=== PATIENT | female | born 1985 | race Caucasian/White ===

== ENCOUNTER 2017-08-09 14:49 | Inpatient (IN) | payer MEDICAID ==
--- NOTE | 2017-08-09 16:32 | ER Document Report ---
ED General - General Mode of Arrival: Ambulatory Information source: Patient TRAVEL OUTSIDE OF THE [place] IN LAST 30 DAYS: No <BRAYDEN RAMSEY - Last Filed: 08/09/17 23:39> <LOGAN TOTH - Last Filed: 08/09/17 23:48> - General Chief Complaint: Shoulder Pain Stated Complaint: SHOULDER PAIN Time Seen by Provider: 08/09/17 14:56 Notes: Patient is a 31 year old female presenting to the emergency department complaining of left shoulder pain, swelling and redness onset 2 weeks ago and worsening within the last few days. Patient states she dislocated her shoulder 2 weeks ago and was able to place it back in and dislocated her shoulder again a few days ago. Patient states she saw her primary care doctor a few days ago and was prescribed ibuprofen 800 mg and was told to go to the emergency department which she thought was not needed. Patient states since then, her arm became red and started to swell from her shoulder to her elbow. Patient states she has been alternating ice and heat and has placed her left arm in a sling. Patients associated symptoms include restriction of arm use due to pain, numbness and a fever of 103.4 onset yesterday. Patient admits to prior IV drug abuse and states she is currently taking Subutex. (BRAYDEN RAMSEY) - Related Data Allergies/Adverse Reactions: Sulfa (Sulfonamide Antibiotics) Allergy (Verified 08/09/17 14:51) Past Medical History - General Information source: Patient - Social History Smoking Status: Unknown if Ever Smoked Drug Abuse: Other - Previous IV drug abuse Family History: Reviewed & Not Pertinent <BRAYDEN RAMSEY - Last Filed: 08/09/17 23:39> Review of Systems - Review of Systems Constitutional: See HPI, Fever EENT: No symptoms reported Cardiovascular: No symptoms reported Respiratory: No symptoms reported Gastrointestinal: No symptoms reported Genitourinary: No symptoms reported Female Genitourinary: No symptoms reported Musculoskeletal: See HPI Skin: No symptoms reported Hematologic/Lymphatic: No symptoms reported Neurological/Psychological: See HPI, Numbness -: Yes All other systems reviewed and negative <BRAYDEN RAMSEY - Last Filed: 08/09/17 23:39> Physical Exam <BRAYDEN RAMSEY - Last Filed: 08/09/17 23:39> <LOGAN TOTH - Last Filed: 08/09/17 23:48> - Vital signs Vitals: Temp Pulse Resp BP Pulse Ox 99.2 F 77 16 100/53 L 98 08/09/17 14:56 08/09/17 14:56 08/09/17 14:56 08/09/17 14:56 08/09/17 14:56 - Notes Notes: GENERAL: Alert, interacts well. No acute distress. HEAD: Normocephalic, atraumatic. EYES: Pupils equal, round, and reactive to light. Extraocular movements intact. ENT: Oral mucosa moist, tongue midline. NECK: Full range of motion. Supple. Trachea midline. LUNGS: Clear to auscultation bilaterally, no wheezes, rales, or rhonchi. No respiratory distress. HEART: Regular rate and rhythm. No murmurs, gallops, or rubs. ABDOMEN: Soft, non-tender. Non-distended. Bowel sounds present in all 4 quadrants. EXTREMITIES: Swelling anterior and posteriorly of the left shoulder which is tender to palpation. Swelling distal to the left elbow. Left shoulder is erythematous anteriorly. Erythema anteriorly along the left bicep. Restrictive ROM of about 45 degrees of left arm . Mild restrictve ROM with internal rotation. Mild restrictive ROM of about 30 degress with external rotation of left arm. Restrictive ROM with abduction of left arm of about 30 degrees. Somewhat restrictive ROM with passive extension of left arm. Moves all 4 extremities spontaneously. Radial and dorsalis pedis pulses 2/4 bilaterally. No cyanosis. NEUROLOGICAL: Alert and oriented x3. Normal speech. PSYCH: Slightly tearful during exam. SKIN: Old track murphy. No active signs of recent IV drug abuse.See above extremities. (BRAYDEN RAMSEY) Course - Laboratory Result Diagrams: 08/09/17 16:40 08/09/17 16:40 <BRAYDEN RAMSEY - Last Filed: 08/09/17 23:39> - Laboratory Result Diagrams: 08/09/17 16:40 08/09/17 16:40 <LOGAN TOTH - Last Filed: 08/09/17 23:48> - Re-evaluation Re-evalutation: 08/09/17 20:24 CBC shows anemia with hemoglobin 8.1, no left shift, no leukocytosis, venous blood gas unremarkable, lactic acid normal, chemistries grossly unremarkable, test negative, I am quite concerned by the elevated ESR at 32 and CRP elevated at 200.2, test is negative, alcohol level is undetectable. Shoulder x-ray does not show any subcu emphysema nor does it show any fracture or persistent shoulder dislocation. I am quite concerned for the possibility of a septic joint. I did discuss this patient with Dr. Handley who recommends getting an MRI of the left upper extremities and recommends admitting to his service. Recommends against starting IV antibiotics at this time so that if he does a joint aspiration or if he goes to surgery and obtains fluid from the joint it will not already be sterilized. Patient is complaining of pain, states she would rather not have narcotics as she is on Subutex as she is to be a former IV drug user, patient is agreeable to receiving IV Tylenol. She does have a history of hepatitis but her liver functions normal at this time. IV Tylenol will be attempted. Patient is quite anxious about the MRI, she will be given 1 mg of Ativan IV approximately 15 minutes prior to the MRI. 08/09/17 20:26 08/09/17 23:03 MRI shows a large loculated abscess in the left upper extremity, this was communicated to me by the radiologist, Dr. Handley did look at the MRI himself, is concerned by her laboratory studies, asked hospitalist who is covering for Dr. Bhatti to admit, hospitalist feels this is primarily orthopedics and would be happy to consult. Ortho will now admit and consult hospitalist for preoperative clearance. Patient's pain is not relieved by IV acetaminophen, she will be given Toradol. I did discuss with the patient her anemia and she states that she has been previously told that she should be taking iron for her anemia, admits that she is not taking the iron like she is supposed to. States she has had multiple workups for intermittent fevers including a STEPHANIE for endocarditis and this is all been negative. Has been diagnosed in the past with fevers of unknown origin. Patient also states she has had a negative HIV test, has not shared needles since prior to her negative HIV test. (LOGAN TOTH ) - Vital Signs Vital signs: Temp Pulse Resp BP Pulse Ox 98.9 F 62 16 105/60 98 08/09/17 20:16 08/09/17 20:16 08/09/17 20:16 08/09/17 20:16 08/09/17 20:16 - Laboratory Laboratory results interpreted by me: 08/09/17 08/09/17 16:40 16:40 Hgb 8.1 L Hct 25.8 L MCV 62 L MCH 19.5 L MCHC 31.5 L RDW 18.3 H ESR 32 H Total Bilirubin < 0.1 L C-Reactive Protein 200.2 H Albumin 3.2 L Discharge <BRAYDEN RAMSEY - Last Filed: 08/09/17 23:39> - Discharge [facility] <LOGAN TOTH - Last Filed: 08/09/17 23:48> - Discharge Clinical Impression: Abscess of left upper extremity Septic arthritis of shoulder, left Qualifiers: Septic arthritis organism: due to unspecified organism Qualified Code(s): M00.9 - Pyogenic arthritis, unspecified Condition: Fair Disposition: ADMITTED INPATIENT Scribe Attestation: 08/09/17 23:48 I personally performed the services described in the documentation, reviewed and edited the documentation which was dictated to the scribe in my presence, and it accurately records my words and actions. (LOGAN TOTH) Scribe Documentation - Scribe Written by Rick:: Rick Rider, 08/09/2017 16:48 acting as scribe for :: Alysia <BRAYDEN RAMSEY - Last Filed: 08/09/17 23:39>
--- NOTE | 2017-08-09 16:44 | RADIOLOGY REPORT (SQ) ---
EXAM DESCRIPTION: SHOULDER LEFT 2 OR MORE VIEWS COMPLETED DATE/TIME: 08/09/2017 4:30 pm REASON FOR STUDY: L shoulder pain/swelling/fever, recent disloc x 2 COMPARISON: None. NUMBER OF VIEWS: Three views. TECHNIQUE: Internal rotation, external rotation, and Y view images acquired of the left shoulder. LIMITATIONS: None. FINDINGS: MINERALIZATION: Normal. BONES: No acute fracture or dislocation. No worrisome bone lesions. JOINTS: No dislocation. VISUALIZED LUNGS AND RIBS: No pneumothorax. No rib fracture. SOFT TISSUES: No radiopaque foreign body. OTHER: No other significant finding. IMPRESSION: NEGATIVE STUDY OF THE LEFT SHOULDER. NO RADIOGRAPHIC EVIDENCE OF ACUTE INJURY. TECHNICAL DOCUMENTATION: JOB ID: [id number] [employer]- All Rights Reserved Reading location - IP/workstation name: [email or web address]
[2017-08-09 17:08] LABS: VENOUS BLOOD BASE EXCESS -0.2 mmol/L; VENOUS BLOOD HCO3 25.2 mmol/L (20-32); VENOUS BLOOD PCO2 45.1 mmHg (35-63); VENOUS BLOOD PH 7.37 (7.30-7.42)
[2017-08-09 17:10] LABS: ABSOLUTE EOSINOPHILS # (AUTO) 0.3 10^3/uL (0.0-0.6); ABSOLUTE MONOCYTES (AUTO) 0.5 10^3/uL (0.1-1.4); ABSOLUTE NEUT (AUTO) 5.7 10^3/uL (1.7-8.2); BASOPHILS % (AUTO) 0.3 % (0-2); EOSINOPHILS % (AUTO) 4.6 % (0-6); HEMATOCRIT 25.8 % (36.0-47.0); HEMOGLOBIN 8.1 g/dL (12.0-15.5); LYMPHOCYTES % (AUTO) 13.5 % (13-45); MEAN CORPUSCULAR HEMOGLOBIN 19.5 pg (27.0-33.4); MEAN CORPUSCULAR HGB CONC 31.5 g/dL (32.0-36.0); MONOCYTES % (AUTO) 6.3 % (3-13); PLATELET COUNT 370 10^3/uL (150-450); RED BLOOD COUNT 4.17 10^6/uL (3.72-5.28); RED CELL DISTRIBUTION WIDTH 18.3 % (11.5-14.0); SEGMENTED NEUTROPHILS % (AUTO) 75.3 % (42-78); TOTAL CELLS COUNTED % (AUTO) 100 %; WHITE BLOOD COUNT 7.6 10^3/uL (4.0-10.5)
[2017-08-09 17:29] LABS: ALANINE AMINOTRANSFERASE 15 U/L (9-52); ALBUMIN 3.2 g/dL (3.5-5.0); ALKALINE PHOSPHATASE 95 U/L (38-126); ANION GAP 11 (5-19); ASPARTATE AMINO TRANSFERASE 14 U/L (14-36); BLOOD UREA NITROGEN 16 mg/dL (7-20); CALCIUM 8.7 mg/dL (8.4-10.2); CARBON DIOXIDE 27 mmol/L (22-30); CHLORIDE 104 mmol/L (98-107); GLUCOSE 88 mg/dL (75-110); POTASSIUM 3.6 mmol/L (3.6-5.0); SODIUM 142.4 mmol/L (137-145); TOTAL PROTEIN 6.9 g/dL (6.3-8.2)
[2017-08-09 17:40] LABS: ALCOHOL < 10 mg/dL (NONE DETECTED); BILIRUBIN,TOTAL < 0.1 mg/dL (0.2-1.3); C-REACTIVE PROTEIN 200.2 mg/L (<10.0)
[2017-08-09 17:42] LABS: TOXIC GRANULATION 1+
[2017-08-09 17:43] LABS: ANISOCYTOSIS 2+; OVALOCYTES 1+; PLATELET COMMENT ADEQUATE; PLATELET LARGE PRESENT; POIKILOCYTOSIS 1+; SCHISTOCYTES SLIGHT
[2017-08-09 17:44] LABS: MEAN CORPUSCULAR VOLUME 62 fl (80-97)
[2017-08-09 18:23] LABS: ERYTHROCYTE SEDIMENTATION RATE 32 mm/hr (0-20)
[2017-08-09] MEDS ORDERED: LORAZEPAM INJ 2 MG/1 ML VIAL IV ONE (20:23)
[2017-08-09] MEDS ORDERED: ACETAMINOPHEN 1,000 MG/100 ML RTUPB IV ONE (20:23)
--- NOTE | 2017-08-09 22:46 | RADIOLOGY REPORT (SQ) ---
EXAM DESCRIPTION: MRI LT UPPER JOINT COMBO COMPLETED DATE/TIME: 08/09/2017 10:03 pm REASON FOR STUDY: left shoulder swelling, pain, ?septic joint History of dislocation 2 weeks ago 0 and then again a few days ago. Also history of IV drug abuse. COMPARISON: Correlation made to radiographs 08/09/2017. TECHNIQUE: Multiplanar fat and fluid sensitive sequences precontrast including T1, T2 fat saturated or STIR of the left shoulder. Post contrast T1 fat saturated sequences after IV gadolinium administr ation. CONTRAST TYPE AND DOSE: 10 mL Prohance. RENAL FUNCTION: GFR > 60. LIMITATIONS: None. FINDINGS: The humeral head is normally located. Marrow signal is normal without fracture or suspici ous osseous lesion. The acromioclavicular joint space is maintained without significant degenerative change. There is trace fluid within the subacromial/subdeltoid bursa. The rotator cuff appears to be intact however there is some increased signal involving the subscapularis which may represent musc le strain or reactive edema. There is a small glenohumeral joint effusion with abnormal synovial enhancement. There is a multiloc ulated rim enhancing fluid collection anterior to the glenohumeral joint space at the level the bicip ital groove measuring 4.4 x 3.4 x 9.0 cm suspicious for abscess or infected hematoma. There is diffu se adjacent reactive soft tissue edema. IMPRESSION: 9 CM MULTILOCULATED RIM ENHANCING FLUID COLLECTION ANTERIOR TO THE GLENOHUMERAL JOINT SP ANA LAURA AT THE LEVEL THE BICIPITAL GROOVE PRESUMABLY REPRESENTING AN ABSCESS OR INFECTED HEMATOMA. THERE IS A SMALL GLENOHUMERAL JOINT EFFUSION WITH ABNORMAL SYNOVIAL ENHANCEMENT WHICH COULD BE REACTI VE EFFUSION OR SEPTIC ARTHRITIS. FLUID SAMPLING MAY BE NECESSARY. EDEMA NOTED WITHIN THE SUBSCAPULARIS MUSCLE WHICH COULD REPRESENT MUSCLE STRAIN OR REACTIVE EDEMA IN THE SETTING OF PATIENT'S RECENT INJURY. NO FRACTURE OR SUSPICIOUS OSSEOUS LESION. COMMENT: Pertinent findings on the imaging study reported to LOGAN TOTH DO at22:41 on 08/09/2017. TECHNICAL DOCUMENTATION: JOB ID: [id number] [employer]- All Rights Reserved Reading location - IP/workstation name: [email or web address]
[2017-08-09] MEDS ORDERED: KETOROLAC TROMETHAMINE INJ/PF 30 MG/1 ML SDV IV ONE (22:54)
[2017-08-09] MEDS ORDERED: DEXTROSE 50%-WATER 25 GM/50 ML DISP.SYRIN IV PRN ×2 (23:03)
[2017-08-09] MEDS ORDERED: GLUCAGON,HUMAN RECOMB 1 MG INJ SUBCUT PRN (23:03)
[2017-08-09] MEDS ORDERED: RINGERS SOLUTION,LACTATED 1,000 ML IV PRN (23:03)
[2017-08-09] MEDS ORDERED: DEXTROSE 40% GEL 15 GM TUBE PO PRN ×2 (23:03)
[2017-08-09] MEDS ORDERED: ONDANSETRON HCL INJ/PF 4 MG/2 ML SDV IV PRN (23:07)
[2017-08-09] MEDS ORDERED: MORPHINE SULFATE 10 MG/ML INJ IV PRN (23:07)
[2017-08-09 23:39] LABS: URINE AMPHETAMINES SCREEN NEGATIVE; URINE BARBITURATES SCREEN UNCONFIRMED POSITIVE; URINE BENZODIAZEPINES SCREEN NEGATIVE; URINE COCAINE SCREEN NEGATIVE; URINE MARIJUANA (THC) SCREEN NEGATIVE; URINE METHADONE SCREEN NEGATIVE; URINE PHENCYCLIDINE SCREEN NEGATIVE
[2017-08-09 23:45] LABS: ABSOLUTE EOSINOPHILS # (AUTO) 0.4 10^3/uL (0.0-0.6); ABSOLUTE LYMPHOCYTES (AUTO) 1.2 10^3/uL (0.5-4.7); ABSOLUTE MONOCYTES (AUTO) 0.6 10^3/uL (0.1-1.4); BASOPHILS % (AUTO) 0.5 % (0-2); EOSINOPHILS % (AUTO) 4.6 % (0-6); HEMATOCRIT 25.6 % (36.0-47.0); HEMOGLOBIN 8.1 g/dL (12.0-15.5); LYMPHOCYTES % (AUTO) 14.2 % (13-45); MEAN CORPUSCULAR HEMOGLOBIN 19.3 pg (27.0-33.4); MEAN CORPUSCULAR HGB CONC 31.6 g/dL (32.0-36.0); MEAN CORPUSCULAR VOLUME 61 fl (80-97); PLATELET COUNT 373 10^3/uL (150-450); RED BLOOD COUNT 4.19 10^6/uL (3.72-5.28); SEGMENTED NEUTROPHILS % (AUTO) 73.7 % (42-78); TOTAL CELLS COUNTED % (AUTO) 100 %; WHITE BLOOD COUNT 8.2 10^3/uL (4.0-10.5)
[2017-08-10 00:25] LABS: OVALOCYTES 1+; PLATELET COMMENT ADEQUATE; POIKILOCYTOSIS 1+; SCHISTOCYTES SLIGHT
[2017-08-10 00:26] LABS: ANISOCYTOSIS 2+; HYPOCHROMASIA 1+
[2017-08-10] MEDS ORDERED: KETOROLAC TROMETHAMINE INJ/PF 30 MG/1 ML SDV IV PRN (03:06)
[2017-08-10] MEDS ORDERED: MAGNESIUM HYDROXIDE SUSP 30 ML UDCUP PO PRN (04:15)
--- NOTE | 2017-08-10 04:27 | PDOC CONSULTATION ---
Consultation Consult Date: 08/10/17 Attending physician:: ERIK MUNSON Consult reason:: Anemia, hepatitis C, chronic pain. History of Present Illness Admission Date/PCP: 08/09/17 21:04 [facility] Patient complains of: Left shoulder pain History of Present Illness: CECY VALDERRAMA is a 31 year old female with history of iron deficiency anemia, hepatitis C and remote IV drug use. Presents after multiple falls over the last 2 weeks resulting in left shoulder dislocation which she is able to reduce however has developed left shoulder pain and swelling prompting evaluation emergency room. She is found to have a reduced range of motion, marketed swelling anteriorly and a fever of 100.3. MRI reveals a 9 cm loculated rim- enhancing fluid collection anterior to the glenohumeral joint suggestive of abscess. She started on empiric antibiotics and referred to orthopedic surgery. Past Medical History Psychiatric Medical History: Reports: Depression, Substance Abuse Hematology: Reports: Anemia Infectious Medical History: Reports: Hepatitis C Social History Information Source: Patient, [facility] Records Smoking Status: Current Every Day Smoker Frequency of Alcohol Use: None Hx Recreational Drug Use: Yes Drugs: None Hx Prescription Drug Abuse: Yes - Advance Directive Resuscitation Status: Full Code Family History Family History: Hypertension Parental Family History Reviewed: Yes Children Family History Reviewed: Yes Sibling(s) Family History Reviewed.: Yes Medication/Allergy Allergies/Adverse Reactions: Sulfa (Sulfonamide Antibiotics) Allergy (Verified 08/09/17 14:51) Review of Systems Constitutional: ABSENT: chills, fever(s), headache(s), weight gain, weight loss Eyes: ABSENT: visual disturbances Ears: ABSENT: hearing changes Cardiovascular: ABSENT: chest pain, dyspnea on exertion, edema, orthropnea, palpitations Respiratory: ABSENT: cough, hemoptysis Gastrointestinal: ABSENT: abdominal pain, constipation, diarrhea, hematemesis, hematochezia, nausea, vomiting Genitourinary: ABSENT: dysuria, hematuria Musculoskeletal: ABSENT: joint swelling Integumentary: ABSENT: rash, wounds Neurological: ABSENT: abnormal gait, abnormal speech, confusion, dizziness, focal weakness, syncope Psychiatric: ABSENT: anxiety, depression, homidical ideation, suicidal ideation Endocrine: ABSENT: cold intolerance, heat intolerance, polydipsia, polyuria Hematologic/Lymphatic: ABSENT: easy bleeding, easy bruising Physical Exam Vital Signs: Temp Pulse Resp BP Pulse Ox 98.9 F 61 19 109/60 97 08/10/17 00:15 08/10/17 00:15 08/10/17 00:15 08/10/17 00:15 08/10/17 00:15 Intake & Output 08/08/17 08/09/17 08/10/17 11:59 11:59 11:59 Weight 62.7 kg General appearance: PRESENT: cooperative, mild distress, thin Head exam: PRESENT: atraumatic, normocephalic Eye exam: PRESENT: conjunctiva pink, EOMI, PERRLA. ABSENT: scleral icterus Ear exam: PRESENT: normal external ear exam Mouth exam: PRESENT: moist, tongue midline Neck exam: ABSENT: carotid bruit, JVD, lymphadenopathy, thyromegaly Respiratory exam: PRESENT: clear to auscultation dmitri. ABSENT: rales, rhonchi, wheezes Cardiovascular exam: PRESENT: RRR. ABSENT: diastolic murmur, rubs, systolic murmur Pulses: PRESENT: normal dorsalis pedis pul Vascular exam: PRESENT: normal capillary refill GI/Abdominal exam: PRESENT: normal bowel sounds, soft. ABSENT: distended, guarding, mass, organolmegaly, rebound, tenderness Rectal exam: PRESENT: deferred Extremities exam: PRESENT: joint swelling - Left upper extremity range of motion limited by pain, +2 edema, other Musculoskeletal exam: ABSENT: full ROM Neurological exam: PRESENT: alert, awake, oriented to person, oriented to place , oriented to time, oriented to situation, CN II-XII grossly intact. ABSENT: motor sensory deficit Psychiatric exam: PRESENT: appropriate affect, normal mood. ABSENT: homicidal ideation, suicidal ideation Skin exam: PRESENT: dry, intact, warm. ABSENT: cyanosis, rash Results Laboratory Results: 08/09/17 23:22 08/09/17 23:22 WBC 8.2 RBC 4.19 Hgb 8.1 L Hct 25.6 L MCV 61 L MCH 19.3 L MCHC 31.6 L RDW 18.0 H Plt Count 373 Seg Neutrophils % 73.7 Lymphocytes % 14.2 Monocytes % 7.0 Eosinophils % 4.6 Basophils % 0.5 Absolute Neutrophils 6.0 Absolute Lymphocytes 1.2 Absolute Monocytes 0.6 Absolute Eosinophils 0.4 Absolute Basophils 0.0 Impressions: Shoulder X-Ray 08/09/17 16:03 IMPRESSION: NEGATIVE STUDY OF THE LEFT SHOULDER. NO RADIOGRAPHIC EVIDENCE OF ACUTE INJURY. Upper Extremity MRI 08/09/17 20:13 IMPRESSION: 9 CM MULTILOCULATED RIM ENHANCING FLUID COLLECTION ANTERIOR TO THE GLENOHUMERAL JOINT SPACE AT THE LEVEL THE BICIPITAL GROOVE PRESUMABLY REPRESENTING AN ABSCESS OR INFECTED HEMATOMA. THERE IS A SMALL GLENOHUMERAL JOINT EFFUSION WITH ABNORMAL SYNOVIAL ENHANCEMENT WHICH COULD BE REACTIVE EFFUSION OR SEPTIC ARTHRITIS. FLUID SAMPLING MAY BE NECESSARY. EDEMA NOTED WITHIN THE SUBSCAPULARIS MUSCLE WHICH COULD REPRESENT MUSCLE STRAIN OR REACTIVE EDEMA IN THE SETTING OF PATIENT'S RECENT INJURY. NO FRACTURE OR SUSPICIOUS OSSEOUS LESION. Assessment & Plan - Diagnosis (1) Anemia Is this a current diagnosis for this admission?: Yes Plan: Microcytic anemia suggestive of iron deficiency. Patient denies menorrhagia, iron supplementation p.o. with bowel regiment, consider blood transfusion. (2) Substance abuse Is this a current diagnosis for this admission?: Yes Plan: Avoid narcotics, Toradol and Tylenol ordered (3) Hepatitis C Is this a current diagnosis for this admission?: Yes Plan: Outpatient GI referral (4) Abscess of left upper extremity Is this a current diagnosis for this admission?: Yes Plan: Defer to orthopedic surgery - Time Time Spent: 30 to 50 Minutes
[2017-08-10 05:23] LABS: ABSOLUTE RETICS # 0.028 10^6/uL (0.028-0.122); RETICULOCYTE COUNT (AUTO) 0.76 % (0.66-2.85)
[2017-08-10 05:26] LABS: ANION GAP 9 (5-19); BLOOD UREA NITROGEN 14 mg/dL (7-20); CALCIUM 8.2 mg/dL (8.4-10.2); CARBON DIOXIDE 25 mmol/L (22-30); CHLORIDE 108 mmol/L (98-107); GLUCOSE 96 mg/dL (75-110); POTASSIUM 4.3 mmol/L (3.6-5.0); SODIUM 141.7 mmol/L (137-145)
[2017-08-10 05:37] LABS: IRON(TIBC) < 10.1 ug/dL (37-170)
[2017-08-10 06:32] LABS: FOLATE 9.55 ng/mL (>2.76)
[2017-08-10] MEDS ORDERED: MORPHINE SULFATE 10 MG/ML INJ ONE (07:53)
[2017-08-10] MEDS ORDERED: MIDAZOLAM 2 MG/2 ML INJ ONE (07:53)
[2017-08-10] MEDS ORDERED: PROPOFOL INJ 200 MG/20 ML VIAL IV ONE (07:53)
[2017-08-10] MEDS ORDERED: ACETAMINOPHEN 1,000 MG/100 ML RTUPB IV ONE (07:53)
[2017-08-10] MEDS ORDERED: FENTANYL CITRATE INJ/PF 100 MCG/2 ML AMPUL ONE ×2 (07:53→09:44)
--- NOTE | 2017-08-10 08:04 | PDOC H&P ---
History of Present Illness Admission Date/PCP: 08/09/17 21:04 [facility] Patient complains of: shoulder pain History of Present Illness: CECY VALDERRAMA is a 31 year old female presents to emergency room with left shoulder pain. Patient states proximal 2 weeks ago she sustained a fall dislocating her left shoulder she reduced the shoulder onto occasions. Patient continued to have pain and swelling when she noticed increasing pain swelling and redness in her left shoulder approximately 36 hours ago and had a temperature of 104. Patient states the pain is worse with motion. Notes fever and chills. Patient denies recent IV drug abuse. Does note history of hepatitis C and bacterial meningitis. Current pain 09/10. Denies international travel, insect bite or open wound. Past Medical History Psychiatric Medical History: Reports: Depression, Substance Abuse Hematology: Reports: Anemia Infectious Medical History: Reports: Hepatitis C Social History Smoking Status: Current Every Day Smoker Frequency of Alcohol Use: None Hx Recreational Drug Use: Yes Drugs: None Hx Prescription Drug Abuse: Yes - Advance Directive Resuscitation Status: Full Code Family History Family History: Hypertension Parental Family History Reviewed: No Children Family History Reviewed: No Sibling(s) Family History Reviewed.: No Medication/Allergy Home Medications: Buprenorphine HCl [Subutex 8 mg Sublingual Tablet] 1 tab SL DAILY 08/10/17 Buspirone HCl [Buspirone HCl] 30 mg PO BID 08/10/17 Gabapentin [Gabapentin] 300 mg PO TID 08/10/17 Allergies/Adverse Reactions: Sulfa (Sulfonamide Antibiotics) Allergy (Verified 08/09/17 14:51) Review of Systems Constitutional: PRESENT: chills, fever(s). ABSENT: headache(s), weight gain, weight loss Eyes: ABSENT: visual disturbances Ears: ABSENT: hearing changes Cardiovascular: ABSENT: chest pain, dyspnea on exertion, edema, orthropnea, palpitations Respiratory: ABSENT: cough, hemoptysis Gastrointestinal: ABSENT: abdominal pain, constipation, diarrhea, hematemesis, hematochezia, nausea, vomiting Genitourinary: ABSENT: dysuria, hematuria Musculoskeletal: PRESENT: as per HPI Integumentary: ABSENT: rash, wounds Neurological: ABSENT: abnormal gait, abnormal speech, confusion, dizziness, focal weakness, syncope Psychiatric: ABSENT: anxiety, depression, homidical ideation, suicidal ideation Endocrine: ABSENT: cold intolerance, heat intolerance, menstrual abnormalities, polydipsia, polyuria Hematologic/Lymphatic: ABSENT: easy bleeding, easy bruising, lymphadenopathy Physical Exam Vital Signs: Temp Pulse Resp BP Pulse Ox 99.1 F 68 16 92/52 L 97 08/10/17 07:13 08/10/17 07:13 08/10/17 07:13 08/10/17 07:13 08/10/17 07:13 Intake & Output 08/09/17 08/10/17 08/11/17 06:59 06:59 06:59 Intake Total 444 Balance 444 Weight 62.7 kg General appearance: PRESENT: no acute distress, well-developed, well-nourished Head exam: PRESENT: atraumatic, normocephalic Eye exam: PRESENT: conjunctiva pink, EOMI, PERRLA. ABSENT: scleral icterus Ear exam: PRESENT: normal external ear exam Mouth exam: PRESENT: moist, tongue midline Neck exam: PRESENT: full ROM. ABSENT: carotid bruit, JVD, lymphadenopathy, thyromegaly Cardiovascular exam: PRESENT: RRR. ABSENT: diastolic murmur, rubs, systolic murmur Pulses: PRESENT: normal dorsalis pedis pul, +2 pedal pulses bilateral Vascular exam: PRESENT: normal capillary refill GI/Abdominal exam: PRESENT: normal bowel sounds, soft. ABSENT: distended, guarding, mass, organolmegaly, rebound, tenderness Rectal exam: PRESENT: deferred Musculoskeletal exam: PRESENT: other - Left shoulder: Notable swelling anteriorly with erythema and fluctuance palpable. No fluctuance posterior. Pain with palpation and range of motion. Erythema extends along the anterior axilla to just proximal to the elbow flexion crease. No pain with elbow range of motion. No evidence of new IV track murphy or lesions. No sensory deficits. Neurological exam: PRESENT: alert, awake, oriented to person, oriented to place , oriented to time, oriented to situation, CN II-XII grossly intact. ABSENT: motor sensory deficit Psychiatric exam: PRESENT: appropriate affect, normal mood. ABSENT: homicidal ideation, suicidal ideation Skin exam: PRESENT: dry, intact, warm. ABSENT: cyanosis, rash Results Laboratory Results: 08/09/17 23:22 08/10/17 04:59 08/09/17 08/10/17 08/10/17 23:22 04:59 04:59 WBC 8.2 RBC 4.19 Hgb 8.1 L Hct 25.6 L MCV 61 L MCH 19.3 L MCHC 31.6 L RDW 18.0 H Plt Count 373 Seg Neutrophils % 73.7 Lymphocytes % 14.2 Monocytes % 7.0 Eosinophils % 4.6 Basophils % 0.5 Absolute Neutrophils 6.0 Absolute Lymphocytes 1.2 Absolute Monocytes 0.6 Absolute Eosinophils 0.4 Absolute Basophils 0.0 Retic Count (auto) 0.76 Absolute Retic 0.028 Sodium 141.7 Potassium 4.3 Chloride 108 H Carbon Dioxide 25 Anion Gap 9 BUN 14 Creatinine 0.73 Est GFR ( Amer) > 60 Est GFR (Non-Af Amer) > 60 Glucose 96 Calcium 8.2 L Iron TIBC % Saturation Ferritin Vitamin B12 Folate Blood Type Antibody Screen 08/10/17 08/10/17 04:59 04:59 WBC RBC Hgb Hct MCV MCH MCHC RDW Plt Count Seg Neutrophils % Lymphocytes % Monocytes % Eosinophils % Basophils % Absolute Neutrophils Absolute Lymphocytes Absolute Monocytes Absolute Eosinophils Absolute Basophils Retic Count (auto) Absolute Retic Sodium Potassium Chloride Carbon Dioxide Anion Gap BUN Creatinine Est GFR ( Amer) Est GFR (Non-Af Amer) Glucose Calcium Iron < 10.1 L TIBC 246 L % Saturation UNABLE TO CALCULATE Ferritin 24.90 Vitamin B12 466.0 Folate 9.55 Blood Type A POSITIVE Antibody Screen NEGATIVE Impressions: Shoulder X-Ray 08/09/17 16:03 IMPRESSION: NEGATIVE STUDY OF THE LEFT SHOULDER. NO RADIOGRAPHIC EVIDENCE OF ACUTE INJURY. Upper Extremity MRI 08/09/17 20:13 IMPRESSION: 9 CM MULTILOCULATED RIM ENHANCING FLUID COLLECTION ANTERIOR TO THE GLENOHUMERAL JOINT SPACE AT THE LEVEL THE BICIPITAL GROOVE PRESUMABLY REPRESENTING AN ABSCESS OR INFECTED HEMATOMA. THERE IS A SMALL GLENOHUMERAL JOINT EFFUSION WITH ABNORMAL SYNOVIAL ENHANCEMENT WHICH COULD BE REACTIVE EFFUSION OR SEPTIC ARTHRITIS. FLUID SAMPLING MAY BE NECESSARY. EDEMA NOTED WITHIN THE SUBSCAPULARIS MUSCLE WHICH COULD REPRESENT MUSCLE STRAIN OR REACTIVE EDEMA IN THE SETTING OF PATIENT'S RECENT INJURY. NO FRACTURE OR SUSPICIOUS OSSEOUS LESION. Status: Image reviewed by me - I have reviewed patient's radiographs and MRI which demonstrates a large loculated abscess along the anterior aspect of the glenohumeral joint with small glenohumeral effusion no evidence of osteomyelitis. Assessment & Plan - Diagnosis (1) Septic arthritis of shoulder, left Qualifiers: Septic arthritis organism: due to unspecified organism Qualified Code(s): M00.9 - Pyogenic arthritis, unspecified Is this a current diagnosis for this admission?: Yes Plan: Patient has findings of anterior humeral abscess with effusion likely consistent with septic arthritis which may be the initiation of patient's issues which possibly caused the anterior abscess after disruption of the capsule due to her dislocation either way patient requires operative intervention which includes irrigation and debridement of the left shoulder. Today we will obtain intraoperative cultures once cultures are obtained patient will receive IV antibiotics until cultures demonstrate sensitivities. Given the septic arthritis nature patient may require a series of IV antibiotics at home. I have discussed risks and benefits of the operative procedure including neurovascular risk, recurrent infection, postoperative pain and postoperative stiffness. Patient understands given the severity of her infection she may require multiple operative irrigation and debridements. She also understands the severity of infection which could cause seeding infections including her heart valves resulting in increased risk of mortality. After discussing these options we will proceed with operative intervention which patient has consented for and all questions answered.
[2017-08-10] MEDS ORDERED: VANCOMYCIN HCL INJ 1000 MG VIAL IV ONE (08:07)
[2017-08-10] MEDS ORDERED: VANCOMYCIN HCL 0 MG in DEXTROSE 5%-WATER 250 ML IV NR (08:30)
[2017-08-10] MEDS ORDERED: CEFTRIAXONE INJ 1000 MG VIAL ONE (08:30)
[2017-08-10] MEDS ORDERED: LORAZEPAM INJ 2 MG/1 ML VIAL IV ONE (09:00)
[2017-08-10] MEDS ORDERED: HYDROMORPHONE HCL INJ/PF 2 MG/ML AMPULE INJ ONE (09:05)
--- NOTE | 2017-08-10 09:18 | Operative Report ---
Operative Report DATE OF SURGERY: 08/10/17 PREOPERATIVE DIAGNOSIS: Septic arthritis/abscess left shoulder POSTOPERATIVE DIAGNOSIS: Same OPERATION: Irrigation and excisional debridement abscess left shoulder, glenohumeral joint SURGEON: ERIK MUNSON ANESTHESIA: GA TISSUE REMOVED OR ALTERED: Aerobic, anaerobic, AFB and fungal cultures obtained COMPLICATIONS: None ESTIMATED BLOOD LOSS: 50 cc PROCEDURE: Indication for above procedure: 31-year-old female who developed abscess and septic arthritis of her left shoulder possibly caused by initiating traumatic event. Patient was admitted to the hospital with significant elevated CRP and MRI confirming above diagnosis. I discussed treatment options with the patient including operative intervention. Risks and benefits were explained patient verbalized understanding consented for the procedure. Procedure In Detail: Patient was seen and evaluated in the preoperative holding area. The LEFT upper extremity was initialized and marked. Patient received IV vancomycin and cefepime once cultures were obtained. Patient was taken back to the operative room where transferred to the operative table and placed under general anesthesia. Once they were adequately anesthetized patient was placed in the beachchair position cervical spine placed in neutral position bilateral lower extremities carefully padded and nonoperative right upper extremity. A surgical team debriefing was performed ensuring all instrumentation was available, the surgical procedure was discussed with possible concerns reviewed. The upper extremity was prepped with ChloraPrep and draped in a sterile fashion. A timeout was done identifying correct patient, procedure and extremity everyone in attendance agree with this and verbalized no concerns. Proximal half of the deltopectoral approach was utilized and incision made. Upon approach copious amounts of purulence was encountered along the anterior aspect of the glenohumeral joint extending along the proximal third of the humerus. Cultures were obtained and soft tissue sent for culture including aerobic, anaerobic, AFB and fungal. Blunt dissection on the deltopectoral interval proximally was encountered in the cephalic vein retracted in a medial direction. The glenohumeral joint was then entered anteriorly at a small defect in the capsule and subscapularis likely secondary to patient's original dislocation. Within this area cultures were once again obtained. The wound was copiously irrigated with Pulsavac normal saline using 3 L. A large Pantera drain was placed deep and a second drain placed superficially. The subcutaneous tissues were closed with 3-0 Monocryl suture. Skin was closed with 3-0 nylon suture. Drains were secured with 2-0 nylon suture. Wound was dressed with an Acticoat dressing. Sponge counts, instrument counts, needle counts counts were correct. Patient was then awoken from anesthesia. Transferred from the operating room table to the operating room stretcher. There was no intraoperative complications patient tolerated procedure well stable to PACU. Postoperative plan: Patient will be started on IV vancomycin and rocephin until cultures are final and sensitivities determined, will continue drains until <5cc
[2017-08-10] MEDS ORDERED: PROMETHAZINE HCL INJ 25 MG/1 ML VIAL ONE (09:25)
[2017-08-10] MEDS ORDERED: HYDROMORPHONE HCL INJ/PF 2 MG/ML AMPULE ONE (09:25)
[2017-08-10] MEDS ORDERED: LORAZEPAM INJ 2 MG/1 ML VIAL ONE (09:29)
[2017-08-10] MEDS ORDERED: MORPHINE SULFATE 10 MG/ML INJ IV PRN (09:33)
[2017-08-10] MEDS ORDERED: FENTANYL CITRATE INJ/PF 100 MCG/2 ML AMPUL IV PRN ×3 (09:33)
[2017-08-10] MEDS ORDERED: MEPERIDINE HCL/PF INJ 25 MG/1 ML DISP.SYRIN IV PRN (09:33)
[2017-08-10] MEDS ORDERED: OXYCODONE-ACETAMINOPHEN 5-325 MG TABLET PO PRN ×2 (09:33)
[2017-08-10] MEDS ORDERED: DIPHENHYDRAMINE HCL 50 MG/ML VIAL IV PRN (09:33)
[2017-08-10] MEDS ORDERED: PROMETHAZINE HCL INJ 25 MG/1 ML VIAL IV PRN ×2 (09:33)
[2017-08-10] MEDS ORDERED: KETOROLAC TROMETHAMINE INJ/PF 30 MG/1 ML SDV ONE (09:43)
[2017-08-10] MEDS ORDERED: MEPERIDINE HCL/PF INJ 25 MG/1 ML DISP.SYRIN ONE (09:50)
[2017-08-10] MEDS ORDERED: CEFEPIME 1 GM/D5W RTU 1 GM/50 ML RTUPB IV SCH (10:00)
[2017-08-10] MEDS ORDERED: GABAPENTIN 300 MG CAPSULE PO SCH (10:00)
[2017-08-10] MEDS ORDERED: VANCOMYCIN HCL 750 MG in DEXTROSE 5%-WATER 250 ML IV SCH (10:00)
[2017-08-10] MEDS: CEFTRIAXONE 2 GM/D5W RTU 2 GM/50 ML RTUPB IV SCH (11:19)
--- NOTE | 2017-08-10 11:23 | PDOC PROGRESS REPORT ---
Subjective Progress Note for:: 08/10/17 Subjective:: Patient is seen resting in bed. She is just returned from left shoulder surgery with Dr. Handley. He is awake and alert at the present time. She is not having significant pain in the shoulder at the present time. Mother and sister at the bedside. Mother asked that she not be given any further narcotic pain medication because of her history of opioid abuse. We have increased her dose of IV Toradol with good effect. She denies any chest pain, shortness of breath or dyspnea. She denies any nausea, vomiting or abdominal pain at the present time. She is having moderate pain in the left shoulder improved after medication. Remaining review of systems are negative. Reason For Visit: PYOGENIC ARTHRITIS OF L SHOULDER REGION Physical Exam Vital Signs: Temp Pulse Resp BP Pulse Ox 98.2 F 66 17 123/75 100 08/10/17 10:31 08/10/17 10:31 08/10/17 10:31 08/10/17 10:31 08/10/17 09:10 Intake & Output 08/09/17 08/10/17 08/11/17 06:59 06:59 06:59 Intake Total 444 3000 Output Total 3000 Balance 444 0 Weight 62.7 kg General appearance: PRESENT: no acute distress, thin, well-developed Head exam: PRESENT: atraumatic, normocephalic Eye exam: PRESENT: conjunctiva pink, EOMI, PERRLA. ABSENT: scleral icterus Ear exam: PRESENT: normal external ear exam Mouth exam: PRESENT: moist, tongue midline Neck exam: ABSENT: carotid bruit, JVD, lymphadenopathy, thyromegaly Respiratory exam: PRESENT: clear to auscultation dmitri. ABSENT: rales, rhonchi, wheezes Cardiovascular exam: PRESENT: RRR. ABSENT: diastolic murmur, rubs, systolic murmur Pulses: PRESENT: normal carotid pulses Vascular exam: PRESENT: normal capillary refill GI/Abdominal exam: PRESENT: normal bowel sounds, soft. ABSENT: distended, guarding, mass, organolmegaly, rebound, tenderness Rectal exam: PRESENT: deferred Extremities exam: PRESENT: tenderness - Left shoulder, other - Left shoulder in a sling Musculoskeletal exam: PRESENT: ambulatory, deformity - Left shoulder, tenderness - Left shoulder Neurological exam: PRESENT: alert, awake, oriented to person, oriented to place , oriented to time, oriented to situation, CN II-XII grossly intact. ABSENT: motor sensory deficit Psychiatric exam: PRESENT: anxious Skin exam: PRESENT: dry, intact, warm. ABSENT: cyanosis, rash Results Laboratory Results: 08/09/17 23:22 08/10/17 04:59 08/09/17 08/10/17 08/10/17 23:22 04:59 04:59 WBC 8.2 RBC 4.19 Hgb 8.1 L Hct 25.6 L MCV 61 L MCH 19.3 L MCHC 31.6 L RDW 18.0 H Plt Count 373 Seg Neutrophils % 73.7 Lymphocytes % 14.2 Monocytes % 7.0 Eosinophils % 4.6 Basophils % 0.5 Absolute Neutrophils 6.0 Absolute Lymphocytes 1.2 Absolute Monocytes 0.6 Absolute Eosinophils 0.4 Absolute Basophils 0.0 Retic Count (auto) 0.76 Absolute Retic 0.028 Sodium 141.7 Potassium 4.3 Chloride 108 H Carbon Dioxide 25 Anion Gap 9 BUN 14 Creatinine 0.73 Est GFR ( Amer) > 60 Est GFR (Non-Af Amer) > 60 Glucose 96 Calcium 8.2 L Iron TIBC % Saturation Ferritin Vitamin B12 Folate Blood Type Antibody Screen 08/10/17 08/10/17 04:59 04:59 WBC RBC Hgb Hct MCV MCH MCHC RDW Plt Count Seg Neutrophils % Lymphocytes % Monocytes % Eosinophils % Basophils % Absolute Neutrophils Absolute Lymphocytes Absolute Monocytes Absolute Eosinophils Absolute Basophils Retic Count (auto) Absolute Retic Sodium Potassium Chloride Carbon Dioxide Anion Gap BUN Creatinine Est GFR ( Amer) Est GFR (Non-Af Amer) Glucose Calcium Iron < 10.1 L TIBC 246 L % Saturation UNABLE TO CALCULATE Ferritin 24.90 Vitamin B12 466.0 Folate 9.55 Blood Type A POSITIVE Antibody Screen NEGATIVE Impressions: Shoulder X-Ray 08/09/17 16:03 IMPRESSION: NEGATIVE STUDY OF THE LEFT SHOULDER. NO RADIOGRAPHIC EVIDENCE OF ACUTE INJURY. Upper Extremity MRI 08/09/17 20:13 IMPRESSION: 9 CM MULTILOCULATED RIM ENHANCING FLUID COLLECTION ANTERIOR TO THE GLENOHUMERAL JOINT SPACE AT THE LEVEL THE BICIPITAL GROOVE PRESUMABLY REPRESENTING AN ABSCESS OR INFECTED HEMATOMA. THERE IS A SMALL GLENOHUMERAL JOINT EFFUSION WITH ABNORMAL SYNOVIAL ENHANCEMENT WHICH COULD BE REACTIVE EFFUSION OR SEPTIC ARTHRITIS. FLUID SAMPLING MAY BE NECESSARY. EDEMA NOTED WITHIN THE SUBSCAPULARIS MUSCLE WHICH COULD REPRESENT MUSCLE STRAIN OR REACTIVE EDEMA IN THE SETTING OF PATIENT'S RECENT INJURY. NO FRACTURE OR SUSPICIOUS OSSEOUS LESION. Assessment & Plan - Diagnosis (1) Septic arthritis of shoulder, left Qualifiers: Septic arthritis organism: due to unspecified organism Qualified Code(s): M00.9 - Pyogenic arthritis, unspecified Is this a current diagnosis for this admission?: Yes Plan: Continue IV broad-spectrum antibiotics. We can de-escalate once culture results are obtained. (2) Abscess of left upper extremity Is this a current diagnosis for this admission?: Yes Plan: She was taken to the OR this morning by orthopedic surgery for washout. Pain is presently well controlled. (3) Anemia Qualifiers: Anemia type: iron deficiency Is this a current diagnosis for this admission?: Yes Plan: Likely stable. (4) Hepatitis C Qualifiers: Viral hepatitis chronicity: chronic Is this a current diagnosis for this admission?: Yes Plan: Follows with GI as an outpatient (5) Substance abuse Is this a current diagnosis for this admission?: Yes Plan: Continue Suboxone. Avoid any type of narcotic analgesics. - Time Time Spent with patient: 15-24 minutes Total Critical Time (Minutes): 15 Medications reviewed and adjusted accordingly: Yes Anticipated discharge: Home
[2017-08-10] MEDS ORDERED: SERTRALINE HCL 50 MG TABLET PO SCH (12:07)
[2017-08-10] MEDS: IRON POLYSACCHARIDES COMPLEX 150 MG CAPSULE PO SCH (12:19)
[2017-08-10] MEDS: DOCUSATE SODIUM 100 MG CAPSULE PO SCH ×2 (12:21→17:48)
[2017-08-10] MEDS: BUSPIRONE HCL 10 MG TABLET PO SCH ×2 (12:21→23:24)
[2017-08-10] MEDS: BUTALB/ACETAMINOPHEN/CAFFEINE 1 TAB EACH PO PRN ×2 (12:32→20:19)
[2017-08-10] MEDS: KETOROLAC TROMETHAMINE INJ/PF 30 MG/1 ML SDV IV PRN ×2 (13:02→19:29)
[2017-08-10] MEDS: GABAPENTIN 300 MG CAPSULE PO SCH ×2 (13:02→17:48)
[2017-08-10] MEDS: VANCOMYCIN HCL 750 MG in DEXTROSE 5%-WATER 250 ML IV SCH ×2 (13:04→23:24)
[2017-08-10] MEDS: BUPRENORPHINE HCL 2 MG SUBLINGUAL TABLET SL SCH ×2 (15:37→19:30)
[2017-08-10] MEDS ORDERED: SUCCINYLCHOLINE CHLORIDE INJ 200 MG/10 ML VIAL ONE (16:24)
[2017-08-10 16:45] LABS: ABSOLUTE EOSINOPHILS # (AUTO) 0.3 10^3/uL (0.0-0.6); ABSOLUTE MONOCYTES (AUTO) 0.4 10^3/uL (0.1-1.4); ABSOLUTE NEUT (AUTO) 3.7 10^3/uL (1.7-8.2); BASOPHILS % (AUTO) 0.5 % (0-2); EOSINOPHILS % (AUTO) 5.7 % (0-6); HEMATOCRIT 21.9 % (36.0-47.0); LYMPHOCYTES % (AUTO) 18.8 % (13-45); MEAN CORPUSCULAR HEMOGLOBIN 19.1 pg (27.0-33.4); MEAN CORPUSCULAR HGB CONC 31.2 g/dL (32.0-36.0); MEAN CORPUSCULAR VOLUME 61 fl (80-97); MONOCYTES % (AUTO) 6.8 % (3-13); PLATELET COUNT 315 10^3/uL (150-450); RED BLOOD COUNT 3.58 10^6/uL (3.72-5.28); SEGMENTED NEUTROPHILS % (AUTO) 68.2 % (42-78); TOTAL CELLS COUNTED % (AUTO) 100 %; WHITE BLOOD COUNT 5.5 10^3/uL (4.0-10.5)
[2017-08-10 17:04] LABS: ANISOCYTOSIS 2+; HYPOCHROMASIA 2+; OVALOCYTES 2+; PLATELET COMMENT ADEQUATE; POIKILOCYTOSIS 2+; TEAR DROP CELLS SLIGHT
[2017-08-10 17:08] LABS: HEMOGLOBIN 6.8 g/dL (12.0-15.5)
[2017-08-10] MEDS ORDERED: NORMAL SALINE 250 ML IV PRN ×2 (17:10)
[2017-08-10] MEDS ORDERED: KETOROLAC TROMETHAMINE INJ/PF 30 MG/1 ML SDV IV ONE (18:45)
[2017-08-10] MEDS: TIZANIDINE HCL 4 MG TABLET PO PRN (20:19)
[2017-08-10] MEDS ORDERED: VANCOMYCIN HCL 1,000 MG in DEXTROSE 5%-WATER 250 ML IV ONE (21:20)
[2017-08-10] MEDS ORDERED: LAMOTRIGINE 200 MG PO SCH (22:00)
[2017-08-11] MEDS: KETOROLAC TROMETHAMINE INJ/PF 30 MG/1 ML SDV IV PRN ×4 (02:45→23:43)
[2017-08-11] MEDS: BUPRENORPHINE HCL 2 MG SUBLINGUAL TABLET SL SCH ×3 (06:00→20:22)
[2017-08-11] MEDS: VANCOMYCIN HCL 750 MG in DEXTROSE 5%-WATER 250 ML IV SCH ×2 (06:00→14:46)
[2017-08-11] MEDS: TIZANIDINE HCL 4 MG TABLET PO PRN ×2 (06:00→21:22)
[2017-08-11 08:31] LABS: ABSOLUTE BASOPHILS # (AUTO) 0.1 10^3/uL (0.0-0.2); ABSOLUTE EOSINOPHILS # (AUTO) 0.3 10^3/uL (0.0-0.6); ABSOLUTE MONOCYTES (AUTO) 0.5 10^3/uL (0.1-1.4); ABSOLUTE NEUT (AUTO) 4.5 10^3/uL (1.7-8.2); BASOPHILS % (AUTO) 1.5 % (0-2); EOSINOPHILS % (AUTO) 5.2 % (0-6); LYMPHOCYTES % (AUTO) 15.1 % (13-45); MEAN CORPUSCULAR HGB CONC 31.5 g/dL (32.0-36.0); MONOCYTES % (AUTO) 7.7 % (3-13); PLATELET COUNT 381 10^3/uL (150-450); RED CELL DISTRIBUTION WIDTH 22.5 % (11.5-14.0); SEGMENTED NEUTROPHILS % (AUTO) 70.5 % (42-78); TOTAL CELLS COUNTED % (AUTO) 100 %; WHITE BLOOD COUNT 6.4 10^3/uL (4.0-10.5)
[2017-08-11 08:46] LABS: MEAN CORPUSCULAR VOLUME 67 fl (80-97)
[2017-08-11 08:47] LABS: HEMOGLOBIN 10.1 g/dL (12.0-15.5)
[2017-08-11] MEDS ORDERED: SERTRALINE HCL 50 MG TABLET PO SCH (10:00)
[2017-08-11] MEDS ORDERED: BUPRENORPHINE HCL 2 MG SUBLINGUAL TABLET SL SCH (10:00)
[2017-08-11 10:11] LABS: ANION GAP 7 (5-19); BLOOD UREA NITROGEN 15 mg/dL (7-20); CALCIUM 8.3 mg/dL (8.4-10.2); CARBON DIOXIDE 27 mmol/L (22-30); CHLORIDE 107 mmol/L (98-107); GLUCOSE 92 mg/dL (75-110); POTASSIUM 4.6 mmol/L (3.6-5.0); SODIUM 140.7 mmol/L (137-145)
[2017-08-11] MEDS: BUSPIRONE HCL 10 MG TABLET PO SCH ×2 (10:11→21:22)
[2017-08-11] MEDS: GABAPENTIN 300 MG CAPSULE PO SCH ×3 (10:11→17:35)
[2017-08-11] MEDS: BUTALB/ACETAMINOPHEN/CAFFEINE 1 TAB EACH PO PRN ×2 (10:12→21:22)
[2017-08-11] MEDS: IRON POLYSACCHARIDES COMPLEX 150 MG CAPSULE PO SCH (10:13)
[2017-08-11] MEDS: DOCUSATE SODIUM 100 MG CAPSULE PO SCH ×2 (10:13→17:34)
[2017-08-11] MEDS: CEFTRIAXONE 2 GM/D5W RTU 2 GM/50 ML RTUPB IV SCH (10:17)
--- NOTE | 2017-08-11 13:15 | PDOC PROGRESS REPORT ---
Subjective Progress Note for:: 08/11/17 Subjective:: Patient is seen resting in bed. Awake, alert, oriented 3. She is complaining of pain in the left shoulder. She denies any chills or fevers overnight. She denies any nausea, vomiting or abdominal pain. She denies any shortness of breath or dyspnea. Remaining review of systems are negative. Reason For Visit: PYOGENIC ARTHRITIS OF L SHOULDER REGION Physical Exam Vital Signs: Temp Pulse Resp BP Pulse Ox 98.5 F 48 L 16 104/59 L 97 08/11/17 11:48 08/11/17 11:48 08/11/17 11:48 08/11/17 11:48 08/11/17 11:48 Intake & Output 08/10/17 08/11/17 08/12/17 06:59 06:59 06:59 Intake Total 444 5696 Output Total 3000 Balance 444 2696 Weight 62.7 kg 72.2 kg General appearance: PRESENT: no acute distress, well-developed, well-nourished Head exam: PRESENT: atraumatic, normocephalic Eye exam: PRESENT: conjunctiva pink, EOMI, PERRLA. ABSENT: scleral icterus Ear exam: PRESENT: normal external ear exam Mouth exam: PRESENT: moist, tongue midline Neck exam: ABSENT: carotid bruit, JVD, lymphadenopathy, thyromegaly Respiratory exam: PRESENT: clear to auscultation dmitri. ABSENT: rales, rhonchi, wheezes Cardiovascular exam: PRESENT: RRR. ABSENT: diastolic murmur, rubs, systolic murmur Pulses: PRESENT: normal dorsalis pedis pul Vascular exam: PRESENT: normal capillary refill GI/Abdominal exam: PRESENT: normal bowel sounds, soft. ABSENT: distended, guarding, mass, organolmegaly, rebound, tenderness Rectal exam: PRESENT: deferred Extremities exam: PRESENT: full ROM. ABSENT: calf tenderness, clubbing, pedal edema Musculoskeletal exam: PRESENT: tenderness, other - left shoulder Neurological exam: PRESENT: alert, awake, oriented to person, oriented to place , oriented to time, oriented to situation, CN II-XII grossly intact. ABSENT: motor sensory deficit Psychiatric exam: PRESENT: appropriate affect, normal mood. ABSENT: homicidal ideation, suicidal ideation Skin exam: PRESENT: dry, intact, warm. ABSENT: cyanosis, rash Results Laboratory Results: 08/11/17 07:55 08/11/17 09:45 08/10/17 08/10/17 08/11/17 04:59 16:26 07:55 WBC 5.5 RBC 3.58 L Hgb 6.8 L Hct 21.9 L MCV 61 L MCH 19.1 L MCHC 31.2 L RDW 18.0 H Plt Count 315 Seg Neutrophils % 68.2 Lymphocytes % 18.8 Monocytes % 6.8 Eosinophils % 5.7 Basophils % 0.5 Absolute Neutrophils 3.7 Absolute Lymphocytes 1.0 Absolute Monocytes 0.4 Absolute Eosinophils 0.3 Absolute Basophils 0.0 Sodium Cancelled Potassium Cancelled Chloride Cancelled Carbon Dioxide Cancelled Anion Gap Cancelled BUN Cancelled Creatinine Cancelled Est GFR ( Amer) Cancelled Est GFR (Non-Af Amer) Cancelled Glucose Cancelled Calcium Cancelled Blood Type A POSITIVE Antibody Screen NEGATIVE 08/11/17 08/11/17 07:55 09:45 WBC 6.4 RBC 4.80 Hgb 10.1 L D Hct 32.0 L MCV 67 L D MCH 21.0 L MCHC 31.5 L RDW 22.5 H Plt Count 381 Seg Neutrophils % 70.5 Lymphocytes % 15.1 Monocytes % 7.7 Eosinophils % 5.2 Basophils % 1.5 Absolute Neutrophils 4.5 Absolute Lymphocytes 1.0 Absolute Monocytes 0.5 Absolute Eosinophils 0.3 Absolute Basophils 0.1 Sodium 140.7 Potassium 4.6 Chloride 107 Carbon Dioxide 27 Anion Gap 7 BUN 15 Creatinine 0.56 Est GFR ( Amer) > 60 Est GFR (Non-Af Amer) > 60 Glucose 92 Calcium 8.3 L Blood Type Antibody Screen Impressions: Shoulder X-Ray 08/09/17 16:03 IMPRESSION: NEGATIVE STUDY OF THE LEFT SHOULDER. NO RADIOGRAPHIC EVIDENCE OF ACUTE INJURY. Upper Extremity MRI 08/09/17 20:13 IMPRESSION: 9 CM MULTILOCULATED RIM ENHANCING FLUID COLLECTION ANTERIOR TO THE GLENOHUMERAL JOINT SPACE AT THE LEVEL THE BICIPITAL GROOVE PRESUMABLY REPRESENTING AN ABSCESS OR INFECTED HEMATOMA. THERE IS A SMALL GLENOHUMERAL JOINT EFFUSION WITH ABNORMAL SYNOVIAL ENHANCEMENT WHICH COULD BE REACTIVE EFFUSION OR SEPTIC ARTHRITIS. FLUID SAMPLING MAY BE NECESSARY. EDEMA NOTED WITHIN THE SUBSCAPULARIS MUSCLE WHICH COULD REPRESENT MUSCLE STRAIN OR REACTIVE EDEMA IN THE SETTING OF PATIENT'S RECENT INJURY. NO FRACTURE OR SUSPICIOUS OSSEOUS LESION. Assessment & Plan - Diagnosis (1) Gram positive bacterial infection Is this a current diagnosis for this admission?: Yes Plan: She has 2 out of 2 blood cultures positive for gram positive cocci. Will repeat blood cultures in the am and get echo (2) Septic arthritis of shoulder, left Qualifiers: Septic arthritis organism: due to unspecified organism Qualified Code(s): M00.9 - Pyogenic arthritis, unspecified Is this a current diagnosis for this admission?: Yes Plan: Continue IV broad-spectrum antibiotics. We can de-escalate once culture results are obtained. Blood cultures are both positive for gram positive cocci (3) Abscess of left upper extremity Is this a current diagnosis for this admission?: Yes Plan: She was taken to the OR this morning by orthopedic surgery for washout. Pain is presently well controlled. (4) Anemia Qualifiers: Anemia type: iron deficiency Is this a current diagnosis for this admission?: Yes Plan: Likely stable. (5) Substance abuse Is this a current diagnosis for this admission?: Yes Plan: Continue Suboxone. Avoid any type of narcotic analgesics. (6) Hepatitis C Qualifiers: Viral hepatitis chronicity: chronic Is this a current diagnosis for this admission?: Yes Plan: Follows with GI as an outpatient - Time Time Spent with patient: 25-34 minutes Total Critical Time (Minutes): 20 Medications reviewed and adjusted accordingly: Yes - Inpatient Certification Based on my medical assessment, after consideration of the patient's comorbidities, presenting symptoms, or acuity I expect that the services needed warrant INPATIENT care.: Yes I certify that my determination is in accordance with my understanding of Medicare's requirements for reasonable and necessary INPATIENT services [42 CFR 412.3e].: Yes Medical Necessity: Need for IV Antibiotics, Need for Surgery
--- NOTE | 2017-08-11 13:30 | PDOC PROGRESS REPORT ---
Subjective Progress Note for:: 08/11/17 Subjective:: Patient lying in bed continues to complain of pain of her left shoulder. Denies fever chills or sweats. Minimal drainage output from her NYA drains. Patient did have decreased H&H yesterday and thus received 2 units of packed red blood cells. Denies chest pain or shortness of breath. Denies fever chills or sweats. Reason For Visit: PYOGENIC ARTHRITIS OF L SHOULDER REGION Physical Exam Vital Signs: Temp Pulse Resp BP Pulse Ox 98.5 F 48 L 16 104/59 L 97 08/11/17 11:48 08/11/17 11:48 08/11/17 11:48 08/11/17 11:48 08/11/17 11:48 Intake & Output 08/10/17 08/11/17 08/12/17 06:59 06:59 06:59 Intake Total 444 5696 Output Total 3000 Balance 444 2696 Weight 62.7 kg 72.2 kg Musculoskeletal exam: PRESENT: other - Left upper extremity: Dressing intact. Spotting postoperative blood along the superficial border. Serosanguineous drainage within NYA drain B no drainage in NYA drain B. Full elbow and wrist range of motion. Previous distal erythema resolved. Results Laboratory Results: 08/11/17 07:55 08/11/17 09:45 08/10/17 08/10/17 08/11/17 04:59 16:26 07:55 WBC 5.5 RBC 3.58 L Hgb 6.8 L Hct 21.9 L MCV 61 L MCH 19.1 L MCHC 31.2 L RDW 18.0 H Plt Count 315 Seg Neutrophils % 68.2 Lymphocytes % 18.8 Monocytes % 6.8 Eosinophils % 5.7 Basophils % 0.5 Absolute Neutrophils 3.7 Absolute Lymphocytes 1.0 Absolute Monocytes 0.4 Absolute Eosinophils 0.3 Absolute Basophils 0.0 Sodium Cancelled Potassium Cancelled Chloride Cancelled Carbon Dioxide Cancelled Anion Gap Cancelled BUN Cancelled Creatinine Cancelled Est GFR ( Amer) Cancelled Est GFR (Non-Af Amer) Cancelled Glucose Cancelled Calcium Cancelled Blood Type A POSITIVE Antibody Screen NEGATIVE 08/11/17 08/11/17 07:55 09:45 WBC 6.4 RBC 4.80 Hgb 10.1 L D Hct 32.0 L MCV 67 L D MCH 21.0 L MCHC 31.5 L RDW 22.5 H Plt Count 381 Seg Neutrophils % 70.5 Lymphocytes % 15.1 Monocytes % 7.7 Eosinophils % 5.2 Basophils % 1.5 Absolute Neutrophils 4.5 Absolute Lymphocytes 1.0 Absolute Monocytes 0.5 Absolute Eosinophils 0.3 Absolute Basophils 0.1 Sodium 140.7 Potassium 4.6 Chloride 107 Carbon Dioxide 27 Anion Gap 7 BUN 15 Creatinine 0.56 Est GFR ( Amer) > 60 Est GFR (Non-Af Amer) > 60 Glucose 92 Calcium 8.3 L Blood Type Antibody Screen Impressions: Shoulder X-Ray 08/09/17 16:03 IMPRESSION: NEGATIVE STUDY OF THE LEFT SHOULDER. NO RADIOGRAPHIC EVIDENCE OF ACUTE INJURY. Upper Extremity MRI 08/09/17 20:13 IMPRESSION: 9 CM MULTILOCULATED RIM ENHANCING FLUID COLLECTION ANTERIOR TO THE GLENOHUMERAL JOINT SPACE AT THE LEVEL THE BICIPITAL GROOVE PRESUMABLY REPRESENTING AN ABSCESS OR INFECTED HEMATOMA. THERE IS A SMALL GLENOHUMERAL JOINT EFFUSION WITH ABNORMAL SYNOVIAL ENHANCEMENT WHICH COULD BE REACTIVE EFFUSION OR SEPTIC ARTHRITIS. FLUID SAMPLING MAY BE NECESSARY. EDEMA NOTED WITHIN THE SUBSCAPULARIS MUSCLE WHICH COULD REPRESENT MUSCLE STRAIN OR REACTIVE EDEMA IN THE SETTING OF PATIENT'S RECENT INJURY. NO FRACTURE OR SUSPICIOUS OSSEOUS LESION. Assessment & Plan - Diagnosis (1) Septic arthritis of shoulder, left Qualifiers: Septic arthritis organism: due to unspecified organism Qualified Code(s): M00.9 - Pyogenic arthritis, unspecified Is this a current diagnosis for this admission?: Yes Plan: Postop day #1 status post irrigation and debridement LEFT septic shoulder, abscess 1. Chronic anemia patient has received 2 units packed red blood cells with improvement. 2. History of IV drug abuse now with positive bacteremia. Discussed case with Lizette Ron who has agreed to transfer the patient to their service given the severity of her medical issues. I also discussed possible causation of patient's abscess which could include possible endocarditis resulting in bacteremia or primary shoulder infection resulting in bacteremia. In either scenario patient likely will require 4-6 weeks of IV antibiotics. Currently on vancomycin and ceftriaxone. 3. Continue NYA drains for 48 hours if no drainage greater than 10 cc will proceed with removal.
[2017-08-11 15:16] LABS: VANCOMYCIN,TROUGH 8.5 ug/mL (5.0-20.0)
[2017-08-11] MEDS: VANCOMYCIN HCL 1,000 MG in DEXTROSE 5%-WATER 250 ML IV SCH (21:00)
[2017-08-12] MEDS: VANCOMYCIN HCL 1,000 MG in DEXTROSE 5%-WATER 250 ML IV SCH ×4 (04:09→22:41)
[2017-08-12] MEDS: BUPRENORPHINE HCL 2 MG SUBLINGUAL TABLET SL SCH ×3 (05:55→18:01)
[2017-08-12] MEDS: KETOROLAC TROMETHAMINE INJ/PF 30 MG/1 ML SDV IV PRN ×2 (05:56→17:21)
[2017-08-12 08:31] LABS: ABSOLUTE BASOPHILS # (AUTO) 0.1 10^3/uL (0.0-0.2); ABSOLUTE EOSINOPHILS # (AUTO) 0.3 10^3/uL (0.0-0.6); ABSOLUTE LYMPHOCYTES (AUTO) 0.9 10^3/uL (0.5-4.7); ABSOLUTE MONOCYTES (AUTO) 0.4 10^3/uL (0.1-1.4); ABSOLUTE NEUT (AUTO) 3.9 10^3/uL (1.7-8.2); BASOPHILS % (AUTO) 1.2 % (0-2); EOSINOPHILS % (AUTO) 5.7 % (0-6); HEMOGLOBIN 8.7 g/dL (12.0-15.5); LYMPHOCYTES % (AUTO) 15.3 % (13-45); MEAN CORPUSCULAR HEMOGLOBIN 21.2 pg (27.0-33.4); MEAN CORPUSCULAR HGB CONC 32.2 g/dL (32.0-36.0); MEAN CORPUSCULAR VOLUME 66 fl (80-97); MONOCYTES % (AUTO) 6.7 % (3-13); PLATELET COUNT 344 10^3/uL (150-450); RED CELL DISTRIBUTION WIDTH 22.3 % (11.5-14.0); SEGMENTED NEUTROPHILS % (AUTO) 71.1 % (42-78); TOTAL CELLS COUNTED % (AUTO) 100 %; WHITE BLOOD COUNT 5.5 10^3/uL (4.0-10.5)
[2017-08-12 08:52] LABS: ANION GAP 5 (5-19); BLOOD UREA NITROGEN 10 mg/dL (7-20); CALCIUM 8.4 mg/dL (8.4-10.2); CARBON DIOXIDE 28 mmol/L (22-30); CHLORIDE 108 mmol/L (98-107); GLUCOSE 102 mg/dL (75-110); POTASSIUM 4.5 mmol/L (3.6-5.0); SODIUM 140.7 mmol/L (137-145)
--- NOTE | 2017-08-12 09:10 | PDOC PROGRESS REPORT ---
Subjective Progress Note for:: 08/12/17 Subjective:: Patient lying in bed continues to complain of pain of her left shoulder. Denies fever chills or sweats. Minimal drainage output from her NYA drains. Denies chest pain or shortness of breath. Denies fever chills or sweats. Reason For Visit: PYOGENIC ARTHRITIS OF L SHOULDER REGION Physical Exam Vital Signs: Temp Pulse Resp BP Pulse Ox 99 F 58 L 16 113/60 96 08/12/17 08:00 08/12/17 08:00 08/12/17 08:00 08/12/17 08:00 08/12/17 08:00 Intake & Output 08/11/17 08/12/17 08/13/17 06:59 06:59 06:59 Intake Total 7416 2552 Output Total 3000 25 Balance 4416 2527 Weight 72.2 kg 76.3 kg Musculoskeletal exam: PRESENT: other - Left shoulder: Drains remain intact. Less than 20 cc of serosanguineous drainage noted. No evidence of erythema or streaking erythema distally as noted preoperatively. Continues to have tenderness palpation. No pain with elbow range of motion. Results Laboratory Results: 08/12/17 08:06 08/12/17 08:06 08/11/17 08/11/17 08/12/17 09:45 14:15 08:06 WBC RBC Hgb Hct MCV MCH MCHC RDW Plt Count Seg Neutrophils % Lymphocytes % Monocytes % Eosinophils % Basophils % Absolute Neutrophils Absolute Lymphocytes Absolute Monocytes Absolute Eosinophils Absolute Basophils Sodium 140.7 140.7 Potassium 4.6 4.5 Chloride 107 108 H Carbon Dioxide 27 28 Anion Gap 7 5 BUN 15 10 Creatinine 0.56 0.48 L 0.50 L Est GFR ( Amer) > 60 > 60 > 60 Est GFR (Non-Af Amer) > 60 > 60 > 60 Glucose 92 102 Calcium 8.3 L 8.4 08/12/17 08:06 WBC 5.5 RBC 4.10 Hgb 8.7 L Hct 27.0 L MCV 66 L MCH 21.2 L MCHC 32.2 RDW 22.3 H Plt Count 344 Seg Neutrophils % 71.1 Lymphocytes % 15.3 Monocytes % 6.7 Eosinophils % 5.7 Basophils % 1.2 Absolute Neutrophils 3.9 Absolute Lymphocytes 0.9 Absolute Monocytes 0.4 Absolute Eosinophils 0.3 Absolute Basophils 0.1 Sodium Potassium Chloride Carbon Dioxide Anion Gap BUN Creatinine Est GFR ( Amer) Est GFR (Non-Af Amer) Glucose Calcium Impressions: Shoulder X-Ray 08/09/17 16:03 IMPRESSION: NEGATIVE STUDY OF THE LEFT SHOULDER. NO RADIOGRAPHIC EVIDENCE OF ACUTE INJURY. Upper Extremity MRI 08/09/17 20:13 IMPRESSION: 9 CM MULTILOCULATED RIM ENHANCING FLUID COLLECTION ANTERIOR TO THE GLENOHUMERAL JOINT SPACE AT THE LEVEL THE BICIPITAL GROOVE PRESUMABLY REPRESENTING AN ABSCESS OR INFECTED HEMATOMA. THERE IS A SMALL GLENOHUMERAL JOINT EFFUSION WITH ABNORMAL SYNOVIAL ENHANCEMENT WHICH COULD BE REACTIVE EFFUSION OR SEPTIC ARTHRITIS. FLUID SAMPLING MAY BE NECESSARY. EDEMA NOTED WITHIN THE SUBSCAPULARIS MUSCLE WHICH COULD REPRESENT MUSCLE STRAIN OR REACTIVE EDEMA IN THE SETTING OF PATIENT'S RECENT INJURY. NO FRACTURE OR SUSPICIOUS OSSEOUS LESION. Assessment & Plan - Diagnosis (1) Septic arthritis of shoulder, left Qualifiers: Septic arthritis organism: due to unspecified organism Qualified Code(s): M00.9 - Pyogenic arthritis, unspecified Is this a current diagnosis for this admission?: Yes Plan: Postop day #1 status post irrigation and debridement LEFT septic shoulder, abscess 1. Chronic anemia patient has received 2 units packed red blood cells continue to monitor. 2. History of IV drug abuse now with positive bacteremia. Patient will continue on vancomycin and Rocephin 3. Will remove drains today with dressing change. 4. Patient will require IV antibiotics likely for 4-6 weeks.
[2017-08-12] MEDS: GABAPENTIN 300 MG CAPSULE PO SCH ×3 (09:44→18:01)
[2017-08-12] MEDS: TIZANIDINE HCL 4 MG TABLET PO PRN ×2 (09:45→22:43)
[2017-08-12] MEDS: BUTALB/ACETAMINOPHEN/CAFFEINE 1 TAB EACH PO PRN (09:45)
[2017-08-12] MEDS: DOCUSATE SODIUM 100 MG CAPSULE PO SCH ×2 (09:45→18:01)
[2017-08-12] MEDS: BUSPIRONE HCL 10 MG TABLET PO SCH ×2 (09:45→22:43)
[2017-08-12] MEDS: IRON POLYSACCHARIDES COMPLEX 150 MG CAPSULE PO SCH (09:45)
[2017-08-12] MEDS ORDERED: BUPRENORPHINE HCL 2 MG SUBLINGUAL TABLET SL ONE (10:00)
--- NOTE | 2017-08-12 14:38 | XCELERA REPORT ---
[address] [address] Transthoracic Echocardiogram Report Name: CECY VALDERRAMA Age: 31 yrs Gender: Female : 1985 Patient Status: Inpatient Patient Location: [address] [place], [place] [address]A Study Date: 08/12/2017 09:48 AM Procedure: A two-dimensional transthoracic echocardiogram with color flow and Doppler was performed. The study was technically difficult with many images being suboptimal in quality. Reason For Study: Positive blood cultures, hx IV drug abuse .Endocarditis History: Positive blood cultures, hx IV drug abuse .Endocarditis. Ordering Physician: TINA RYAN Performed By: Eda Moreno Interpretation Summary The left ventricle is normal in size. There is normal left ventricular wall thickness. Left ventricular systolic function is normal. LV EF is > than 65% There is no thrombus. The right atrium is normal. The left atrium is mildly dilated. There is no evidence of mitral valve prolapse. There is no mitral valve stenosis. There is a trace amount of mitral regurgitation There is no aortic valve stenosis No aortic regurgitation is present. There is no tricuspid stenosis. There is a trace amount of tricuspid regurgitation Right ventricular systolic pressure is normal. RVSP is 27 mm of Hg , with RA mean of 5. There is no pericardial effusion. MMode/2D Measurements & Calculations RVDd: 0.95 cm LVIDd: 5.5 cmFS: 39.5 % Ao root diam: 3.0 cm IVSd: 5.5 cm LVIDs: 3.4 cmEDV(Teich): 150.1 ml Ao root area: 7.1 cm2 LVPWd: 1.1 cmESV(Teich): 45.8 ml EF(Teich): 69.5 % LVOT diam: 2.1 cm LVOT area: 3.3 cm2 Doppler Measurements & Calculations MV E max khurram: MV dec slope: Ao V2 max: LV V1 max P.1 cm/sec 156.6 cm/sec 5.6 mmHg MV A max khurram: 654.8 cm/sec2 Ao max PG: LV V1 max: 55.2 cm/sec MV dec time: 9.8 mmHg 118.5 cm/sec MV E/A: 2.3 0.20 sec EMILE(V,D): 2.5 cm2 PA V2 max: TR max khurram: 113.7 cm/sec 234.3 cm/sec PA max P.2 mmHgTR max P.0 mmHg Left Ventricle The left ventricle is normal in size. There is normal left ventricular wall thickness. Left ventricular systolic function is normal. LV EF is > than 65%. Doppler measurements suggest normal left ventricular diastolic function. The left ventricular wall motion is normal. There is no thrombus. Right Ventricle The right ventricle is normal in size and function. Atria The right atrium is normal. The left atrium is mildly dilated. The interatrial septum is intact with no evidence for an atrial septal defect. Mitral Valve There is no evidence of mitral valve prolapse. There is no vegetation seen on the mitral valve. There is no mitral valve stenosis. There is a trace amount of mitral regurgitation. Aortic Valve There is no aortic valvular vegetation. There is no aortic valve stenosis. There is no LVOT obstruction. No aortic regurgitation is present. Tricuspid Valve There is no tricuspid stenosis. There is a trace amount of tricuspid regurgitation. Right ventricular systolic pressure is normal. RVSP is 27 mm of Hg , with RA mean of 5. Pulmonic Valve There is no pulmonic valvular stenosis. There is no pulmonic valvular regurgitation. Great Vessels The aortic root is normal size. Effusions There is no pericardial effusion. : TINA RYAN > Almaz Escamilla
--- NOTE | 2017-08-12 15:05 | PDOC PROGRESS REPORT ---
Subjective Progress Note for:: 08/12/17 Subjective:: Patient is seen resting in bed. Awake, alert, oriented 3. She is complaining of pain in the left shoulder, but states it is improved from yesterday. She denies any chills or fevers overnight. Her mother is at the bedside. She denies any nausea, vomiting or abdominal pain. She denies any shortness of breath or dyspnea. Remaining review of systems are negative. Reason For Visit: PYOGENIC ARTHRITIS OF L SHOULDER REGION Physical Exam Vital Signs: Temp Pulse Resp BP Pulse Ox 99 F 58 L 16 113/60 96 08/12/17 08:00 08/12/17 08:00 08/12/17 08:00 08/12/17 08:00 08/12/17 08:00 Intake & Output 08/11/17 08/12/17 08/13/17 06:59 06:59 06:59 Intake Total 7416 2552 Output Total 3000 25 Balance 4416 2527 Weight 72.2 kg 76.3 kg General appearance: PRESENT: no acute distress, thin, well-developed, well- nourished Head exam: PRESENT: atraumatic, normocephalic Eye exam: PRESENT: conjunctiva pink, EOMI, PERRLA. ABSENT: scleral icterus Ear exam: PRESENT: normal external ear exam Mouth exam: PRESENT: moist, tongue midline Neck exam: ABSENT: carotid bruit, JVD, lymphadenopathy, thyromegaly Respiratory exam: PRESENT: clear to auscultation dmitri. ABSENT: rales, rhonchi, wheezes Cardiovascular exam: PRESENT: RRR. ABSENT: diastolic murmur, rubs, systolic murmur Pulses: PRESENT: normal dorsalis pedis pul Vascular exam: PRESENT: normal capillary refill GI/Abdominal exam: PRESENT: normal bowel sounds, soft. ABSENT: distended, guarding, mass, organolmegaly, rebound, tenderness Rectal exam: PRESENT: deferred Extremities exam: PRESENT: tenderness - left shoulder, +2 edema - left forearm Neurological exam: PRESENT: alert, awake, oriented to person, oriented to place , oriented to time, oriented to situation, CN II-XII grossly intact. ABSENT: motor sensory deficit Psychiatric exam: PRESENT: flat affect Skin exam: PRESENT: dry, intact, warm. ABSENT: cyanosis, rash Results Laboratory Results: 08/12/17 08:06 08/12/17 08:06 08/11/17 08/12/17 08/12/17 14:15 08:06 08:06 WBC 5.5 RBC 4.10 Hgb 8.7 L Hct 27.0 L MCV 66 L MCH 21.2 L MCHC 32.2 RDW 22.3 H Plt Count 344 Seg Neutrophils % 71.1 Lymphocytes % 15.3 Monocytes % 6.7 Eosinophils % 5.7 Basophils % 1.2 Absolute Neutrophils 3.9 Absolute Lymphocytes 0.9 Absolute Monocytes 0.4 Absolute Eosinophils 0.3 Absolute Basophils 0.1 Sodium 140.7 Potassium 4.5 Chloride 108 H Carbon Dioxide 28 Anion Gap 5 BUN 10 Creatinine 0.48 L 0.50 L Est GFR ( Amer) > 60 > 60 Est GFR (Non-Af Amer) > 60 > 60 Glucose 102 Calcium 8.4 08/10/17 08:44 Shoulder - Left Side Abscess Gram Stain - Final 08/10/17 08:44 Shoulder - Left Side Abscess Wound Culture - Final Mrsa (Meth Resis Staph Aureus) No Anaerobic Organisms 08/10/17 08:37 Shoulder - Left Side Abscess Gram Stain - Final 08/10/17 08:37 Shoulder - Left Side Abscess Wound Culture - Final Mrsa (Meth Resis Staph Aureus) No Anaerobic Organisms Impressions: Shoulder X-Ray 08/09/17 16:03 IMPRESSION: NEGATIVE STUDY OF THE LEFT SHOULDER. NO RADIOGRAPHIC EVIDENCE OF ACUTE INJURY. Upper Extremity MRI 08/09/17 20:13 IMPRESSION: 9 CM MULTILOCULATED RIM ENHANCING FLUID COLLECTION ANTERIOR TO THE GLENOHUMERAL JOINT SPACE AT THE LEVEL THE BICIPITAL GROOVE PRESUMABLY REPRESENTING AN ABSCESS OR INFECTED HEMATOMA. THERE IS A SMALL GLENOHUMERAL JOINT EFFUSION WITH ABNORMAL SYNOVIAL ENHANCEMENT WHICH COULD BE REACTIVE EFFUSION OR SEPTIC ARTHRITIS. FLUID SAMPLING MAY BE NECESSARY. EDEMA NOTED WITHIN THE SUBSCAPULARIS MUSCLE WHICH COULD REPRESENT MUSCLE STRAIN OR REACTIVE EDEMA IN THE SETTING OF PATIENT'S RECENT INJURY. NO FRACTURE OR SUSPICIOUS OSSEOUS LESION. Assessment & Plan - Diagnosis (1) Gram positive bacterial infection Is this a current diagnosis for this admission?: Yes Plan: She has 2 out of 2 blood cultures positive for MRSA. Repeat cultures pending. Echo showed no abnormalities (2) Septic arthritis of shoulder, left Qualifiers: Septic arthritis organism: due to unspecified organism Qualified Code(s): M00.9 - Pyogenic arthritis, unspecified Is this a current diagnosis for this admission?: Yes Plan: Continue vancomycin. Will d/c rocephin. Will need 2 weeks IV antibiotics and 2 weeks of oral. PICC line once cultures are clear. (3) Abscess of left upper extremity Is this a current diagnosis for this admission?: Yes Plan: She was taken to the OR Saturday by Dr Handley, orthopedic surgery for washout. Pain is presently well controlled. Cultures positive for MRSA (4) Anemia Qualifiers: Anemia type: iron deficiency Is this a current diagnosis for this admission?: Yes Plan: She has required 2 units of PRBCs. Continue to monitor. On iron supplement (5) Substance abuse Is this a current diagnosis for this admission?: Yes Plan: Continue Suboxone. She denies any IV drug use. UDT positive for barbituates Avoid any type of narcotic analgesics. (6) Hepatitis C Qualifiers: Viral hepatitis chronicity: chronic Is this a current diagnosis for this admission?: Yes Plan: Follows with GI as an outpatient - Time Time Spent with patient: 25-34 minutes Total Critical Time (Minutes): 15 Medications reviewed and adjusted accordingly: Yes Anticipated discharge: Home with Homehealth - Inpatient Certification Based on my medical assessment, after consideration of the patient's comorbidities, presenting symptoms, or acuity I expect that the services needed warrant INPATIENT care.: Yes I certify that my determination is in accordance with my understanding of Medicare's requirements for reasonable and necessary INPATIENT services [42 CFR 412.3e].: Yes Medical Necessity: Need for Pain Control, Need for IV Antibiotics, Need for Surgery
[2017-08-12] MEDS ORDERED: LIDOCAINE 0.5% INJ-PF (5 MG/ML) 50 ML SDV ONE (15:11)
[2017-08-12] MEDS ORDERED: ONDANSETRON HCL INJ/PF 4 MG/2 ML SDV IV PRN (15:30)
--- NOTE | 2017-08-12 17:38 | RADIOLOGY REPORT (SQ) ---
EXAM DESCRIPTION: CHEST SINGLE VIEW COMPLETED DATE/TIME: 08/12/2017 5:13 pm REASON FOR STUDY: central line placement COMPARISON: None. NUMBER OF VIEWS: One view. TECHNIQUE: Single frontal radiographic view of the chest acquired. LIMITATIONS: None. FINDINGS: Central venous access catheter placed via left IJ approach. Catheter tip at mid right at rium. No pneumothorax. Minimal linear subsegmental atelectasis in each lung base. IMPRESSION: Central venous access catheter placed via left IJ approach. Catheter tip at mid right atrium. NO PNEUMOTHORAX. NEW CENTRAL LINE. TECHNICAL DOCUMENTATION: JOB ID: [id number] [id number] 2010 [employer]- All Rights Reserved Reading location - IP/workstation name: Compute
--- NOTE | 2017-08-12 17:49 | Operative Report ---
Nonrecallable Operative Report DATE OF SURGERY: 08/12/17 PREOPERATIVE DIAGNOSIS: Septic right shoulder POSTOPERATIVE DIAGNOSIS: Same OPERATION: 1. Focused ultrasound of the left neck. 2. Ultrasound directed insertion of triple-lumen central venous access catheter left internal jugular vein. 3. Interpretation of portable chest x-ray upright SURGEON: YOANA SHEPHERD ANESTHESIA: Local TISSUE REMOVED OR ALTERED: None COMPLICATIONS: None ESTIMATED BLOOD LOSS: scant INTRAOPERATIVE FINDINGS: see below PROCEDURE: Informed consent was obtained. The patient was placed in Trendelenburg the left neck and chest wall were exposed, and prepped and draped in a sterile fashion. Surgical plan and surgical timeout discussed. The left neck was anesthetized with 1% lidocaine without epinephrine. Using the variable frequency linear transducer, real time, a 18-gauge needle and wire were threaded into the left internal jugular vein. The tract was dilated up, the dilator removed, and the triple-lumen central venous access catheter was threaded into the right internal jugular vein uneventfully to the hub. There was excellent aspiration and flush of saline through all 3 lumens. The catheter was affixed to the skin with a Biopatch and 2-0 silk suture; sterile dressing applied. The patient tolerated the procedure well. There were no complications. Portable upright chest x-ray demonstrated the catheter in good position with no evidence of pneumothorax.
[2017-08-13] MEDS: VANCOMYCIN HCL 1,000 MG in DEXTROSE 5%-WATER 250 ML IV SCH (03:17)
[2017-08-13] MEDS: KETOROLAC TROMETHAMINE INJ/PF 30 MG/1 ML SDV IV PRN ×3 (05:50→21:41)
[2017-08-13] MEDS: BUTALB/ACETAMINOPHEN/CAFFEINE 1 TAB EACH PO PRN ×2 (05:50→20:14)
[2017-08-13] MEDS: TIZANIDINE HCL 4 MG TABLET PO PRN ×2 (05:50→20:14)
[2017-08-13 08:21] LABS: PATH REVIEW PATHOLOGIST REVIEWED
[2017-08-13] MEDS ORDERED: BUPRENORPHINE HCL 2 MG SUBLINGUAL TABLET SL ONE (09:00)
[2017-08-13] MEDS: BUSPIRONE HCL 10 MG TABLET PO SCH ×2 (09:41→21:40)
[2017-08-13] MEDS: GABAPENTIN 300 MG CAPSULE PO SCH ×3 (10:07→17:15)
[2017-08-13] MEDS: IRON POLYSACCHARIDES COMPLEX 150 MG CAPSULE PO SCH (10:07)
[2017-08-13] MEDS: DOCUSATE SODIUM 100 MG CAPSULE PO SCH ×2 (10:08→17:16)
[2017-08-13] MEDS: VANCOMYCIN HCL 750 MG in DEXTROSE 5%-WATER 250 ML IV SCH ×3 (10:09→21:40)
[2017-08-13] MEDS: NORMAL SALINE INJ/PF 0.9% 10 ML SDV IV PRN ×2 (13:07→21:40)
[2017-08-13] MEDS: BUPRENORPHINE HCL 2 MG SUBLINGUAL TABLET SL SCH ×2 (15:32→20:14)
[2017-08-13 15:40] LABS: HEMATOCRIT 28.1 % (36.0-47.0); HEMOGLOBIN 9.1 g/dL (12.0-15.5); MEAN CORPUSCULAR HEMOGLOBIN 21.3 pg (27.0-33.4); MEAN CORPUSCULAR HGB CONC 32.4 g/dL (32.0-36.0); MEAN CORPUSCULAR VOLUME 66 fl (80-97); PLATELET COUNT 468 10^3/uL (150-450); RED BLOOD COUNT 4.28 10^6/uL (3.72-5.28); RED CELL DISTRIBUTION WIDTH 22.8 % (11.5-14.0); WHITE BLOOD COUNT 6.1 10^3/uL (4.0-10.5)
--- NOTE | 2017-08-13 18:58 | PDOC PROGRESS REPORT ---
Subjective Progress Note for:: 08/13/17 Subjective:: Patient lying in bed company. Pain notably improved. She has begun range of motion and states this the best her shoulder has felt in weeks. Denies fever or chills. Reason For Visit: PYOGENIC ARTHRITIS OF L SHOULDER REGION Physical Exam Vital Signs: Temp Pulse Resp BP Pulse Ox 98.4 F 43 L 15 120/55 L 100 08/13/17 16:00 08/13/17 16:00 08/13/17 16:00 08/13/17 16:00 08/13/17 16:00 Intake & Output 08/12/17 08/13/17 08/14/17 06:59 06:59 06:59 Intake Total 2552 1496 Output Total 25 Balance 2527 1496 Weight 76.3 kg 72.1 kg Musculoskeletal exam: PRESENT: other - Left shoulder: Dressing clean/dry/intact no erythema or drainage. Mild swelling. No evidence of proximal or distal erythema. No pain with range of motion however pain with extreme forward flexion and abduction. Full elbow range of motion. Results Laboratory Results: 08/13/17 15:15 08/12/17 08:06 08/13/17 15:15 WBC 6.1 RBC 4.28 Hgb 9.1 L Hct 28.1 L MCV 66 L MCH 21.3 L MCHC 32.4 RDW 22.8 H Plt Count 468 H 08/10/17 08:37 Arm - Left Side Abscess Fungal Smear - Final 08/10/17 08:37 Arm - Left Side Abscess Fungal Smear - Final Impressions: Shoulder X-Ray 08/09/17 16:03 IMPRESSION: NEGATIVE STUDY OF THE LEFT SHOULDER. NO RADIOGRAPHIC EVIDENCE OF ACUTE INJURY. Upper Extremity MRI 08/09/17 20:13 IMPRESSION: 9 CM MULTILOCULATED RIM ENHANCING FLUID COLLECTION ANTERIOR TO THE GLENOHUMERAL JOINT SPACE AT THE LEVEL THE BICIPITAL GROOVE PRESUMABLY REPRESENTING AN ABSCESS OR INFECTED HEMATOMA. THERE IS A SMALL GLENOHUMERAL JOINT EFFUSION WITH ABNORMAL SYNOVIAL ENHANCEMENT WHICH COULD BE REACTIVE EFFUSION OR SEPTIC ARTHRITIS. FLUID SAMPLING MAY BE NECESSARY. EDEMA NOTED WITHIN THE SUBSCAPULARIS MUSCLE WHICH COULD REPRESENT MUSCLE STRAIN OR REACTIVE EDEMA IN THE SETTING OF PATIENT'S RECENT INJURY. NO FRACTURE OR SUSPICIOUS OSSEOUS LESION. Chest X-Ray 08/12/17 00:00 IMPRESSION: Central venous access catheter placed via left IJ approach. Catheter tip at mid right atrium. NO PNEUMOTHORAX. NEW CENTRAL LINE. Assessment & Plan - Diagnosis (1) Septic arthritis of shoulder, left Qualifiers: Septic arthritis organism: due to unspecified organism Qualified Code(s): M00.9 - Pyogenic arthritis, unspecified Is this a current diagnosis for this admission?: Yes Plan: Postop day #1 status post irrigation and debridement LEFT septic shoulder, abscess 1. Chronic anemia patient has received 2 units packed red blood cells continue to monitor. 2. History of IV drug abuse now with positive MRSA bacteremia. 3. Patient will require IV antibiotics likely for 4-6 weeks. 4. Patient will follow-up the office for recheck of her left shoulder in 2 weeks.
--- NOTE | 2017-08-13 21:07 | PDOC PROGRESS REPORT ---
Subjective Progress Note for:: 08/13/17 Reason For Visit: PYOGENIC ARTHRITIS OF L SHOULDER REGION Physical Exam Vital Signs: Temp Pulse Resp BP Pulse Ox 98.4 F 43 L 15 120/55 L 100 08/13/17 16:00 08/13/17 16:00 08/13/17 16:00 08/13/17 16:00 08/13/17 16:00 Intake & Output 08/12/17 08/13/17 08/14/17 06:59 06:59 06:59 Intake Total 2552 1496 1098 Output Total 25 Balance 2527 1496 1098 Weight 76.3 kg 72.1 kg General appearance: PRESENT: no acute distress Eye exam: PRESENT: conjunctiva pink, PERRLA Mouth exam: PRESENT: moist Neck exam: PRESENT: full ROM Respiratory exam: PRESENT: chest wall tenderness, symmetrical, unlabored Cardiovascular exam: PRESENT: +S1, +S2 Pulses: PRESENT: normal radial pulses, normal dorsalis pedis pul Vascular exam: PRESENT: normal capillary refill GI/Abdominal exam: PRESENT: normal bowel sounds, soft. ABSENT: tenderness Rectal exam: PRESENT: deferred Extremities exam: ABSENT: full ROM - PARTIAL ROM TO L SHOULDER Musculoskeletal exam: PRESENT: ambulatory. ABSENT: full ROM - PARTIAL ROM TO L SHOULDER Neurological exam: PRESENT: alert, awake, oriented to person, oriented to place , oriented to time, oriented to situation Psychiatric exam: PRESENT: appropriate affect Skin exam: PRESENT: dry, intact, warm, other - SURGICAL INCISION SITE IS CLEAN, DRY, AND INTACT Results Laboratory Results: 08/13/17 15:15 08/12/17 08:06 08/13/17 15:15 WBC 6.1 RBC 4.28 Hgb 9.1 L Hct 28.1 L MCV 66 L MCH 21.3 L MCHC 32.4 RDW 22.8 H Plt Count 468 H 08/10/17 08:37 Arm - Left Side Abscess Fungal Smear - Final 08/10/17 08:37 Arm - Left Side Abscess Fungal Smear - Final Impressions: Shoulder X-Ray 08/09/17 16:03 IMPRESSION: NEGATIVE STUDY OF THE LEFT SHOULDER. NO RADIOGRAPHIC EVIDENCE OF ACUTE INJURY. Upper Extremity MRI 08/09/17 20:13 IMPRESSION: 9 CM MULTILOCULATED RIM ENHANCING FLUID COLLECTION ANTERIOR TO THE GLENOHUMERAL JOINT SPACE AT THE LEVEL THE BICIPITAL GROOVE PRESUMABLY REPRESENTING AN ABSCESS OR INFECTED HEMATOMA. THERE IS A SMALL GLENOHUMERAL JOINT EFFUSION WITH ABNORMAL SYNOVIAL ENHANCEMENT WHICH COULD BE REACTIVE EFFUSION OR SEPTIC ARTHRITIS. FLUID SAMPLING MAY BE NECESSARY. EDEMA NOTED WITHIN THE SUBSCAPULARIS MUSCLE WHICH COULD REPRESENT MUSCLE STRAIN OR REACTIVE EDEMA IN THE SETTING OF PATIENT'S RECENT INJURY. NO FRACTURE OR SUSPICIOUS OSSEOUS LESION. Chest X-Ray 08/12/17 00:00 IMPRESSION: Central venous access catheter placed via left IJ approach. Catheter tip at mid right atrium. NO PNEUMOTHORAX. NEW CENTRAL LINE. Status: Imported from PACS Assessment & Plan - Diagnosis (1) Gram positive bacterial infection Is this a current diagnosis for this admission?: Yes Plan: History of IV drug abuse. Multiple blood cultures positive for MRSA. Currently on vancomycin IV Patient will require antibiotic therapy for 4 weeks post discharge ECHOcardiogram benign, shows no evidence of endocarditis or other pathology. (2) Septic arthritis of shoulder, left Qualifiers: Septic arthritis organism: due to unspecified organism Qualified Code(s): M00.9 - Pyogenic arthritis, unspecified Is this a current diagnosis for this admission?: Yes Plan: Improving, patient denies pain and increased ROM to L shoulder Continue IV Vancomycin Plan for PICC IV once blood cultures have cleared (3) Abscess of left upper extremity Is this a current diagnosis for this admission?: Yes Plan: Glenohumeral joint space abscess Joint washout by Ortho Surgery on 08/11 Improved ROM and pain free today Wound cultures positive for MRSA Continue IV Vancomycin (4) Anemia Qualifiers: Anemia type: iron deficiency Iron deficiency anemia type: unspecified iron deficiency Qualified Code(s): D50.9 - Iron deficiency anemia, unspecified Is this a current diagnosis for this admission?: Yes Plan: Improved. Previous Hgb 6.8 requiring 2U PRBCs Hgb >8.0 today No evidence of bleeding Continue to monitor (5) Substance abuse Is this a current diagnosis for this admission?: Yes Plan: Patient admits to suboxone use, denies IV drug use Urine TOX screen positive for barbituates Avoid narcotic pain medication (6) Hepatitis C Qualifiers: Viral hepatitis chronicity: chronic Is this a current diagnosis for this admission?: Yes Plan: Managed outpatient with replacer. Patient denies abdominal pain, nausea or vomiting. Benign abdominal exam. - Time Time Spent with patient: 15-24 minutes Medications reviewed and adjusted accordingly: Yes Anticipated discharge: Home with Homehealth Within: within 36 hours - Inpatient Certification Based on my medical assessment, after consideration of the patient's comorbidities, presenting symptoms, or acuity I expect that the services needed warrant INPATIENT care.: Yes I certify that my determination is in accordance with my understanding of Medicare's requirements for reasonable and necessary INPATIENT services [42 CFR 412.3e].: Yes Medical Necessity: Need for IV Antibiotics - Plan Summary Plan Summary: PLAN FOR PICC LINE PLACEMENT ONCE BLOOD CULTURES CLEARED PATIENT WILL NEED IV ABX FOR 2 WEEKS FOLLOWED BY ORAL ABX FOR 2 WEEKS
[2017-08-14] MEDS: VANCOMYCIN HCL 750 MG in DEXTROSE 5%-WATER 250 ML IV SCH ×4 (03:26→23:08)
[2017-08-14 06:08] LABS: HEMATOCRIT 25.8 % (36.0-47.0); HEMOGLOBIN 8.4 g/dL (12.0-15.5); MEAN CORPUSCULAR HEMOGLOBIN 21.4 pg (27.0-33.4); MEAN CORPUSCULAR HGB CONC 32.5 g/dL (32.0-36.0); MEAN CORPUSCULAR VOLUME 66 fl (80-97); PLATELET COUNT 400 10^3/uL (150-450); RED BLOOD COUNT 3.91 10^6/uL (3.72-5.28); RED CELL DISTRIBUTION WIDTH 22.7 % (11.5-14.0); WHITE BLOOD COUNT 5.2 10^3/uL (4.0-10.5)
[2017-08-14] MEDS: KETOROLAC TROMETHAMINE INJ/PF 30 MG/1 ML SDV IV PRN ×2 (06:37→19:00)
[2017-08-14] MEDS: BUPRENORPHINE HCL 2 MG SUBLINGUAL TABLET SL SCH ×3 (06:37→20:35)
[2017-08-14 06:45] LABS: ANION GAP 6 (5-19); BLOOD UREA NITROGEN 12 mg/dL (7-20); CALCIUM 8.5 mg/dL (8.4-10.2); CARBON DIOXIDE 29 mmol/L (22-30); CHLORIDE 107 mmol/L (98-107); GLUCOSE 91 mg/dL (75-110); PHOSPHORUS 4.9 mg/dL (2.5-4.5); POTASSIUM 4.5 mmol/L (3.6-5.0); SODIUM 141.9 mmol/L (137-145)
[2017-08-14] MEDS: GABAPENTIN 300 MG CAPSULE PO SCH ×3 (09:23→17:49)
[2017-08-14] MEDS: IRON POLYSACCHARIDES COMPLEX 150 MG CAPSULE PO SCH (09:23)
[2017-08-14] MEDS: DOCUSATE SODIUM 100 MG CAPSULE PO SCH ×2 (09:24→17:49)
[2017-08-14] MEDS: BUSPIRONE HCL 10 MG TABLET PO SCH ×2 (09:24→21:03)
[2017-08-14 09:32] LABS: VANCOMYCIN,TROUGH 16.9 ug/mL (5.0-20.0)
[2017-08-14] MEDS: BUTALB/ACETAMINOPHEN/CAFFEINE 1 TAB EACH PO PRN ×2 (12:33→20:36)
[2017-08-14] MEDS: TIZANIDINE HCL 4 MG TABLET PO PRN ×2 (12:33→20:35)
[2017-08-14] MEDS: NORMAL SALINE INJ/PF 0.9% 10 ML SDV IV PRN ×2 (14:28→15:33)
--- NOTE | 2017-08-14 18:38 | PDOC PROGRESS REPORT ---
Subjective Progress Note for:: 08/14/17 Subjective:: CECY VALDERRAMA is a 31 y.o. female with a PMH of IVDU, MRSA bacteremia, Hepatitis C. She presented to the ED on 08/09/2017 for L shoulder pain. After CT and MRI of her L shoulder, it was discovered that she had an abscess at the glenohumeral joint space abscess. The patient was seen this morning on rounds, she is resting comfortably in bed on room air. She denies chest pain, shortness of breath, palpitations, fever or chills. The patient is nontoxic appearing. 2 sets of blood cultures were negative from 08/12. After consulting infectious disease, Dr. Hunter, the agreement was made that the patient may be discharged home with 4 weeks of IV daptomycin. Plan for PICC line placement tomorrow and discharge home. Reason For Visit: PYOGENIC ARTHRITIS OF L SHOULDER REGION Physical Exam Vital Signs: Temp Pulse Resp BP Pulse Ox 98.4 F 46 L 18 109/48 L 100 08/14/17 15:23 08/14/17 15:23 08/14/17 15:23 08/14/17 15:23 08/14/17 15:23 Intake & Output 08/13/17 08/14/17 08/15/17 06:59 06:59 06:59 Intake Total 1496 2473 710 Balance 1496 2473 710 Weight 72.1 kg 73.3 kg General appearance: PRESENT: no acute distress, well-developed, well-nourished Head exam: PRESENT: atraumatic, normocephalic Eye exam: PRESENT: conjunctiva pink, EOMI, PERRLA. ABSENT: scleral icterus Ear exam: PRESENT: normal external ear exam Mouth exam: PRESENT: moist, tongue midline Neck exam: ABSENT: carotid bruit, JVD, lymphadenopathy, thyromegaly Respiratory exam: PRESENT: clear to auscultation dmitri. ABSENT: rales, rhonchi, wheezes Cardiovascular exam: PRESENT: RRR. ABSENT: diastolic murmur, rubs, systolic murmur Pulses: PRESENT: normal dorsalis pedis pul Vascular exam: PRESENT: normal capillary refill GI/Abdominal exam: PRESENT: normal bowel sounds, soft. ABSENT: distended, guarding, mass, organolmegaly, rebound, tenderness Rectal exam: PRESENT: deferred Extremities exam: PRESENT: full ROM. ABSENT: calf tenderness, clubbing, pedal edema Neurological exam: PRESENT: alert, awake, oriented to person, oriented to place , oriented to time, oriented to situation Psychiatric exam: PRESENT: appropriate affect, normal mood Skin exam: PRESENT: dry, intact, warm. ABSENT: cyanosis, rash Results Laboratory Results: 08/14/17 05:30 08/14/17 08:40 08/14/17 08/14/17 08/14/17 05:30 05:30 08:40 WBC 5.2 RBC 3.91 Hgb 8.4 L Hct 25.8 L MCV 66 L MCH 21.4 L MCHC 32.5 RDW 22.7 H Plt Count 400 Sodium 141.9 Potassium 4.5 Chloride 107 Carbon Dioxide 29 Anion Gap 6 BUN 12 Creatinine 0.46 L 0.47 L Est GFR ( Amer) > 60 > 60 Est GFR (Non-Af Amer) > 60 > 60 Glucose 91 Calcium 8.5 Phosphorus 4.9 H Magnesium 2.0 Impressions: Shoulder X-Ray 08/09/17 16:03 IMPRESSION: NEGATIVE STUDY OF THE LEFT SHOULDER. NO RADIOGRAPHIC EVIDENCE OF ACUTE INJURY. Upper Extremity MRI 08/09/17 20:13 IMPRESSION: 9 CM MULTILOCULATED RIM ENHANCING FLUID COLLECTION ANTERIOR TO THE GLENOHUMERAL JOINT SPACE AT THE LEVEL THE BICIPITAL GROOVE PRESUMABLY REPRESENTING AN ABSCESS OR INFECTED HEMATOMA. THERE IS A SMALL GLENOHUMERAL JOINT EFFUSION WITH ABNORMAL SYNOVIAL ENHANCEMENT WHICH COULD BE REACTIVE EFFUSION OR SEPTIC ARTHRITIS. FLUID SAMPLING MAY BE NECESSARY. EDEMA NOTED WITHIN THE SUBSCAPULARIS MUSCLE WHICH COULD REPRESENT MUSCLE STRAIN OR REACTIVE EDEMA IN THE SETTING OF PATIENT'S RECENT INJURY. NO FRACTURE OR SUSPICIOUS OSSEOUS LESION. Chest X-Ray 08/12/17 00:00 IMPRESSION: Central venous access catheter placed via left IJ approach. Catheter tip at mid right atrium. NO PNEUMOTHORAX. NEW CENTRAL LINE. Status: Imported from PACS Assessment & Plan - Diagnosis (1) Gram positive bacterial infection Is this a current diagnosis for this admission?: Yes Plan: History of IV drug abuse. Multiple blood cultures positive for MRSA. Currently on vancomycin IV Patient will require antibiotic therapy for 4 weeks post discharge ECHOcardiogram benign, shows no evidence of endocarditis or other pathology. Consulted infectious disease today. Dr. Hunter recommend 4 weeks of IV daptomycin. There is no oral antibiotic option for this patient given her allergy to Bactrim, high NENA with clindamycin, and interaction with Linezolid with patient's BuSpar. (2) Septic arthritis of shoulder, left Qualifiers: Septic arthritis organism: due to unspecified organism Qualified Code(s): M00.9 - Pyogenic arthritis, unspecified Is this a current diagnosis for this admission?: Yes Plan: Improving, patient denies pain and increased ROM to L shoulder Continue IV Vancomycin 2 sets of blood cultures negative from 08/12 Plan for PICC line placement tomorrow followed by discharge home Consulted infectious disease today. Dr. Hunter recommend 4 weeks of IV daptomycin. There is no oral antibiotic option for this patient given her allergy to Bactrim, high NENA with clindamycin, and interaction with Linezolid with patient's BuSpar. (3) Abscess of left upper extremity Is this a current diagnosis for this admission?: Yes Plan: Glenohumeral joint space abscess Joint washout by Ortho Surgery on 08/11 Improved ROM and pain free today Wound cultures positive for MRSA Continue IV Vancomycin (4) Anemia Qualifiers: Anemia type: iron deficiency Iron deficiency anemia type: unspecified iron deficiency Qualified Code(s): D50.9 - Iron deficiency anemia, unspecified Is this a current diagnosis for this admission?: Yes Plan: Improved. 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 Patient denies abdominal pain, nausea or vomiting. Benign abdominal exam. - Time Time Spent with patient: 15-24 minutes Medications reviewed and adjusted accordingly: Yes Anticipated discharge: Home Within: within 24 hours - Inpatient Certification Based on my medical assessment, after consideration of the patient's comorbidities, presenting symptoms, or acuity I expect that the services needed warrant INPATIENT care.: Yes I certify that my determination is in accordance with my understanding of Medicare's requirements for reasonable and necessary INPATIENT services [42 CFR 412.3e].: Yes Medical Necessity: Need for IV Antibiotics, Risk of Complication if Not Cared For in Hospital - Plan Summary Plan Summary: PICC line placement tomorrow. First dose of IV daptomycin tomorrow. Barring any complications, the patient should be discharged tomorrow.
--- NOTE | 2017-08-14 20:28 | Progress Note ---
Provider Note Provider Note: ID Consult Note Asked to review patient's chart by the patient's hospitalist and by Pharmacy. Reviewed VS, labs, reports of imaging and procedures, provider reports. Discussed via telephone with Lizette Rai NP. Pt not seen or examined. Ms. Rosenberg is a 31 year old woman with past medical history including substance abuse disorder in remission (hx of IV drug use with opiates). She presented on August 09 2017 to the ED with c/o increasing L shoulder pain, redness and swelling that developed after reportedly dislocating her shoulder a few days prior. The day before admission she reported having a fever up to 103 F at home. On exam, pt had erythema and swelling of the L shoulder with tenderness to palpation and restricted active ROM, some restriction in passive ROM. Old track murphy were visualized but no new skin lesions to suggest recent IVDU. No other skin lesions or murmur was appreciated. Labs did not show a leukocytosis. ESR was 32 , CRP was 200. Blood cultures grew MRSA in one bottle from both sets drawn on the day of admission. Relevant imaging findings included MRI of the upper extremity that showed a 9 cm multiloculated rim enhancing fluid collection anterior to the glenohumeral joint and small glenohumeral joint effusion with abnormal synovial enhancement. Irrigation and debridement of the abscess and washout of the joint was performed with drain placement on 08/10. Operative cultures yielded growth of MRSA. TTE was performed, which was read as showing no evidence of aortic or mitral valve vegetation. Repeat blood cultures on 08/12 showed no growth. Patient has been afebrile on IV vancomycin during her hospitalization and her shoulder pain and ROM have improved. Impression: MRSA bacteremia secondary to MRSA septic arthritis and abscess of the L shoulder - Pt had source control with irrigation and debridement, improvement clinically , clearance of bacteremia within 3 days and readily became afebrile; she has no other foci of disease that have been identified with assessment by her providers and no evidence of infective endocarditis detected with screening TTE Recommendations - Pt should be treated for 4 weeks (anticipated end date September 09 2017) with either IV vancomycin or IV daptomycin at a dose of 500 mg daily (approximately 6 -7 mg/kg). Daptomycin IV may be a better option than vancomycin from the standpoint of once daily dosing. - With IV daptomycin, the patient will need a baseline CPK and then once weekly monitoring of CPK in addition to CBC and CMP. - If treatment will be pursued instead with IV vancomycin, weekly CBC, CMP and vancomycin troughs will need to be monitored, and vancomycin will need to be dosed with the assistance of a clinical pharmacist to achieve goal troughs of 15 -20. - If the patient requires a PICC line for IV antibiotic therapy, this should be removed once treatment has been completed unless otherwise directed by a provider. Phu Hunter MD [facility] Infectious Diseases, pager [phone]
[2017-08-15 01:08] VITALS: BP 98/46
[2017-08-15] MEDS: VANCOMYCIN HCL 750 MG in DEXTROSE 5%-WATER 250 ML IV SCH (04:16)
[2017-08-15] MEDS: BUPRENORPHINE HCL 2 MG SUBLINGUAL TABLET SL SCH ×2 (07:01→15:11)
[2017-08-15] MEDS: NORMAL SALINE INJ/PF 0.9% 10 ML SDV IV PRN (07:03)
[2017-08-15] MEDS: BUSPIRONE HCL 10 MG TABLET PO SCH (09:31)
[2017-08-15] MEDS: DOCUSATE SODIUM 100 MG CAPSULE PO SCH (09:32)
[2017-08-15] MEDS: IRON POLYSACCHARIDES COMPLEX 150 MG CAPSULE PO SCH (09:32)
[2017-08-15] MEDS: GABAPENTIN 300 MG CAPSULE PO SCH ×2 (09:32→15:10)
[2017-08-15] MEDS ORDERED: DAPTOMYCIN 500 MG in NORMAL SALINE 50 ML IV SCH (11:00)
--- NOTE | 2017-08-15 12:35 | RADIOLOGY REPORT (SQ) ---
EXAM DESCRIPTION: PICC INSERTION; FLUORO/CV PLACEMENT; U/S GUIDE FOR VASCULAR ACCESS COMPLETED DATE/TIME: 08/15/2017 9:17 am REASON FOR STUDY: outpatient iv antibiotics; IV ABX COMPARISON: AP chest 08/12/2017 FLUOROSCOPY TIME: 19 seconds 1 digital chest image and 1 ultrasound images saved to PACS. TECHNIQUE: Fluoroscopic and ultrasound guided PICC placement. LIMITATIONS: None. PROCEDURE: After written consent and assessment were obtained, the patient was brought into the fluo roscopy room and place supine on the table. Ultrasound evaluation of potential access sites were perf ormed. After successfully identifying a patent right basilic vein, the right arm was prepped and drap ed in a sterile fashion along with the ultrasound probe. The entry site was anesthetized with 1% lido mauri. A 21 gauge 7 cm needle was advanced through the skin and into the basilic vein under live ultr asound guidance. An ultrasound image was saved to PACS confirming access site. A .018 guide wire wa s then inserted through the needle and into the venous system. The needle was the removed and an 11 b lade scalpel was used to make a 1cm skin incision. A 5 fr peel-away sheath was advanced over the wir e and into the venous system. A measurement was then made using the existing wire and live fluoroscop ic guidance. The wire was then removed and the trimmed. The PICC was advanced through the peel-away s miriam and into the venous system. The peel-away sheath was removed and the catheter was adhered to th e patients arm with a stat lock. The catheter was then aspirated and flushed and a sterile bandage wa s placed over the access site. A fluoroscopic spot image was saved to PACS confirming the catheter t ip within the superior vena cava. IMPRESSION: SUCCESSFUL PLACEMENT OF A 5 FR DUAL LUMEN 35 CM PICC IN THE RIGHT BASILIC VEIN. COMMENT: Patient medication list reviewed: Yes- Quality ID# [id number]:Eligible professional attests to doc umenting in the medical record they obtained, updated, or reviewed the patient's current medications. . Quality ID 145: Final reports for procedures using fluoroscopy that document radiation exposure susan ke, or exposure time and number of fluorographic images (if radiation exposure indices are not avail able) Quality ID #76: The patient was prepped and draped using maximum sterile barrier technique including cap, mask, sterile gown, sterile gloves, a large sterile sheet, hand hygiene, and 2% Chlorhexidine fo r cutaneous antisepsis. When ultrasound is used, sterile ultrasound techniques are followed requiring sterile gel and sterile probes. TECHNICAL DOCUMENTATION: JOB ID: [id number] [employer]- All Rights Reserved rev-07/19 Reading location - IP/workstation name: [id number]
--- NOTE | 2017-08-16 08:01 | PDOC DISCHARGE SUMMARY ---
General - Admit/Disc Date/PCP Admission Date/Primary Care Provider: 08/09/17 21:04 KEDAR RANKIN Discharge Date: 08/15/17 - Discharge Diagnosis (1) Gram positive bacterial infection Is this a current diagnosis for this admission?: Yes (2) Septic arthritis of shoulder, left Is this a current diagnosis for this admission?: Yes (3) Abscess of left upper extremity Is this a current diagnosis for this admission?: Yes (4) Anemia Is this a current diagnosis for this admission?: Yes (5) Substance abuse Is this a current diagnosis for this admission?: Yes (6) Hepatitis C Is this a current diagnosis for this admission?: Yes - Additional Information Resuscitation Status: Full Code Discharge Diet: Regular Discharge Activity: Activity As Tolerated Prescriptions: Daptomycin [Cubicin Inj 500 mg Vial] 500 mg IV DAILY 25 Days #25 vial Iron Polysaccharides Complex [Nu-Iron 150 Capsule] 150 mg PO DAILY #30 capsule Home Medications: Buprenorphine HCl [Subutex 8 mg Sublingual Tablet] 8 mg SL TID 08/10/17 Buspirone HCl 30 mg PO BID 08/10/17 Butalb/Acetaminophen/Caffeine [Seckne-Skwgqkov-Utuv 50-325-40] 1 each PO TIDP PRN 08/10/17 Gabapentin 900 mg PO TID 08/10/17 Ibuprofen [Motrin 800 mg Tablet] 800 mg PO TIDP PRN 08/10/17 Ondansetron HCl [Zofran] 4 mg PO BIDP PRN 08/10/17 Tizanidine HCl [Zanaflex] 2 mg PO BIDP PRN 08/10/17 Daptomycin [Cubicin Inj 500 mg Vial] 500 mg IV DAILY 25 Days #25 vial 08/15/17 Iron Polysaccharides Complex [Nu-Iron 150 Capsule] 150 mg PO DAILY #30 capsule 08/15/17 History of Present Illness Patient complains of: L shoulder pain History of Present Illness: CECY ROSENBERG is a 31 year old female presents to emergency room with left shoulder pain. Patient states proximal 2 weeks ago she sustained a fall dislocating her left shoulder she reduced the shoulder onto occasions. Patient continued to have pain and swelling when she noticed increasing pain swelling and redness in her left shoulder approximately 36 hours ago and had a temperature of 104. Patient states the pain is worse with motion. Notes fever and chills. Patient denies recent IV drug abuse. Does note history of hepatitis C and bacterial meningitis. Current pain 09/10. Denies international travel, insect bite or open wound. Hospital Course Hospital Course: 31 y.o. F with a history of IV drug abuse and Hepatitis C who presents with L shoulder pain. She reports a history of shoulder dislocation 2 weeks ago and then again a few days prior to arrival to [facility]. She presented to the ED with significant shoulder pain. MRI revealed 9cm multiloculated rim enhancing fluid collection anterior to the glenohumeral joint space. 08/09/2017 Blood cultures positive for MRSA. Dr. Handley of Ortho took patient to OR for washout on 2017. Abscess cultured, also positive for MRSA. Patient treated with IV Vancomycin while inpatient. ECHOcardiogram benign, showed no evidence of endocarditis or other pathology. Consulted infectious disease, Dr. Hunter, regarding suggestions for post-discharge antibiotic treatment. Dr. Hunter recommend 4 weeks of IV daptomycin. There is no oral antibiotic option for this patient given her allergy to Bactrim, high NENA with clindamycin, and interaction with Linezolid with patient's BuSpar. The decision was made to discharge the patient on Daptomycin 500mg IV q24hrs, last treatment would be September 09, 2017. While inpatient, the Ms. Rosenberg was also discovered to have iron deficiency anemia , requiring 2U prbc transfusion for a Hgb of 6.8. Anemia studies revealed TIBC 246 and Total Iron < 10. The patient was placed on iron supplements, which she will need to continue post-discharge. Two sets of blood cultures from 08/12 and 08/14 were NEGATIVE. In preparation for discharge, a PICC line was placed on 08/15. Arrangements were made for home health and outpatient antibiotic treatment. All lab work and PMD follow up is arranged with the home health agency. Additionally, the patient was scheduled to follow up with Ortho within 2 weeks of discharge. Instructions were thoroughly explained to the patient, she states understanding. Physical Exam Vital Signs: Temp Pulse Resp BP Pulse Ox 98.4 F 49 L 16 98/46 L 97 08/15/17 14:15 08/15/17 14:15 08/15/17 14:15 08/15/17 14:15 08/15/17 14:15 Intake & Output 08/15/17 08/16/17 08/17/17 06:59 06:59 06:59 Intake Total 2330 Balance 2330 Weight 70.7 kg Results Laboratory Results: 08/14/17 05:30 08/14/17 08:40 Impressions: Shoulder X-Ray 08/09/17 16:03 IMPRESSION: NEGATIVE STUDY OF THE LEFT SHOULDER. NO RADIOGRAPHIC EVIDENCE OF ACUTE INJURY. Upper Extremity MRI 08/09/17 20:13 IMPRESSION: 9 CM MULTILOCULATED RIM ENHANCING FLUID COLLECTION ANTERIOR TO THE GLENOHUMERAL JOINT SPACE AT THE LEVEL THE BICIPITAL GROOVE PRESUMABLY REPRESENTING AN ABSCESS OR INFECTED HEMATOMA. THERE IS A SMALL GLENOHUMERAL JOINT EFFUSION WITH ABNORMAL SYNOVIAL ENHANCEMENT WHICH COULD BE REACTIVE EFFUSION OR SEPTIC ARTHRITIS. FLUID SAMPLING MAY BE NECESSARY. EDEMA NOTED WITHIN THE SUBSCAPULARIS MUSCLE WHICH COULD REPRESENT MUSCLE STRAIN OR REACTIVE EDEMA IN THE SETTING OF PATIENT'S RECENT INJURY. NO FRACTURE OR SUSPICIOUS OSSEOUS LESION. Chest X-Ray 08/12/17 00:00 IMPRESSION: Central venous access catheter placed via left IJ approach. Catheter tip at mid right atrium. NO PNEUMOTHORAX. NEW CENTRAL LINE. Guidance Fluoroscopy 08/15/17 00:00 IMPRESSION: SUCCESSFUL PLACEMENT OF A 5 FR DUAL LUMEN 35 CM PICC IN THE RIGHT BASILIC VEIN. Interventional Vascular Procedure 08/15/17 00:00 IMPRESSION: SUCCESSFUL PLACEMENT OF A 5 FR DUAL LUMEN 35 CM PICC IN THE RIGHT BASILIC VEIN. PICC Line Insertion 08/15/17 00:00 IMPRESSION: SUCCESSFUL PLACEMENT OF A 5 FR DUAL LUMEN 35 CM PICC IN THE RIGHT BASILIC VEIN. Status: Imported from PACS Qualifiers - * PATIENT BEING DISCHARGED WITH ANY OF THE FOLLOWING DIAGNOSIS: No Plan Discharge Plan: DISCHARGE HOME ON 4 WEEKS OF IV ANTIBIOTICS. WILL NEED TO FOLLOW UP WITH ORTHO IN 2 WEEKS FOR SHOULDER AND PMD DR. RANKIN REGARDING POST-ANTIBIOTIC LAB WORK. Time Spent: Less than 30 Minutes
== END 2017-08-15 17:19 | disposition home health service (06) | DRG 464 ==
LOC: ER 14:49 → EH 21:04 → 4N 08-10 00:04
PROVIDERS: ADMIT Orthopaedic Surgery; ATTEND Internal Medicine
PROC: 30233N1 Transfusion of Nonautologous Red Blood Cells into Peripheral Vein, Percutaneous Approach (ICD-10-PCS; 2017-08-09)
PROC: 0MD Bursae and Ligaments, Extraction (ICD-10-PCS; 2017-08-10)
PROC: 0X9300Z Drainage of Left Shoulder Region with Drainage Device, Open Approach (ICD-10-PCS; 2017-08-10)
PROC: 0JBF0ZZ Excision of Left Upper Arm Subcutaneous Tissue and Fascia, Open Approach (ICD-10-PCS; principal; 2017-08-10 08:00)
PROC: 02H633Z Insertion of Infusion Device into Right Atrium, Percutaneous Approach (ICD-10-PCS; 2017-08-12)
PROC: B244ZZZ Ultrasonography of Right Heart (ICD-10-PCS; 2017-08-12)
PROC: 02HV33Z Insertion of Infusion Device into Superior Vena Cava, Percutaneous Approach (ICD-10-PCS; 2017-08-15)
PROC: B548ZZA Ultrasonography of Superior Vena Cava, Guidance (ICD-10-PCS; 2017-08-15)
DX: M00.012 Staphylococcal arthritis, left shoulder (principal); R78.81 Bacteremia; B95.62 Methicillin resistant Staphylococcus aureus infection as the cause of diseases classified elsewhere; B18.2 Chronic viral hepatitis C; D50.9 Iron deficiency anemia, unspecified; F11.10 Opioid abuse, uncomplicated; F32.9 Major depressive disorder, single episode, unspecified; F17.200 Nicotine dependence, unspecified, uncomplicated; Z82.49 Family history of ischemic heart disease and other diseases of the circulatory system; Z91.81 History of falling; Z88.2 Allergy status to sulfonamides
CPT/HCPCS: 00400; 36415; 36430; 36569; 71045; 76937; 77001; 80048; 80053; 80202; 80307; 82565; 82607; 82728; 82746; 82803; 83540; 83550; 83605; 83735; 84100; 84703; 85025; 85027; 85045; 85652; 86140; 86850; 86900; 86901; 86920; 87040; 87070; 87075; 87077; 87101; 87186; 87205; 93306; 94799; 96374; 99285; A9577; C1751; J0131; J0330; J0571; J0696; J0878; J1170; J1642; J1885; J2060; J2175; J2250; J2270; J2550; J2704; J3010; J3370; J3490; J7060; P9016

== ENCOUNTER 2017-09-09 08:44 | Inpatient (IN) | payer MEDICAID ==
[2017-09-09] MEDS ORDERED: VANCOMYCIN HCL INJ 1000 MG VIAL IV ONE (08:52)
[2017-09-09] MEDS ORDERED: PIPERACILLIN/TAZOBACTAM 4.5 GM VIAL IV ONE (08:52)
--- NOTE | 2017-09-09 08:58 | ER Document Report ---
ED General - General Stated Complaint: ALTERED MENTAL STATUS Time Seen by Provider: 09/09/17 08:52 Mode of Arrival: Medic Information source: Patient Cannot obtain history due to: Altered mental status Notes: 31-year-old female history of hepatitis C IV drug use who had a septic left shoulder which had washout was placed on antibiotics through PICC line and was noted to have MRSA pneumonia presents altered from home. Patient was also noted to be anemic while in the emergency department. TRAVEL OUTSIDE OF THE [place] IN LAST 30 DAYS: No - HPI Onset: Just prior to arrival Onset/Duration: Worse Quality of pain: No pain Severity: Severe Pain Level: Denies Associated symptoms: Slow to respond Exacerbated by: Denies Relieved by: Denies Similar symptoms previously: Yes Recently seen / treated by doctor: Yes - Related Data Allergies/Adverse Reactions: Sulfa (Sulfonamide Antibiotics) Allergy (Verified 08/09/17 14:51) Past Medical History - Social History Smoking Status: Current Every Day Smoker Cigarette use (# per day): Yes Chew tobacco use (# tins/day): No Smoking Education Provided: No Family History: Hypertension Renal/ Medical History: Denies: Hx Peritoneal Dialysis Psychiatric Medical History: Reports: Hx Depression Review of Systems - Review of Systems Notes: PHYSICAL EXAMINATION: GENERAL:ill appearing thin. HEAD: Atraumatic, normocephalic. EYES: Pupils equal round and reactive to light, extraocular movements intact, conjunctiva are normal. ENT: Nares patent, oropharynx clear without exudates. Moist mucous membranes. NECK: Normal range of motion, supple without lymphadenopathy LUNGS: Breath sounds clear to auscultation bilaterally and equal. No wheezes rales or rhonchi. HEART: intermittently tachycardic ABDOMEN: Soft, nontender, nondistended abdomen. No guarding, no rebound. No masses appreciated. Female : deferred Musculoskeletal: Normal range of motion, no pitting or edema. No cyanosis. NEUROLOGICAL:drowsy SKIN: cellulitis of the bilateral lwoer extremities -: Yes ROS unobtainable due to patient's medical condition Physical Exam - Vital signs Vitals: Temp 97.5 F 09/09/17 09:00 Course - Re-evaluation Re-evalutation: 09/09/17 09:43 Patient has a PICC line in place, I believe she may be septic from multiple sources including the PICC line history of pneumonia cellulitis of lower extremities, 7 peripheral IV attempts have been attempted and all failed 09/09/17 09:46 09/09/17 10:55 pt noted to be in acute renal failure, she looks quite ill, i will admit to the ICU - Vital Signs Vital signs: Temp Pulse Resp BP Pulse Ox 97.5 F 09/09/17 09:00 - Laboratory Result Diagrams: 09/09/17 09:30 09/09/17 09:30 Laboratory results interpreted by me: 09/09/17 09/09/17 09/09/17 09:30 09:30 09:30 WBC 18.3 H RBC 5.35 H Hgb 11.8 L MCV 67 L MCH 22.0 L RDW 27.7 H Plt Count 100 L Seg Neuts % (Manual) 86 H Band Neutrophils % 6 H Lymphocytes % (Manual) 4 L Abs Neuts (Manual) 16.8 H PT 15.7 H VBG pH VBG HCO3 Carbon Dioxide 20 L BUN 86 H Creatinine 5.05 H Est GFR ( Amer) 12 L Est GFR (Non-Af Amer) 10 L Glucose 126 H Calcium 6.1 L* Direct Bilirubin 1.1 H AST 229 H ALT 142 H Alkaline Phosphatase 467 H Albumin 3.1 L 09/09/17 09:30 WBC RBC Hgb MCV MCH RDW Plt Count Seg Neuts % (Manual) Band Neutrophils % Lymphocytes % (Manual) Abs Neuts (Manual) PT VBG pH 7.29 L VBG HCO3 19.4 L Carbon Dioxide BUN Creatinine Est GFR ( Amer) Est GFR (Non-Af Amer) Glucose Calcium Direct Bilirubin AST ALT Alkaline Phosphatase Albumin Discharge - Discharge Clinical Impression: Encephalopathy acute Acute renal failure Qualifiers: Acute renal failure type: unspecified Qualified Code(s): N17.9 - Acute kidney failure, unspecified Condition: Critical Disposition: ADMITTED INPATIENT Admitting Provider: Hospitalist Unit Admitted: ICU Referrals: ERIK MUNSON DO [Primary Care Provider] - Follow up as needed
[2017-09-09] MEDS: NORMAL SALINE 1000 ML 1,000 ML IV PRN ×3 (09:48→22:27)
[2017-09-09 09:53] LABS: VENOUS BLOOD BASE EXCESS -6.9 mmol/L; VENOUS BLOOD HCO3 19.4 mmol/L (20-32); VENOUS BLOOD PCO2 41.7 mmHg (35-63); VENOUS BLOOD PH 7.29 (7.30-7.42)
[2017-09-09 09:55] LABS: HEMOGLOBIN 11.8 g/dL (12.0-15.5); MEAN CORPUSCULAR HGB CONC 32.8 g/dL (32.0-36.0); MEAN CORPUSCULAR VOLUME 67 fl (80-97); PLATELET COUNT 100 10^3/uL (150-450); RED BLOOD COUNT 5.35 10^6/uL (3.72-5.28); RED CELL DISTRIBUTION WIDTH 27.7 % (11.5-14.0); WHITE BLOOD COUNT 18.3 10^3/uL (4.0-10.5)
[2017-09-09 09:57] LABS: INTERNATIONAL RATION (INR) 1.19; PROTHROMBIN TIME 15.7 SEC (11.4-15.4)
[2017-09-09 10:19] LABS: ALANINE AMINOTRANSFERASE 142 U/L (9-52); ALBUMIN 3.1 g/dL (3.5-5.0); ALKALINE PHOSPHATASE 467 U/L (38-126); ANION GAP 17 (5-19); ASPARTATE AMINO TRANSFERASE 229 U/L (14-36); BILIRUBIN,DIRECT 1.1 mg/dL (0.0-0.4); BILIRUBIN,TOTAL 1.1 mg/dL (0.2-1.3); BLOOD UREA NITROGEN 86 mg/dL (7-20); CARBON DIOXIDE 20 mmol/L (22-30); CHLORIDE 102 mmol/L (98-107); GLUCOSE 126 mg/dL (75-110); POTASSIUM 4.6 mmol/L (3.6-5.0); SODIUM 138.8 mmol/L (137-145); TOTAL PROTEIN 6.8 g/dL (6.3-8.2)
[2017-09-09 10:35] LABS: CALCIUM 6.1 mg/dL (8.4-10.2)
--- NOTE | 2017-09-09 10:37 | RADIOLOGY REPORT (SQ) ---
EXAM DESCRIPTION: CHEST SINGLE VIEW COMPLETED DATE/TIME: 09/09/2017 10:28 am REASON FOR STUDY: altered mental status COMPARISON: 08/15/2017 EXAM PARAMETERS: NUMBER OF VIEWS: One view. TECHNIQUE: Single frontal radiographic view of the chest acquired. RADIATION DOSE: NA LIMITATIONS: None. FINDINGS: LUNGS AND PLEURA: No opacities, masses or pneumothorax. No pleural effusion. MEDIASTINUM AND HILAR STRUCTURES: No masses. Contour normal. HEART AND VASCULAR STRUCTURES: Heart normal in size. Normal vasculature. BONES: No acute findings. HARDWARE: Right PICC line, unchanged finding. None in the chest. OTHER: No other significant finding. IMPRESSION: 1 No significant interval changes since the prior examination dated 08/15/2017. No acute findings. 2 Right PICC line, unchanged finding. TECHNICAL DOCUMENTATION: JOB ID: [id number] [employer]- All Rights Reserved Reading location - IP/workstation name: [email or web address]
[2017-09-09 10:44] LABS: ABSOLUTE LYMPHOCYTES# (MANUAL) 0.7 10^3/uL (0.5-4.7); ABSOLUTE MONOCYTES # (MANUAL) 0.7 10^3/uL (0.1-1.4); ABSOLUTE NEUTROPHILS# (MANUAL) 16.8 10^3/uL (1.7-8.2); BAND NEUTROPHILS % (MANUAL) 6 % (3-5); BASOPHILS % (MANUAL) 0 % (0-2); EOSINOPHILS % (MANUAL) 0 % (0-6); LYMPHOCYTES % (MANUAL) 4 % (13-45); MONOCYTES % (MANUAL) 4 % (3-13); SEGMENTED NEUTROPHILS % (MAN) 86 % (42-78); TOTAL CELLS COUNTED 100
[2017-09-09 10:45] LABS: ACANTHOCYTES SLIGHT; ANISOCYTOSIS 3+; OVALOCYTES 1+; POIKILOCYTOSIS 2+; SCHISTOCYTES SLIGHT; TOXIC GRANULATION SLIGHT; TOXIC VACUOLATION PRESENT
[2017-09-09 10:46] LABS: BURR CELLS SLIGHT; PLATELET COMMENT DECREASED
[2017-09-09 11:20] LABS: AMORPHOUS SEDIMENT,URINE TRACE /HPF; APPEARANCE,URINE TURBID; BILIRUBIN,URINE NEGATIVE (NEGATIVE); COLOR,URINE YELLOW; GLUCOSE, URINE NEGATIVE (NEGATIVE); KETONES,URINE NEGATIVE (NEGATIVE); LEUKOCYTE ESTERASE,URINE MODERATE (NEGATIVE); NITRITE,URINE NEGATIVE (NEGATIVE); PROTEIN,URINE 100 mg/dL (NEGATIVE); URINE SPECIFIC GRAVITY 1.014
[2017-09-09 11:23] LABS: URINE AMPHETAMINES SCREEN UNCONFIRMED POSITIVE; URINE BARBITURATES SCREEN UNCONFIRMED POSITIVE; URINE BENZODIAZEPINES SCREEN UNCONFIRMED POSITIVE; URINE COCAINE SCREEN UNCONFIRMED POSITIVE; URINE MARIJUANA (THC) SCREEN NEGATIVE; URINE METHADONE SCREEN NEGATIVE; URINE PHENCYCLIDINE SCREEN NEGATIVE
[2017-09-09] MEDS ORDERED: ACETAMINOPHEN 325 MG TABLET PO PRN (12:31)
[2017-09-09] MEDS ORDERED: DEXTROSE 50%-WATER 25 GM/50 ML DISP.SYRIN IV PRN ×2 (12:31)
[2017-09-09] MEDS ORDERED: GLUCAGON,HUMAN RECOMB 1 MG INJ SUBCUT PRN (12:31)
[2017-09-09] MEDS ORDERED: IPRATROPIUM/ALBUTEROL 0.5-2.5 MG/3 ML AMPUL NEB PRN (12:31)
[2017-09-09] MEDS ORDERED: ONDANSETRON HCL INJ/PF 4 MG/2 ML SDV IV PRN (12:31)
[2017-09-09] MEDS ORDERED: DEXTROSE 40% GEL 15 GM TUBE PO PRN ×2 (12:31)
[2017-09-09] MEDS ORDERED: LORAZEPAM INJ 2 MG/1 ML VIAL IV PRN (12:43)
[2017-09-09] MEDS ORDERED: PHARMACY COMMUNICATION ORDER MC NR (13:00)
[2017-09-09] MEDS ORDERED: HYDROMORPHONE HCL INJ/PF 2 MG/ML AMPULE IV PRN (13:33)
[2017-09-09] MEDS ORDERED: BUPRENORPHINE HCL 2 MG SUBLINGUAL TABLET SL SCH (14:00)
[2017-09-09] MEDS ORDERED: BUPRENORPHINE HCL 8 MG SL SCH (14:00)
--- NOTE | 2017-09-09 14:27 | PDOC H&P ---
History of Present Illness Admission Date/PCP: 09/09/17 11:54 [facility] Patient complains of: Weak and tired History of Present Illness: CECY VALDERRAMA is a 31-year-old female with a past medical history of hep C, IV drug use, septic arthritis of the shoulder, chronic anemia and recent admission to this hospital for shoulder dislocation due to septic arthritis septic arthritis of the shoulder, who presented to the ED today via EMS complaining of generalized lethargy and weakness for a few days. Patient states that she just cannot move for the last few days "I could not walk , I could not move and so I called EMS". Patient states that she feels very weak and tired and just does not want to eat. States that she has not had any p.o. food or water for the last few days. Her father is also in the room and she has given me permission to speak with her also. She tells me that last January she was and hence she stopped doing her IV drugs but she lost the baby. States since then she has been started on Subutex but after she ran out she was buying it off the streets. She tells me that her last drug use was over a month ago and she has not used any other drugs since. As permission from her to talk to her father and she gave it to me. I spoke with her father who tells me that she has been living with her sister since discharge from the hospital last month in August. She was here in the hospital and treated for septic arthritis and sent home on a PICC line for IV antibiotics for 4 weeks. She was told to follow-up with orthopedics for her shoulder. She was sent home on daptomycin IV daily for 25 days. Her father tells me that she has had a long history IV drug use and they have been trying to get her clean. States that he has given her infrequent UDS and it has been positive for drugs at times. He tells me that sometimes she is a polite her father and used her sister's urine for drug screening. Her father tells me that she does not tell the truth and is most likely lying to me. Patient is a very poor historian and cannot get her facts straight. Her father believe that she has been using IV drugs through the PICC line. Patient has not followed up with any of her doctors since discharge in August. In the ED today she is very weak and tearful and telling me that she just cannot move. She also has a ulcer in the sacral area. She also tells me that she has a history of seizures but has not been taking her meds states "I do not like taking it". She also has history of hep C but has no idea about her RNA counts. tired Past Medical History Cardiac Medical History: Reports: None Pulmonary Medical History: Reports: None Neurological Medical History: Reports: None Endocrine Medical History: Reports: None Psychiatric Medical History: Reports: Depression Hematology: Reports: Anemia Social History Smoking Status: Current Every Day Smoker Frequency of Alcohol Use: None Hx Recreational Drug Use: Yes Drugs: None Hx Prescription Drug Abuse: Yes Family History Family History: Hypertension Parental Family History Reviewed: Yes - she's not sure about family history Children Family History Reviewed: Unknown Sibling(s) Family History Reviewed.: Unknown Medication/Allergy Home Medications: Buprenorphine HCl [Subutex 8 mg Sublingual Tablet] 8 mg SL TID 09/09/17 Buspirone HCl [Buspar 15 mg Tablet] 30 mg PO BID 09/09/17 Butalb/Acetaminophen/Caffeine [Mxwyym-Pmrsvimp-Rdyp 50-325-40] 1 tab PO TIDP PRN 09/09/17 Gabapentin [Neurontin 300 mg Capsule] 900 mg PO TID 09/09/17 Ibuprofen [Motrin 800 mg Tablet] 800 mg PO TIDP PRN 09/09/17 Ondansetron HCl [Zofran 4 mg Tablet] 4 mg PO BIDP PRN 09/09/17 Allergies/Adverse Reactions: Sulfa (Sulfonamide Antibiotics) Allergy (Verified 09/09/17 13:29) Review of Systems Constitutional: ABSENT: fever(s) Eyes: ABSENT: visual disturbances Ears: ABSENT: hearing changes Nose, Mouth, and Throat: ABSENT: mouth pain, sore throat Cardiovascular: ABSENT: chest pain, edema Respiratory: ABSENT: cough, dyspnea Gastrointestinal: PRESENT: abdominal pain - Generalized Genitourinary: ABSENT: dysuria, hematuria Musculoskeletal: PRESENT: other - Weak and cannot move Integumentary: PRESENT: erythema - Bilateral feet, other - Small areas of healing wounds throughout her body at different stages-looks like needle murphy. Neurological: PRESENT: weakness. ABSENT: focal weakness, tingling Psychiatric: ABSENT: hallucinations, homidical ideation, suicidal ideation Endocrine: ABSENT: polyphagia, polyuria Hematologic/Lymphatic: ABSENT: easy bruising Physical Exam Vital Signs: Temp Pulse Resp BP Pulse Ox 97.5 F 09/09/17 09:00 General appearance: PRESENT: no acute distress, disheveled, thin, other - Tearful Head exam: PRESENT: atraumatic, normocephalic Eye exam: PRESENT: EOMI. ABSENT: conjunctival injection, scleral icterus Ear exam: PRESENT: normal external ear exam. ABSENT: drainage Mouth exam: PRESENT: dry mucosa, tongue midline. ABSENT: neck supple Throat exam: ABSENT: tonsillar erythema Neck exam: PRESENT: full ROM. ABSENT: JVD, tenderness, tracheal deviation Respiratory exam: PRESENT: clear to auscultation dmitri, symmetrical. ABSENT: chest wall tenderness, rhonchi, wheezes Cardiovascular exam: PRESENT: +S1, +S2 Pulses: PRESENT: +2 pedal pulses bilateral Vascular exam: PRESENT: normal capillary refill GI/Abdominal exam: PRESENT: normal bowel sounds, soft, tenderness - Generalized tenderness to all quadrants upon palpation. ABSENT: ascites, firm, guarding Rectal exam: PRESENT: deferred Gentrourinary exam: PRESENT: other - Small amount of discharge noted when we rolled the patient over-take clear with some blood in it Musculoskeletal exam: PRESENT: full ROM, other - Small areas of puncture wounds noted in the legs. ABSENT: tenderness Neurological exam: PRESENT: alert, awake, oriented to person, oriented to place , oriented to time, CN II-XII grossly intact, other - Slightly lethargic Psychiatric exam: PRESENT: other - Tearful Skin exam: PRESENT: dry, erythema - Bilateral feet, warm - sacral Results Impressions: Chest X-Ray 09/09/17 08:52 IMPRESSION: 1 No significant interval changes since the prior examination dated 08/15/2017. No acute findings. 2 Right PICC line, unchanged finding. Assessment & Plan - Diagnosis (1) Severe sepsis with acute organ dysfunction Is this a current diagnosis for this admission?: Yes (2) UTI (urinary tract infection) Qualifiers: Urinary tract infection type: acute cystitis Hematuria presence: with hematuria Qualified Code(s): N30.01 - Acute cystitis with hematuria Is this a current diagnosis for this admission?: Yes (3) Acute renal failure Qualifiers: Acute renal failure type: unspecified Qualified Code(s): N17.9 - Acute kidney failure, unspecified Is this a current diagnosis for this admission?: Yes (4) Hypocalcemia Is this a current diagnosis for this admission?: Yes (5) Positive urine drug screen Is this a current diagnosis for this admission?: Yes (6) Cellulitis of both lower extremities Is this a current diagnosis for this admission?: Yes (7) Elevated LFTs Is this a current diagnosis for this admission?: Yes (8) Hepatitis C Qualifiers: Viral hepatitis chronicity: chronic Is this a current diagnosis for this admission?: Yes (9) Chronic anemia Is this a current diagnosis for this admission?: Yes (10) Vaginal discharge Is this a current diagnosis for this admission?: Yes (11) History of seizure Is this a current diagnosis for this admission?: Yes (12) Sacral decubitus ulcer, stage II Is this a current diagnosis for this admission?: Yes - Time Time Spent: 50 to 70 Minutes Critical Time spent with patient: 35 or more minutes Medications reviewed and adjusted accordingly: Yes - Plan Summary Plan Summary: Severe sepsis-likely secondary to UTI versus cellulitis versus other causes such as endocarditis. WBC 18,000. She has a history of IV drug use and was sent home on a PICC line for 4 weeks of daptomycin on 08/16/17. I am concerned that she might have been using cocaine into her PICC line. We will discontinue her current PICC line in place and place new PICC line. I started her on IV vancomycin and Zosyn at this time. She received 2 L of IV bolus and I will continue with aggressive fluid hydration. Currently her vitals are stable but she is at high risk of deterioration with seizures and withdrawal. We will place her in the ICU for close observation. Given a history of IV drug use and recent PICC line which was she was sent home on-current sepsis-I will order a limited echo to check for vegetation to rule out endocarditis. UTI-[place] was placed in the ED and she is starting to be on IV antibiotics with thank and Zosyn. Cultures were sent out and will await to adjust antibiotics based on sensitivities. Acute renal failure-creatinine a month ago was less than 1 and today it is at 5. I believe this is all prerenal due to hypovolemia and poor oral intake. This time I will continue to hydrate her aggressively and also ordered for renal ultrasound to rule out any intra renal pathology or hydronephrosis. Cellulitis of lower extremities-bilateral feet erythema-I am not so sure if this is truly cellulitic or just erythema from IV drug use versus trauma. At this time she will be on IV antibiotics as stated above and will monitor daily. Hypoglycemia-unclear etiology but it could be medication related versus nutritional deficiency. I may consider to give her a dose of calcium IV to boost her calcium levels. UDS positive-she tested positive for barbiturates and amphetamines benzos and cocaine. She tells me she has been taking Subutex but she ran out of it. At this point I will start her back on Subutex. Ativan and Dilaudid as needed for anxiety/seizures/agitation. We will consult psych. Elevated LFTs and history of hepatitis C-her LFTs may be elevated due to her severe sepsis versus hepatitis C. I will get a right upper quadrant ultrasound. Repeat CMP in the morning. We will also get an HCV RNA. We will also check for HIV-patient has verbally given me permission to check it. Chronic anemia-hemoglobin stable at 11. We will continue to monitor. Consider restarting ferrous sulfate. Vaginal discharge-we will send out for GC/chlamydia since she told me she has a history of unprotected sex with multiple partners. History of seizures- she tells me that she does not take her medication since she does not like it. She is supposed to be on lamotrigine 200 mg extended release daily. Sacral decubitus ulcer, likely stage II-most likely this is a pressure ulcer and happened because she has been sitting at home for the last few days as she told me. Local wound care for now and recommend shifting her weight every 2-4 hours.
--- NOTE | 2017-09-09 14:55 | Operative Report ---
Operative Report DATE OF SURGERY: 09/09/17 PREOPERATIVE DIAGNOSIS: Sepsis POSTOPERATIVE DIAGNOSIS: Same OPERATION: 1. Focused ultrasound left neck. 2. ultrasound directed insertion of triple-lumen central venous access catheter into the left internal jugular vein SURGEON: YOANA SHEPHERD ANESTHESIA: Local TISSUE REMOVED OR ALTERED: none COMPLICATIONS: none ESTIMATED BLOOD LOSS: scant INTRAOPERATIVE FINDINGS: see below PROCEDURE: Informed consent was obtained. The patient was placed in Trendelenburg the left neck and chest wall were exposed, and prepped and draped in a sterile fashion. Surgical plan and surgical timeout discussed. The left neck was anesthetized with 1% lidocaine without epinephrine. Using the variable frequency linear transducer, real time, a 18-gauge needle and wire were threaded into the left internal jugular vein. The tract was dilated up, the dilator removed, and the triple-lumen central venous access catheter was threaded into the left internal jugular vein uneventfully to the hub. There was excellent aspiration and flush of saline through all 3 lumens. The catheter was affixed to the skin with a Biopatch and 2-0 silk suture; sterile dressing applied. The patient tolerated the procedure well. There were no complications. Portable upright chest x-ray pending at time of dictation.
[2017-09-09] MEDS ORDERED: PIPERACILLIN/TAZOBACTAM 3.375 GM VIAL IV SCH (15:00)
--- NOTE | 2017-09-09 15:16 | RADIOLOGY REPORT (SQ) ---
EXAM DESCRIPTION: CHEST SINGLE VIEW COMPLETED DATE/TIME: 09/09/2017 3:05 pm REASON FOR STUDY: Central Line Placement COMPARISON: AP chest 08/12/2017, 09/09/2017 EXAM PARAMETERS: NUMBER OF VIEWS: One view. TECHNIQUE: Single frontal radiographic view of the chest acquired. RADIATION DOSE: NA LIMITATIONS: None. FINDINGS: Interval placement of a left jugular triple-lumen catheter with the tip in the right atriu m. No pneumothorax. Pre-existing right PICC line in place. LUNGS AND PLEURA: No opacities, masses or pneumothorax. No pleural effusion. MEDIASTINUM AND HILAR STRUCTURES: No masses. Contour normal. HEART AND VASCULAR STRUCTURES: Heart normal in size. Normal vasculature. BONES: No acute findings. HARDWARE: No pneumothorax post left jugular central line placement OTHER: No other significant finding. IMPRESSION: No pneumothorax post left jugular central line placement. Previous right PICC catheter from 08/15/2017 unchanged. No acute infiltrates TECHNICAL DOCUMENTATION: JOB ID: [id number] [employer]- All Rights Reserved Reading location - IP/workstation name: [email or web address]
[2017-09-09] MEDS: ACETAMINOPHEN 325 MG TABLET PO PRN (15:51)
[2017-09-09] MEDS: HEPARIN SOD (PORCINE) 5,000 UNIT/ML 1 ML SYRINGE SUBCUT SCH ×2 (15:51→22:24)
[2017-09-09] MEDS ORDERED: PIPERACILLIN SODIUM/TAZOBACTAM 3.375 GM in NORMAL SALINE 100 ML IV ONE (16:00)
[2017-09-09] MEDS ORDERED: PIPERACILLIN SODIUM/TAZOBACTAM 2.25 GM in NORMAL SALINE 50 ML IV ONE (16:15)
[2017-09-09 17:29] LABS: CHLAM PCR DETECTED (NOT DETECT); GON PCR NOT DETECTED (NOT DETECT)
[2017-09-09] MEDS ORDERED: AZITHROMYCIN 1 GM SUSP PACKET PO ONE (20:00)
--- NOTE | 2017-09-09 20:26 | EKG REPORT ---
SEVERITY:- BORDERLINE ECG - SINUS RHYTHM PROLONGED QT INTERVAL : Confirmed by: Almaz Escamilla MD 09-Sep-2017 20:26:14
[2017-09-09] MEDS ORDERED: PIPERACILLIN SODIUM/TAZOBACTAM 3.375 GM in NORMAL SALINE 100 ML IV SCH (21:00)
[2017-09-09] MEDS: PIPERACILLIN SODIUM/TAZOBACTAM 2.25 GM in NORMAL SALINE 50 ML IV SCH (22:23)
[2017-09-09] MEDS: BUPRENORPHINE HCL 2 MG SUBLINGUAL TABLET SL SCH (22:23)
[2017-09-09] MEDS: FAMOTIDINE INJ/PF 20 MG/2 ML SDV IV SCH (22:23)
[2017-09-10 05:25] LABS: ABSOLUTE LYMPHOCYTES (AUTO) 0.8 10^3/uL (0.5-4.7); ABSOLUTE MONOCYTES (AUTO) 0.3 10^3/uL (0.1-1.4); ABSOLUTE NEUT (AUTO) 6.3 10^3/uL (1.7-8.2); BASOPHILS % (AUTO) 0.5 % (0-2); EOSINOPHILS % (AUTO) 0.3 % (0-6); HEMATOCRIT 29.3 % (36.0-47.0); LYMPHOCYTES % (AUTO) 10.1 % (13-45); MEAN CORPUSCULAR HEMOGLOBIN 21.8 pg (27.0-33.4); MEAN CORPUSCULAR HGB CONC 32.6 g/dL (32.0-36.0); MEAN CORPUSCULAR VOLUME 67 fl (80-97); MONOCYTES % (AUTO) 4.6 % (3-13); RED BLOOD COUNT 4.38 10^6/uL (3.72-5.28); SEGMENTED NEUTROPHILS % (AUTO) 84.5 % (42-78); TOTAL CELLS COUNTED % (AUTO) 100 %; WHITE BLOOD COUNT 7.5 10^3/uL (4.0-10.5)
[2017-09-10 05:39] LABS: HEMOGLOBIN 9.5 g/dL (12.0-15.5)
[2017-09-10 05:40] LABS: PLATELET COUNT 78 10^3/uL (150-450)
[2017-09-10 05:54] LABS: ALANINE AMINOTRANSFERASE 115 U/L (9-52); ALBUMIN 2.2 g/dL (3.5-5.0); ALKALINE PHOSPHATASE 593 U/L (38-126); ANION GAP 7 (5-19); ASPARTATE AMINO TRANSFERASE 166 U/L (14-36); BILIRUBIN,DIRECT 1.9 mg/dL (0.0-0.4); BILIRUBIN,TOTAL 1.9 mg/dL (0.2-1.3); CARBON DIOXIDE 22 mmol/L (22-30); CHLORIDE 115 mmol/L (98-107); CHOLESTEROL 75.39 mg/dL (0-200); GLUCOSE 95 mg/dL (75-110); POTASSIUM 4.1 mmol/L (3.6-5.0); SODIUM 144.4 mmol/L (137-145); TOTAL PROTEIN 5.3 g/dL (6.3-8.2); TRIGLYCERIDES 293 mg/dL (<150)
[2017-09-10] MEDS: PIPERACILLIN SODIUM/TAZOBACTAM 2.25 GM in NORMAL SALINE 50 ML IV SCH (05:54)
[2017-09-10] MEDS: BUPRENORPHINE HCL 2 MG SUBLINGUAL TABLET SL SCH ×2 (05:55→14:31)
[2017-09-10] MEDS: HEPARIN SOD (PORCINE) 5,000 UNIT/ML 1 ML SYRINGE SUBCUT SCH (05:56)
[2017-09-10] MEDS: NORMAL SALINE 1000 ML 1,000 ML IV PRN ×3 (05:57→20:16)
[2017-09-10 06:05] LABS: ANISOCYTOSIS 4+
[2017-09-10 06:06] LABS: BURR CELLS 1+; POIKILOCYTOSIS 2+
[2017-09-10 06:07] LABS: HYPOCHROMASIA 1+; PLATELET COMMENT DECREASED
[2017-09-10 06:12] LABS: BLOOD UREA NITROGEN 53 mg/dL (7-20); DIRECT LDL < 30 mg/dL (<100); LIPASE < 10.0 U/L (23-300); VLDL CHOLESTEROL 58.6 mg/dL (10-31)
[2017-09-10 06:14] LABS: CALCIUM 6.5 mg/dL (8.4-10.2)
[2017-09-10] MEDS ORDERED: VANCOMYCIN HCL 750 MG in DEXTROSE 5%-WATER 250 ML IV SCH (10:00)
--- NOTE | 2017-09-10 10:04 | EKG REPORT ---
SEVERITY:- BORDERLINE ECG - SINUS RHYTHM BORDERLINE T ABNORMALITIES, INFERIOR LEADS : Confirmed by: Almaz Escamilla MD 10-Sep-2017 10:02:58
[2017-09-10] MEDS: FAMOTIDINE INJ/PF 20 MG/2 ML SDV IV SCH ×2 (10:10→22:10)
--- NOTE | 2017-09-10 11:24 | RADIOLOGY REPORT (SQ) ---
EXAM DESCRIPTION: U/S ABDOMEN COMPLETE W/O DOP COMPLETED DATE/TIME: 09/10/2017 11:03 am REASON FOR STUDY: elevated LFTs and Bili, renal failure COMPARISON: None. TECHNIQUE: Dynamic and static grayscale images acquired of the abdomen and recorded on PACS. Selino rachel selected color Doppler and spectral images recorded. LIMITATIONS: None. FINDINGS: PANCREAS: No masses. Visualized pancreatic duct normal caliber. LIVER: No masses. Echotexture normal. LIVER VASCULATURE: Normal directional flow of the main portal vein and hepatic veins. GALLBLADDER: No stones. Normal wall thickness. No pericholecystic fluid. ULTRASOUND-DETECTED PRIDE'S SIGN: Negative. INTRAHEPATIC DUCTS AND COMMON DUCT: CBD and intrahepatic ducts normal caliber. No filling defects. INFERIOR VENA CAVA: Normal flow. AORTA: No aneurysm. RIGHT KIDNEY: Normal size. Normal echogenicity. No solid or suspicious masses. No hydronephros is. No calcifications. LEFT KIDNEY: Normal size. Normal echogenicity. No solid or suspicious masses. No hydronephrosi s. No calcifications. SPLEEN: Normal size. No solid masses. PERITONEAL AND PLEURAL SPACES: No ascites or effusions. OTHER: No other significant finding. IMPRESSION: NORMAL ABDOMINAL ULTRASOUND. TECHNICAL DOCUMENTATION: JOB ID: [id number] [employer]- All Rights Reserved Reading location - IP/workstation name: [email or web address]
[2017-09-10] MEDS ORDERED: CALCIUM GLUCONATE 1000 MG/10 ML INJ IV ONE (12:00)
[2017-09-10 12:29] LABS: PHOSPHORUS 4.2 mg/dL (2.5-4.5)
[2017-09-10] MEDS ORDERED: ENOXAPARIN SODIUM INJ 30 MG/0.3 ML DISP.SYRIN SUBCUT ONE (13:00)
--- NOTE | 2017-09-10 13:56 | PSYCHOLOGICAL NOTE ---
Psych Note - Psych Note Psych Note: Reason for consult; substance abuse CECY VALDERRAMA is a 31-year-old female with a past medical history of hep C, IV drug use, septic arthritis of the shoulder, chronic anemia and recent admission to this hospital for shoulder dislocation due to septic arthritis septic arthritis of the shoulder, who presented to the ED today via EMS complaining of generalized lethargy and weakness for a few days. Patient discloses that she came to [facility] ED because of infection. She denies suicidal homicidal ideation. She continued to report that she has been clean from drugs for the last few months. She confirms she receives outpatient services for both medication management and therapy however refuses to provide her providers name "I do not want you telling him and getting him involved in this." Patient again denies drug use. Chart review conducted. Clinician notes patient was positive for barbiturates, amphetamines, benzodiazepines, and cocaine. Attending hospitalist spoke with patient's father they note: Her father tells me that she has had a long history IV drug use and they have been trying to get her clean. States that he has given her infrequent UDS and it has been positive for drugs at times. He tells me that sometimes she is a polite her father and used her sister's urine for drug screening. Her father tells me that she does not tell the truth and is most likely lying to me. Patient is a very poor historian and cannot get her facts straight. Her father believe that she has been using IV drugs through the PICC line. Patient has not followed up with any of her doctors since discharge in August. Controlled substance report indicates patient received 1 narcotic on 09/05/2017; a 28 day supply (84 pills) of buprenorphine. Prescribed by Dr. Levy Mchugh MD. No medication recommendations at this time Polysubstance abuse Impression\\plan: Patient is cleared from acute psychiatric services. Patient denies suicidal and homicidal ideation. Patient does not meet IVC criteria per [place] GS 122C. Patient denies current substance abuse; however, patient's toxicology screening indicates otherwise. Patient was encouraged to speak to her outpatient mental health provider to address her substance abuse; however, she refused to provide that information to clinician. Dr. Moscoso was consulted and the care management of this patient; attending physician is in agreement with recommendations and disposition.
[2017-09-10] MEDS: DAPTOMYCIN 500 MG in NORMAL SALINE 50 ML IV SCH (14:49)
--- NOTE | 2017-09-10 15:58 | PDOC PROGRESS REPORT ---
Subjective Progress Note for:: 09/10/17 Subjective:: 31-year-old female with past medical history of IV drug abuse Hepatitis C Septic arthritis of the shoulder Chronic anemia History of seizures. The patient was recently admitted to this hospital with septic arthritis and abscess of the left shoulder with dislocation and was discharged home on August 16 with a PICC line to complete 4 weeks of IV daptomycin. She presented back to the emergency room on September 09 with generalized weakness and lethargy for the past few days with poor p.o. intake. Her father he reported to the admitting physician that he believes she has been using IV drugs through the PICC line, and has not followed up with any of the doctors since discharge. She was noted to have an ulcer in the sacral area. The patient was noted to be septic on admission with a urinary tract infection and acute renal failure. She was started on IV fluids and Zosyn Urine drug screen was positive for barbiturates and amphetamines benzodiazepines and cocaine. Reason For Visit: SEVERE SEPSIS Physical Exam Vital Signs: Temp Pulse Resp BP Pulse Ox 99.9 F 71 18 108/54 L 97 09/10/17 10:00 09/10/17 11:04 09/10/17 11:04 09/10/17 09:52 09/10/17 11:04 Intake & Output 09/09/17 09/10/17 09/11/17 06:59 06:59 06:59 Intake Total 1996 Output Total 8433 875 Balance -328 -875 Weight 63.6 kg General appearance: PRESENT: thin Head exam: PRESENT: normocephalic Mouth exam: PRESENT: dry mucosa Neck exam: ABSENT: tracheal deviation Respiratory exam: PRESENT: rhonchi, symmetrical, unlabored. ABSENT: crackles Cardiovascular exam: PRESENT: RRR, other - Left upper chest wall catheter present.. ABSENT: systolic murmur GI/Abdominal exam: PRESENT: normal bowel sounds, soft Rectal exam: PRESENT: deferred Extremities exam: PRESENT: other - Right arm edema Results Laboratory Results: 09/10/17 05:10 09/10/17 05:10 09/10/17 09/10/17 09/10/17 05:10 05:10 05:10 WBC 7.5 RBC 4.38 Hgb 9.5 L D Hct 29.3 L MCV 67 L MCH 21.8 L MCHC 32.6 RDW 28.0 H Plt Count 78 L Seg Neutrophils % 84.5 H Lymphocytes % 10.1 L Monocytes % 4.6 Eosinophils % 0.3 Basophils % 0.5 Absolute Neutrophils 6.3 Absolute Lymphocytes 0.8 Absolute Monocytes 0.3 Absolute Eosinophils 0.0 Absolute Basophils 0.0 Sodium 144.4 Potassium 4.1 Chloride 115 H Carbon Dioxide 22 Anion Gap 7 BUN 53 H D Creatinine 2.25 H Est GFR ( Amer) 30 L Est GFR (Non-Af Amer) 25 L Glucose 95 Calcium 6.5 L* Total Bilirubin 1.9 H AST 166 H ALT 115 H Alkaline Phosphatase 593 H Ammonia 11.2 Total Protein 5.3 L Albumin 2.2 L Triglycerides 293 H Cholesterol 75.39 LDL Cholesterol Direct < 30 VLDL Cholesterol 58.6 H HDL Cholesterol 13 L Lipase < 10.0 L TSH 09/10/17 05:10 WBC RBC Hgb Hct MCV MCH MCHC RDW Plt Count Seg Neutrophils % Lymphocytes % Monocytes % Eosinophils % Basophils % Absolute Neutrophils Absolute Lymphocytes Absolute Monocytes Absolute Eosinophils Absolute Basophils Sodium Potassium Chloride Carbon Dioxide Anion Gap BUN Creatinine Est GFR ( Amer) Est GFR (Non-Af Amer) Glucose Calcium Total Bilirubin AST ALT Alkaline Phosphatase Ammonia Total Protein Albumin Triglycerides Cholesterol LDL Cholesterol Direct VLDL Cholesterol HDL Cholesterol Lipase TSH 0.08 L 09/09/17 09/09/17 16:00 21:14 Troponin I 0.015 0.014 Impressions: Chest X-Ray 09/09/17 08:52 IMPRESSION: 1 No significant interval changes since the prior examination dated 08/15/2017. No acute findings. 2 Right PICC line, unchanged finding. Assessment & Plan - Diagnosis (1) Acute renal failure Qualifiers: Acute renal failure type: unspecified Qualified Code(s): N17.9 - Acute kidney failure, unspecified Is this a current diagnosis for this admission?: Yes Plan: IV fluids. Continue to monitor. Improving. (2) Chronic anemia Is this a current diagnosis for this admission?: Yes Plan: No evidence of acute bleeding. Monitor (3) History of seizure Is this a current diagnosis for this admission?: Yes Plan: On phenytoin (4) Hypocalcemia Is this a current diagnosis for this admission?: Yes Plan: Replete. (5) Positive urine drug screen Is this a current diagnosis for this admission?: Yes (6) Sacral decubitus ulcer, stage II Is this a current diagnosis for this admission?: Yes Plan: Wound care. (7) Severe sepsis with acute organ dysfunction Is this a current diagnosis for this admission?: Yes Plan: IV fluids, antibiotics. Follow-up on cultures. Has not needed pressors. (8) UTI (urinary tract infection) Qualifiers: Urinary tract infection type: acute cystitis Hematuria presence: with hematuria Qualified Code(s): N30.01 - Acute cystitis with hematuria Is this a current diagnosis for this admission?: Yes Plan: Continue meropenem. Follow-up on cultures. (9) Hepatitis C Qualifiers: Viral hepatitis chronicity: chronic Is this a current diagnosis for this admission?: Yes Plan: Outpatient follow-up (10) Substance abuse Is this a current diagnosis for this admission?: Yes (11) Septic arthritis of shoulder, left Qualifiers: Septic arthritis organism: due to unspecified organism Qualified Code(s): M00.9 - Pyogenic arthritis, unspecified Is this a current diagnosis for this admission?: Yes Plan: She has not been compliant with the daptomycin. This is been restarted. - Time Time Spent with patient: 35 or more minutes - Plan Summary Plan Summary: Right arm edema at the site of her PICC line. This was removed on admission and picks tip sent for culture. We will get a venous Doppler to rule out DVT.
[2017-09-10] MEDS: CALCIUM CARBONATE 500 MG TABLET PO SCH (17:57)
[2017-09-10] MEDS: LACTOBACILLUS ACIDOPHILUS 250 MG TAB PO SCH (17:57)
[2017-09-10] MEDS: MEROPENEM 500 MG in NORMAL SALINE 50 ML IV SCH (17:58)
[2017-09-10] MEDS: ACETAMINOPHEN 325 MG TABLET PO PRN (20:15)
[2017-09-10] MEDS: BUSPIRONE HCL 10 MG TABLET PO SCH (22:09)
[2017-09-11] MEDS: NORMAL SALINE 1000 ML 1,000 ML IV PRN ×2 (05:04→17:27)
[2017-09-11] MEDS: MEROPENEM 500 MG in NORMAL SALINE 50 ML IV SCH (05:04)
[2017-09-11 05:28] LABS: HEMATOCRIT 24.9 % (36.0-47.0); HEMOGLOBIN 8.1 g/dL (12.0-15.5); MEAN CORPUSCULAR HGB CONC 32.5 g/dL (32.0-36.0); MEAN CORPUSCULAR VOLUME 68 fl (80-97); RED BLOOD COUNT 3.67 10^6/uL (3.72-5.28); RED CELL DISTRIBUTION WIDTH 27.2 % (11.5-14.0); WHITE BLOOD COUNT 4.9 10^3/uL (4.0-10.5)
[2017-09-11 05:43] LABS: ALANINE AMINOTRANSFERASE 94 U/L (9-52); ALKALINE PHOSPHATASE 721 U/L (38-126); ASPARTATE AMINO TRANSFERASE 103 U/L (14-36); BILIRUBIN,DIRECT 0.6 mg/dL (0.0-0.4); BILIRUBIN,TOTAL 0.8 mg/dL (0.2-1.3); CALCIUM 7.1 mg/dL (8.4-10.2); GLUCOSE 82 mg/dL (75-110); PHOSPHORUS 2.9 mg/dL (2.5-4.5); POTASSIUM 3.8 mmol/L (3.6-5.0); TOTAL PROTEIN 4.6 g/dL (6.3-8.2)
[2017-09-11 05:48] LABS: CARBON DIOXIDE 25 mmol/L (22-30); CHLORIDE 115 mmol/L (98-107); SODIUM 143.7 mmol/L (137-145)
[2017-09-11 06:04] LABS: BLOOD UREA NITROGEN 21 mg/dL (7-20)
[2017-09-11 06:05] LABS: ANION GAP 4 (5-19)
[2017-09-11 06:12] LABS: PLATELET COUNT 61 10^3/uL (150-450)
[2017-09-11] MEDS ORDERED: LORAZEPAM INJ 2 MG/1 ML VIAL IV PRN ×2 (08:41)
[2017-09-11 09:17] LABS: ABSOLUTE RETICS # 0.033 10^6/uL (0.028-0.122)
[2017-09-11] MEDS ORDERED: VANCOMYCIN HCL 500 MG in DEXTROSE 5%-WATER 100 ML IV SCH (10:00)
[2017-09-11] MEDS ORDERED: ENOXAPARIN SODIUM INJ 30 MG/0.3 ML DISP.SYRIN SUBCUT SCH (10:00)
[2017-09-11 10:15] LABS: FOLATE 8.01 ng/mL (>2.76)
[2017-09-11 10:28] LABS: IRON(TIBC) < 10.1 ug/dL (37-170)
[2017-09-11 10:41] LABS: INTERNATIONAL RATION (INR) 1.07; PROTHROMBIN TIME 14.5 SEC (11.4-15.4)
[2017-09-11 10:42] LABS: FIBRINOGEN 276 mg/dL (209-497); PARTIAL THROMBOPLASTIN TIME 44.6 SEC (23.5-35.8)
[2017-09-11 10:44] LABS: D-DIMER 2.94 ug/mL (0.00-0.50)
[2017-09-11] MEDS ORDERED: BUTALB/ACETAMINOPHEN/CAFFEINE 1 TAB EACH PO PRN (11:54)
[2017-09-11] MEDS: LACTOBACILLUS ACIDOPHILUS 250 MG TAB PO SCH ×2 (12:20→17:26)
[2017-09-11] MEDS: BUSPIRONE HCL 10 MG TABLET PO SCH ×2 (12:20→21:43)
[2017-09-11] MEDS: PANTOPRAZOLE SODIUM 40 MG VIAL IV SCH ×2 (12:20→21:44)
[2017-09-11] MEDS: AZITHROMYCIN 250 MG TABLET PO SCH (12:21)
[2017-09-11] MEDS: MAGNESIUM OXIDE 400 MG TABLET PO SCH ×2 (12:22→17:25)
[2017-09-11] MEDS ORDERED: GABAPENTIN 300 MG CAPSULE PO ONE (12:30)
[2017-09-11] MEDS ORDERED: DIVALPROEX SODIUM 250 MG TAB.SR.24H PO ONE (13:00)
[2017-09-11] MEDS ORDERED: BUPRENORPHINE HCL 2 MG SUBLINGUAL TABLET SL ONE (13:00)
[2017-09-11] MEDS: CALCIUM CARBONATE 500 MG TABLET PO SCH ×2 (14:29→17:26)
[2017-09-11] MEDS: PIPERACILLIN SODIUM/TAZOBACTAM 3.375 GM in NORMAL SALINE 100 ML IV SCH ×2 (14:30→21:01)
[2017-09-11] MEDS: DAPTOMYCIN 500 MG in NORMAL SALINE 50 ML IV SCH (14:30)
--- NOTE | 2017-09-11 16:55 | XCELERA REPORT ---
[address] [address] Upper Extremity Venous Evaluation Name: CECY VALDERRAMA Age: 31 yrs Gender: Female : 1985 Patient Status: Inpatient Patient Location: ICU^608^A Study Date: 09/11/2017 01:40 PM Procedure: Unilateral duplex scan of the right upper extremity veins was performed, including responses to compression and other maneuvers. Reason For Study: R arm swelling Ordering Physician: TOBIAS TRAVIS Performed By: Sabina Saldana Right Side Venous Evaluation Abnormal vessel filling with echogenic material. Partial compression and some Colour flow in the Subclavian, Axillary and Basilic veins. Critical Findings Discussed with Dr Perdomo. Interpretation Summary Subacute to chronic looking DVT in the right upper extremity. : TOBIAS TRAVIS [place]
[2017-09-11] MEDS ORDERED: HEPARIN SODIUM,PORCINE/D5W 25,000 UNIT/250 ML RTUINJ IV PRN (18:11)
--- NOTE | 2017-09-11 18:19 | PDOC PROGRESS REPORT ---
Subjective Progress Note for:: 09/11/17 Subjective:: 31-year-old female with past medical history of IV drug abuse Hepatitis C Septic arthritis of the shoulder Chronic anemia History of seizures. The patient was recently admitted to this hospital with septic arthritis and abscess of the left shoulder with dislocation and was discharged home on August 16 with a PICC line to complete 4 weeks of IV daptomycin. She presented back to the emergency room on September 09 with generalized weakness and lethargy for the past few days with poor p.o. intake. Her father he reported to the admitting physician that he believes she has been using IV drugs through the PICC line, and has not followed up with any of the doctors since discharge. She was noted to have an ulcer in the sacral area. The patient was noted to be septic on admission with a urinary tract infection and acute renal failure. She was started on IV fluids and Zosyn. Urine drug screen was positive for barbiturates and amphetamines benzodiazepines and cocaine. Urine and blood cultures are positive for GNR. Reason For Visit: SEVERE SEPSIS Physical Exam Vital Signs: Temp Pulse Resp BP Pulse Ox 99.9 F 51 L 10 L 118/60 100 09/11/17 16:00 09/11/17 16:00 09/11/17 16:00 09/11/17 16:00 09/11/17 16:00 Intake & Output 09/10/17 09/11/17 09/12/17 06:59 06:59 06:59 Intake Total 19967 480 Output Total 7213 3250 1475 Balance -328 507 -995 Weight 63.6 kg 67.3 kg General appearance: PRESENT: mild distress Head exam: PRESENT: normocephalic Eye exam: ABSENT: scleral icterus Ear exam: PRESENT: normal external ear exam Mouth exam: PRESENT: moist Neck exam: ABSENT: tracheal deviation Respiratory exam: PRESENT: symmetrical, unlabored Cardiovascular exam: PRESENT: RRR GI/Abdominal exam: PRESENT: normal bowel sounds, soft. ABSENT: tenderness Rectal exam: PRESENT: deferred Extremities exam: PRESENT: other - Right arm swelling. ABSENT: pedal edema Neurological exam: PRESENT: alert, awake, oriented to person, oriented to place Psychiatric exam: PRESENT: anxious Skin exam: ABSENT: petechiae Results Laboratory Results: 09/11/17 05:10 09/11/17 05:10 07/01/1909/11/17 09/11/17 05:10 05:10 05:10 WBC 4.9 RBC 3.67 L Hgb 8.1 L Hct 24.9 L MCV 68 L MCH 22.0 L MCHC 32.5 RDW 27.2 H Plt Count 61 L Retic Count (auto) 0.90 Absolute Retic 0.033 Sodium 143.7 Potassium 3.8 Chloride 115 H Carbon Dioxide 25 Anion Gap 4 L BUN 21 H D Creatinine 0.96 Est GFR ( Amer) > 60 Est GFR (Non-Af Amer) > 60 Glucose 82 Calcium 7.1 L Phosphorus 2.9 Magnesium 1.7 Iron TIBC % Saturation Ferritin Total Bilirubin 0.8 AST 103 H ALT 94 H Alkaline Phosphatase 721 H Total Protein 4.6 L Albumin 2.0 L Vitamin B12 Folate 09/11/17 05:10 WBC RBC Hgb Hct MCV MCH MCHC RDW Plt Count Retic Count (auto) Absolute Retic Sodium Potassium Chloride Carbon Dioxide Anion Gap BUN Creatinine Est GFR ( Amer) Est GFR (Non-Af Amer) Glucose Calcium Phosphorus Magnesium Iron < 10.1 L TIBC 207 L % Saturation UNABLE TO CALCULATE Ferritin 59.70 Total Bilirubin AST ALT Alkaline Phosphatase Total Protein Albumin Vitamin B12 > 1000.0 H Folate 8.01 09/09/17 09/09/17 16:00 21:14 Troponin I 0.015 0.014 Impressions: Chest X-Ray 09/09/17 08:52 IMPRESSION: 1 No significant interval changes since the prior examination dated 08/15/2017. No acute findings. 2 Right PICC line, unchanged finding. Abdomen Ultrasound 09/10/17 00:00 IMPRESSION: NORMAL ABDOMINAL ULTRASOUND. Assessment & Plan - Diagnosis (1) Acute renal failure Qualifiers: Acute renal failure type: unspecified Qualified Code(s): N17.9 - Acute kidney failure, unspecified Is this a current diagnosis for this admission?: Yes Plan: IV fluids. Continue to monitor. Improving. (2) History of seizure Is this a current diagnosis for this admission?: Yes Plan: She has not been taking Lamictal due to the side effects. Depakote has been started. (3) Hypocalcemia Is this a current diagnosis for this admission?: Yes Plan: Replace (4) Positive urine drug screen Is this a current diagnosis for this admission?: Yes (5) Sacral decubitus ulcer, stage II Is this a current diagnosis for this admission?: Yes Plan: Wound care. (6) Severe sepsis with acute organ dysfunction Is this a current diagnosis for this admission?: Yes Plan: IV fluids, antibiotics. Meropenem switched to Zosyn based on sensitivities. Blood cultures positive for Enterobacter and Klebsiella 2 out of 2. Urine culture positive for E. coli and Klebsiella. Infectious disease consult requested. (7) UTI (urinary tract infection) Qualifiers: Urinary tract infection type: acute cystitis Hematuria presence: with hematuria Qualified Code(s): N30.01 - Acute cystitis with hematuria Is this a current diagnosis for this admission?: Yes Plan: Meropenem switched to Zosyn based on cultures and sensitivity. (8) Hepatitis C Qualifiers: Viral hepatitis chronicity: chronic Is this a current diagnosis for this admission?: Yes Plan: HCV RNA pending. (9) Substance abuse Is this a current diagnosis for this admission?: Yes (10) Septic arthritis of shoulder, left Qualifiers: Septic arthritis organism: due to unspecified organism Qualified Code(s): M00.9 - Pyogenic arthritis, unspecified Is this a current diagnosis for this admission?: Yes Plan: Continue daptomycin. (11) Deep venous thrombosis of right upper extremity Qualifiers: Affected thrombotic vein of extremity: axillary Is this a current diagnosis for this admission?: Yes Plan: Case discussed with Dr. Scott. Plan to start heparin drip. Watch for bleeding, monitor platelets closely. (12) Vaginal discharge Is this a current diagnosis for this admission?: Yes Plan: Patient examined by academic advisement director. Plan for pelvic ultrasound. Urine hCG ordered. Positive for chlamydia, started on azithromycin. (13) Anemia of acute infection Is this a current diagnosis for this admission?: Yes Plan: Continue to monitor hemoglobin. Hematology consult requested. No overt bleeding at present. (14) Rectal discharge Is this a current diagnosis for this admission?: Yes Plan: Cultures growing multiple organisms. Concern for possible rectal trauma. Surgery consult requested. (15) Chronic headache Qualifiers: Headache type: tension-type Is this a current diagnosis for this admission?: Yes Plan: Continue Neurontin. Fioricet as needed. - Time Time Spent with patient: 35 or more minutes
[2017-09-11] MEDS ORDERED: HEPARIN SOD (PORCINE) 1,000 UNIT/ML 10 ML VIAL IV PRN (18:26)
--- NOTE | 2017-09-11 18:28 | XCELERA REPORT ---
[address] [address] Transthoracic Echocardiogram Report Name: CECY VALDERRAMA Age: 31 yrs Gender: Female : 1985 Patient Status: Inpatient Patient Location: ICU^608^A Study Date: 09/11/2017 01:21 PM Height: 70 in Weight: 148 lb BSA: 1.8 m2 Procedure: A two-dimensional transthoracic echocardiogram with color flow and Doppler was performed. Study Quality: Good. Reason For Study: ENDOCARDITIS : FOLLOW UP. History: ENDOCARDITIS : FOLLOW UP. Ordering Physician: BEVERLY LARA Performed By: Sabina Saldana Interpretation Summary No Valvular vegetatations of endocarditis seen on aortic,pulmonic,mitral or tricuspid valves. No Valvular vegetatations of endocarditis seen on aortic,pulmonic,mitral or tricuspid valves. MMode/2D Measurements & Calculations RVDd: 3.0 cm LVIDd: 5.1 cm FS: 44.2 % Ao root diam: 2.7 cm IVSd: 0.75 cm LVIDs: 2.9 cm EDV(Teich): 126.1 ml LVPWd: 0.80 cm ESV(Teich): 31.4 ml Ao root area: 5.9 cm2 EF(Teich): 75.1 % LA dimension: 3.4 cm Doppler Measurements & Calculations TR max khurram: 285.0 cm/sec TR max P.5 mmHg : BEVERLY LARA > Almaz Escamilla
[2017-09-11 20:27] LABS: ABSOLUTE EOSINOPHILS # (AUTO) 0.2 10^3/uL (0.0-0.6); ABSOLUTE LYMPHOCYTES (AUTO) 0.9 10^3/uL (0.5-4.7); ABSOLUTE MONOCYTES (AUTO) 0.4 10^3/uL (0.1-1.4); ABSOLUTE NEUT (AUTO) 2.4 10^3/uL (1.7-8.2); BASOPHILS % (AUTO) 0.7 % (0-2); EOSINOPHILS % (AUTO) 5.3 % (0-6); HEMATOCRIT 25.2 % (36.0-47.0); HEMOGLOBIN 8.2 g/dL (12.0-15.5); LYMPHOCYTES % (AUTO) 22.3 % (13-45); MEAN CORPUSCULAR HGB CONC 32.5 g/dL (32.0-36.0); MEAN CORPUSCULAR VOLUME 68 fl (80-97); MONOCYTES % (AUTO) 10.8 % (3-13); RED BLOOD COUNT 3.73 10^6/uL (3.72-5.28); RED CELL DISTRIBUTION WIDTH 26.8 % (11.5-14.0); SEGMENTED NEUTROPHILS % (AUTO) 60.9 % (42-78); TOTAL CELLS COUNTED % (AUTO) 100 %; WHITE BLOOD COUNT 3.9 10^3/uL (4.0-10.5)
[2017-09-11 20:29] LABS: INTERNATIONAL RATION (INR) 0.95; PROTHROMBIN TIME 13.2 SEC (11.4-15.4)
[2017-09-11 20:30] LABS: PARTIAL THROMBOPLASTIN TIME 40.2 SEC (23.5-35.8)
[2017-09-11 20:31] LABS: APPEARANCE,URINE SLIGHTLY-CLOUDY; BILIRUBIN,URINE NEGATIVE (NEGATIVE); COLOR,URINE YELLOW; GLUCOSE, URINE NEGATIVE (NEGATIVE); KETONES,URINE NEGATIVE (NEGATIVE); LEUKOCYTE ESTERASE,URINE MODERATE (NEGATIVE); NITRITE,URINE NEGATIVE (NEGATIVE); PROTEIN,URINE NEGATIVE (NEGATIVE); URINE SPECIFIC GRAVITY 1.015; UROBILINOGEN,URINE NEGATIVE mg/dL (<2.0)
[2017-09-11 20:44] LABS: PLATELET COUNT 81 10^3/uL (150-450)
[2017-09-11 20:49] LABS: ANISOCYTOSIS 3+; HYPOCHROMASIA 2+; OVALOCYTES 2+; PLATELET COMMENT DECREASED; POIKILOCYTOSIS 2+
[2017-09-11 21:10] LABS: HEPATITIS C QUANTITATION 20 IU/mL (.)
--- NOTE | 2017-09-11 21:21 | Progress Note ---
Provider Note Provider Note: ID Consult Note Asked to review patient's chart. Pt not seen or examined. Ms Rosenberg is a 31 year old woman with PMH significant for history of IVDU on Subutex and recent MRSA bacteremia secondary to MRSA septic arthritis and abscess of the L shoulder in August 2017 for which she had PICC placed and discharge home to complete 4 weeks of IV daptomycin. She returned on 09/09/17 with generalized weakness, loss of appetite. Pt admitted to buying opiates off the streets, and her father reported he believes she has been using IV drugs through the PICC line. Pt was found to have severe sepsis with fever, leukocytosis to 18k, thrombocytopenia, elevated transaminases. ARIS with SCr 5, which has since improved. On exam pt had no murmur appreciated, had vaginal discharge was noted (pt admitted admitting to unprotected sex with multiple partners), stage II sacral decubitus, and RUE swelling. Imaging - CXR 09/09 no acute finding, abdominal U/S wnl, TTE reported as good quality without evidence of vegetation on any valve. U/S of RUE with axillary DVT. Labs: HIV antibody screen negative, RPR in process, viral hepatitis serologies in process. NAAT for GC negative, positive for chlamydia BCx from 09/09 drawn from the PICC line grew Enterobacter cloacae (reported sensitive to Rocephin, cefepime, carbapenems, Zosyn, Bactrim) and Klebsiella oxytoca BCx from 09/09 from a peripheral stick has been negative to date UCx from 09/09 showed growth of E coli (resistant to fluoroquinolones and bactrim ) and Klebsiella pneumoniae RUE PICC was removed - Catheter tip has shown no growth Specimen labeled "rectal abscess" on 09/09 has growth of E coli, a 2nd GNR, and GPCs In terms of antibiotics, daptomycin and meropenem were initially started. Based on susceptibilities, meropenem changed on Zosyn. Azithromycin 500 mg daily added also. Impression/Recommendations Polymicrobial bacteremia with Enterobacter cloacae and Klebsiella oxytoca - growth from blood cultures drawn off the PICC line prior to removal without corresponding growth from blood cultures collected peripherally - difficult to dismiss in the setting of sepsis, IVDU hx and suspicion of abusing PICC line to inject - PICC removed - Zosyn acceptable - duration depends on source; if no other focus evident with careful exam (e.g. no abscess, no vertebral osteomyelitis suggested by tenderness to palpation over the spine, etc), treatment for 7-14 days is typical Urine culture growth of Klebsiella pneumoniae and E coli - based on susceptibility profile of the E coli and Klebsiella pneumoniae, Zosyn would be effective if she has UTI (suprapubic pain, dysuria, urgency) in need of treatment, but if she has asymptomatic bacteriuria no antibiotics specifically would be needed "Rectal abscess" swab - need clarification regarding exactly what this sample is from with no mention of rectal abscess on 09/09 when sample was sent hx of MRSA shoulder infection and bacteremia - daptomycin is acceptable for now, while attempting to clarify source of sepsis, nature of compliance with previous therapy at home, and whether there are signs / symptoms that would prompt further evaluation for metastatic focus of infection (e.g. erythematous swollen joint, point spinal tenderness, etc) Phu Hunter MD [facility] Infectious Diseases pager [phone]
--- NOTE | 2017-09-11 21:41 | PDOC CONSULTATION ---
Consultation Consult Date: 09/11/17 Consult reason:: +chlamydia culture, sepsis History of Present Illness Admission Date/PCP: 09/09/17 11:54 KEDAR RANKIN History of Present Illness: CECY VALDERRAMA is a 31 year old female with long h/o IVDU and recent h/o shoulder abscess debridement. she presented to the hospital in sepsis and a rectal abscess. She had evidently been using her PICC line to inject opiates and suboxone that she had purchased from the street. Here at the hospital she did test positive for chlamydia. She indicates some mild pelvic pain and states that she has not had a MC since her miscarriage in May. She has had one child previously who of SIDS. Past Medical History Cardiac Medical History: Reports: None Pulmonary Medical History: Reports: None Neurological Medical History: Reports: None Endocrine Medical History: Reports: None Psychiatric Medical History: Reports: Depression Social History Information Source: Patient, H Records Smoking Status: Current Every Day Smoker Frequency of Alcohol Use: None Hx Recreational Drug Use: Yes Drugs: None, Other Hx Prescription Drug Abuse: Yes - opiates, suboxone - Advance Directive Resuscitation Status: Full Code Family History Family History: Hypertension Parental Family History Reviewed: Yes Children Family History Reviewed: Yes Sibling(s) Family History Reviewed.: Yes Medication/Allergy Home Medications: Buprenorphine HCl [Subutex 8 mg Sublingual Tablet] 8 mg SL TID 09/09/17 Buspirone HCl [Buspar 15 mg Tablet] 30 mg PO BID 09/09/17 Butalb/Acetaminophen/Caffeine [Jvuweo-Lqyzydvj-Xrks 50-325-40] 1 tab PO TIDP PRN 09/09/17 Gabapentin [Neurontin 300 mg Capsule] 900 mg PO TID 09/09/17 Ibuprofen [Motrin 800 mg Tablet] 800 mg PO TIDP PRN 09/09/17 Ondansetron HCl [Zofran 4 mg Tablet] 4 mg PO BIDP PRN 09/09/17 Allergies/Adverse Reactions: Sulfa (Sulfonamide Antibiotics) Allergy (Verified 09/09/17 13:29) Review of Systems Constitutional: PRESENT: as per HPI, weakness Physical Exam - Physical Exam Vital Signs: Temp Pulse Resp BP Pulse Ox 100.0 F 48 L 11 L 112/58 L 98 09/11/17 18:06 09/11/17 18:00 09/11/17 18:06 09/11/17 18:06 09/11/17 18:06 Intake & Output 09/10/17 09/11/17 09/12/17 06:59 06:59 06:59 Intake Total 19962 Output Total 9 4660 1790 Balance -328 507 62 Weight 63.6 kg 67.3 kg - Gynecological Exam Labia: normal Urethra: normal Introitus: normal Perineum: normal Vagina: normal Cervix: normal Cervix: normal - no cervical motion tenderness Uterus: normal Adhexa: normal Rectal: not examined Rectovaginal: not examined Result Laboratory Results: 09/11/17 20:00 09/11/17 05:10 09/11/17 09/11/17 09/11/17 05:10 05:10 05:10 WBC 4.9 RBC 3.67 L Hgb 8.1 L Hct 24.9 L MCV 68 L MCH 22.0 L MCHC 32.5 RDW 27.2 H Plt Count 61 L Seg Neutrophils % Lymphocytes % Monocytes % Eosinophils % Basophils % Absolute Neutrophils Absolute Lymphocytes Absolute Monocytes Absolute Eosinophils Absolute Basophils Retic Count (auto) 0.90 Absolute Retic 0.033 Sodium 143.7 Potassium 3.8 Chloride 115 H Carbon Dioxide 25 Anion Gap 4 L BUN 21 H D Creatinine 0.96 Est GFR ( Amer) > 60 Est GFR (Non-Af Amer) > 60 Glucose 82 Calcium 7.1 L Phosphorus 2.9 Magnesium 1.7 Iron TIBC % Saturation Ferritin Total Bilirubin 0.8 AST 103 H ALT 94 H Alkaline Phosphatase 721 H Total Protein 4.6 L Albumin 2.0 L Vitamin B12 Folate Urine Color Urine Appearance Urine pH Ur Specific Arma Urine Protein Urine Glucose (UA) Urine Ketones Urine Blood Urine Nitrite Ur Leukocyte Esterase Urine WBC (Auto) Urine RBC (Auto) 09/11/17 09/11/17 09/11/17 05:10 20:00 20:00 WBC 3.9 L RBC 3.73 Hgb 8.2 L Hct 25.2 L MCV 68 L MCH 22.0 L MCHC 32.5 RDW 26.8 H Plt Count 81 L Seg Neutrophils % 60.9 Lymphocytes % 22.3 Monocytes % 10.8 Eosinophils % 5.3 Basophils % 0.7 Absolute Neutrophils 2.4 Absolute Lymphocytes 0.9 Absolute Monocytes 0.4 Absolute Eosinophils 0.2 Absolute Basophils 0.0 Retic Count (auto) Absolute Retic Sodium Potassium Chloride Carbon Dioxide Anion Gap BUN Creatinine Est GFR ( Amer) Est GFR (Non-Af Amer) Glucose Calcium Phosphorus Magnesium Iron < 10.1 L TIBC 207 L % Saturation UNABLE TO CALCULATE Ferritin 59.70 Total Bilirubin AST ALT Alkaline Phosphatase Total Protein Albumin Vitamin B12 > 1000.0 H Folate 8.01 Urine Color YELLOW Urine Appearance SLIGHTLY-CLOUDY Urine pH 5.0 Ur Specific Arma 1.015 Urine Protein NEGATIVE Urine Glucose (UA) NEGATIVE Urine Ketones NEGATIVE Urine Blood SMALL H Urine Nitrite NEGATIVE Ur Leukocyte Esterase MODERATE H Urine WBC (Auto) 18 Urine RBC (Auto) 10 09/09/17 09/09/17 16:00 21:14 Troponin I 0.015 0.014 Impressions: Chest X-Ray 09/09/17 08:52 IMPRESSION: 1 No significant interval changes since the prior examination dated 08/15/2017. No acute findings. 2 Right PICC line, unchanged finding. Abdomen Ultrasound 09/10/17 00:00 IMPRESSION: NORMAL ABDOMINAL ULTRASOUND. Assessment & Plan - Diagnosis (1) Chlamydia Is this a current diagnosis for this admission?: Yes - Time Time Spent: 30 to 50 Minutes Critical Time spent with patient: 15-24 minutes Anticipated discharge: Other Within: Other - Plan Summary Plan Summary: pelvic sono and test, check RPR. Patient has been treated with Zithromax appropriately for Chlamydia. Her exam is unimpressive for PID as CMT was not ilicited on exam and there was no tenderness of pelvis with bimanual. No purulent discharge noted however, she has been on multiple antibiotics which could skew exam. Therefore recommend a pelvic sono to assure no TOA or other masses. RPR ordered along with test.
[2017-09-11] MEDS: GABAPENTIN 300 MG CAPSULE PO SCH (21:44)
[2017-09-11] MEDS ORDERED: SILVER SULFADIAZINE 1% CREAM 25 GM TP ONE (22:45)
[2017-09-11] MEDS ORDERED: SILVER SULFADIAZINE 1% CREAM 25 GM ONE (22:49)
--- NOTE | 2017-09-11 22:51 | OPERATIVE REPORT E ---
Operative Report NAME: CECY VALDERRAMA : 1985 AGE: 31Y DATE OF SURGERY: 09/11/2017 ROOM: 608 PREOPERATIVE DIAGNOSIS: PRESSURE SORES TO SACROCOCCYGEAL AREA WITH BLISTER FORMATION. POSTOPERATIVE DIAGNOSIS: PRESSURE SORES TO SACROCOCCYGEAL AREA WITH BLISTER FORMATION. OPERATION: Debridement of blisters along the sacrococcygeal area, roughly measuring 4 x 4 cm and another one between the gluteal cleft 1 cm x 4 cm. SURGEON: ARACELY JARVIS M.D. PROCEDURE: The patient is placed under left lateral decubitus position and blisters subsequently debrided sharply with scissors. It measured roughly about 4 x 4 cm on the bigger area and the smaller distal area between the gluteal cleft about 4 cm long x 1 cm wide. The one between the gluteal cleft was markedly tender. There is evidence of contusion on the sacrococcygeal area. The nurse will place Silvadene dressing to this wound every 12 hours. Will follow on an as needed basis. DICTATING PHYSICIAN: ARACELY JARVIS M.D. [id number] PHY#: [id number] ID: [id number] JOB#: [id number] ACCT: [id number] cc:ARACELY JARVIS M.D. >
[2017-09-12] MEDS: PIPERACILLIN SODIUM/TAZOBACTAM 3.375 GM in NORMAL SALINE 100 ML IV SCH ×4 (03:25→21:09)
[2017-09-12] MEDS: NORMAL SALINE 1000 ML 1,000 ML IV PRN ×2 (03:26→13:22)
[2017-09-12 04:57] LABS: MEAN CORPUSCULAR HEMOGLOBIN 21.8 pg (27.0-33.4); MEAN CORPUSCULAR HGB CONC 32.1 g/dL (32.0-36.0); MEAN CORPUSCULAR VOLUME 68 fl (80-97); RED BLOOD COUNT 3.38 10^6/uL (3.72-5.28); RED CELL DISTRIBUTION WIDTH 26.9 % (11.5-14.0); WHITE BLOOD COUNT 3.5 10^3/uL (4.0-10.5)
[2017-09-12 05:03] LABS: PLATELET COUNT 78 10^3/uL (150-450)
[2017-09-12 05:04] LABS: ALANINE AMINOTRANSFERASE 77 U/L (9-52); ALKALINE PHOSPHATASE 491 U/L (38-126); ANION GAP 6 (5-19); ASPARTATE AMINO TRANSFERASE 65 U/L (14-36); BILIRUBIN,DIRECT 0.5 mg/dL (0.0-0.4); BILIRUBIN,TOTAL 0.6 mg/dL (0.2-1.3); BLOOD UREA NITROGEN 13 mg/dL (7-20); CALCIUM 7.1 mg/dL (8.4-10.2); CARBON DIOXIDE 25 mmol/L (22-30); CHLORIDE 112 mmol/L (98-107); GLUCOSE 94 mg/dL (75-110); POTASSIUM 3.4 mmol/L (3.6-5.0); SODIUM 143.3 mmol/L (137-145); TOTAL PROTEIN 4.7 g/dL (6.3-8.2)
[2017-09-12 05:37] LABS: ABSOLUTE LYMPHOCYTES# (MANUAL) 1.2 10^3/uL (0.5-4.7); ABSOLUTE MONOCYTES # (MANUAL) 0.4 10^3/uL (0.1-1.4); ABSOLUTE NEUTROPHILS# (MANUAL) 1.7 10^3/uL (1.7-8.2); BASOPHILS % (MANUAL) 0 % (0-2); EOSINOPHILS % (MANUAL) 7 % (0-6); LYMPHOCYTES % (MANUAL) 34 % (13-45); MONOCYTES % (MANUAL) 11 % (3-13); SEGMENTED NEUTROPHILS % (MAN) 48 % (42-78); TOTAL CELLS COUNTED 100
[2017-09-12 05:38] LABS: BURR CELLS 2+; OVALOCYTES 1+
[2017-09-12 05:39] LABS: ANISOCYTOSIS 3+; HYPOCHROMASIA 1+; POIKILOCYTOSIS 2+; TEAR DROP CELLS SLIGHT
[2017-09-12] MEDS: GABAPENTIN 300 MG CAPSULE PO SCH ×3 (05:42→21:11)
[2017-09-12 05:44] LABS: PLATELET COMMENT DECREASED
[2017-09-12 05:46] LABS: HEMOGLOBIN 7.4 g/dL (12.0-15.5)
[2017-09-12] MEDS: MAGNESIUM SULFATE 1 GM/D5W 100 ML IV SCH ×2 (06:16→06:55)
[2017-09-12 07:06] LABS: HEPATITIS C LOG10 1.301 (.)
[2017-09-12 07:44] LABS: HEPATITIS A AB IGM Negative (Negative); HEPATITIS B CORE AB IGM Negative (Negative); HEPATITS B SURFACE ANTIGEN Negative (Negative)
--- NOTE | 2017-09-12 08:19 | RADIOLOGY REPORT (SQ) ---
EXAM DESCRIPTION: MRI LT UPPER JOINT COMBO COMPLETED DATE/TIME: 09/11/2017 7:47 pm REASON FOR STUDY: L shoulder septic arthritis COMPARISON: None. TECHNIQUE: Multiplanar imaging of the left shoulder to include T1-weighted, postcontrast T1-weighted , and T2-weighted images. CONTRAST TYPE AND DOSE: Not documented RENAL FUNCTION: None required. The patient is less than 50 years old. LIMITATIONS: None. FINDINGS: BONE MARROW: No marrow signal alteration. Specifically no marrow replacement or marrow ed portillo. No evidence for osteomyelitis. No cortical break through. SOFT TISSUES: Minimal joint effusion. . No soft tissue abscess is identified. No focal areas of en hancement. OTHER: No internal derangement identified in the shoulder. Rotator cuff, glenohumeral joint, labrum and biceps tendon appear unremarkable. IMPRESSION: No evidence for osteomyelitis. Minimal joint effusion. No soft tissue abscess. TECHNICAL DOCUMENTATION: JOB ID: [id number] [email or web address]- All Rights Reserved Reading location - IP/workstation name: [email or web address]
--- NOTE | 2017-09-12 08:21 | RADIOLOGY REPORT (SQ) ---
EXAM DESCRIPTION: U/S NON OB PEL W/DOPPLER COMPLETED DATE/TIME: 09/12/2017 7:02 am REASON FOR STUDY: EVAL FOR PID COMPARISON: None. TECHNIQUE: Dynamic and static grayscale images acquired of the pelvis via transabdominal approach an d recorded on PACS. Additional selected color Doppler and spectral images recorded. LIMITATIONS: None. FINDINGS: UTERUS: Contour normal. No mass. ENDOMETRIAL STRIPE: No focal or generalized thickening. No masses. CERVIX: No nabothian cysts. RIGHT OVARY AND DOPPLER: Normal size. No worrisome masses. Normal arterial vascular flow without evid ence for torsion. LEFT OVARY AND DOPPLER: Ovary not visualized. FREE FLUID: None noted. OTHER: No other significant finding. MEASUREMENTS: UTERUS: 0.9 cm ENDOMETRIAL STRIPE: 11 mm RIGHT OVARY: 1.9 cm LEFT OVARY: Not visualized. IMPRESSION: NORMAL PELVIC ULTRASOUND BY TRANSABDOMINAL TECHNIQUE. TECHNICAL DOCUMENTATION: JOB ID: [id number] [email or web address]- All Rights Reserved Rev Reading location - IP/workstation name: [email or web address]
[2017-09-12 09:13] LABS: HEPATITIS C VIRUS ANTIBODY >11.0 s/co ratio (0.0-0.9)
[2017-09-12] MEDS ORDERED: POTASSIUM CHLORIDE 20 MEQ/15 ML UDCUP PO ONE (09:30)
[2017-09-12] MEDS: PANTOPRAZOLE SODIUM 40 MG VIAL IV SCH ×2 (09:46→21:13)
[2017-09-12] MEDS: LACTOBACILLUS ACIDOPHILUS 250 MG TAB PO SCH ×2 (09:47→17:26)
[2017-09-12] MEDS: BUSPIRONE HCL 10 MG TABLET PO SCH ×2 (09:47→21:11)
[2017-09-12] MEDS: CALCIUM CARBONATE 500 MG TABLET PO SCH ×2 (09:47→17:25)
[2017-09-12] MEDS: MAGNESIUM OXIDE 400 MG TABLET PO SCH ×2 (09:48→17:25)
[2017-09-12] MEDS: DIVALPROEX SODIUM 250 MG TAB.SR.24H PO SCH (09:48)
[2017-09-12] MEDS: SILVER SULFADIAZINE 1% CREAM 25 GM TP SCH ×2 (09:48→21:17)
[2017-09-12] MEDS: AZITHROMYCIN 250 MG TABLET PO SCH (09:48)
[2017-09-12] MEDS ORDERED: BUPRENORPHINE HCL 2 MG SUBLINGUAL TABLET SL SCH (10:00)
[2017-09-12] MEDS ORDERED: MAGNESIUM SULFATE 4 GM/100 ML RTUPB IV ONE (10:00)
[2017-09-12] MEDS: DOCUSATE SODIUM 100 MG CAPSULE PO SCH ×2 (10:22→17:25)
[2017-09-12] MEDS: POLYETHYLENE GLYCOL 3350 POWDER 17 GM/1 PACKET PO SCH (10:22)
[2017-09-12] MEDS: DAPTOMYCIN 500 MG in NORMAL SALINE 50 ML IV SCH (13:22)
--- NOTE | 2017-09-12 13:55 | PDOC CONSULTATION ---
Consultation Consult Date: 09/12/17 Consult reason:: Hematology/Oncology consultation was requested for patient with pancytopenia. History of Present Illness Admission Date/PCP: 09/09/17 11:54 KEDAR RANKIN History of Present Illness: CECY VALDERRAMA is a 31 year old female with a longstanding history of recurrent, multiple severe infections. She had bacterial meningitis in 2013 and 2014 and Viral meningitis in 2016. She has had "fever for no reason" and has been seeing Infectious disease at [facility] for this. She was first diagnosed with anemia after a miscarriage in May of this year. She then underwent shoulder surgery in August for an abscess and was given 2 units pRBCs at that time. She has been taking oral iron supplements, but these do not seem to be working. She states that she does not remember events leading up to this hospitalization. However, she does remember extreme weakness and inability to move. According to the medical records, patient is a known IV drug abuser with history of HCV, chronic anemia and septic arthritis. She told the admitting physician that she has been trying to get clean and has not used any drugs for 1 month. However, she does have a PICC line and on admission, her urine drug screen was positive for barbiturates, amphetamines, benzodiazapine, and cocaine. She does have chronic anemia, but prior to this admission, her baseline WBC and PLT were normal. Today, all 3 blood cell lines appear to be trending downward. She has positive blood and urine cultures and rectal abcess all growing multiple organisms. Her LFTs are elevated as well. Her D-dimer is high, but Fibrinogen is normal. Past Medical History Cardiac Medical History: Reports: None Denies: Coronary Artery Disease, Myocardial Infarction, Hypertension Pulmonary Medical History: Reports: None Denies: Asthma, Bronchitis, Chronic Obstructive Pulmonary Disease (COPD), Pneumonia Neurological Medical History: Reports: None, Seizures Endocrine Medical History: Reports: None Musculoskeltal Medical History: Denies: Arthritis Psychiatric Medical History: Reports: Depression Hematology: Reports: Anemia Infectious History Note: Multiple severe infections. Past Surgical History Past Surgical History: Reports: Appendectomy, Section, Other - D&C, shoulder abscess surgery Social History Information Source: Patient, [facility] Records Occupation: Patient is disabled due to infections and short term memory loss. Lives with: Family Smoking Status: Current Every Day Smoker Frequency of Alcohol Use: None Hx Recreational Drug Use: Yes Drugs: Other Hx Prescription Drug Abuse: Yes - opiates, suboxone - Advance Directive Resuscitation Status: Full Code Family History Family History: Reviewed & Not Pertinent, Hypertension Parental Family History Reviewed: Yes Children Family History Reviewed: NA Sibling(s) Family History Reviewed.: Yes Medication/Allergy Home Medications: Buprenorphine HCl [Subutex 8 mg Sublingual Tablet] 1 tab SL Q8 05/06/17 Butalb/Acetaminophen/Caffeine [Fioricet (50-325-40 mg) Tablet] 1 tab PO Q8HP PRN 05/06/17 Gabapentin [Neurontin 300 mg Capsule] 300 mg PO Q8 05/06/17 Lamotrigine [Lamotrigine ER] 200 mg PO QHS 05/06/17 Lorazepam [Ativan 0.5 mg Tablet] 0.5 mg PO Q12HP PRN 05/06/17 Ondansetron HCl [Zofran 4 mg Tablet] 4 mg PO Q12HP PRN 05/06/17 Oseltamivir Phosphate [Tamiflu 75 mg Capsule] 75 mg PO Q12 05/06/17 Sertraline HCl [Zoloft] 100 mg PO DAILY 05/06/17 Doxycycline Hyclate [Vibramycin 100 mg Tablet] 100 mg PO Q12 7 Days #14 tablet 05/07/17 Buprenorphine HCl [Subutex 8 mg Sublingual Tablet] 8 mg SL TID 09/09/17 Buspirone HCl [Buspar 15 mg Tablet] 30 mg PO BID 09/09/17 Butalb/Acetaminophen/Caffeine [Icjogu-Wjoewtbc-Kxid 50-325-40] 1 tab PO TIDP PRN 09/09/17 Gabapentin [Neurontin 300 mg Capsule] 900 mg PO TID 09/09/17 Ibuprofen [Motrin 800 mg Tablet] 800 mg PO TIDP PRN 09/09/17 Ondansetron HCl [Zofran 4 mg Tablet] 4 mg PO BIDP PRN 09/09/17 Allergies/Adverse Reactions: latex [Latex] Allergy (Intermediate, Verified 05/06/17 10:43) RASH, SWELLING AT AREA Sulfa (Sulfonamide Antibiotics) Allergy (Verified 09/09/17 13:29) ketorolac tromethamine [From Toradol] Adverse Reaction (Intermediate, Verified 05/06/17 10:43) AGITATED meperidine HCl [From Demerol] Adverse Reaction (Intermediate, Verified 05/06/17 10:43) AGITATED Review of Systems Constitutional: PRESENT: fever(s) Eyes: ABSENT: visual disturbances Ears: ABSENT: hearing changes Nose, Mouth, and Throat: ABSENT: sore throat Cardiovascular: ABSENT: chest pain Respiratory: ABSENT: dyspnea Gastrointestinal: ABSENT: constipation, nausea Genitourinary: ABSENT: dysuria Musculoskeletal: PRESENT: muscle weakness Neurological: PRESENT: lack of coordination, weakness Physical Exam Vital Signs: Temp Pulse Resp BP Pulse Ox 99.1 F 57 L 14 111/72 98 09/12/17 12:18 09/12/17 10:00 09/12/17 12:18 09/12/17 12:18 09/12/17 12:18 Intake & Output 09/11/17 09/12/17 09/13/17 06:59 06:59 06:59 Intake Total 3757 3195 300 Output Total 3250 3315 510 Balance 507 -120 -210 Weight 67.3 kg 70.4 kg General appearance: PRESENT: no acute distress, well-developed, well-nourished Exam: female in ICU bed. Family is at bedside. Eye exam: PRESENT: EOMI, PERRLA Ear exam: PRESENT: normal external ear exam Mouth exam: PRESENT: moist, tongue midline Neck exam: ABSENT: lymphadenopathy, tenderness Respiratory exam: PRESENT: clear to auscultation dmitri, unlabored Cardiovascular exam: PRESENT: RRR, systolic murmur Pulses: PRESENT: normal dorsalis pedis pul GI/Abdominal exam: PRESENT: soft. ABSENT: organolmegaly, tenderness Extremities exam: ABSENT: pedal edema Musculoskeletal exam: PRESENT: normal inspection Neurological exam: PRESENT: alert, awake, oriented to person, oriented to place Psychiatric exam: PRESENT: appropriate affect Focused psych exam: ABSENT: restlessness Skin exam: PRESENT: normal color Results Laboratory Results: 09/12/17 04:25 09/12/17 04:25 09/11/17 09/11/17 09/12/17 20:00 20:00 04:25 WBC 3.9 L 3.5 L RBC 3.73 3.38 L Hgb 8.2 L 7.4 L Hct 25.2 L 23.0 L MCV 68 L 68 L MCH 22.0 L 21.8 L MCHC 32.5 32.1 RDW 26.8 H 26.9 H Plt Count 81 L 78 L Seg Neutrophils % 60.9 Not Reportable Lymphocytes % 22.3 Not Reportable Monocytes % 10.8 Not Reportable Eosinophils % 5.3 Not Reportable Basophils % 0.7 Not Reportable Absolute Neutrophils 2.4 Not Reportable Absolute Lymphocytes 0.9 Not Reportable Absolute Monocytes 0.4 Not Reportable Absolute Eosinophils 0.2 Not Reportable Absolute Basophils 0.0 Not Reportable Sodium Potassium Chloride Carbon Dioxide Anion Gap BUN Creatinine Est GFR ( Amer) Est GFR (Non-Af Amer) Glucose Calcium Phosphorus Magnesium Total Bilirubin AST ALT Alkaline Phosphatase Total Protein Albumin Urine Color YELLOW Urine Appearance SLIGHTLY-CLOUDY Urine pH 5.0 Ur Specific [place] 1.015 Urine Protein NEGATIVE Urine Glucose (UA) NEGATIVE Urine Ketones NEGATIVE Urine Blood SMALL H Urine Nitrite NEGATIVE Ur Leukocyte Esterase MODERATE H Urine WBC (Auto) 18 Urine RBC (Auto) 10 09/12/17 04:25 WBC RBC Hgb Hct MCV MCH MCHC RDW Plt Count Seg Neutrophils % Lymphocytes % Monocytes % Eosinophils % Basophils % Absolute Neutrophils Absolute Lymphocytes Absolute Monocytes Absolute Eosinophils Absolute Basophils Sodium 143.3 Potassium 3.4 L Chloride 112 H Carbon Dioxide 25 Anion Gap 6 BUN 13 Creatinine 0.68 Est GFR ( Amer) > 60 Est GFR (Non-Af Amer) > 60 Glucose 94 Calcium 7.1 L Phosphorus 3.0 Magnesium 1.2 L* Total Bilirubin 0.6 AST 65 H ALT 77 H Alkaline Phosphatase 491 H Total Protein 4.7 L Albumin 2.0 L Urine Color Urine Appearance Urine pH Ur Specific [place] Urine Protein Urine Glucose (UA) Urine Ketones Urine Blood Urine Nitrite Ur Leukocyte Esterase Urine WBC (Auto) Urine RBC (Auto) 09/09/17 15:35 Rectum - Rectal Abscess Gram Stain - Final 09/09/17 15:35 Rectum - Rectal Abscess Wound Culture - Final Escherichia Coli Escherichia Coli#2 Mrsa (Meth Resis Staph Aureus) Group C Beta Streptococcus 09/09/17 15:35 Catheter Tip - Picc Line Catheter Tip Culture - Final NO GROWTH 3 DAYS 09/09/17 09/09/17 16:00 21:14 Troponin I 0.015 0.014 Impressions: Chest X-Ray 09/09/17 08:52 IMPRESSION: 1 No significant interval changes since the prior examination dated 08/15/2017. No acute findings. 2 Right PICC line, unchanged finding. Abdomen Ultrasound 09/10/17 00:00 IMPRESSION: NORMAL ABDOMINAL ULTRASOUND. Upper Extremity MRI 09/11/17 00:00 IMPRESSION: No evidence for osteomyelitis. Minimal joint effusion. No soft tissue abscess. Pelvis Ultrasound 09/12/17 00:00 IMPRESSION: NORMAL PELVIC ULTRASOUND BY TRANSABDOMINAL TECHNIQUE. Assessment & Plan - Diagnosis (1) Severe sepsis with acute organ dysfunction Is this a current diagnosis for this admission?: Yes Plan: Multiple organisms. LFTs elevated, Blood counts suppressed. D-dimer positive. LDH elevated. On antibiotics. IDs note reviewed. (2) Deep venous thrombosis of right upper extremity Qualifiers: Affected thrombotic vein of extremity: axillary Is this a current diagnosis for this admission?: Yes Plan: This appears to be new to this admission, although U/S shows some evidence of chronic DVT. She had PICC line in the RUE which was removed on admission. This could be the cause of this DVT. At this point, due to muliple reasons, I do not believe long-term anticoagulation would be necessary. Often, Upper Extremity DVTs resolve after PICC line has been removed. (3) Pancytopenia Is this a current diagnosis for this admission?: Yes Plan: Although she has chronic anemia, the low WBC and PLTs appear to be new. The list of possible causes at this point is quite extensive, with the most likely being Sepsis. I agree with current management. Hold all blood thinners for PLT <50, Watch blood counts for now. She is not yet neutropenic. Her platelet count remains stable. Consider blood transfusion for HGB <8.0. Her B12, Folate , iron did not indicate a vitamin deficiency. Her LDH is elevated, but this is non-specific. I see no evidence of TTP on the current blood smear. - Plan Summary Plan Summary: Thank you for this consultation. I will continue to follow her with you. I will check Quantitative Immunoglobulins to see if there may be an underlying immunodeficiency. Consider C50 as well. She has been seen by [facility] Infectious disease. I am unsure what work-up she has had thus far. However, her IV drug use is certainly not helping her situation. Dr. Scott will be covering until Saturday. Please call if needed.
[2017-09-12 15:09] LABS: HEMATOCRIT 24.6 % (36.0-47.0); HEMOGLOBIN 8.3 g/dL (12.0-15.5); MEAN CORPUSCULAR HEMOGLOBIN 22.8 pg (27.0-33.4); MEAN CORPUSCULAR HGB CONC 33.6 g/dL (32.0-36.0); MEAN CORPUSCULAR VOLUME 68 fl (80-97); PLATELET COUNT 110 10^3/uL (150-450); RED BLOOD COUNT 3.63 10^6/uL (3.72-5.28); RED CELL DISTRIBUTION WIDTH 26.7 % (11.5-14.0); WHITE BLOOD COUNT 4.1 10^3/uL (4.0-10.5)
[2017-09-12 15:33] LABS: ABSOLUTE MONOCYTES # (MANUAL) 0.5 10^3/uL (0.1-1.4); ABSOLUTE NEUTROPHILS# (MANUAL) 2.2 10^3/uL (1.7-8.2); BASOPHILS % (MANUAL) 0 % (0-2); EOSINOPHILS % (MANUAL) 11 % (0-6); LYMPHOCYTES % (MANUAL) 22 % (13-45); MONOCYTES % (MANUAL) 11 % (3-13); SEGMENTED NEUTROPHILS % (MAN) 54 % (42-78); TOTAL CELLS COUNTED 100
[2017-09-12 15:35] LABS: ANISOCYTOSIS 3+; HYPOCHROMASIA SLIGHT; OVALOCYTES 1+; PLATELET COMMENT DECREASED; POIKILOCYTOSIS SLIGHT
--- NOTE | 2017-09-12 17:40 | PDOC PROGRESS REPORT ---
Subjective Progress Note for:: 09/12/17 Subjective:: 31-year-old female with past medical history of IV drug abuse Hepatitis C Septic arthritis of the shoulder Chronic anemia History of seizures. The patient was recently admitted to this hospital with septic arthritis and abscess of the left shoulder with dislocation and was discharged home on August 16 with a PICC line to complete 4 weeks of IV daptomycin. She presented back to the emergency room on September 09 with generalized weakness and lethargy for the past few days with poor p.o. intake. Her father he reported to the admitting physician that he believes she has been using IV drugs through the PICC line, and has not followed up with any of the doctors since discharge. She was noted to have an ulcer in the sacral area. The patient was noted to be septic on admission with a urinary tract infection and acute renal failure. She was started on IV fluids and Zosyn. Urine drug screen was positive for barbiturates and amphetamines benzodiazepines and cocaine. She was found to have a R UE DVT, at the site of the prior PICC line, which was removed on admission. Dr. Scott had recommended heparin gtt on 09/11. This afternoon she was evaluated by Nicole Ruano who recommended that the Heparin gtt be stopped Reason For Visit: SEVERE SEPSIS Physical Exam Vital Signs: Temp Pulse Resp BP Pulse Ox 98.8 F 58 L 14 106/57 L 99 09/12/17 16:17 09/12/17 16:17 09/12/17 16:17 09/12/17 16:17 09/12/17 16:17 Intake & Output 09/11/17 09/12/17 09/13/17 06:59 06:59 06:59 Intake Total 3757 3195 300 Output Total 3250 3315 1400 Balance 507 -120 -1100 Weight 67.3 kg 70.4 kg General appearance: PRESENT: no acute distress Head exam: PRESENT: normocephalic Eye exam: ABSENT: scleral icterus Mouth exam: PRESENT: moist Neck exam: ABSENT: tracheal deviation Respiratory exam: PRESENT: symmetrical, unlabored. ABSENT: wheezes Cardiovascular exam: PRESENT: RRR GI/Abdominal exam: PRESENT: normal bowel sounds, soft. ABSENT: tenderness Rectal exam: PRESENT: deferred Extremities exam: ABSENT: pedal edema Neurological exam: PRESENT: alert, awake Results Laboratory Results: 09/12/17 14:30 09/12/17 04:25 09/11/17 09/11/17 09/12/17 20:00 20:00 04:25 WBC 3.9 L 3.5 L RBC 3.73 3.38 L Hgb 8.2 L 7.4 L Hct 25.2 L 23.0 L MCV 68 L 68 L MCH 22.0 L 21.8 L MCHC 32.5 32.1 RDW 26.8 H 26.9 H Plt Count 81 L 78 L Seg Neutrophils % 60.9 Not Reportable Lymphocytes % 22.3 Not Reportable Monocytes % 10.8 Not Reportable Eosinophils % 5.3 Not Reportable Basophils % 0.7 Not Reportable Absolute Neutrophils 2.4 Not Reportable Absolute Lymphocytes 0.9 Not Reportable Absolute Monocytes 0.4 Not Reportable Absolute Eosinophils 0.2 Not Reportable Absolute Basophils 0.0 Not Reportable Sodium Potassium Chloride Carbon Dioxide Anion Gap BUN Creatinine Est GFR ( Amer) Est GFR (Non-Af Amer) Glucose Calcium Phosphorus Magnesium Total Bilirubin AST ALT Alkaline Phosphatase Total Protein Albumin Urine Color YELLOW Urine Appearance SLIGHTLY-CLOUDY Urine pH 5.0 Ur Specific [place] 1.015 Urine Protein NEGATIVE Urine Glucose (UA) NEGATIVE Urine Ketones NEGATIVE Urine Blood SMALL H Urine Nitrite NEGATIVE Ur Leukocyte Esterase MODERATE H Urine WBC (Auto) 18 Urine RBC (Auto) 10 09/12/17 09/12/17 04:25 14:30 WBC 4.1 RBC 3.63 L Hgb 8.3 L Hct 24.6 L MCV 68 L MCH 22.8 L MCHC 33.6 RDW 26.7 H Plt Count 110 L Seg Neutrophils % Not Reportable Lymphocytes % Not Reportable Monocytes % Not Reportable Eosinophils % Not Reportable Basophils % Not Reportable Absolute Neutrophils Not Reportable Absolute Lymphocytes Not Reportable Absolute Monocytes Not Reportable Absolute Eosinophils Not Reportable Absolute Basophils Not Reportable Sodium 143.3 Potassium 3.4 L Chloride 112 H Carbon Dioxide 25 Anion Gap 6 BUN 13 Creatinine 0.68 Est GFR ( Amer) > 60 Est GFR (Non-Af Amer) > 60 Glucose 94 Calcium 7.1 L Phosphorus 3.0 Magnesium 1.2 L* Total Bilirubin 0.6 AST 65 H ALT 77 H Alkaline Phosphatase 491 H Total Protein 4.7 L Albumin 2.0 L Urine Color Urine Appearance Urine pH Ur Specific [place] Urine Protein Urine Glucose (UA) Urine Ketones Urine Blood Urine Nitrite Ur Leukocyte Esterase Urine WBC (Auto) Urine RBC (Auto) 09/09/17 15:35 Rectum - Rectal Abscess Gram Stain - Final 09/09/17 15:35 Rectum - Rectal Abscess Wound Culture - Final Escherichia Coli Escherichia Coli#2 Mrsa (Meth Resis Staph Aureus) Group C Beta Streptococcus 09/09/17 15:35 Catheter Tip - Picc Line Catheter Tip Culture - Final NO GROWTH 3 DAYS 09/09/17 09/09/17 16:00 21:14 Troponin I 0.015 0.014 Impressions: Chest X-Ray 09/09/17 08:52 IMPRESSION: 1 No significant interval changes since the prior examination dated 08/15/2017. No acute findings. 2 Right PICC line, unchanged finding. Abdomen Ultrasound 09/10/17 00:00 IMPRESSION: NORMAL ABDOMINAL ULTRASOUND. Upper Extremity MRI 09/11/17 00:00 IMPRESSION: No evidence for osteomyelitis. Minimal joint effusion. No soft tissue abscess. Pelvis Ultrasound 09/12/17 00:00 IMPRESSION: NORMAL PELVIC ULTRASOUND BY TRANSABDOMINAL TECHNIQUE. Assessment & Plan - Diagnosis (1) Acute renal failure Qualifiers: Acute renal failure type: unspecified Qualified Code(s): N17.9 - Acute kidney failure, unspecified Is this a current diagnosis for this admission?: Yes Plan: Resolved, continue IV fluids. Continue to monitor. (2) History of seizure Is this a current diagnosis for this admission?: Yes Plan: She has not been taking Lamictal due to the side effects. Depakote has been started. (3) Hypocalcemia Is this a current diagnosis for this admission?: Yes Plan: Replace (4) Positive urine drug screen Is this a current diagnosis for this admission?: Yes (5) Sacral decubitus ulcer, stage II Is this a current diagnosis for this admission?: Yes Plan: S/p debridement, continue Wound care. (6) Severe sepsis with acute organ dysfunction Is this a current diagnosis for this admission?: Yes Plan: IV fluids, antibiotics. Meropenem switched to Zosyn based on sensitivities. Blood cultures positive for Enterobacter and Klebsiella 2 out of 2. Urine culture positive for E. coli and Klebsiella. Repeat blood cultures drawn. (7) UTI (urinary tract infection) Qualifiers: Urinary tract infection type: acute cystitis Hematuria presence: with hematuria Qualified Code(s): N30.01 - Acute cystitis with hematuria Is this a current diagnosis for this admission?: Yes Plan: Continue Zosyn. (8) Hepatitis C Qualifiers: Viral hepatitis chronicity: chronic Is this a current diagnosis for this admission?: Yes Plan: Outpatient follow up (9) Substance abuse Is this a current diagnosis for this admission?: Yes Plan: On Suboxone (10) Septic arthritis of shoulder, left Qualifiers: Septic arthritis organism: due to unspecified organism Qualified Code(s): M00.9 - Pyogenic arthritis, unspecified Is this a current diagnosis for this admission?: Yes Plan: Continue daptomycin. MRI shoulder- no abscess (11) Deep venous thrombosis of right upper extremity Qualifiers: Affected thrombotic vein of extremity: axillary Is this a current diagnosis for this admission?: Yes Plan: Conservative management given low platelets (12) Vaginal discharge Is this a current diagnosis for this admission?: Yes Plan: Urine hCG negative Positive for chlamydia, started on azithromycin. (13) Anemia of acute infection Is this a current diagnosis for this admission?: Yes (14) Rectal discharge Is this a current diagnosis for this admission?: Yes Plan: Plan for surgical evaluation to r/o rectal trauma (15) Chronic headache Qualifiers: Headache type: tension-type Is this a current diagnosis for this admission?: Yes Plan: Continue Neurontin. Fioricet as needed. - Time Time Spent with patient: 35 or more minutes
[2017-09-12] MEDS: BUPRENORPHINE HCL 2 MG SUBLINGUAL TABLET SL SCH (18:49)
[2017-09-13] MEDS: PIPERACILLIN SODIUM/TAZOBACTAM 3.375 GM in NORMAL SALINE 100 ML IV SCH ×4 (02:28→21:40)
[2017-09-13 04:38] LABS: IMMUNOGLOBULIN A 200 mg/dL (87-352)
[2017-09-13] MEDS: GABAPENTIN 300 MG CAPSULE PO SCH ×3 (05:28→21:38)
[2017-09-13 05:56] LABS: APPEARANCE,URINE CLEAR; BILIRUBIN,URINE NEGATIVE (NEGATIVE); COLOR,URINE STRAW; GLUCOSE, URINE NEGATIVE (NEGATIVE); KETONES,URINE NEGATIVE (NEGATIVE); LEUKOCYTE ESTERASE,URINE NEGATIVE (NEGATIVE); NITRITE,URINE NEGATIVE (NEGATIVE); PROTEIN,URINE NEGATIVE (NEGATIVE); UROBILINOGEN,URINE NEGATIVE mg/dL (<2.0)
[2017-09-13 06:00] LABS: MEAN CORPUSCULAR HEMOGLOBIN 22.4 pg (27.0-33.4); MEAN CORPUSCULAR HGB CONC 33.3 g/dL (32.0-36.0); MEAN CORPUSCULAR VOLUME 68 fl (80-97); PLATELET COUNT 161 10^3/uL (150-450); RED BLOOD COUNT 3.41 10^6/uL (3.72-5.28); RED CELL DISTRIBUTION WIDTH 26.4 % (11.5-14.0); WHITE BLOOD COUNT 3.9 10^3/uL (4.0-10.5)
[2017-09-13 06:02] LABS: HEMOGLOBIN 7.7 g/dL (12.0-15.5)
[2017-09-13 06:03] LABS: ALANINE AMINOTRANSFERASE 63 U/L (9-52); ALKALINE PHOSPHATASE 357 U/L (38-126); ASPARTATE AMINO TRANSFERASE 44 U/L (14-36); BILIRUBIN,DIRECT 0.4 mg/dL (0.0-0.4); BILIRUBIN,TOTAL 0.4 mg/dL (0.2-1.3); BLOOD UREA NITROGEN 9 mg/dL (7-20); CALCIUM 7.5 mg/dL (8.4-10.2); CHLORIDE 109 mmol/L (98-107); GLUCOSE 91 mg/dL (75-110); PHOSPHORUS 3.8 mg/dL (2.5-4.5); TOTAL PROTEIN 4.8 g/dL (6.3-8.2)
[2017-09-13 06:08] LABS: CARBON DIOXIDE 30 mmol/L (22-30); SODIUM 141.6 mmol/L (137-145)
[2017-09-13 06:09] LABS: ANION GAP 3 (5-19)
[2017-09-13 06:46] LABS: ABSOLUTE LYMPHOCYTES# (MANUAL) 1.4 10^3/uL (0.5-4.7); ABSOLUTE MONOCYTES # (MANUAL) 0.2 10^3/uL (0.1-1.4); ABSOLUTE NEUTROPHILS# (MANUAL) 1.8 10^3/uL (1.7-8.2); BASOPHILS % (MANUAL) 1 % (0-2); EOSINOPHILS % (MANUAL) 14 % (0-6); LYMPHOCYTES % (MANUAL) 32 % (13-45); MONOCYTES % (MANUAL) 4 % (3-13); SEGMENTED NEUTROPHILS % (MAN) 46 % (42-78); TOTAL CELLS COUNTED 100
[2017-09-13 06:47] LABS: PLATELET COMMENT ADEQUATE
[2017-09-13 06:49] LABS: ANISOCYTOSIS 3+; HYPOCHROMASIA 3+
[2017-09-13 06:50] LABS: OVALOCYTES SLIGHT; POIKILOCYTOSIS SLIGHT
[2017-09-13] MEDS: NORMAL SALINE 1000 ML 1,000 ML IV PRN ×2 (07:42→14:51)
[2017-09-13 07:47] LABS: IMMUNOGLOBULIN M 293 mg/dL (26-217)
--- NOTE | 2017-09-13 08:41 | PDOC PROGRESS REPORT ---
Subjective Progress Note for:: 09/13/17 Subjective:: No acute events overnight, being taken down for surgical evaluation of the rectal area. Reason For Visit: SEVERE SEPSIS Physical Exam Vital Signs: Temp Pulse Resp BP Pulse Ox 99.2 F 44 L 16 112/54 L 96 09/13/17 08:00 09/13/17 08:00 09/13/17 08:00 09/13/17 08:00 09/13/17 08:00 Intake & Output 09/12/17 09/13/17 09/14/17 06:59 06:59 06:59 Intake Total 3195 2887 Output Total 3315 0620 Balance -120 -1713 Weight 70.4 kg 70 kg General appearance: PRESENT: no acute distress, well-developed, well-nourished Head exam: PRESENT: atraumatic, normocephalic Eye exam: PRESENT: conjunctiva pink, EOMI, PERRLA. ABSENT: scleral icterus Ear exam: PRESENT: normal external ear exam Mouth exam: PRESENT: moist, tongue midline Neck exam: ABSENT: carotid bruit, JVD, lymphadenopathy, thyromegaly Respiratory exam: PRESENT: clear to auscultation mditri. ABSENT: rales, rhonchi, wheezes Cardiovascular exam: PRESENT: RRR. ABSENT: diastolic murmur, rubs, systolic murmur Pulses: PRESENT: normal dorsalis pedis pul Vascular exam: PRESENT: normal capillary refill GI/Abdominal exam: PRESENT: normal bowel sounds, soft. ABSENT: distended, guarding, mass, organolmegaly, rebound, tenderness Rectal exam: PRESENT: deferred Extremities exam: PRESENT: full ROM. ABSENT: calf tenderness, clubbing, pedal edema Neurological exam: PRESENT: alert, awake, oriented to person, oriented to place , oriented to time, oriented to situation, CN II-XII grossly intact. ABSENT: motor sensory deficit Psychiatric exam: PRESENT: appropriate affect, normal mood. ABSENT: homicidal ideation, suicidal ideation Skin exam: PRESENT: dry, intact, warm. ABSENT: cyanosis, rash Results Laboratory Results: 09/13/17 05:35 09/13/17 05:35 09/12/17 09/13/17 09/13/17 14:30 05:35 05:35 WBC 4.1 3.9 L RBC 3.63 L 3.41 L Hgb 8.3 L 7.7 L Hct 24.6 L 23.0 L MCV 68 L 68 L MCH 22.8 L 22.4 L MCHC 33.6 33.3 RDW 26.7 H 26.4 H Plt Count 110 L 161 Seg Neutrophils % Not Reportable Not Reportable Lymphocytes % Not Reportable Not Reportable Monocytes % Not Reportable Not Reportable Eosinophils % Not Reportable Not Reportable Basophils % Not Reportable Not Reportable Absolute Neutrophils Not Reportable Not Reportable Absolute Lymphocytes Not Reportable Not Reportable Absolute Monocytes Not Reportable Not Reportable Absolute Eosinophils Not Reportable Not Reportable Absolute Basophils Not Reportable Not Reportable Sodium 141.6 Potassium 4.0 Chloride 109 H Carbon Dioxide 30 Anion Gap 3 L BUN 9 Creatinine 0.68 Est GFR ( Amer) > 60 Est GFR (Non-Af Amer) > 60 Glucose 91 Calcium 7.5 L Phosphorus 3.8 Magnesium 1.7 Total Bilirubin 0.4 AST 44 H ALT 63 H Alkaline Phosphatase 357 H Total Protein 4.8 L Albumin 2.0 L Urine Color Urine Appearance Urine pH Ur Specific [place] Urine Protein Urine Glucose (UA) Urine Ketones Urine Blood Urine Nitrite Ur Leukocyte Esterase Urine WBC (Auto) Urine RBC (Auto) 09/13/17 05:35 WBC RBC Hgb Hct MCV MCH MCHC RDW Plt Count Seg Neutrophils % Lymphocytes % Monocytes % Eosinophils % Basophils % Absolute Neutrophils Absolute Lymphocytes Absolute Monocytes Absolute Eosinophils Absolute Basophils Sodium Potassium Chloride Carbon Dioxide Anion Gap BUN Creatinine Est GFR ( Amer) Est GFR (Non-Af Amer) Glucose Calcium Phosphorus Magnesium Total Bilirubin AST ALT Alkaline Phosphatase Total Protein Albumin Urine Color STRAW Urine Appearance CLEAR Urine pH 6.0 Ur Specific [place] 1.010 Urine Protein NEGATIVE Urine Glucose (UA) NEGATIVE Urine Ketones NEGATIVE Urine Blood NEGATIVE Urine Nitrite NEGATIVE Ur Leukocyte Esterase NEGATIVE Urine WBC (Auto) 4 Urine RBC (Auto) 1 09/09/17 15:35 Rectum - Rectal Abscess Gram Stain - Final 09/09/17 15:35 Rectum - Rectal Abscess Wound Culture - Final Escherichia Coli Escherichia Coli#2 Mrsa (Meth Resis Staph Aureus) Group C Beta Streptococcus 09/09/17 15:35 Catheter Tip - Picc Line Catheter Tip Culture - Final NO GROWTH 3 DAYS 09/09/17 09/09/17 16:00 21:14 Troponin I 0.015 0.014 Impressions: Chest X-Ray 09/09/17 08:52 IMPRESSION: 1 No significant interval changes since the prior examination dated 08/15/2017. No acute findings. 2 Right PICC line, unchanged finding. Abdomen Ultrasound 09/10/17 00:00 IMPRESSION: NORMAL ABDOMINAL ULTRASOUND. Upper Extremity MRI 09/11/17 00:00 IMPRESSION: No evidence for osteomyelitis. Minimal joint effusion. No soft tissue abscess. Pelvis Ultrasound 09/12/17 00:00 IMPRESSION: NORMAL PELVIC ULTRASOUND BY TRANSABDOMINAL TECHNIQUE. Assessment & Plan - Diagnosis (1) Deep venous thrombosis of right upper extremity Qualifiers: Affected thrombotic vein of extremity: axillary Is this a current diagnosis for this admission?: Yes Plan: Diffuse DVT, catheter associated. Now the platelet count is recovered would recommend initiation of anticoagulation with Lovenox 1 mg/kg twice daily, I discussed the case with Dr. Rivera who agrees with this. Today I had nursing write order. However on discharge we will really need to discuss with her if anticoagulation is appropriate. If she goes right back to drug use, anticoagulation and drug use may be a dangerous combination. However if she seems like she will try to go towards rehab and continue with strong parental/ familial support, it would be reasonable to discharge with oral anticoagulation such as Xarelto. Will also continue to monitor platelet count, and ensure that it remains recovered. Hemoglobin is dropped as well and we will need to monitor that. (2) Anemia of acute infection Is this a current diagnosis for this admission?: Yes Plan: Probably related to the sepsis, but she also has bleeding issues from menses, may have bled from the rectal area as well. Hemoglobin in the 7 range, would transfuse 2 units of packed red blood cells if it falls below 7. Given the acute infection status would not recommend IV iron. (3) Thrombocytopenia Is this a current diagnosis for this admission?: Yes Plan: Secondary to sepsis, probable DIC as well, platelet count has recovered, hopefully indicating that the underlying event is getting better. Continue to monitor closely. - Time Time Spent with patient: 35 or more minutes Disposition: Spent greater than 40 minutes in discussion and coordination of care - Inpatient Certification Based on my medical assessment, after consideration of the patient's comorbidities, presenting symptoms, or acuity I expect that the services needed warrant INPATIENT care.: Yes I certify that my determination is in accordance with my understanding of Medicare's requirements for reasonable and necessary INPATIENT services [42 CFR 412.3e].: Yes Medical Necessity: Need For IV Fluids, Need for IV Antibiotics, Risk of Complication if Not Cared For in Hospital
[2017-09-13] MEDS ORDERED: KETAMINE HCL INJ 500 MG/10 ML VIAL ONE (08:55)
[2017-09-13] MEDS ORDERED: LIDOCAINE 2% INJ-PF (20 MG/ML) 10 ML AMPUL ONE (08:55)
[2017-09-13] MEDS ORDERED: ONDANSETRON HCL INJ/PF 4 MG/2 ML SDV ONE (08:56)
[2017-09-13] MEDS ORDERED: FENTANYL CITRATE INJ/PF 100 MCG/2 ML AMPUL ONE ×2 (08:56)
[2017-09-13] MEDS ORDERED: ACETAMINOPHEN 1,000 MG/100 ML RTUPB IV ONE (08:56)
[2017-09-13] MEDS ORDERED: PROPOFOL INJ 200 MG/20 ML VIAL IV ONE (08:56)
[2017-09-13] MEDS ORDERED: MIDAZOLAM 2 MG/2 ML INJ ONE (08:56)
[2017-09-13] MEDS ORDERED: PROMETHAZINE HCL INJ 25 MG/1 ML VIAL IV PRN (09:39)
[2017-09-13] MEDS ORDERED: ONDANSETRON HCL INJ/PF 4 MG/2 ML SDV IV PRN (09:39)
[2017-09-13] MEDS ORDERED: DIPHENHYDRAMINE HCL 50 MG/ML VIAL IV PRN (09:39)
--- NOTE | 2017-09-13 10:41 | OPERATIVE REPORT E ---
Operative Report NAME: CECY VALDERRAMA : 1985 AGE: 31Y DATE OF SURGERY: 09/13/2017 ROOM: 325 PREOPERATIVE DIAGNOSIS: Possible rectal trauma. POSTOPERATIVE DIAGNOSIS: Small anterior rectal laceration about 5 mm long and 2 smaller posterior rectal laceration about 3 mm long each, and fecal impaction. OPERATION: 1. Manual fecal disimpaction. 2. Sigmoidoscopy to 10 cm. SURGEON: ARACELY JARVIS M.D. ANESTHESIA: General. FINDINGS: No intramucosal lesion from 10 cm to the rectal area. However, the patient has about a 5 mm horizontal laceration and 2 small posterior lacerations about 3 mm long each. PROCEDURE: After adequate general anesthesia, the patient was placed in lithotomy position. Appropriate timeout was called. The rectal area was then prepped. A digital examination was done and the patient noted to have a few hard stools, appears to be impacting the rectum. This was gently disimpacted. Following this, a sigmoidoscopy was inserted to about 10 cm and the mucosa inspected and no evidence of any lesion. However, after the sigmoidoscopy was removed, there appears to be a small anterior mucosal tear about 5 mm in vertical fashion and 2 smaller 3 mm lacerations at the posterior mucosa that are practically closed. The one anterior is slightly open with no active bleeding noted. The patient tolerated the procedure well. The patient was brought to the recovery room in satisfactory condition. DICTATING PHYSICIAN: ARACELY JARVIS M.D. [id number] PHY#: [id number] ID: [id number] JOB#: [id number] ACCT: [id number] cc:ARACELY JARVIS M.D. >
[2017-09-13] MEDS: BUPRENORPHINE HCL 2 MG SUBLINGUAL TABLET SL SCH ×3 (11:35→18:51)
[2017-09-13] MEDS: CALCIUM CARBONATE 500 MG TABLET PO SCH ×2 (11:36→18:52)
[2017-09-13] MEDS: BUSPIRONE HCL 10 MG TABLET PO SCH ×2 (11:36→21:39)
[2017-09-13] MEDS: LACTOBACILLUS ACIDOPHILUS 250 MG TAB PO SCH ×2 (11:37→18:52)
[2017-09-13] MEDS: POLYETHYLENE GLYCOL 3350 POWDER 17 GM/1 PACKET PO SCH (11:37)
[2017-09-13] MEDS: DOCUSATE SODIUM 100 MG CAPSULE PO SCH ×2 (11:37→18:51)
[2017-09-13] MEDS: AZITHROMYCIN 250 MG TABLET PO SCH (11:37)
[2017-09-13] MEDS: MAGNESIUM OXIDE 400 MG TABLET PO SCH ×2 (11:37→18:52)
[2017-09-13] MEDS: DIVALPROEX SODIUM 250 MG TAB.SR.24H PO SCH (11:38)
[2017-09-13] MEDS: SILVER SULFADIAZINE 1% CREAM 25 GM TP SCH ×2 (12:26→21:41)
[2017-09-13] MEDS: PANTOPRAZOLE SODIUM 40 MG VIAL IV SCH ×2 (12:26→21:39)
[2017-09-13] MEDS: NORMAL SALINE INJ/PF 0.9% 10 ML SDV IV PRN (14:52)
[2017-09-13] MEDS: DAPTOMYCIN 500 MG in NORMAL SALINE 50 ML IV SCH (16:12)
--- NOTE | 2017-09-13 16:12 | PDOC PROGRESS REPORT ---
Subjective Progress Note for:: 09/13/17 Subjective:: 31-year-old female with past medical history of IV drug abuse Hepatitis C Septic arthritis of the shoulder Chronic anemia History of seizures. The patient was recently admitted to this hospital with septic arthritis and abscess of the left shoulder with dislocation and was discharged home on August 16 with a PICC line to complete 4 weeks of IV daptomycin. She presented back to the emergency room on September 09 with generalized weakness and lethargy for the past few days with poor p.o. intake. Her father reported to the admitting physician that he believes she has been using IV drugs through the PICC line, and has not followed up with any of the doctors since discharge. The patient was unable to recall the events of the past weekend and was very tearful and emotional. She was noted to have an ulcer in the sacral area, which was debrided by Dr. Tolliver. The patient was noted to be septic on admission with a urinary tract infection and acute renal failure. She was started on IV fluids and Zosyn. Urine drug screen was positive for barbiturates and amphetamines benzodiazepines and cocaine. She was found to have a R UE DVT, at the site of the prior PICC line, which was removed on admission. She is now on Lovenox. Flexible sigmoidoscopy done in the OR today by Dr. Tolliver showed 3 rectal tears. She feels much better and has no complaints today. She is doing well on her regimen of Suboxone, Gabapentin and Fioricet as needed for headache. 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 I have started her on Depakote to also help with her mood, dose will need to be titrated. Blood cultures from admission grew Enterobacter and Klebsiella. Urine cultures grew E. coli and Klebsiella. All sensitive to Zosyn- Day 5 Reason For Visit: SEVERE SEPSIS Physical Exam Vital Signs: Temp Pulse Resp BP Pulse Ox 98.3 F 50 L 14 109/49 L 100 09/13/17 12:14 09/13/17 12:14 09/13/17 12:14 09/13/17 12:14 09/13/17 12:14 Intake & Output 09/12/17 09/13/17 09/14/17 06:59 06:59 06:59 Intake Total 3195 0547 3978 Output Total 3315 4600 2150 Balance -120 -9871 1828 Weight 70.4 kg 70 kg General appearance: PRESENT: no acute distress Head exam: PRESENT: normocephalic Eye exam: PRESENT: PERRLA Ear exam: PRESENT: normal external ear exam Neck exam: ABSENT: tracheal deviation Respiratory exam: PRESENT: symmetrical, unlabored Cardiovascular exam: PRESENT: RRR GI/Abdominal exam: PRESENT: normal bowel sounds, soft. ABSENT: tenderness Rectal exam: PRESENT: deferred Musculoskeletal exam: PRESENT: other - L shoulder- no erythema or swelling significant tenderness Neurological exam: PRESENT: alert, awake, oriented to person, oriented to place , oriented to time, oriented to situation Psychiatric exam: PRESENT: appropriate affect Results Laboratory Results: 09/13/17 05:35 09/13/17 05:35 09/13/17 09/13/17 09/13/17 05:35 05:35 05:35 WBC 3.9 L RBC 3.41 L Hgb 7.7 L Hct 23.0 L MCV 68 L MCH 22.4 L MCHC 33.3 RDW 26.4 H Plt Count 161 Seg Neutrophils % Not Reportable Lymphocytes % Not Reportable Monocytes % Not Reportable Eosinophils % Not Reportable Basophils % Not Reportable Absolute Neutrophils Not Reportable Absolute Lymphocytes Not Reportable Absolute Monocytes Not Reportable Absolute Eosinophils Not Reportable Absolute Basophils Not Reportable Sodium 141.6 Potassium 4.0 Chloride 109 H Carbon Dioxide 30 Anion Gap 3 L BUN 9 Creatinine 0.68 Est GFR ( Amer) > 60 Est GFR (Non-Af Amer) > 60 Glucose 91 Calcium 7.5 L Phosphorus 3.8 Magnesium 1.7 Total Bilirubin 0.4 AST 44 H ALT 63 H Alkaline Phosphatase 357 H Total Protein 4.8 L Albumin 2.0 L Urine Color STRAW Urine Appearance CLEAR Urine pH 6.0 Ur Specific [place] 1.010 Urine Protein NEGATIVE Urine Glucose (UA) NEGATIVE Urine Ketones NEGATIVE Urine Blood NEGATIVE Urine Nitrite NEGATIVE Ur Leukocyte Esterase NEGATIVE Urine WBC (Auto) 4 Urine RBC (Auto) 1 09/09/17 09/09/17 16:00 21:14 Troponin I 0.015 0.014 Impressions: Chest X-Ray 09/09/17 08:52 IMPRESSION: 1 No significant interval changes since the prior examination dated 08/15/2017. No acute findings. 2 Right PICC line, unchanged finding. Abdomen Ultrasound 09/10/17 00:00 IMPRESSION: NORMAL ABDOMINAL ULTRASOUND. Upper Extremity MRI 09/11/17 00:00 IMPRESSION: No evidence for osteomyelitis. Minimal joint effusion. No soft tissue abscess. Pelvis Ultrasound 09/12/17 00:00 IMPRESSION: NORMAL PELVIC ULTRASOUND BY TRANSABDOMINAL TECHNIQUE. Assessment & Plan - Diagnosis (1) Acute renal failure Qualifiers: Acute renal failure type: unspecified Qualified Code(s): N17.9 - Acute kidney failure, unspecified Is this a current diagnosis for this admission?: Yes Plan: Resolved, continue IV fluids. Continue to monitor. (2) History of seizure Is this a current diagnosis for this admission?: Yes Plan: She has not been taking Lamictal due to the side effects. Continue Depakote (3) Hypocalcemia Is this a current diagnosis for this admission?: Yes Plan: Replace (4) Positive urine drug screen Is this a current diagnosis for this admission?: Yes (5) Sacral decubitus ulcer, stage II Is this a current diagnosis for this admission?: Yes Plan: S/p debridement, continue Wound care. (6) Severe sepsis with acute organ dysfunction Is this a current diagnosis for this admission?: Yes Plan: IV fluids, antibiotics. Meropenem switched to Zosyn based on sensitivities. Blood cultures positive for Enterobacter and Klebsiella 2 out of 2. Urine culture positive for E. coli and Klebsiella. Repeat blood cultures drawn. (7) UTI (urinary tract infection) Qualifiers: Urinary tract infection type: acute cystitis Hematuria presence: with hematuria Qualified Code(s): N30.01 - Acute cystitis with hematuria Is this a current diagnosis for this admission?: Yes Plan: Continue Zosyn. (8) Hepatitis C Qualifiers: Viral hepatitis chronicity: chronic Is this a current diagnosis for this admission?: Yes Plan: Outpatient follow up (9) Substance abuse Is this a current diagnosis for this admission?: Yes Plan: On Suboxone (10) Septic arthritis of shoulder, left Qualifiers: Septic arthritis organism: due to unspecified organism Qualified Code(s): M00.9 - Pyogenic arthritis, unspecified Is this a current diagnosis for this admission?: Yes Plan: MRI shoulder- no abscess (11) Deep venous thrombosis of right upper extremity Qualifiers: Affected thrombotic vein of extremity: axillary Is this a current diagnosis for this admission?: Yes Plan: On Lovenox (12) Vaginal discharge Is this a current diagnosis for this admission?: Yes Plan: Urine hCG negative Positive for chlamydia, started on azithromycin. (13) Anemia of acute infection Is this a current diagnosis for this admission?: Yes Plan: Continue to monitor hemoglobin. Hematology consult requested. No overt bleeding at present. (14) Rectal discharge Is this a current diagnosis for this admission?: Yes Plan: Plan for surgical evaluation to r/o rectal trauma (15) Chronic headache Qualifiers: Headache type: tension-type Is this a current diagnosis for this admission?: Yes Plan: Continue Neurontin. Fioricet as needed. - Time Time Spent with patient: 35 or more minutes
[2017-09-13] MEDS: ENOXAPARIN SODIUM INJ 80 MG/0.8 ML DISP.SYRIN SUBCUT SCH (18:50)
[2017-09-14] MEDS: PIPERACILLIN SODIUM/TAZOBACTAM 3.375 GM in NORMAL SALINE 100 ML IV SCH ×4 (04:32→21:59)
[2017-09-14] MEDS: NORMAL SALINE 1000 ML 1,000 ML IV PRN (04:33)
[2017-09-14] MEDS: GABAPENTIN 300 MG CAPSULE PO SCH ×3 (06:20→21:56)
[2017-09-14 06:55] LABS: HEMATOCRIT 23.1 % (36.0-47.0); MEAN CORPUSCULAR HGB CONC 32.5 g/dL (32.0-36.0); MEAN CORPUSCULAR VOLUME 68 fl (80-97); PLATELET COUNT 263 10^3/uL (150-450); RED BLOOD COUNT 3.41 10^6/uL (3.72-5.28); RED CELL DISTRIBUTION WIDTH 26.4 % (11.5-14.0); WHITE BLOOD COUNT 3.7 10^3/uL (4.0-10.5)
[2017-09-14 07:04] LABS: HEMOGLOBIN 7.5 g/dL (12.0-15.5)
[2017-09-14 07:09] LABS: ANION GAP 5 (5-19); BLOOD UREA NITROGEN 7 mg/dL (7-20); CALCIUM 7.7 mg/dL (8.4-10.2); CARBON DIOXIDE 30 mmol/L (22-30); CHLORIDE 107 mmol/L (98-107); GLUCOSE 82 mg/dL (75-110); PHOSPHORUS 4.4 mg/dL (2.5-4.5); POTASSIUM 4.4 mmol/L (3.6-5.0); SODIUM 141.7 mmol/L (137-145)
[2017-09-14 08:27] LABS: ABSOLUTE LYMPHOCYTES# (MANUAL) 1.4 10^3/uL (0.5-4.7); ABSOLUTE MONOCYTES # (MANUAL) 0.2 10^3/uL (0.1-1.4); ABSOLUTE NEUTROPHILS# (MANUAL) 1.5 10^3/uL (1.7-8.2); BASOPHILS % (MANUAL) 0 % (0-2); EOSINOPHILS % (MANUAL) 15 % (0-6); LYMPHOCYTES % (MANUAL) 38 % (13-45); MONOCYTES % (MANUAL) 6 % (3-13); SEGMENTED NEUTROPHILS % (MAN) 41 % (42-78); TOTAL CELLS COUNTED 100
[2017-09-14 08:28] LABS: ANISOCYTOSIS 3+; HYPOCHROMASIA 2+; OVALOCYTES 2+; PLATELET COMMENT ADEQUATE; POIKILOCYTOSIS 3+; TARGET CELLS 1+
[2017-09-14] MEDS ORDERED: LORAZEPAM 0.5 MG TABLET PO PRN (09:15)
[2017-09-14] MEDS ORDERED: ACETAMINOPHEN 325 MG TABLET PO PRN (09:26)
[2017-09-14] MEDS ORDERED: NORMAL SALINE 250 ML IV PRN ×2 (09:26)
[2017-09-14] MEDS ORDERED: DIPHENHYDRAMINE HCL 25 MG CAPSULE PO PRN (09:26)
[2017-09-14] MEDS: AZITHROMYCIN 250 MG TABLET PO SCH (10:04)
[2017-09-14] MEDS: MAGNESIUM OXIDE 400 MG TABLET PO SCH ×2 (10:05→18:23)
[2017-09-14] MEDS: BUSPIRONE HCL 10 MG TABLET PO SCH ×2 (10:05→21:57)
[2017-09-14] MEDS: CALCIUM CARBONATE 500 MG TABLET PO SCH ×2 (10:05→18:23)
[2017-09-14] MEDS: DOCUSATE SODIUM 100 MG CAPSULE PO SCH ×2 (10:05→18:23)
[2017-09-14] MEDS: LACTOBACILLUS ACIDOPHILUS 250 MG TAB PO SCH ×2 (10:06→18:23)
[2017-09-14] MEDS: DIVALPROEX SODIUM 250 MG TAB.SR.24H PO SCH (10:06)
[2017-09-14] MEDS: BUPRENORPHINE HCL 2 MG SUBLINGUAL TABLET SL SCH ×3 (10:06→18:23)
--- NOTE | 2017-09-14 10:06 | PROGRESS NOTE E ---
Progress Note NAME: CECY VALDERRAMA : 1985 AGE: 31Y DATE: 09/14/2017 ROOM: 319 SUBJECTIVE: The patient is currently lying in bed. She states she feels better today. She denies any nausea, vomiting, diarrhea. No shortness of breath, dizziness, chest pain. No fevers, chills. The patient has been afebrile. Blood pressure has been in a good range, and the patient does not voice any other concerns at this time. The patient is agreeable to blood transfusion. REVIEW OF SYSTEMS: Rest of review of systems negative. MEDICATIONS: Medications have been reviewed. OBJECTIVE: GENERAL: The patient is a 31-year-old female who is awake, alert, and oriented to person, place, time, and situation. She is verbal, conversational, does not appear to be in acute distress. VITAL SIGNS: Temperature is 98.5, pulse 48, respirations 16, blood pressure is 104/53, oxygen saturation is 96% on room air. SKIN: Warm and dry. No rash. She is not diaphoretic. HEENT: Pupils equal, round, and reactive to light and accommodation. Conjunctiva is pale. There is no evidence of JVP. CARDIOVASCULAR SYSTEM: Heart is regular. No rub. CHEST: Clear, symmetrical, unlabored. ABDOMEN: Soft, nontender, nondistended. BACK: No CVA tenderness or sacral edema. EXTREMITIES: No clubbing, cyanosis, edema. PSYCHIATRIC: Appropriate affect. Pleasant mood. DIAGNOSTICS: Lab values are as follows: Hematology obtained on 09/14/2017: WBCs are 3.7, hemoglobin 7.5, hematocrit is 23.1, platelet count is 263,000. Chemistry obtained on 09/14/2017: Sodium is 141, potassium 4.4, chloride is 107, carbon dioxide 30, BUN 7, creatinine is 0.53, glucose 82, calcium is 8.9, magnesium is 1.7, phosphorus is 4.4. IMPRESSION AND PLAN: 1. ACUTE KIDNEY INJURY. This is resolved with IV fluids. Will go ahead and discontinue IV fluids today. 2. SEIZURE DISORDER. The patient has not been taking her Lamictal due to the side effects. She was started on Depakote during this stay. Will continue to monitor the patient's platelet count and follow. 3. HYPOCALCEMIA. This was repleted. 4. POLYSUBSTANCE USE. Will monitor for evidence of withdrawal. Continue p.r.n. benzodiazepines. 5. SACRAL DECUBITUS ULCER STAGE 2 STATUS POST DEBRIDEMENT. Continue wound care. 6. SEVERE SEPSIS WITH ACUTE ORGAN DYSFUNCTION. The patient is currently on Zosyn and appears to be resolving. 7. URINARY TRACT INFECTION. Continue Zosyn. 8. CHRONIC HEPATITIS C. Follow up on outpatient basis. The patient is still an active user. 9. OPIATE DEPENDENCY. Continue her Suboxone. 10. LEFT SEPTIC ARTHRITIS OF THE SHOULDER. MRI showed no abscess. 11. DVT OF THE RIGHT UPPER EXTREMITY. Will continue Lovenox. Do appreciate Hematology's input with this. 12. CHLAMYDIAL VAGINITIS. The patient is on azithromycin. 13. ANEMIA OF ACUTE INFECTION. Do appreciate Hematology. Will go ahead and transfuse the patient 2 units of blood today. 14. RECTAL DISCHARGE. The patient has been seen by Dr. Tolliver. The patient underwent a flex sig and found 3 areas of laceration and the patient did require manual fecal disimpaction. PLAN: The patient is a FULL CODE. Pending patient's symptomatology and diagnostic findings, will re-evaluate in the a.m. Time spent on this followup including assessment, plan, physical examination, patient education, and review of records is 35 minutes. DICTATING PHYSICIAN: TASHA BURDEN NP [id number] ARAY#: [id number] ID: [id number] JOB#: [id number] ACCT: [id number] cc: > MTDD
[2017-09-14] MEDS: SILVER SULFADIAZINE 1% CREAM 25 GM TP SCH ×2 (10:07→21:59)
[2017-09-14] MEDS: ENOXAPARIN SODIUM INJ 80 MG/0.8 ML DISP.SYRIN SUBCUT SCH ×2 (10:07→18:23)
[2017-09-14] MEDS: POLYETHYLENE GLYCOL 3350 POWDER 17 GM/1 PACKET PO SCH (10:16)
--- NOTE | 2017-09-14 11:05 | PDOC PROGRESS REPORT ---
Subjective Progress Note for:: 09/14/17 Subjective:: No acute events overnight Reason For Visit: SEVERE SEPSIS Physical Exam Vital Signs: Temp Pulse Resp BP Pulse Ox 98.5 F 42 L 18 110/51 L 100 09/14/17 07:51 09/14/17 07:51 09/14/17 07:51 09/14/17 07:51 09/14/17 07:51 Intake & Output 09/13/17 09/14/17 09/15/17 06:59 06:59 06:59 Intake Total 2887 8678 Output Total 4600 2150 Balance -1713 6590 Weight 70 kg 72.8 kg General appearance: PRESENT: no acute distress, well-developed, well-nourished Head exam: PRESENT: atraumatic, normocephalic Eye exam: PRESENT: conjunctiva pink, EOMI, PERRLA. ABSENT: scleral icterus Ear exam: PRESENT: normal external ear exam Mouth exam: PRESENT: moist, tongue midline Neck exam: ABSENT: carotid bruit, JVD, lymphadenopathy, thyromegaly Respiratory exam: PRESENT: clear to auscultation dmitri. ABSENT: rales, rhonchi, wheezes Cardiovascular exam: PRESENT: RRR. ABSENT: diastolic murmur, rubs, systolic murmur Pulses: PRESENT: normal dorsalis pedis pul Vascular exam: PRESENT: normal capillary refill GI/Abdominal exam: PRESENT: normal bowel sounds, soft. ABSENT: distended, guarding, mass, organolmegaly, rebound, tenderness Rectal exam: PRESENT: deferred Extremities exam: PRESENT: full ROM. ABSENT: calf tenderness, clubbing, pedal edema Neurological exam: PRESENT: alert, awake, oriented to person, oriented to place , oriented to time, oriented to situation, CN II-XII grossly intact. ABSENT: motor sensory deficit Psychiatric exam: PRESENT: appropriate affect, normal mood. ABSENT: homicidal ideation, suicidal ideation Skin exam: PRESENT: dry, intact, warm. ABSENT: cyanosis, rash Results Laboratory Results: 09/14/17 06:10 09/14/17 06:10 09/14/17 09/14/17 06:10 06:10 WBC 3.7 L RBC 3.41 L Hgb 7.5 L Hct 23.1 L MCV 68 L MCH 22.0 L MCHC 32.5 RDW 26.4 H Plt Count 263 Seg Neutrophils % Not Reportable Lymphocytes % Not Reportable Monocytes % Not Reportable Eosinophils % Not Reportable Basophils % Not Reportable Absolute Neutrophils Not Reportable Absolute Lymphocytes Not Reportable Absolute Monocytes Not Reportable Absolute Eosinophils Not Reportable Absolute Basophils Not Reportable Sodium 141.7 Potassium 4.4 Chloride 107 Carbon Dioxide 30 Anion Gap 5 BUN 7 Creatinine 0.53 Est GFR ( Amer) > 60 Est GFR (Non-Af Amer) > 60 Glucose 82 Calcium 7.7 L Phosphorus 4.4 09/09/17 09/09/17 16:00 21:14 Troponin I 0.015 0.014 Impressions: Chest X-Ray 09/09/17 08:52 IMPRESSION: 1 No significant interval changes since the prior examination dated 08/15/2017. No acute findings. 2 Right PICC line, unchanged finding. Abdomen Ultrasound 09/10/17 00:00 IMPRESSION: NORMAL ABDOMINAL ULTRASOUND. Upper Extremity MRI 09/11/17 00:00 IMPRESSION: No evidence for osteomyelitis. Minimal joint effusion. No soft tissue abscess. Pelvis Ultrasound 09/12/17 00:00 IMPRESSION: NORMAL PELVIC ULTRASOUND BY TRANSABDOMINAL TECHNIQUE. Assessment & Plan - Diagnosis (1) Deep venous thrombosis of right upper extremity Qualifiers: Affected thrombotic vein of extremity: axillary Is this a current diagnosis for this admission?: Yes Plan: Continue with Lovenox while inpatient, ultimately on discharge she should be transition to Xarelto. She would need 3 months of therapy, for this catheter associated upper extremity DVT. (2) Anemia of acute infection Is this a current diagnosis for this admission?: Yes Plan: Agree with blood transfusion, thereafter she should be stable (3) Thrombocytopenia Is this a current diagnosis for this admission?: Yes Plan: Resolving, secondary to DIC and sepsis, should continue to be normal. - Time Time Spent with patient: 35 or more minutes - Inpatient Certification Based on my medical assessment, after consideration of the patient's comorbidities, presenting symptoms, or acuity I expect that the services needed warrant INPATIENT care.: Yes I certify that my determination is in accordance with my understanding of Medicare's requirements for reasonable and necessary INPATIENT services [42 CFR 412.3e].: Yes Medical Necessity: Need for IV Antibiotics
[2017-09-14] MEDS: DAPTOMYCIN 500 MG in NORMAL SALINE 50 ML IV SCH (15:08)
[2017-09-15] MEDS: PIPERACILLIN SODIUM/TAZOBACTAM 3.375 GM in NORMAL SALINE 100 ML IV SCH ×4 (04:38→20:48)
[2017-09-15 05:13] LABS: HEMATOCRIT 29.4 % (36.0-47.0); MEAN CORPUSCULAR HEMOGLOBIN 23.9 pg (27.0-33.4); MEAN CORPUSCULAR HGB CONC 33.4 g/dL (32.0-36.0); PLATELET COUNT 373 10^3/uL (150-450); RED CELL DISTRIBUTION WIDTH 27.1 % (11.5-14.0); WHITE BLOOD COUNT 4.5 10^3/uL (4.0-10.5)
[2017-09-15] MEDS: GABAPENTIN 300 MG CAPSULE PO SCH ×3 (05:16→21:46)
[2017-09-15 05:22] LABS: HEMOGLOBIN 9.8 g/dL (12.0-15.5)
[2017-09-15] MEDS ORDERED: BUPRENORPHINE HCL 2 MG SUBLINGUAL TABLET SL SCH (06:00)
[2017-09-15 06:27] LABS: ABSOLUTE LYMPHOCYTES# (MANUAL) 1.4 10^3/uL (0.5-4.7); ABSOLUTE MONOCYTES # (MANUAL) 0.5 10^3/uL (0.1-1.4); ABSOLUTE NEUTROPHILS# (MANUAL) 2.1 10^3/uL (1.7-8.2); BASOPHILS % (MANUAL) 2 % (0-2); EOSINOPHILS % (MANUAL) 11 % (0-6); LYMPHOCYTES % (MANUAL) 30 % (13-45); MONOCYTES % (MANUAL) 10 % (3-13); SEGMENTED NEUTROPHILS % (MAN) 47 % (42-78); TOTAL CELLS COUNTED 100
[2017-09-15 06:28] LABS: ANISOCYTOSIS 4+; HYPOCHROMASIA 2+; OVALOCYTES 2+
[2017-09-15 06:29] LABS: PLATELET COMMENT ADEQUATE
[2017-09-15 07:21] LABS: MEAN CORPUSCULAR VOLUME 72 fl (80-97)
[2017-09-15] MEDS: LACTOBACILLUS ACIDOPHILUS 250 MG TAB PO SCH ×2 (10:06→17:48)
[2017-09-15] MEDS: AZITHROMYCIN 250 MG TABLET PO SCH (10:06)
[2017-09-15] MEDS: POLYETHYLENE GLYCOL 3350 POWDER 17 GM/1 PACKET PO SCH (10:06)
[2017-09-15] MEDS: DOCUSATE SODIUM 100 MG CAPSULE PO SCH ×2 (10:06→17:48)
[2017-09-15] MEDS: MAGNESIUM OXIDE 400 MG TABLET PO SCH ×2 (10:07→17:48)
[2017-09-15] MEDS: CALCIUM CARBONATE 500 MG TABLET PO SCH ×2 (10:07→17:48)
[2017-09-15] MEDS: BUSPIRONE HCL 10 MG TABLET PO SCH ×2 (10:07→21:46)
[2017-09-15] MEDS: ENOXAPARIN SODIUM INJ 80 MG/0.8 ML DISP.SYRIN SUBCUT SCH ×2 (10:08→17:47)
[2017-09-15] MEDS: DIVALPROEX SODIUM 250 MG TAB.SR.24H PO SCH (10:09)
[2017-09-15] MEDS: SILVER SULFADIAZINE 1% CREAM 25 GM TP SCH ×2 (10:22→21:47)
[2017-09-15] MEDS ORDERED: BUPRENORPHINE HCL 2 MG SUBLINGUAL TABLET SL ONE (13:00)
[2017-09-15] MEDS: DAPTOMYCIN 500 MG in NORMAL SALINE 50 ML IV SCH (14:32)
[2017-09-15] MEDS: NORMAL SALINE INJ/PF 0.9% 10 ML SDV IV PRN (14:34)
--- NOTE | 2017-09-15 16:12 | PDOC PROGRESS REPORT ---
Subjective Progress Note for:: 09/15/17 Subjective:: Clinically improving. Requesting that Subutex be scheduled for 6AM, 12PM, 6PM. Upon review of orders, this is how medication was ordered. Feels that pain is well controlled currently. Denies fevers, chills, SOB, abdominal pain, NV. PO intake good. Ambulatory. In good spirits. Reason For Visit: SEVERE SEPSIS Physical Exam Vital Signs: Temp Pulse Resp BP Pulse Ox 98.3 F 47 L 16 101/46 L 94 09/15/17 04:00 09/15/17 14:00 09/15/17 04:00 09/15/17 04:00 09/15/17 04:00 Intake & Output 09/14/17 09/15/17 09/16/17 06:59 06:59 06:59 Intake Total 8678 3215 Output Total 2150 Balance 6528 3215 Weight 72.8 kg 70.8 kg General appearance: PRESENT: no acute distress, cooperative, thin Head exam: PRESENT: normocephalic Mouth exam: PRESENT: moist Respiratory exam: PRESENT: unlabored Cardiovascular exam: PRESENT: +S1, +S2. ABSENT: tachycardia GI/Abdominal exam: PRESENT: soft, other. ABSENT: tenderness Musculoskeletal exam: PRESENT: ambulatory Neurological exam: PRESENT: alert, awake, CN II-XII grossly intact Psychiatric exam: PRESENT: appropriate affect. ABSENT: anxious Skin exam: PRESENT: dry, intact Results Laboratory Results: 09/15/17 04:15 09/14/17 06:10 09/14/17 09/15/17 10:25 04:15 WBC 4.5 RBC 4.10 Hgb 9.8 L D Hct 29.4 L MCV 72 L D MCH 23.9 L MCHC 33.4 RDW 27.1 H Plt Count 373 Seg Neutrophils % Not Reportable Lymphocytes % Not Reportable Monocytes % Not Reportable Eosinophils % Not Reportable Basophils % Not Reportable Absolute Neutrophils Not Reportable Absolute Lymphocytes Not Reportable Absolute Monocytes Not Reportable Absolute Eosinophils Not Reportable Absolute Basophils Not Reportable Blood Type A POSITIVE Antibody Screen NEGATIVE 09/09/17 13:13 Blood Blood Culture - Final NO GROWTH IN 5 DAYS 09/09/17 09/09/17 16:00 21:14 Troponin I 0.015 0.014 Impressions: Chest X-Ray 09/09/17 08:52 IMPRESSION: 1 No significant interval changes since the prior examination dated 08/15/2017. No acute findings. 2 Right PICC line, unchanged finding. Abdomen Ultrasound 09/10/17 00:00 IMPRESSION: NORMAL ABDOMINAL ULTRASOUND. Upper Extremity MRI 09/11/17 00:00 IMPRESSION: No evidence for osteomyelitis. Minimal joint effusion. No soft tissue abscess. Pelvis Ultrasound 09/12/17 00:00 IMPRESSION: NORMAL PELVIC ULTRASOUND BY TRANSABDOMINAL TECHNIQUE. Assessment & Plan - Diagnosis (1) UTI (urinary tract infection) Qualifiers: Urinary tract infection type: acute cystitis Hematuria presence: with hematuria Qualified Code(s): N30.01 - Acute cystitis with hematuria Is this a current diagnosis for this admission?: Yes Plan: Urine cultures grew E. coli and Klebsiella. Sensitive to Zosyn, started on 09/11 with planned end date of 09/18 - Currently asymptomatic (2) Acute renal failure Qualifiers: Acute renal failure type: unspecified Qualified Code(s): N17.9 - Acute kidney failure, unspecified Is this a current diagnosis for this admission?: Yes Plan: Resolved, good UOP (3) Anemia of acute infection Is this a current diagnosis for this admission?: Yes Plan: Received 2u pRBC on 09/14, Hg 9.8 on 09/25 indicating appropriate response to transfusion. Anemia felt to be secondary to marrow suppression from acute infection - Repeat CBC in Am - Hematology following, appreciate continued recs (4) Chlamydia Is this a current diagnosis for this admission?: Yes Plan: Positive test, on Azithromycin (5) Deep venous thrombosis of right upper extremity Qualifiers: Affected thrombotic vein of extremity: axillary Is this a current diagnosis for this admission?: Yes Plan: Axillary DVT, catheter induced - On Lovenox while inpatient - Can transition to DOAC at time of discharge - Should be treated for 3 months duration (6) Sacral decubitus ulcer, stage II Is this a current diagnosis for this admission?: Yes Plan: Bacteremia, improving - Continue IV fluids, antibiotics. - Blood cultures on 09/09 positive for Enterobacter and Klebsiella - Rectal abscess culture on 09/09 positive for E. coli * 2 organisms and MRSA - Urine culture positive for E. coli and Klebsiella per above - Repeat blood cultures from 09/12 NGTD at 2 days. Remains afebrile and HDS (7) Thrombocytopenia Is this a current diagnosis for this admission?: Yes Plan: Improved, thrombocytopenia felt to be secondary to marrow suppression from acute infection - Repeat CBC in Am - Hematology following - Time Time Spent with patient: 15-24 minutes Anticipated discharge: SNF - Given history of IVDU, will need to determine duration of antibiotics and terminal operations manager placement - Inpatient Certification Medical Necessity: Need for IV Antibiotics
[2017-09-15] MEDS: BUPRENORPHINE HCL 2 MG SUBLINGUAL TABLET SL SCH (17:49)
[2017-09-16] MEDS: PIPERACILLIN SODIUM/TAZOBACTAM 3.375 GM in NORMAL SALINE 100 ML IV SCH ×2 (02:49→08:33)
[2017-09-16] MEDS: GABAPENTIN 300 MG CAPSULE PO SCH ×3 (05:50→21:40)
[2017-09-16] MEDS: BUPRENORPHINE HCL 2 MG SUBLINGUAL TABLET SL SCH ×3 (05:50→17:49)
[2017-09-16 06:15] LABS: ABSOLUTE EOSINOPHILS # (AUTO) 0.3 10^3/uL (0.0-0.6); ABSOLUTE LYMPHOCYTES (AUTO) 1.3 10^3/uL (0.5-4.7); ABSOLUTE MONOCYTES (AUTO) 0.5 10^3/uL (0.1-1.4); ABSOLUTE NEUT (AUTO) 2.1 10^3/uL (1.7-8.2); EOSINOPHILS % (AUTO) 6.8 % (0-6); HEMATOCRIT 30.5 % (36.0-47.0); HEMOGLOBIN 10.2 g/dL (12.0-15.5); LYMPHOCYTES % (AUTO) 30.6 % (13-45); MEAN CORPUSCULAR HEMOGLOBIN 23.9 pg (27.0-33.4); MEAN CORPUSCULAR HGB CONC 33.5 g/dL (32.0-36.0); MEAN CORPUSCULAR VOLUME 71 fl (80-97); MONOCYTES % (AUTO) 12.4 % (3-13); PLATELET COUNT 469 10^3/uL (150-450); RED BLOOD COUNT 4.28 10^6/uL (3.72-5.28); RED CELL DISTRIBUTION WIDTH 26.7 % (11.5-14.0); SEGMENTED NEUTROPHILS % (AUTO) 49.2 % (42-78); TOTAL CELLS COUNTED % (AUTO) 100 %; WHITE BLOOD COUNT 4.2 10^3/uL (4.0-10.5)
[2017-09-16 06:32] LABS: ANISOCYTOSIS 4+; OVALOCYTES 1+; PLATELET COMMENT INCREASED; POIKILOCYTOSIS 1+; SCHISTOCYTES SLIGHT
--- NOTE | 2017-09-16 08:09 | PDOC PROGRESS REPORT ---
Subjective Progress Note for:: 09/16/17 Subjective:: Patient awake, talkative, very pleasant. Denies any complaints. She is anxious to go home. She was able to explain the plan for blood thinners on discharge. She is agreeable to this plan. ROS: No pain, no nausea, she is walking in the halls. Reason For Visit: SEVERE SEPSIS Physical Exam Vital Signs: Temp Pulse Resp BP Pulse Ox 98.3 F 36 L 20 92/44 L 96 09/16/17 03:53 09/16/17 05:54 09/16/17 03:53 09/16/17 03:53 09/16/17 03:53 Intake & Output 09/15/17 09/16/17 09/17/17 06:59 06:59 06:59 Intake Total 3215 1935 Balance 3215 1935 Weight 70.8 kg 64.9 kg General appearance: PRESENT: no acute distress, well-developed, well-nourished Head exam: PRESENT: atraumatic Respiratory exam: PRESENT: unlabored Neurological exam: PRESENT: alert, awake, oriented to person, oriented to place , oriented to time, oriented to situation Psychiatric exam: PRESENT: appropriate affect Focused psych exam: ABSENT: restlessness Skin exam: PRESENT: normal color Results Laboratory Results: 09/16/17 05:45 09/14/17 06:10 09/16/17 05:45 WBC 4.2 RBC 4.28 Hgb 10.2 L Hct 30.5 L MCV 71 L MCH 23.9 L MCHC 33.5 RDW 26.7 H Plt Count 469 H Seg Neutrophils % 49.2 Lymphocytes % 30.6 Monocytes % 12.4 Eosinophils % 6.8 H Basophils % 1.0 Absolute Neutrophils 2.1 Absolute Lymphocytes 1.3 Absolute Monocytes 0.5 Absolute Eosinophils 0.3 Absolute Basophils 0.0 09/09/17 09/09/17 16:00 21:14 Troponin I 0.015 0.014 Impressions: Chest X-Ray 09/09/17 08:52 IMPRESSION: 1 No significant interval changes since the prior examination dated 08/15/2017. No acute findings. 2 Right PICC line, unchanged finding. Abdomen Ultrasound 09/10/17 00:00 IMPRESSION: NORMAL ABDOMINAL ULTRASOUND. Upper Extremity MRI 09/11/17 00:00 IMPRESSION: No evidence for osteomyelitis. Minimal joint effusion. No soft tissue abscess. Pelvis Ultrasound 09/12/17 00:00 IMPRESSION: NORMAL PELVIC ULTRASOUND BY TRANSABDOMINAL TECHNIQUE. Assessment & Plan - Diagnosis (1) Severe sepsis with acute organ dysfunction Is this a current diagnosis for this admission?: Yes Plan: Now resolving on appropriate antibiotics. Her IgG levels were normal, so no evidence of hypogammaglobulinemia as a cause for recurrent infections. (2) Deep venous thrombosis of right upper extremity Qualifiers: Affected thrombotic vein of extremity: axillary Is this a current diagnosis for this admission?: Yes Plan: Patient is agreeable to plan for Lovenox during hospitalization, with transition to Xarelto on discharge. She will need a starter pack which consists of 15 mg PO BID x 21 days then will start regular dose of 20 mg PO daily, for total of 3 months of therapy. I will be happy to follow this as outpatient. (3) Pancytopenia Is this a current diagnosis for this admission?: Yes Plan: Now resolved. Her PLT and WBC have recovered. This was most likely due to the acute infection. However, she is positive for HCV which can also cause further pancytopenia, so this should be monitored as outpatient as well. - Plan Summary Plan Summary: I will be happy to continue to follow inpatient as well as outptient. Please call me with any concerns.
[2017-09-16] MEDS: POLYETHYLENE GLYCOL 3350 POWDER 17 GM/1 PACKET PO SCH (09:44)
[2017-09-16] MEDS: DOCUSATE SODIUM 100 MG CAPSULE PO SCH ×2 (09:50→17:48)
[2017-09-16] MEDS: AZITHROMYCIN 250 MG TABLET PO SCH (09:50)
[2017-09-16] MEDS: CALCIUM CARBONATE 500 MG TABLET PO SCH ×2 (09:50→17:49)
[2017-09-16] MEDS: MAGNESIUM OXIDE 400 MG TABLET PO SCH ×2 (09:51→17:49)
[2017-09-16] MEDS: ENOXAPARIN SODIUM INJ 80 MG/0.8 ML DISP.SYRIN SUBCUT SCH ×2 (09:51→21:39)
[2017-09-16] MEDS: LACTOBACILLUS ACIDOPHILUS 250 MG TAB PO SCH ×2 (09:51→17:48)
[2017-09-16] MEDS: BUSPIRONE HCL 10 MG TABLET PO SCH ×2 (09:51→21:40)
[2017-09-16] MEDS: DIVALPROEX SODIUM 250 MG TAB.SR.24H PO SCH (09:52)
[2017-09-16] MEDS: SILVER SULFADIAZINE 1% CREAM 25 GM TP SCH ×2 (09:53→21:40)
--- NOTE | 2017-09-16 11:23 | PDOC PROGRESS REPORT ---
Subjective Progress Note for:: 09/16/17 Subjective:: This is a 41 years old female patient with long-standing history of IV drug abuse, admitted for severe sepsis and right upper arm DVT. Her blood culture grew Klebsiella pneumoniae, Klebsiella oxytoca and E. coli all are sensitive to ceftriaxone so I switched her Zosyn to ceftriaxone. Her wound culture from the rectum grew E. coli MRSA and group C streptococci. Patient has been on daptomycin for the MRSA. This morning I seen patient resting in bed comfortably she is not in pain or distress. Reason For Visit: SEVERE SEPSIS Physical Exam Vital Signs: Temp Pulse Resp BP Pulse Ox 97.9 F 43 L 18 101/60 95 09/16/17 07:35 09/16/17 07:35 09/16/17 07:35 09/16/17 07:35 09/16/17 07:35 Intake & Output 09/15/17 09/16/17 09/17/17 06:59 06:59 06:59 Intake Total 3215 1935 Balance 3215 1935 Weight 70.8 kg 64.9 kg General appearance: PRESENT: no acute distress Head exam: PRESENT: atraumatic Eye exam: PRESENT: conjunctiva pink Mouth exam: PRESENT: moist Respiratory exam: PRESENT: clear to auscultation dmitri. ABSENT: rales, rhonchi, wheezes Cardiovascular exam: PRESENT: RRR. ABSENT: diastolic murmur, rubs, systolic murmur Extremities exam: PRESENT: full ROM. ABSENT: calf tenderness, clubbing, pedal edema Neurological exam: PRESENT: alert, awake, oriented to time, oriented to situation Results Laboratory Results: 09/16/17 05:45 09/14/17 06:10 09/16/17 05:45 WBC 4.2 RBC 4.28 Hgb 10.2 L Hct 30.5 L MCV 71 L MCH 23.9 L MCHC 33.5 RDW 26.7 H Plt Count 469 H Seg Neutrophils % 49.2 Lymphocytes % 30.6 Monocytes % 12.4 Eosinophils % 6.8 H Basophils % 1.0 Absolute Neutrophils 2.1 Absolute Lymphocytes 1.3 Absolute Monocytes 0.5 Absolute Eosinophils 0.3 Absolute Basophils 0.0 09/09/17 09/09/17 16:00 21:14 Troponin I 0.015 0.014 Impressions: Chest X-Ray 09/09/17 08:52 IMPRESSION: 1 No significant interval changes since the prior examination dated 08/15/2017. No acute findings. 2 Right PICC line, unchanged finding. Abdomen Ultrasound 09/10/17 00:00 IMPRESSION: NORMAL ABDOMINAL ULTRASOUND. Upper Extremity MRI 09/11/17 00:00 IMPRESSION: No evidence for osteomyelitis. Minimal joint effusion. No soft tissue abscess. Pelvis Ultrasound 09/12/17 00:00 IMPRESSION: NORMAL PELVIC ULTRASOUND BY TRANSABDOMINAL TECHNIQUE. Assessment & Plan - Diagnosis (1) Severe sepsis Is this a current diagnosis for this admission?: Yes Plan: Her blood culture grew Klebsiella pneumonia, Klebsiella oxytoca and E. coli. Patient has been on Zosyn. Since all these 3 organisms are sensitive to ceftriaxone, I DC Zosyn and switched her to ceftriaxone. (2) Acute kidney injury Is this a current diagnosis for this admission?: Yes Plan: Has resolved. (3) Deep venous thrombosis of right upper extremity Is this a current diagnosis for this admission?: Yes Plan: Patient has been on Lovenox and she will be switched to Xarelto upon discharge. (4) Pancytopenia Is this a current diagnosis for this admission?: Yes Plan: Patient has thrombocytopenia also anemia. She had been transfused with PRBC. Her pancytopenia is improving. (5) IV drug abuse Is this a current diagnosis for this admission?: Yes Plan: Patient has been counseled and encouraged to quit using IV drug. (6) Hepatitis C Qualifiers: Viral hepatitis chronicity: chronic Is this a current diagnosis for this admission?: Yes Plan: Patient needs follow-up with her primary care physician as outpatient. - Time Time Spent with patient: 25-34 minutes
[2017-09-16] MEDS: CEFTRIAXONE 2 GM/D5W RTU 2 GM/50 ML RTUPB IV SCH (11:49)
[2017-09-16] MEDS: NORMAL SALINE INJ/PF 0.9% 10 ML SDV IV PRN (14:44)
[2017-09-16] MEDS: DAPTOMYCIN 500 MG in NORMAL SALINE 50 ML IV SCH (14:44)
[2017-09-16 15:12] LABS: APPEARANCE,URINE CLEAR; BILIRUBIN,URINE NEGATIVE (NEGATIVE); COLOR,URINE COLORLESS; GLUCOSE, URINE NEGATIVE (NEGATIVE); KETONES,URINE NEGATIVE (NEGATIVE); LEUKOCYTE ESTERASE,URINE NEGATIVE (NEGATIVE); NITRITE,URINE NEGATIVE (NEGATIVE); PROTEIN,URINE NEGATIVE (NEGATIVE); URINE SPECIFIC GRAVITY 1.006; UROBILINOGEN,URINE NEGATIVE mg/dL (<2.0)
[2017-09-17] MEDS: GABAPENTIN 300 MG CAPSULE PO SCH ×3 (05:49→21:58)
[2017-09-17] MEDS: BUPRENORPHINE HCL 2 MG SUBLINGUAL TABLET SL SCH ×3 (05:49→17:45)
[2017-09-17] MEDS: ENOXAPARIN SODIUM INJ 80 MG/0.8 ML DISP.SYRIN SUBCUT SCH ×2 (09:24→21:58)
[2017-09-17] MEDS: SILVER SULFADIAZINE 1% CREAM 25 GM TP SCH ×2 (09:24→21:59)
[2017-09-17] MEDS: BUSPIRONE HCL 10 MG TABLET PO SCH ×2 (09:24→21:58)
[2017-09-17] MEDS: LACTOBACILLUS ACIDOPHILUS 250 MG TAB PO SCH ×2 (09:24→17:44)
[2017-09-17] MEDS: AZITHROMYCIN 250 MG TABLET PO SCH (09:24)
[2017-09-17] MEDS: MAGNESIUM OXIDE 400 MG TABLET PO SCH ×2 (09:24→17:44)
[2017-09-17] MEDS: DIVALPROEX SODIUM 250 MG TAB.SR.24H PO SCH (09:24)
[2017-09-17] MEDS: DOCUSATE SODIUM 100 MG CAPSULE PO SCH ×2 (09:25→17:45)
[2017-09-17] MEDS: CALCIUM CARBONATE 500 MG TABLET PO SCH ×2 (09:25→17:44)
[2017-09-17] MEDS: POLYETHYLENE GLYCOL 3350 POWDER 17 GM/1 PACKET PO SCH (09:26)
[2017-09-17] MEDS: CEFTRIAXONE 2 GM/D5W RTU 2 GM/50 ML RTUPB IV SCH (11:39)
--- NOTE | 2017-09-17 12:25 | PDOC PROGRESS REPORT ---
Subjective Progress Note for:: 09/17/17 Subjective:: No new complaint except patient is eager to go home. I look to her sacral decubitus ulcer which is healing and clean. After additional 2 days of IV antibiotics patient may be potential discharge. Reason For Visit: SEVERE SEPSIS Physical Exam Vital Signs: Temp Pulse Resp BP Pulse Ox 98.0 F 60 18 96/41 L 99 09/17/17 11:34 09/17/17 11:34 09/17/17 11:34 09/17/17 11:34 09/17/17 11:34 Intake & Output 09/16/17 09/17/17 09/18/17 06:59 06:59 06:59 Intake Total 1935 811 354 Balance 1935 811 354 Weight 64.9 kg 63.5 kg General appearance: PRESENT: no acute distress Head exam: PRESENT: atraumatic Mouth exam: PRESENT: moist Neck exam: ABSENT: carotid bruit, JVD, lymphadenopathy, thyromegaly Respiratory exam: PRESENT: clear to auscultation dmitri. ABSENT: rales, rhonchi, wheezes Cardiovascular exam: PRESENT: RRR. ABSENT: diastolic murmur, rubs, systolic murmur GI/Abdominal exam: PRESENT: normal bowel sounds, soft. ABSENT: distended, guarding, mass, organolmegaly, rebound, tenderness Extremities exam: PRESENT: full ROM. ABSENT: calf tenderness, clubbing, pedal edema Neurological exam: PRESENT: alert, awake, oriented to time, oriented to situation Psychiatric exam: PRESENT: normal mood Results Laboratory Results: 09/16/17 05:45 09/14/17 06:10 09/16/17 14:50 Urine Color COLORLESS Urine Appearance CLEAR Urine pH 8.0 Ur Specific [place] 1.006 Urine Protein NEGATIVE Urine Glucose (UA) NEGATIVE Urine Ketones NEGATIVE Urine Blood NEGATIVE Urine Nitrite NEGATIVE Ur Leukocyte Esterase NEGATIVE Urine WBC (Auto) 1 Urine RBC (Auto) 1 09/12/17 10:35 Blood Blood Culture - Final NO GROWTH IN 5 DAYS 09/12/17 10:15 Blood Blood Culture - Final NO GROWTH IN 5 DAYS 09/09/17 09/09/17 09/17/17 16:00 21:14 05:39 Creatine Kinase 27 L Troponin I 0.015 0.014 Impressions: Chest X-Ray 09/09/17 08:52 IMPRESSION: 1 No significant interval changes since the prior examination dated 08/15/2017. No acute findings. 2 Right PICC line, unchanged finding. Abdomen Ultrasound 09/10/17 00:00 IMPRESSION: NORMAL ABDOMINAL ULTRASOUND. Upper Extremity MRI 09/11/17 00:00 IMPRESSION: No evidence for osteomyelitis. Minimal joint effusion. No soft tissue abscess. Pelvis Ultrasound 09/12/17 00:00 IMPRESSION: NORMAL PELVIC ULTRASOUND BY TRANSABDOMINAL TECHNIQUE. Assessment & Plan - Diagnosis (1) Severe sepsis Is this a current diagnosis for this admission?: Yes Plan: Has been subsiding. Continue ceftriaxone and daptomycin. (2) Acute kidney injury Is this a current diagnosis for this admission?: Yes Plan: Has resolved. (3) Deep venous thrombosis of right upper extremity Is this a current diagnosis for this admission?: Yes Plan: Patient has been on Lovenox and she will be switched to Xarelto upon discharge. (4) Pancytopenia Is this a current diagnosis for this admission?: Yes Plan: Patient has thrombocytopenia also anemia. She had been transfused with PRBC. Her pancytopenia is improving. (5) IV drug abuse Is this a current diagnosis for this admission?: Yes Plan: Patient has been counseled and encouraged to quit using IV drug. (6) Hepatitis C Qualifiers: Viral hepatitis chronicity: chronic Is this a current diagnosis for this admission?: Yes Plan: Patient needs follow-up with her primary care physician as outpatient.
[2017-09-17] MEDS: DAPTOMYCIN 500 MG in NORMAL SALINE 50 ML IV SCH (14:24)
[2017-09-18] MEDS: BUPRENORPHINE HCL 2 MG SUBLINGUAL TABLET SL SCH ×3 (05:15→18:06)
[2017-09-18] MEDS: GABAPENTIN 300 MG CAPSULE PO SCH ×3 (05:16→21:42)
[2017-09-18] MEDS: LACTOBACILLUS ACIDOPHILUS 250 MG TAB PO SCH ×2 (10:57→18:05)
[2017-09-18] MEDS: DOCUSATE SODIUM 100 MG CAPSULE PO SCH ×2 (10:57→18:05)
[2017-09-18] MEDS: BUSPIRONE HCL 10 MG TABLET PO SCH ×2 (10:57→21:42)
[2017-09-18] MEDS: ENOXAPARIN SODIUM INJ 80 MG/0.8 ML DISP.SYRIN SUBCUT SCH ×2 (10:58→21:43)
[2017-09-18] MEDS: DIVALPROEX SODIUM 250 MG TAB.SR.24H PO SCH (10:58)
[2017-09-18] MEDS: MAGNESIUM OXIDE 400 MG TABLET PO SCH ×2 (10:58→18:05)
[2017-09-18] MEDS: CALCIUM CARBONATE 500 MG TABLET PO SCH ×2 (10:58→18:05)
[2017-09-18] MEDS: SILVER SULFADIAZINE 1% CREAM 25 GM TP SCH ×2 (10:59→21:45)
[2017-09-18] MEDS: POLYETHYLENE GLYCOL 3350 POWDER 17 GM/1 PACKET PO SCH (10:59)
[2017-09-18] MEDS: CEFTRIAXONE 2 GM/D5W RTU 2 GM/50 ML RTUPB IV SCH (11:00)
--- NOTE | 2017-09-18 12:35 | PDOC PROGRESS REPORT ---
Subjective Progress Note for:: 09/18/17 Subjective:: I seen patient resting in bed comfortably. She does not have new complaints. Reason For Visit: SEVERE SEPSIS Physical Exam Vital Signs: Temp Pulse Resp BP Pulse Ox 97.9 F 54 L 18 93/41 L 100 09/18/17 11:29 09/18/17 11:29 09/18/17 11:29 09/18/17 11:29 09/18/17 11:29 Intake & Output 09/17/17 09/18/17 09/19/17 06:59 06:59 06:59 Intake Total 811 1673 287 Balance 811 1673 287 Weight 63.5 kg 60.3 kg General appearance: PRESENT: no acute distress Neck exam: ABSENT: carotid bruit, JVD, lymphadenopathy, thyromegaly Respiratory exam: PRESENT: clear to auscultation dmitri. ABSENT: rales, rhonchi, wheezes Cardiovascular exam: PRESENT: RRR. ABSENT: diastolic murmur, rubs, systolic murmur Neurological exam: PRESENT: alert, oriented to time, oriented to situation Psychiatric exam: PRESENT: normal mood Results Laboratory Results: 09/16/17 05:45 09/14/17 06:10 09/12/17 10:35 Blood Blood Culture - Final NO GROWTH IN 5 DAYS 09/12/17 10:15 Blood Blood Culture - Final NO GROWTH IN 5 DAYS 09/09/17 09/09/17 09/17/17 16:00 21:14 05:39 Creatine Kinase 27 L Troponin I 0.015 0.014 Impressions: Chest X-Ray 09/09/17 08:52 IMPRESSION: 1 No significant interval changes since the prior examination dated 08/15/2017. No acute findings. 2 Right PICC line, unchanged finding. Abdomen Ultrasound 09/10/17 00:00 IMPRESSION: NORMAL ABDOMINAL ULTRASOUND. Upper Extremity MRI 09/11/17 00:00 IMPRESSION: No evidence for osteomyelitis. Minimal joint effusion. No soft tissue abscess. Pelvis Ultrasound 09/12/17 00:00 IMPRESSION: NORMAL PELVIC ULTRASOUND BY TRANSABDOMINAL TECHNIQUE. Assessment & Plan - Diagnosis (1) Severe sepsis Is this a current diagnosis for this admission?: Yes Plan: Has resolved (2) Acute kidney injury Is this a current diagnosis for this admission?: Yes Plan: Has resolved (3) Deep venous thrombosis of right upper extremity Is this a current diagnosis for this admission?: Yes Plan: Patient has been on Lovenox and she will be switched to Xarelto upon discharge. (4) Pancytopenia Is this a current diagnosis for this admission?: Yes Plan: Patient has thrombocytopenia also anemia. She had been transfused with PRBC. Her pancytopenia is improving. (5) IV drug abuse Is this a current diagnosis for this admission?: Yes Plan: Patient has been counseled and encouraged to quit using IV drug. (6) Hepatitis C Qualifiers: Viral hepatitis chronicity: chronic Is this a current diagnosis for this admission?: Yes Plan: Patient needs follow-up with her primary care physician as outpatient.
[2017-09-18] MEDS: DAPTOMYCIN 500 MG in NORMAL SALINE 50 ML IV SCH (14:22)
[2017-09-19] MEDS: GABAPENTIN 300 MG CAPSULE PO SCH ×3 (06:46→21:46)
[2017-09-19] MEDS: BUPRENORPHINE HCL 2 MG SUBLINGUAL TABLET SL SCH ×3 (06:46→18:10)
[2017-09-19] MEDS: LACTOBACILLUS ACIDOPHILUS 250 MG TAB PO SCH ×2 (10:58→18:10)
[2017-09-19] MEDS: MAGNESIUM OXIDE 400 MG TABLET PO SCH ×2 (10:58→18:10)
[2017-09-19] MEDS: BUSPIRONE HCL 10 MG TABLET PO SCH ×2 (10:58→21:46)
[2017-09-19] MEDS: DOCUSATE SODIUM 100 MG CAPSULE PO SCH ×2 (10:58→18:09)
[2017-09-19] MEDS: CALCIUM CARBONATE 500 MG TABLET PO SCH ×2 (10:59→18:09)
[2017-09-19] MEDS: POLYETHYLENE GLYCOL 3350 POWDER 17 GM/1 PACKET PO SCH (10:59)
[2017-09-19] MEDS: DIVALPROEX SODIUM 250 MG TAB.SR.24H PO SCH (10:59)
[2017-09-19] MEDS: SILVER SULFADIAZINE 1% CREAM 25 GM TP SCH ×2 (10:59→21:43)
[2017-09-19] MEDS: CEFTRIAXONE 2 GM/D5W RTU 2 GM/50 ML RTUPB IV SCH (11:00)
[2017-09-19] MEDS: ENOXAPARIN SODIUM INJ 80 MG/0.8 ML DISP.SYRIN SUBCUT SCH ×2 (11:01→21:43)
--- NOTE | 2017-09-19 13:05 | PDOC PROGRESS REPORT ---
Subjective Progress Note for:: 09/19/17 Subjective:: No significant change overnight. Today's retains a day on IV antibiotics for severe sepsis and sacral wound which grew multiple organisms including MRSA. She has been on cefepime and daptomycin. After the culture and sensitivity results cefepime and switched to ceftriaxone. Patient is potential discharge for tomorrow. Reason For Visit: SEVERE SEPSIS Physical Exam Vital Signs: Temp Pulse Resp BP Pulse Ox 97.7 F 81 18 93/40 L 94 09/19/17 11:55 09/19/17 11:55 09/19/17 11:55 09/19/17 11:55 09/19/17 11:55 Intake & Output 09/18/17 09/19/17 09/20/17 06:59 06:59 06:59 Intake Total 1673 1056 318 Balance 1673 1056 318 Weight 60.3 kg 60.1 kg Results Laboratory Results: 09/16/17 05:45 09/14/17 06:10 09/09/17 09/09/17 09/17/17 16:00 21:14 05:39 Creatine Kinase 27 L Troponin I 0.015 0.014 Impressions: Chest X-Ray 09/09/17 08:52 IMPRESSION: 1 No significant interval changes since the prior examination dated 08/15/2017. No acute findings. 2 Right PICC line, unchanged finding. Abdomen Ultrasound 09/10/17 00:00 IMPRESSION: NORMAL ABDOMINAL ULTRASOUND. Upper Extremity MRI 09/11/17 00:00 IMPRESSION: No evidence for osteomyelitis. Minimal joint effusion. No soft tissue abscess. Pelvis Ultrasound 09/12/17 00:00 IMPRESSION: NORMAL PELVIC ULTRASOUND BY TRANSABDOMINAL TECHNIQUE. Assessment & Plan - Diagnosis (1) Severe sepsis Is this a current diagnosis for this admission?: Yes Plan: Continue current regimen (2) Acute kidney injury Is this a current diagnosis for this admission?: Yes Plan: Has resolved (3) Deep venous thrombosis of right upper extremity Is this a current diagnosis for this admission?: Yes Plan: Patient has been on Lovenox and upon discharge will switch her to Xarelto 5 mg twice a day for the first 21 days then 20 mg p.o. daily. (4) Pancytopenia Is this a current diagnosis for this admission?: Yes Plan: Patient has thrombocytopenia also anemia. She had been transfused with PRBC. Her pancytopenia is improving. (5) IV drug abuse Is this a current diagnosis for this admission?: Yes Plan: Patient has been counseled and encouraged to quit using IV drug. (6) Hepatitis C Qualifiers: Viral hepatitis chronicity: chronic Is this a current diagnosis for this admission?: Yes Plan: Patient needs follow-up with her primary care physician as outpatient.
[2017-09-19] MEDS: DAPTOMYCIN 500 MG in NORMAL SALINE 50 ML IV SCH (14:23)
[2017-09-20] MEDS: GABAPENTIN 300 MG CAPSULE PO SCH (06:46)
[2017-09-20] MEDS: BUPRENORPHINE HCL 2 MG SUBLINGUAL TABLET SL SCH (06:46)
--- NOTE | 2017-09-20 09:12 | PDOC DISCHARGE SUMMARY ---
General - Admit/Disc Date/PCP Admission Date/Primary Care Provider: 09/09/17 11:54 KEDAR RANKIN Discharge Date: 09/20/17 - Discharge Diagnosis (1) Severe sepsis Is this a current diagnosis for this admission?: Yes (2) Acute kidney injury Is this a current diagnosis for this admission?: Yes (3) Deep venous thrombosis of right upper extremity Is this a current diagnosis for this admission?: Yes (4) Pancytopenia Is this a current diagnosis for this admission?: Yes (5) IV drug abuse Is this a current diagnosis for this admission?: Yes (6) Hepatitis C Is this a current diagnosis for this admission?: Yes - Additional Information Resuscitation Status: Full Code Home Medications: Buprenorphine HCl [Subutex 8 mg Sublingual Tablet] 1 tab SL Q8 05/06/17 Butalb/Acetaminophen/Caffeine [Fioricet (50-325-40 mg) Tablet] 1 tab PO Q8HP PRN 05/06/17 Gabapentin [Neurontin 300 mg Capsule] 300 mg PO Q8 05/06/17 Lamotrigine [Lamotrigine ER] 200 mg PO QHS 05/06/17 Lorazepam [Ativan 0.5 mg Tablet] 0.5 mg PO Q12HP PRN 05/06/17 Ondansetron HCl [Zofran 4 mg Tablet] 4 mg PO Q12HP PRN 05/06/17 Oseltamivir Phosphate [Tamiflu 75 mg Capsule] 75 mg PO Q12 05/06/17 Sertraline HCl [Zoloft] 100 mg PO DAILY 05/06/17 Doxycycline Hyclate [Vibramycin 100 mg Tablet] 100 mg PO Q12 7 Days #14 tablet 05/07/17 Buprenorphine HCl [Subutex 8 mg Sublingual Tablet] 8 mg SL TID 09/09/17 Buspirone HCl [Buspar 15 mg Tablet] 30 mg PO BID 09/09/17 Butalb/Acetaminophen/Caffeine [Gcxtcw-Utbjwvwp-Yrma 50-325-40] 1 tab PO TIDP PRN 09/09/17 Gabapentin [Neurontin 300 mg Capsule] 900 mg PO TID 09/09/17 Ibuprofen [Motrin 800 mg Tablet] 800 mg PO TIDP PRN 09/09/17 Ondansetron HCl [Zofran 4 mg Tablet] 4 mg PO BIDP PRN 09/09/17 History of Present Illness History of Present Illness: CECY VALDERRAMA is a 31 year old female with a past medical history of hep C, IV drug use, septic arthritis of the shoulder, chronic anemia and recent admission to this hospital for shoulder dislocation due to septic arthritis septic arthritis of the shoulder, who presented to the ED today via EMS complaining of generalized lethargy and weakness for a few days. Patient states that she just cannot move for the last few days "I could not walk , I could not move and so I called EMS". Patient states that she feels very weak and tired and just does not want to eat. States that she has not had any p.o. food or water for the last few days. Her father is also in the room and she has given me permission to speak with her also. She tells me that last January she was and hence she stopped doing her IV drugs but she lost the baby. States since then she has been started on Subutex but after she ran out she was buying it off the streets. She tells me that her last drug use was over a month ago and she has not used any other drugs since. As permission from her to talk to her father and she gave it to me. I spoke with her father who tells me that she has been living with her sister since discharge from the hospital last month in August. She was here in the hospital and treated for septic arthritis and sent home on a PICC line for IV antibiotics for 4 weeks. She was told to follow-up with orthopedics for her shoulder. She was sent home on daptomycin IV daily for 25 days. Her father tells me that she has had a long history IV drug use and they have been trying to get her clean. States that he has given her infrequent UDS and it has been positive for drugs at times. He tells me that sometimes she is a polite her father and used her sister's urine for drug screening. Her father tells me that she does not tell the truth and is most likely lying to me. Patient is a very poor historian and cannot get her facts straight. Her father believe that she has been using IV drugs through the PICC line. Patient has not followed up with any of her doctors since discharge in August. In the ED today she is very weak and tearful and telling me that she just cannot move. She also has a ulcer in the sacral area. She also tells me that she has a history of seizures but has not been taking her meds states "I do not like taking it". She also has history of hep C but has no idea about her RNA counts. Hospital Course Hospital Course: This is 31 years old female patient with long-standing history of IV drug abuse, hepatitis C and chronic anemia admitted with 3 days history of generalized weakness and inability to walk. Her blood work shows markedly leukocytosis and acute kidney injury. Her wound culture grew 2 strains of E. coli, MRSA and group C beta streptococci. Her urine culture grew E. coli and Klebsiella pneumonia and her blood culture grew Enterobacter cloacae and Klebsiella oxytoca. Except for MRSA the rest of the organisms are pansensitive. Patient has been managed as a case of severe sepsis, urinary tract infection and right upper extremity DVT. She has been on cefepime which is switched to ceftriaxone and daptomycin for the MRSA. And for her upper extremity DVT she has been on Lovenox and I will switch her to Xarelto on discharge. Her acute kidney injury has resolved with aggressive hydration. Currently her vital signs are stable her labs also within normal limits. I have a long discussion with the patient and her mom who is in the room during my encounter the consequence of continued use of IV illicit drugs. I counseled and encouraged the patient to stay clean and she voices agreement. Physical Exam Vital Signs: Temp Pulse Resp BP Pulse Ox 98.3 F 47 L 14 97/44 L 99 09/20/17 07:56 09/20/17 07:56 09/20/17 07:56 09/20/17 07:56 09/20/17 07:56 Intake & Output 09/19/17 09/20/17 09/21/17 06:59 06:59 06:59 Intake Total 1056 1378 Balance 1056 1378 Weight 60.1 kg 60 kg General appearance: PRESENT: no acute distress Head exam: PRESENT: atraumatic Mouth exam: PRESENT: moist Neck exam: ABSENT: carotid bruit, JVD, lymphadenopathy, thyromegaly Respiratory exam: PRESENT: clear to auscultation dmitri. ABSENT: rales, rhonchi, wheezes Cardiovascular exam: PRESENT: RRR. ABSENT: diastolic murmur, rubs, systolic murmur GI/Abdominal exam: PRESENT: normal bowel sounds, soft. ABSENT: distended, guarding, mass, organolmegaly, rebound, tenderness Neurological exam: PRESENT: alert, awake, oriented to time, oriented to situation Psychiatric exam: PRESENT: normal mood Results Laboratory Results: 09/16/17 05:45 09/14/17 06:10 09/09/17 09/09/17 09/17/17 16:00 21:14 05:39 Creatine Kinase 27 L Troponin I 0.015 0.014 Impressions: Chest X-Ray 09/09/17 08:52 IMPRESSION: 1 No significant interval changes since the prior examination dated 08/15/2017. No acute findings. 2 Right PICC line, unchanged finding. Abdomen Ultrasound 09/10/17 00:00 IMPRESSION: NORMAL ABDOMINAL ULTRASOUND. Upper Extremity MRI 09/11/17 00:00 IMPRESSION: No evidence for osteomyelitis. Minimal joint effusion. No soft tissue abscess. Pelvis Ultrasound 09/12/17 00:00 IMPRESSION: NORMAL PELVIC ULTRASOUND BY TRANSABDOMINAL TECHNIQUE. Qualifiers - * PATIENT BEING DISCHARGED WITH ANY OF THE FOLLOWING DIAGNOSIS: No
[2017-09-20 10:03] VITALS: BP 93/41
== END 2017-09-20 10:34 | disposition home or self-care (01) | DRG 872 ==
LOC: ER 08:44 → EH 11:54 → ICU 13:50 → 3W 09-12 15:35
PROVIDERS: ADMIT Internal Medicine; ATTEND Internal Medicine
PROC: 3E0F73Z Introduction of Anti-inflammatory into Respiratory Tract, Via Natural or Artificial Opening (ICD-10-PCS; 2017-09-09)
PROC: 02HV33Z Insertion of Infusion Device into Superior Vena Cava, Percutaneous Approach (ICD-10-PCS; 2017-09-09)
PROC: B548ZZA Ultrasonography of Superior Vena Cava, Guidance (ICD-10-PCS; 2017-09-09)
PROC: 0HD6XZZ Extraction of Back Skin, External Approach (ICD-10-PCS; 2017-09-11)
PROC: 0DCP8ZZ Extirpation of Matter from Rectum, Via Natural or Artificial Opening Endoscopic (ICD-10-PCS; principal; 2017-09-13 09:45)
PROC: 30233N1 Transfusion of Nonautologous Red Blood Cells into Peripheral Vein, Percutaneous Approach (ICD-10-PCS; 2017-09-14)
DX: A41.9 Sepsis, unspecified organism (principal); N17.9 Acute kidney failure, unspecified; D61.818 Other pancytopenia; M00.9 Pyogenic arthritis, unspecified; N30.01 Acute cystitis with hematuria; L03.116 Cellulitis of left lower limb; L03.115 Cellulitis of right lower limb; S36.63XA Laceration of rectum, initial encounter; I82.A11 Acute embolism and thrombosis of right axillary vein; K61.1 Rectal abscess; D64.9 Anemia, unspecified; R65.20 Severe sepsis without septic shock; B96.20 Unspecified Escherichia coli [E. coli] as the cause of diseases classified elsewhere; B95.62 Methicillin resistant Staphylococcus aureus infection as the cause of diseases classified elsewhere; B95.4 Other streptococcus as the cause of diseases classified elsewhere; B96.1 Klebsiella pneumoniae [K. pneumoniae] as the cause of diseases classified elsewhere; F32.9 Major depressive disorder, single episode, unspecified; F17.210 Nicotine dependence, cigarettes, uncomplicated; A56.02 Chlamydial vulvovaginitis; E83.51 Hypocalcemia; B18.2 Chronic viral hepatitis C; L89.152 Pressure ulcer of sacral region, stage 2; E16.2 Hypoglycemia, unspecified; K56.41 Fecal impaction; X58.XXXA Exposure to other specified factors, initial encounter; F19.90 Other psychoactive substance use, unspecified, uncomplicated; G40.909 Epilepsy, unspecified, not intractable, without status epilepticus; G44.229 Chronic tension-type headache, not intractable; Z79.899 Other long term (current) drug therapy; Z88.2 Allergy status to sulfonamides; Z88.8 Allergy status to other drugs, medicaments and biological substances; Z88.6 Allergy status to analgesic agent; Z91.040 Latex allergy status; Z82.49 Family history of ischemic heart disease and other diseases of the circulatory system
CPT/HCPCS: 00902; 36415; 36430; 71045; 76700; 76856; 80048; 80053; 80061; 80074; 80307; 81001; 82140; 82550; 82607; 82728; 82746; 82784; 82803; 83036; 83540; 83550; 83605; 83615; 83690; 83735; 84100; 84443; 84484; 84702; 85025; 85027; 85045; 85379; 85384; 85610; 85730; 86022; 86592; 86701; 86850; 86900; 86901; 86920; 87040; 87070; 87075; 87077; 87086; 87088; 87186; 87205; 87491; 87522; 87591; 93005; 93010; 93321; 93971; 93976; A9576; C1751; J0131; J0571; J0610; J0696; J0878; J1170; J1642; J1644; J1650; J2185; J2250; J2405; J2543; J2704; J3010; J3370; J3475; J3490; J7030; J7060; P9016; Q0144; S0028; S0164

== ENCOUNTER 2017-09-21 20:08 | Observation (INO) | payer MEDICAID ==
[2017-09-21] MEDS ORDERED: ONDANSETRON HCL INJ/PF 4 MG/2 ML SDV IV ONE (20:17)
[2017-09-21] MEDS ORDERED: NORMAL SALINE 1000 ML 1,000 ML IV ONE (20:25)
--- NOTE | 2017-09-21 20:33 | ER Document Report ---
ED General - General Chief Complaint: Shortness Of Breath Stated Complaint: POSSIBLE STROKE Time Seen by Provider: 09/21/17 20:13 TRAVEL OUTSIDE OF THE [place] IN LAST 30 DAYS: No - HPI Notes: 31-year-old female presents by EMS with a possible stroke. They were initially called out at 1845 for slurred speech and dizziness. She refused transport. She began vomiting and EMS was called out again. She was discharged from the hospital yesterday after prolonged visit for severe sepsis. She has his long history of IV drug abuse. She had a PICC line in place for septic arthritis and it was thought that she was injecting drugs to her PICC line. She developed a DVT in her right arm and was started on Xarelto. She was also treated for urinary tract infection. EMS was concerned about possible stroke due to Xarelto. Patient denies headache, dizziness, focal numbness or weakness. She just complains of having difficulty breathing. She denies chest pain. She denies drug or alcohol use today, but according to the old chart, frequently lies about her drug use. Taken directly to CT upon arrival. - Related Data Allergies/Adverse Reactions: latex [Latex] Allergy (Intermediate, Verified 05/06/17 10:43) RASH, SWELLING AT AREA Sulfa (Sulfonamide Antibiotics) Allergy (Verified 09/09/17 13:29) ketorolac tromethamine [From Toradol] Adverse Reaction (Intermediate, Verified 05/06/17 10:43) AGITATED meperidine HCl [From Demerol] Adverse Reaction (Intermediate, Verified 05/06/17 10:43) AGITATED Past Medical History - Social History Smoking Status: Unknown if Ever Smoked Family History: Reviewed & Not Pertinent, Hypertension - Past Medical History Cardiac Medical History: Denies: Hx Coronary Artery Disease, Hx Heart Attack, Hx Hypertension Pulmonary Medical History: Denies: Hx Asthma, Hx Bronchitis, Hx COPD, Hx Pneumonia Neurological Medical History: Reports: Hx Seizures Renal/ Medical History: Denies: Hx Peritoneal Dialysis Musculoskeletal Medical History: Denies Hx Arthritis Psychiatric Medical History: Reports: Hx Anxiety, Hx Depression Past Surgical History: Reports: Hx Appendectomy, Hx Cardiac Surgery - Ablation for SVT, Hx Section, Hx Neurologic Surgery, Other - D&C, shoulder abscess surgery - Immunizations Hx Diphtheria, Pertussis, Tetanus Vaccination: No Review of Systems - Review of Systems Notes: Constitutional: Negative for fever. HENT: Negative for sore throat. Eyes: Negative for visual changes. Cardiovascular: Negative for chest pain. Respiratory: Positive for shortness of breath. Gastrointestinal: Negative for abdominal pain. Positive for vomiting Genitourinary: Negative for dysuria. Musculoskeletal: Negative for back pain. Skin: Negative for rash. Neurological: Negative for headaches, weakness or numbness. 10 point ROS negative except as marked above and in HPI. Physical Exam - Notes Notes: PHYSICAL EXAMINATION: GENERAL: Appears older than stated age, appears uncomfortable HEAD: Atraumatic, normocephalic. EYES: Pupils equal round and reactive to light, extraocular movements intact, conjunctiva are normal. ENT: nares patent, oropharynx clear without exudates. Moist mucous membranes. NECK: Normal range of motion, supple without lymphadenopathy LUNGS: Breath sounds clear to auscultation bilaterally and equal. No wheezes rales or rhonchi. HEART: Regular rate and rhythm, no chest wall tenderness ABDOMEN: Soft, nontender, normoactive bowel sounds. No guarding, no rebound. No masses appreciated. EXTREMITIES: Normal range of motion, no pitting or edema. No cyanosis. NEUROLOGICAL: Cranial nerves grossly intact. Normal sensory and motor exams. Slurred speech. No nystagmus. Ataxic. PSYCH: Angry mood, not cooperative SKIN: Warm, Dry, normal turgor. Multiple excoriated lesions Course - Re-evaluation Re-evalutation: 09/21/17 20:33 Very low suspicion for stroke. Much more suspicious of acute drug use with vomiting and intoxication. CT shows no hemorrhage. I do not believe this patient is a candidate for TPA due to history of IV drug use and currently on Xarelto. She has no focal neurologic deficits and has many other reasons to explain her vomiting and slurred speech. 09/21/17 22:40 Patient more awake now. She has rotary nystagmus with persistent ataxia. She reports continued dizziness. She refuses to allow a catheterized urine. Differential includes cerebellar stroke, vertigo, drug use. Labs otherwise unremarkable. Discussed with hospitalist for admission for MRI and further evaluation. - Laboratory Result Diagrams: 09/21/17 21:33 09/21/17 21:33 Laboratory results interpreted by me: 09/21/17 09/21/17 09/21/17 21:33 21:33 21:33 Hgb 11.2 L Hct 34.5 L MCV 73 L MCH 23.8 L RDW 26.5 H PT 16.4 H APTT 37.9 H Carbon Dioxide 31 H Alkaline Phosphatase 207 H Salicylates < 1.0 L Acetaminophen < 10 L - Diagnostic Test Radiology reviewed: Reports reviewed Discharge - Discharge Clinical Impression: Dizziness Altered mental status, unspecified Qualifiers: Altered mental status type: unspecified Qualified Code(s): R41.82 - Altered mental status, unspecified Condition: Fair Disposition: ADMITTED OBSERVATION Admitting Provider: Hospitalist Unit Admitted: Medical Floor Referrals: KEDAR RANKIN MD [Primary Care Provider] - Follow up as needed
--- NOTE | 2017-09-21 20:39 | RADIOLOGY REPORT (SQ) ---
EXAM DESCRIPTION: CT HEAD WITHOUT COMPLETED DATE/TIME: 09/21/2017 8:18 pm REASON FOR STUDY: Slurred speech, dizziness, vomiting. COMPARISON: None. TECHNIQUE: Axial images acquired through the brain without intravenous contrast. Images reviewed wi th bone, brain and subdural windows. Images stored on PACS. All CT scanners at this facility use dose modulation, iterative reconstruction, and/or weight based d osing when appropriate to reduce radiation dose to as low as reasonably achievable (ALARA). [facility]: Dose Right [facility]: CareDose [facility]: Dose Right [facility]: Teradose 4D [facility]: [employer] RADIATION DOSE: mGy. LIMITATIONS: None. FINDINGS: VENTRICLES: Normal size and contour. CEREBRUM: No mass effect. No hemorrhage. No midline shift. Normal bravo/white matter differentiatio n. No evidence for acute territorial infarction. CEREBELLUM: No mass effect. No hemorrhage. No alteration of density. No evidence for acute infarct ion. EXTRAAXIAL SPACES: No fluid collections. ORBITS AND GLOBE: Symmetrical contour of the globes. CALVARIUM: No depressed skull fracture. PARANASAL SINUSES: No air-fluid level. Small mucous retention cyst/polyp at the right maxillary sinu s. SOFT TISSUES: No hematoma. IMPRESSION: No acute intracranial hemorrhage or acute territorial infarct. EVIDENCE OF ACUTE STROKE: NO. COMMENT: Quality ID # [id number]: Final reports with documentation of one or more dose reduction techniques (e.g., Automated exposure control, adjustment of the mA and/or kV according to patient size, use of iterative reconstruction technique) TECHNICAL DOCUMENTATION: JOB ID: [id number] 2010 [employer]- All Rights Reserved Reading location - IP/workstation name: [email or web address]
--- NOTE | 2017-09-21 21:14 | RADIOLOGY REPORT (SQ) ---
EXAM DESCRIPTION: CHEST SINGLE VIEW COMPLETED DATE/TIME: 09/21/2017 8:21 pm REASON FOR STUDY: stroke like symptoms COMPARISON: Chest x-ray 09/09/2017. EXAM PARAMETERS: NUMBER OF VIEWS: One view. TECHNIQUE: Single frontal radiographic view of the chest acquired. RADIATION DOSE: NA LIMITATIONS: None. FINDINGS: The LUNGS AND PLEURA: No consolidation, pneumothorax or pleural effusion. MEDIASTINUM AND HILAR STRUCTURES: No masses. Contour normal. HEART AND VASCULAR STRUCTURES: Heart normal in size. Normal vasculature. BONES: No acute findings. HARDWARE: None in the chest. IMPRESSION: No acute radiographic finding in the chest. TECHNICAL DOCUMENTATION: JOB ID: [id number] 2010 [employer]- All Rights Reserved Reading location - IP/workstation name: [email or web address]
[2017-09-21 22:03] LABS: ABSOLUTE BASOPHILS # (AUTO) 0.1 10^3/uL (0.0-0.2); ABSOLUTE EOSINOPHILS # (AUTO) 0.1 10^3/uL (0.0-0.6); ABSOLUTE LYMPHOCYTES (AUTO) 1.1 10^3/uL (0.5-4.7); ABSOLUTE MONOCYTES (AUTO) 0.4 10^3/uL (0.1-1.4); ABSOLUTE NEUT (AUTO) 3.3 10^3/uL (1.7-8.2); BASOPHILS % (AUTO) 1.3 % (0-2); EOSINOPHILS % (AUTO) 1.4 % (0-6); HEMATOCRIT 34.5 % (36.0-47.0); HEMOGLOBIN 11.2 g/dL (12.0-15.5); LYMPHOCYTES % (AUTO) 22.7 % (13-45); MEAN CORPUSCULAR HEMOGLOBIN 23.8 pg (27.0-33.4); MEAN CORPUSCULAR HGB CONC 32.5 g/dL (32.0-36.0); MEAN CORPUSCULAR VOLUME 73 fl (80-97); MONOCYTES % (AUTO) 8.1 % (3-13); PLATELET COUNT 429 10^3/uL (150-450); RED BLOOD COUNT 4.71 10^6/uL (3.72-5.28); RED CELL DISTRIBUTION WIDTH 26.5 % (11.5-14.0); SEGMENTED NEUTROPHILS % (AUTO) 66.5 % (42-78); TOTAL CELLS COUNTED % (AUTO) 100 %; WHITE BLOOD COUNT 4.9 10^3/uL (4.0-10.5)
--- NOTE | 2017-09-21 22:13 | EKG REPORT ---
SEVERITY:- ABNORMAL ECG - SINUS RHYTHM PROBABLE LEFT VENTRICULAR HYPERTROPHY : Confirmed by: Theresa Barragan 21-Sep-2017 22:11:40
[2017-09-21 22:25] LABS: ALANINE AMINOTRANSFERASE 30 U/L (9-52); ALBUMIN 3.8 g/dL (3.5-5.0); ALKALINE PHOSPHATASE 207 U/L (38-126); ANION GAP 10 (5-19); ASPARTATE AMINO TRANSFERASE 24 U/L (14-36); BILIRUBIN,DIRECT 0.3 mg/dL (0.0-0.4); BILIRUBIN,TOTAL 0.3 mg/dL (0.2-1.3); BLOOD UREA NITROGEN 17 mg/dL (7-20); CARBON DIOXIDE 31 mmol/L (22-30); CHLORIDE 99 mmol/L (98-107); GLUCOSE 95 mg/dL (75-110); LIPASE 38.2 U/L (23-300); POTASSIUM 4.3 mmol/L (3.6-5.0); SODIUM 139.7 mmol/L (137-145); TOTAL PROTEIN 7.6 g/dL (6.3-8.2)
[2017-09-21 22:26] LABS: ANISOCYTOSIS 3+; HYPOCHROMASIA 1+; PLATELET COMMENT ADEQUATE; POIKILOCYTOSIS 2+
[2017-09-21 22:27] LABS: INTERNATIONAL RATION (INR) 1.25; PROTHROMBIN TIME 16.4 SEC (11.4-15.4)
[2017-09-21 22:28] LABS: OVALOCYTES 1+; PARTIAL THROMBOPLASTIN TIME 37.9 SEC (23.5-35.8)
[2017-09-21 22:31] LABS: ACETAMINOPHEN < 10 ug/mL (10-30); ALCOHOL < 10 mg/dL (NONE DETECTED); SALICYLATE < 1.0 mg/dL (2.0-20.0)
[2017-09-22 00:37] LABS: APPEARANCE,URINE CLEAR; BILIRUBIN,URINE NEGATIVE (NEGATIVE); COLOR,URINE STRAW; GLUCOSE, URINE NEGATIVE (NEGATIVE); KETONES,URINE NEGATIVE (NEGATIVE); LEUKOCYTE ESTERASE,URINE NEGATIVE (NEGATIVE); NITRITE,URINE NEGATIVE (NEGATIVE); PROTEIN,URINE NEGATIVE (NEGATIVE); URINE SPECIFIC GRAVITY 1.008; UROBILINOGEN,URINE NEGATIVE mg/dL (<2.0)
[2017-09-22 00:51] LABS: URINE AMPHETAMINES SCREEN NEGATIVE; URINE BARBITURATES SCREEN UNCONFIRMED POSITIVE; URINE BENZODIAZEPINES SCREEN NEGATIVE; URINE COCAINE SCREEN NEGATIVE; URINE MARIJUANA (THC) SCREEN NEGATIVE; URINE METHADONE SCREEN NEGATIVE; URINE PHENCYCLIDINE SCREEN NEGATIVE
[2017-09-22] MEDS ORDERED: DEXTROSE 50%-WATER 25 GM/50 ML DISP.SYRIN IV PRN ×2 (00:51)
[2017-09-22] MEDS ORDERED: GLUCAGON,HUMAN RECOMB 1 MG INJ SUBCUT PRN (00:51)
[2017-09-22] MEDS ORDERED: MAG HYDROX/AL HYDROX/SIMETH SUSP 30 ML UDCUP PO PRN (00:51)
[2017-09-22] MEDS ORDERED: ACETAMINOPHEN 325 MG TABLET PO PRN (00:51)
[2017-09-22] MEDS ORDERED: PROMETHAZINE HCL INJ 25 MG/1 ML VIAL IV PRN (00:51)
[2017-09-22] MEDS ORDERED: DEXTROSE 40% GEL 15 GM TUBE PO PRN ×2 (00:51)
[2017-09-22] MEDS ORDERED: NORMAL SALINE 1000 ML 1,000 ML IV PRN (00:57)
--- NOTE | 2017-09-22 03:29 | PDOC H&P ---
History of Present Illness Admission Date/PCP: 09/21/17 22:54 KEDAR RANKIN Patient complains of: Slurred speech History of Present Illness: CECY VALDERRAMA is a 31 year old female who was discharged from our facility the day before with a diagnosis of severe sepsis, acute kidney injury, DVT of right upper extremity, pancytopenia, IV drug abuse and hepatitis C. Father is at the bedside and give me most of the history. Symptoms started before dinner at 6 PM , father tells me she was feeling dizzy, he noticed she was disoriented, however she was able to have dinner, she went to her bedroom and the father was present when she has started with slurred speech. Denies weakness on any extremities, numbness, tingling, vision changes. Patient had one episode of vomiting, was feeling mild short of breath. Father called EMS around 1845 but she did not want to come to the ED. Second time she was brought him here. Patient denies using any drug or any new medication, denies also taking more medications than described. Initially to give urine but finally was sent to the lab and came back positive for barbiturates in the urine. Denies fever, chills, headaches, seizures, chest pain, abdominal pain, changes in bowel movements or urine. Past Medical History Cardiac Medical History: Denies: Coronary Artery Disease, Myocardial Infarction, Hypertension Pulmonary Medical History: Denies: Asthma, Bronchitis, Chronic Obstructive Pulmonary Disease (COPD), Pneumonia Neurological Medical History: Reports: Seizures Musculoskeltal Medical History: Denies: Arthritis Psychiatric Medical History: Reports: Depression Hematology: Reports: Anemia Past Surgical History Past Surgical History: Reports: Appendectomy, Section, Other - D&C, shoulder abscess surgery Social History Smoking Status: Unknown if Ever Smoked Frequency of Alcohol Use: None Hx Recreational Drug Use: Yes Drugs: Other Hx Prescription Drug Abuse: Yes - opiates, suboxone Family History Family History: Reviewed & Not Pertinent, Hypertension Parental Family History Reviewed: No Children Family History Reviewed: NA Sibling(s) Family History Reviewed.: NA Medication/Allergy Home Medications: Buprenorphine HCl [Subutex 8 mg Sublingual Tablet] 1 tab SL Q8 05/06/17 Butalb/Acetaminophen/Caffeine [Fioricet (50-325-40 mg) Tablet] 1 tab PO Q8HP PRN 05/06/17 Gabapentin [Neurontin 300 mg Capsule] 300 mg PO Q8 05/06/17 Lamotrigine [Lamotrigine ER] 200 mg PO QHS 05/06/17 Lorazepam [Ativan 0.5 mg Tablet] 0.5 mg PO Q12HP PRN 05/06/17 Ondansetron HCl [Zofran 4 mg Tablet] 4 mg PO Q12HP PRN 05/06/17 Oseltamivir Phosphate [Tamiflu 75 mg Capsule] 75 mg PO Q12 05/06/17 Sertraline HCl [Zoloft] 100 mg PO DAILY 05/06/17 Doxycycline Hyclate [Vibramycin 100 mg Tablet] 100 mg PO Q12 7 Days #14 tablet 05/07/17 Buprenorphine HCl [Subutex 8 mg Sublingual Tablet] 8 mg SL TID 09/09/17 Buspirone HCl [Buspar 15 mg Tablet] 30 mg PO BID 09/09/17 Butalb/Acetaminophen/Caffeine [Ddxpez-Gvoqdlkg-Fpff 50-325-40] 1 tab PO TIDP PRN 09/09/17 Gabapentin [Neurontin 300 mg Capsule] 900 mg PO TID 09/09/17 Ibuprofen [Motrin 800 mg Tablet] 800 mg PO TIDP PRN 09/09/17 Ondansetron HCl [Zofran 4 mg Tablet] 4 mg PO BIDP PRN 09/09/17 Rivaroxaban [Xarelto 15 mg Tablet] 15 mg PO BID #42 tablet 09/20/17 Rivaroxaban [Xarelto] 20 mg PO DAILY #30 tablet 09/20/17 Allergies/Adverse Reactions: latex [Latex] Allergy (Intermediate, Verified 05/06/17 10:43) RASH, SWELLING AT AREA Sulfa (Sulfonamide Antibiotics) Allergy (Verified 09/09/17 13:29) ketorolac tromethamine [From Toradol] Adverse Reaction (Intermediate, Verified 05/06/17 10:43) AGITATED meperidine HCl [From Demerol] Adverse Reaction (Intermediate, Verified 05/06/17 10:43) AGITATED Review of Systems Review of Systems: As outlined in the HPI, all others negative Physical Exam Vital Signs: Temp Pulse Resp BP Pulse Ox 50 L 14 112/57 L 100 09/21/17 20:29 09/22/17 00:30 09/22/17 00:30 09/22/17 00:30 Additional comments: General appearance: Well-developed, well-nourished, alert and cooperative, and appears to be agitated. Head: Normocephalic Eyes: PEERL, EOMI, vision is grossly intact. Ears: External auditory canal and tympanic membranes clear, hearing grossly intact. Nose: No nasal discharge. Throat: Oral cavity and pharynx normal and dry. No inflammation, swelling, exudate or lesions. Neck: Neck supple, nontender without lymphadenopathy, masses or thyromegaly. Cardiac: Normal S1 and S2. No S3, S4 or murmurs. Rhythm is regular. There is no peripheral edema, cyanosis or pallor. Extremities are warm and well perfused. Capillary refill is less than 2 seconds. No carotid bruits. Lungs: Clear to auscultation and percussion without rales, rhonchi, wheezing or diminished breath sounds. Not using accessory muscles. Abdomen: Positive bowel sounds. Soft. Nondistended, nontender. No guarding or rebound. No masses. No hepatosplenomegaly Extremities: No significant deformity or joint abnormality. No edema. Peripheral pulses intact. No varicosities. Neurological: Cranial nerves II through XII grossly intact. Slurred speech. Strength and sensation symmetric and intact throughout. Reflexes 2+ throughout. Skin: Skin normal color, texture and turgor with no lesions or eruptions, warm and dry. Psychiatric: Difficult evaluation, patient barely answer my questions. Results Laboratory Results: 09/21/17 23:44 Urine Color STRAW Urine Appearance CLEAR Urine pH 8.0 Ur Specific [place] 1.008 Urine Protein NEGATIVE Urine Glucose (UA) NEGATIVE Urine Ketones NEGATIVE Urine Blood NEGATIVE Urine Nitrite NEGATIVE Ur Leukocyte Esterase NEGATIVE Urine WBC (Auto) 0 Urine RBC (Auto) 1 09/21/17 09/21/17 09/21/17 21:33 21:33 21:33 WBC 4.9 Hgb 11.2 L Hct 34.5 L Plt Count 429 PT 16.4 H INR 1.25 APTT 37.9 H Sodium 139.7 Potassium 4.3 Chloride 99 Carbon Dioxide 31 H Anion Gap 10 BUN 17 Creatinine 0.80 Est GFR (Non-Af Amer) > 60 Glucose 95 Calcium 9.0 Total Bilirubin 0.3 Direct Bilirubin 0.3 ALT 30 Alkaline Phosphatase 207 H Albumin 3.8 Lipase 38.2 Salicylates < 1.0 L Urine Opiates Screen Urine Methadone Screen Acetaminophen < 10 L Ur Barbiturates Screen Ur Phencyclidine Scrn Ur Amphetamines Screen U Benzodiazepines Scrn Urine Cocaine Screen U Marijuana (THC) Screen Serum Alcohol < 10 09/21/17 23:44 WBC Hgb Hct Plt Count PT INR APTT Sodium Potassium Chloride Carbon Dioxide Anion Gap BUN Creatinine Est GFR (Non-Af Amer) Glucose Calcium Total Bilirubin Direct Bilirubin ALT Alkaline Phosphatase Albumin Lipase Salicylates Urine Opiates Screen NEGATIVE Urine Methadone Screen NEGATIVE Acetaminophen Ur Barbiturates Screen UNCONFIRMED POSITIVE Ur Phencyclidine Scrn NEGATIVE Ur Amphetamines Screen NEGATIVE U Benzodiazepines Scrn NEGATIVE Urine Cocaine Screen NEGATIVE U Marijuana (THC) Screen NEGATIVE Serum Alcohol Impressions: Chest X-Ray 09/21/17 20:14 IMPRESSION: No acute radiographic finding in the chest. Head CT 09/21/17 20:14 IMPRESSION: No acute intracranial hemorrhage or acute territorial infarct. EVIDENCE OF ACUTE STROKE: NO. Assessment & Plan - Diagnosis (1) Encephalopathy acute Is this a current diagnosis for this admission?: Yes Plan: Patient comes with changes in mental status, slurred speech confusion before dinner last night. Initially concerns for acute stroke however CT of the brain came back negative and no other neurological findings, patient on Xarelto, as per father has been taking the medication at home. As the patient has IV drug abuse, it was suspected also that this can be secondary to meditions, urine drug screen came back positive for barbiturates, most likely the origin of her symptoms, she is on Fioricet at home, she denies taking more medications than the prescribed. We will go ahead and place an MRI of the brain to definitely rule out acute stroke. Neuro checks every 4 hours. (2) Drug abuse, IV Is this a current diagnosis for this admission?: Yes Plan: She with history of IV drug abuse. Denies having used any drugs since discharge. Neuro screen positive for barbiturates. She is on Fioricet at home. (3) DVT (deep venous thrombosis) Is this a current diagnosis for this admission?: Yes Plan: Left upper extremity DVT, recently placed on Xarelto during her last admission. (4) Septic arthritis of shoulder, left Qualifiers: Septic arthritis organism: due to unspecified organism Qualified Code(s): M00.9 - Pyogenic arthritis, unspecified Is this a current diagnosis for this admission?: Yes Plan: He has been treated during her last admission, she was discharged home with p.o. antibiotics/doxycycline that we will continue during this hospitalization. - Time Time Spent: 30 to 50 Minutes
[2017-09-22 08:16] LABS: ABSOLUTE BASOPHILS # (AUTO) 0.1 10^3/uL (0.0-0.2); ABSOLUTE EOSINOPHILS # (AUTO) 0.1 10^3/uL (0.0-0.6); ABSOLUTE LYMPHOCYTES (AUTO) 1.3 10^3/uL (0.5-4.7); ABSOLUTE MONOCYTES (AUTO) 0.3 10^3/uL (0.1-1.4); BASOPHILS % (AUTO) 2.2 % (0-2); EOSINOPHILS % (AUTO) 3.7 % (0-6); HEMATOCRIT 32.8 % (36.0-47.0); HEMOGLOBIN 10.9 g/dL (12.0-15.5); LYMPHOCYTES % (AUTO) 47.4 % (13-45); MEAN CORPUSCULAR HEMOGLOBIN 24.1 pg (27.0-33.4); MEAN CORPUSCULAR HGB CONC 33.3 g/dL (32.0-36.0); MEAN CORPUSCULAR VOLUME 73 fl (80-97); MONOCYTES % (AUTO) 10.1 % (3-13); PLATELET COUNT 347 10^3/uL (150-450); RED BLOOD COUNT 4.53 10^6/uL (3.72-5.28); RED CELL DISTRIBUTION WIDTH 26.9 % (11.5-14.0); SEGMENTED NEUTROPHILS % (AUTO) 36.6 % (42-78); TOTAL CELLS COUNTED % (AUTO) 100 %
[2017-09-22 08:24] LABS: ANION GAP 8 (5-19); BLOOD UREA NITROGEN 12 mg/dL (7-20); CARBON DIOXIDE 29 mmol/L (22-30); CHLORIDE 105 mmol/L (98-107); CREATINE KINASE 36 U/L (30-135); GLUCOSE 77 mg/dL (75-110); POTASSIUM 4.7 mmol/L (3.6-5.0); SODIUM 142.4 mmol/L (137-145)
[2017-09-22 08:42] LABS: ANISOCYTOSIS 3+; HYPOCHROMASIA 2+; OVALOCYTES 1+; PLATELET COMMENT ADEQUATE; POIKILOCYTOSIS 1+
[2017-09-22 08:47] LABS: WHITE BLOOD COUNT 2.7 10^3/uL (4.0-10.5)
[2017-09-22] MEDS ORDERED: BUPRENORPHINE HCL 8 MG SL SCH (10:00)
[2017-09-22] MEDS: BUPRENORPHINE HCL 2 MG SUBLINGUAL TABLET SL SCH ×3 (10:13→18:44)
[2017-09-22] MEDS: BUSPIRONE HCL 10 MG TABLET PO SCH ×2 (10:13→18:45)
[2017-09-22] MEDS: GABAPENTIN 300 MG CAPSULE PO SCH ×3 (10:15→18:44)
[2017-09-22] MEDS: RIVAROXABAN 15 MG TABLET PO SCH ×2 (10:18→18:46)
--- NOTE | 2017-09-22 15:03 | RADIOLOGY REPORT (SQ) ---
EXAM DESCRIPTION: MRI HEAD WITHOUT COMPLETED DATE/TIME: 09/22/2017 11:37 am REASON FOR STUDY: cva COMPARISON: CT dated 09/21/2017. TECHNIQUE: Multiplanar imaging includes non-contrasted T1, T2, FLAIR, and diffusion with ADC map seq uences. Images stored on PACS. LIMITATIONS: None. FINDINGS: ANATOMY: No anomalies. Normal vascular flow voids. Pituitary fossa normal. CSF SPACES: Normal in size and contour. No hemorrhage. CEREBRUM: Sulci and gyri normal in size and contour. Normal white matter signal on FLAIR imaging. No evidence of hemorrhage, mass, or extraaxial fluid collection. POSTERIOR FOSSA: No signal alteration. No hemorrhage. No edema, masses or mass effect. Internal dany tory canals, cerebello-pontine angles, mastoids normal. DIFFUSION IMAGING: Negative for acute or sub-acute infarction. ORBITS: No masses. Globes normal. PARANASAL SINUSES: No fluid levels. Mucosa normal. OTHER: No other significant finding. IMPRESSION: NORMAL MRI OF THE BRAIN WITHOUT INTRAVENOUS GADOLINIUM CONTRAST. EVIDENCE OF ACUTE STROKE: NO. TECHNICAL DOCUMENTATION: JOB ID: [id number]- All Rights Reserved Reading location - IP/workstation name: [email or web address]
--- NOTE | 2017-09-22 18:16 | Progress Note ---
Provider Note Provider Note: The patient is a 31-year-old female with a past medical history of seizures, depression, IV drug abuse, hepatitis C who was recently discharged from the hospital with a diagnosis of sepsis, acute kidney injury, DVT of the right upper extremity, pancytopenia secondary to septic arthritis of the right shoulder. She was admitted overnight by the silas for a complaint oft dizziness, disorientation, and slurred speech. The patient was briefly seen, overnight events, vital signs, laboratory results , and orders were reviewed. 1) acute encephalopathy: Head CT was negative for acute stroke, urine drug screen revealed barbiturates which is most likely related to her prescribed Fioricet. MRI of the brain was obtained today; no acute findings. Of note, the patient does have a seizure disorder but does not take antiepileptic medications due to reported side effects "I don't like how they make me feel." Will obtain orthostatic vital sins. Pt noted to be persistently bradycardic; may need to consult cardiology. CVA has been ruled out; will place patient on regular diet. 2) Expressive aphasia; resolved. Secondary to #1 3) Drug abuse, IV: Urine drug screen was positive for barbiturates; she is prescribed Fioricet at home. 4) DVT: Right upper extremity DVT; placed on Xarelto during previous admission. Will continue Xarelto. 5) septic arthritis of the right upper extremity: Will continue p.o. doxycycline 6) history of seizure disorder: Patient reports history of seizure disorder; she is not currently on antiepileptic medications due to not liking how they make her feel. Her transient expressive aphasia could be evidence of a complex partial seizure. Will obtain EEG.
[2017-09-22 19:34] VITALS: BP 100/39
[2017-09-22] MEDS ORDERED: LAMOTRIGINE 200 MG PO SCH (22:00)
--- NOTE | 2017-09-24 12:43 | PDOC DISCHARGE SUMMARY ---
General - Admit/Disc Date/PCP Admission Date/Primary Care Provider: 09/21/17 22:54 KEDAR RANKIN Discharge Date: 09/22/17 - Discharge Diagnosis (1) Acute encephalopathy Is this a current diagnosis for this admission?: Yes Summary: Resolved spontaneously. The patient was admitted with report of dizziness, confusion that resolved prior to arrival in the emergency department, with continued slurred speech. Unknown etiology; CVA has been ruled out. Other causes could potentially include fatigue, medication reaction, symptomatic bradycardia, and ictal speech evidencing partial seizure. Head CT was negative for acute stroke, urine drug screen revealed barbiturates which is most likely related to her prescribed Fioricet. MRI of the brain was obtained today; no acute findings. EEG was ordered, but patient left AMA prior to testing being conducted. Unfortunately, orthostatic vital signs were not obtained as ordered. The patient is noted to be bradycardic in the 50s. She may benefit from Cardiology follow up. The patient left AGAINST MEDICAL ADVICE prior to completion of full evaluation. Would recommend that she follow up with her primary care provider within 1 week. Ensure adequate fluid and calorie intake. Take all medications as currently prescribed; caution with regard to sedating medications (Fiorecet, Buspar, Gabapentin, and Subutex). Her primary care provider may want to consider dose reductions as able. The patient may also benefit from Neurology referral to evaluate/treat seizure disorder and Cardiology follow up to evaluate bradycardia. (2) Expressive aphasia Is this a current diagnosis for this admission?: Yes Summary: Resolved spontaneously. Unknown etiology; CVA has been ruled out. Other causes could potentially include fatigue, medication reaction, and ictal speech evidencing partial seizure. (3) History of intravenous drug abuse Is this a current diagnosis for this admission?: Yes Summary: Urine drug screen was positive for barbiturates only; she is prescribed Fioricet at home. (4) Septic arthritis of shoulder, right Is this a current diagnosis for this admission?: No Summary: Continue prescribed doxycycline. (5) History of seizure disorder Is this a current diagnosis for this admission?: Yes Summary: Per H&P and previous hospital records, the patient reports history of seizure disorder but is not currently on antiepileptic medications due to "not liking how they make her feel." EEG was ordered, however, patient left AMA prior to completion of test. (6) Deep venous thrombosis of right upper extremity Is this a current diagnosis for this admission?: No Summary: Per nursing; patient is refusing Xarelto. - Additional Information Home Medications: Buprenorphine HCl [Subutex 8 mg Sublingual Tablet] 8 mg SL TID 09/09/17 Buspirone HCl [Buspar 15 mg Tablet] 30 mg PO BID 09/09/17 Butalb/Acetaminophen/Caffeine [Srdsou-Ymihzxmv-Droe 50-325-40] 1 tab PO TIDP PRN 09/09/17 Gabapentin [Neurontin 300 mg Capsule] 900 mg PO TID 09/09/17 Rivaroxaban [Xarelto 15 mg Tablet] 15 mg PO BID #42 tablet 09/20/17 History of Present Illness History of Present Illness: Per H&P by Dr. Orantes: CECY VALDERRAMA is a 31 year old female who was discharged from our facility the day before with a diagnosis of severe sepsis, acute kidney injury, DVT of right upper extremity, pancytopenia, IV drug abuse and hepatitis C. Father is at the bedside and give me most of the history. Symptoms started before dinner at 6 PM, father tells me she was feeling dizzy, he noticed she was disoriented, however she was able to have dinner, she went to her bedroom and the father was present when she has started with slurred speech. Denies weakness on any extremities, numbness, tingling, vision changes. Patient had one episode of vomiting, was feeling mild short of breath. Father called EMS around 1845 but she did not want to come to the ED. Second time she was brought him here. Patient denies using any drug or any new medication, denies also taking more medications than described. Initially to give urine but finally was sent to the lab and came back positive for barbiturates in the urine. Denies fever, chills, headaches, seizures, chest pain, abdominal pain, changes in bowel movements or urine. Physical Exam Vital Signs: Temp Pulse Resp BP Pulse Ox 98.4 F 49 L 18 100/39 L 100 09/22/17 19:18 09/22/17 19:18 09/22/17 19:18 09/22/17 19:18 09/22/17 19:18 Intake & Output 09/23/17 09/24/17 09/25/17 06:59 06:59 06:59 Intake Total 830 Balance 830 Additional comments: PT was not personally examined by me; she did have full physical exam completed by the admitting provider earlier today. Results Laboratory Results: 09/22/17 07:35 09/22/17 07:35 09/22/17 07:35 Creatine Kinase 36 Impressions: Chest X-Ray 09/21/17 20:14 IMPRESSION: No acute radiographic finding in the chest. Head CT 09/21/17 20:14 IMPRESSION: No acute intracranial hemorrhage or acute territorial infarct. EVIDENCE OF ACUTE STROKE: NO. Head MRI 09/22/17 00:00 IMPRESSION: NORMAL MRI OF THE BRAIN WITHOUT INTRAVENOUS GADOLINIUM CONTRAST. EVIDENCE OF ACUTE STROKE: NO. Qualifiers - * PATIENT BEING DISCHARGED WITH ANY OF THE FOLLOWING DIAGNOSIS: No Plan Discharge Plan: The patient left AGAINST MEDICAL ADVICE prior to completion of full evaluation. Would recommend that she follow up with her primary care provider within 1 week. Ensure adequate fluid and calorie intake, as well as, adequate sleep. Take all medications as currently prescribed; caution with regard to sedating medications (Fioricet, Buspar, Gabapentin, and Subutex). Her primary care provider may want to consider dose reductions as able. The patient may also benefit from Neurology referral to evaluate/treat seizure disorder and Cardiology follow up to evaluate bradycardia.
== END 2017-09-22 21:53 | disposition left against medical advice (07) ==
LOC: ER 20:08 → EH 22:54 → 4N 09-22 03:30
PROVIDERS: ADMIT Internal Medicine; ATTEND Internal Medicine
DX: G93.40 Encephalopathy, unspecified (principal); R00.1 Bradycardia, unspecified; Z53.21 Procedure and treatment not carried out due to patient leaving prior to being seen by health care provider; F19.11 Other psychoactive substance abuse, in remission; R47.01 Aphasia; M00.811 Arthritis due to other bacteria, right shoulder; F11.10 Opioid abuse, uncomplicated; R06.00 Dyspnea, unspecified; R27.0 Ataxia, unspecified; H55.09 Other forms of nystagmus; Z86.69 Personal history of other diseases of the nervous system and sense organs; Z86.718 Personal history of other venous thrombosis and embolism; Z79.899 Other long term (current) drug therapy; Z90.49 Acquired absence of other specified parts of digestive tract; Z98.890 Other specified postprocedural states; Z82.49 Family history of ischemic heart disease and other diseases of the circulatory system; Z86.19 Personal history of other infectious and parasitic diseases
CPT/HCPCS: 93005; 99285; 96361; 96374; 36415 ×2; 80307 ×4; 82550; 83690; 83735; 85025 ×2; 85610; 85730; 81025; 80048; 80053; 81001; 84484; 83605; 70551; 71045; 70450; 93010; G0378 ×2; J3490 ×3; J2405; J7030; J0571

== ENCOUNTER 2018-07-19 11:25 | Inpatient (IN) | payer MEDICAID ==
[2018-07-19 12:43] LABS: INTERNATIONAL RATION (INR) 1.16; PROTHROMBIN TIME 15.4 SEC (11.4-15.4)
--- NOTE | 2018-07-19 12:54 | RADIOLOGY REPORT (SQ) ---
EXAM DESCRIPTION: CHEST SINGLE VIEW COMPLETED DATE/TIME: 07/19/2018 12:42 pm REASON FOR STUDY: fever, possible sepsis COMPARISON: 09/09/2017 TECHNIQUE: Single frontal radiographic view of the chest acquired. NUMBER OF VIEWS: One view. LIMITATIONS: None. FINDINGS: LUNGS AND PLEURA: No pneumothorax. No consolidation or pleural effusion. MEDIASTINUM AND HILAR STRUCTURES: Stable. HEART AND VASCULAR STRUCTURES: Stable. BONES: No acute findings. HARDWARE: None in the chest. OTHER: No other significant finding. IMPRESSION: NO ACUTE FINDINGS. TECHNICAL DOCUMENTATION: JOB ID: [id number] [id number] 2010 [employer]- All Rights Reserved Reading location - IP/workstation name: [email or web address]
[2018-07-19 13:02] LABS: ABSOLUTE LYMPHOCYTES (AUTO) 0.9 10^3/uL (0.5-4.7); ABSOLUTE MONOCYTES (AUTO) 0.5 10^3/uL (0.1-1.4); ABSOLUTE NEUT (AUTO) 9.3 10^3/uL (1.7-8.2); BASOPHILS % (AUTO) 0.3 % (0-2); EOSINOPHILS % (AUTO) 0.2 % (0-6); HEMOGLOBIN 9.8 g/dL (12.0-15.5); MEAN CORPUSCULAR HEMOGLOBIN 21.4 pg (27.0-33.4); MEAN CORPUSCULAR HGB CONC 32.6 g/dL (32.0-36.0); MEAN CORPUSCULAR VOLUME 66 fl (80-97); MONOCYTES % (AUTO) 4.7 % (3-13); PLATELET COUNT 444 10^3/uL (150-450); RED BLOOD COUNT 4.58 10^6/uL (3.72-5.28); RED CELL DISTRIBUTION WIDTH 19.5 % (11.5-14.0); SEGMENTED NEUTROPHILS % (AUTO) 86.8 % (42-78); TOTAL CELLS COUNTED % (AUTO) 100 %; VENOUS BLOOD BASE EXCESS 3.5 mmol/L; VENOUS BLOOD HCO3 28.5 mmol/L (20-32); VENOUS BLOOD PH 7.42 (7.30-7.42); WHITE BLOOD COUNT 10.7 10^3/uL (4.0-10.5)
[2018-07-19 13:20] LABS: ALANINE AMINOTRANSFERASE 15 U/L (9-52); ALBUMIN 3.2 g/dL (3.5-5.0); ALKALINE PHOSPHATASE 173 U/L (38-126); ANION GAP 12 (5-19); ASPARTATE AMINO TRANSFERASE 10 U/L (14-36); BILIRUBIN,DIRECT 0.3 mg/dL (0.0-0.4); BILIRUBIN,TOTAL 0.3 mg/dL (0.2-1.3); BLOOD UREA NITROGEN 6 mg/dL (7-20); CALCIUM 8.7 mg/dL (8.4-10.2); CARBON DIOXIDE 28 mmol/L (22-30); CHLORIDE 96 mmol/L (98-107); GLUCOSE 120 mg/dL (75-110); POTASSIUM 3.7 mmol/L (3.6-5.0); SODIUM 135.9 mmol/L (137-145); TOTAL PROTEIN 7.2 g/dL (6.3-8.2)
[2018-07-19 13:33] LABS: APPEARANCE,URINE SLIGHTLY-CLOUDY; BILIRUBIN,URINE NEGATIVE (NEGATIVE); COLOR,URINE YELLOW; GLUCOSE, URINE NEGATIVE (NEGATIVE); KETONES,URINE NEGATIVE (NEGATIVE); LEUKOCYTE ESTERASE,URINE TRACE (NEGATIVE); NITRITE,URINE NEGATIVE (NEGATIVE); PROTEIN,URINE NEGATIVE (NEGATIVE); URINE SPECIFIC GRAVITY 1.003; UROBILINOGEN,URINE NEGATIVE mg/dL (<2.0)
[2018-07-19] MEDS ORDERED: PIPERACILLIN/TAZOBACTAM 3.375 GM VIAL IV ONE (13:41)
[2018-07-19] MEDS ORDERED: VANCOMYCIN HCL INJ 1000 MG VIAL IV ONE (13:42)
[2018-07-19 13:45] LABS: URINE AMPHETAMINES SCREEN NEGATIVE; URINE BARBITURATES SCREEN UNCONFIRMED POSITIVE; URINE BENZODIAZEPINES SCREEN UNCONFIRMED POSITIVE; URINE COCAINE SCREEN NEGATIVE; URINE MARIJUANA (THC) SCREEN NEGATIVE; URINE METHADONE SCREEN NEGATIVE; URINE PHENCYCLIDINE SCREEN NEGATIVE
--- NOTE | 2018-07-19 13:51 | ER Document Report ---
ED General - General Chief Complaint: Abscess Stated Complaint: ABSCESS Time Seen by Provider: 07/19/18 12:13 Primary Care Provider: KEDAR RANKIN MD [Primary Care Provider] - Follow up as needed Mode of Arrival: Medic Information source: Patient Notes: Patient is a 32-year-old female presenting to the emergency department with 5- day history of pain to her left thigh, fevers, chills and lethargy. Her father is at bedside to help give history. He states that they have been trying to talk her into coming to the hospital for 5 days now. Patient does have a his tory of substance abuse but apparently has been clean for 1 year. She is taking Suboxone. Patient reports pain has been increasing and she has been having drainage from the left groin area. She states history of recurrent abscesses, multiple episodes of meningitis, encephalitis, hep C. Patient denies any nausea, vomiting, diarrhea. TRAVEL OUTSIDE OF THE [place] IN LAST 30 DAYS: No - Related Data Allergies/Adverse Reactions: latex [Latex] Allergy (Intermediate, Verified 09/22/17 10:02) RASH, SWELLING AT AREA Sulfa (Sulfonamide Antibiotics) Allergy (Verified 09/22/17 10:02) Past Medical History - General Information source: Patient - Social History Smoking Status: Current Every Day Smoker Chew tobacco use (# tins/day): No Frequency of alcohol use: None Drug Abuse: None Family History: Reviewed & Not Pertinent, Hypertension Patient has suicidal ideation: No Patient has homicidal ideation: No - Past Medical History Cardiac Medical History: Denies: Hx Coronary Artery Disease, Hx Heart Attack, Hx Hypertension Pulmonary Medical History: Denies: Hx Asthma, Hx Bronchitis, Hx COPD, Hx Pneumonia Neurological Medical History: Reports: Hx Seizures Renal/ Medical History: Denies: Hx Peritoneal Dialysis Musculoskeletal Medical History: Denies Hx Arthritis Psychiatric Medical History: Reports: Hx Anxiety, Hx Depression - reports history of anxiety Past Surgical History: Reports: Hx Appendectomy, Hx Cardiac Surgery - Ablation for SVT, Hx Section, Hx Neurologic Surgery, Other - D&C, shoulder abscess surgery - Immunizations Hx Diphtheria, Pertussis, Tetanus Vaccination: No Review of Systems - Review of Systems Constitutional: Chills, Fever EENT: No symptoms reported Cardiovascular: No symptoms reported Respiratory: No symptoms reported Gastrointestinal: No symptoms reported Physical Exam - Vital signs Vitals: Temp Resp BP Pulse Ox 100.7 F H 9 L 104/74 98 07/19/18 11:35 07/19/18 11:35 07/19/18 11:35 07/19/18 11:35 - Notes Notes: PHYSICAL EXAMINATION: GENERAL: Ill-appearing. HEAD: Atraumatic, normocephalic. EYES: Pupils equal round and reactive to light, extraocular movements intact, conjunctiva are normal. ENT: Nares patent, oropharynx clear without exudates. Moist mucous membranes. NECK: Normal range of motion, supple without lymphadenopathy LUNGS: Breath sounds clear to auscultation bilaterally and equal. No wheezes rales or rhonchi. HEART: Regular rate and rhythm without murmurs ABDOMEN: Soft, nontender, nondistended abdomen. No guarding, no rebound. No masses appreciated. Female : Edema noted to left labia. Musculoskeletal: Normal range of motion, no pitting or edema. No cyanosis. NEUROLOGICAL: Cranial nerves grossly intact. Normal speech, normal gait. Normal sensory, motor exams PSYCH: Normal mood, normal affect. SKIN: Erythema and edema noted from the left labia down the inner left thigh almost to the posterior left knee. Mild induration noted. Course - Re-evaluation Re-evalutation: Labs as recorded. Large area of erythema noted to patient's left thigh that extends up to the left pelvis and includes the labia. Patient's vital signs have been within normal limits other than a low-grade fever on arrival. 07/19/18 13:[address] Hoffman, surgicalist on-call. He will come to the bedside to evaluate the patient. 07/19/18 14:21 Dr. Hoffman at bedside to evaluate patient. He would like a CT of the pelvis with IV contrast ordered so that he can further evaluate if there is a large f luid collection or if this is just a cellulitis. Pain medication also ordered. Dr. Hoffman agrees to consult on this patient but he would like medicine to manage. 07/19/18 14:46 Patient accepted for admission by hospitalist, Dr. Cruz. - Vital Signs Vital signs: Temp Pulse Resp BP Pulse Ox 100.7 F H 9 L 104/74 98 07/19/18 11:35 07/19/18 11:35 07/19/18 11:35 07/19/18 11:35 - Laboratory Result Diagrams: 07/19/18 12:45 07/19/18 12:45 Laboratory results interpreted by me: 07/19/18 07/19/18 07/19/18 12:45 12:45 12:45 WBC 10.7 H Hgb 9.8 L Hct 30.0 L MCV 66 L MCH 21.4 L RDW 19.5 H Seg Neutrophils % 86.8 H Lymphocytes % 8.0 L Absolute Neutrophils 9.3 H Sodium 135.9 L Chloride 96 L BUN 6 L Creatinine 0.50 L Glucose 120 H Lactic Acid 2.2 H AST 10 L Alkaline Phosphatase 173 H Albumin 3.2 L Urine Blood Ur Leukocyte Esterase 07/19/18 12:53 WBC Hgb Hct MCV MCH RDW Seg Neutrophils % Lymphocytes % Absolute Neutrophils Sodium Chloride BUN Creatinine Glucose Lactic Acid AST Alkaline Phosphatase Albumin Urine Blood SMALL H Ur Leukocyte Esterase TRACE H Discharge - Discharge Clinical Impression: Abscess Cellulitis Qualifiers: Site of cellulitis: extremity Site of cellulitis of extremity: lower extremity Laterality: right Qualified Code(s): L03.115 - Cellulitis of right lower limb Fever Qualifiers: Fever type: unspecified Qualified Code(s): R50.9 - Fever, unspecified Condition: Stable Disposition: ADMITTED INPATIENT Admitting Provider: Anthony (Hospitalist) Unit Admitted: IMCU Referrals: KEDAR RANKIN MD [Primary Care Provider] - Follow up as needed
[2018-07-19] MEDS ORDERED: NORMAL SALINE 1000 ML 1,000 ML IV ONE (14:17)
[2018-07-19] MEDS ORDERED: HYDROMORPHONE HCL INJ/PF 2 MG/ML AMPULE IV ONE (14:17)
[2018-07-19] MEDS ORDERED: SUCCINYLCHOLINE CHLORIDE INJ 200 MG/10 ML VIAL ONE (14:25)
[2018-07-19] MEDS ORDERED: LIDOCAINE 2% INJ-PF (20 MG/ML) 2 ML AMPUL ONE (14:25)
[2018-07-19] MEDS ORDERED: GLYCOPYRROLATE 1 MG/5 ML SYRINGE ONE (14:25)
[2018-07-19] MEDS ORDERED: ONDANSETRON HCL INJ/PF 4 MG/2 ML SDV ONE (14:25)
[2018-07-19] MEDS ORDERED: DEXAMETHASONE SOD PHOSPHATE INJ 4 MG/1 ML VIAL ONE (14:25)
[2018-07-19] MEDS ORDERED: KETOROLAC TROMETHAMINE 60 MG/2 ML SDV ONE (14:25)
[2018-07-19] MEDS ORDERED: PROMETHAZINE HCL INJ 25 MG/1 ML VIAL IV PRN ×3 (15:03→18:22)
[2018-07-19] MEDS ORDERED: ONDANSETRON 4 MG TAB.RAPDIS PO PRN (15:03)
[2018-07-19] MEDS ORDERED: OXYCODONE-ACETAMINOPHEN 5-325 MG TABLET PO PRN (15:03)
[2018-07-19] MEDS ORDERED: ACETAMINOPHEN 325 MG TABLET PO PRN (15:03)
--- NOTE | 2018-07-19 15:03 | PDOC CONSULTATION ---
Consultation Consult Date: 07/19/18 Provider Consulted: DELORES STEELE History of Present Illness Admission Date/PCP: KEDAR RANKIN History of Present Illness: CECY VALDERRAMA is a 32 year old female with hx of IVDA (heroin), denies IVDA for the past 1 year, on suboxone, hx of multiple infections including meningitis, HCV, PID, previous left groin abscess a year ago following IVD injection. She reports a hx of rapid onset during the pst 5 days of right upper inner thigh redness, swelling, pain extending to the left groin and the left labia majora. Finally, her father convinced her to be seen in the ED today. Past Medical History Cardiac Medical History: Denies: Coronary Artery Disease, Myocardial Infarction, Hypertension Pulmonary Medical History: Denies: Asthma, Bronchitis, Chronic Obstructive Pulmonary Disease (COPD), Pneumonia Neurological Medical History: Reports: Seizures Musculoskeltal Medical History: Denies: Arthritis Psychiatric Medical History: Reports: Depression - reports history of anxiety Hematology: Reports: Anemia Past Surgical History Past Surgical History: Reports: Appendectomy, Section, Other - D&C, shoulder abscess surgery Social History Smoking Status: Current Every Day Smoker Frequency of Alcohol Use: None Hx Recreational Drug Use: Yes Drugs: Other Hx Prescription Drug Abuse: Yes - opiates, suboxone Family History Family History: Reviewed & Not Pertinent, Hypertension Parental Family History Reviewed: No Children Family History Reviewed: No Sibling(s) Family History Reviewed.: No Medication/Allergy Home Medications: Buprenorphine HCl [Subutex 8 mg Sublingual Tablet] 8 mg SL TID 09/09/17 Buspirone HCl [Buspar 15 mg Tablet] 30 mg PO BID 09/09/17 Butalb/Acetaminophen/Caffeine [Bufper-Aldoeqdw-Jcze 50-325-40] 1 tab PO TIDP PRN 09/09/17 Gabapentin [Neurontin 300 mg Capsule] 900 mg PO TID 09/09/17 Rivaroxaban [Xarelto 15 mg Tablet] 15 mg PO BID #42 tablet 09/20/17 Allergies/Adverse Reactions: latex [Latex] Allergy (Intermediate, Verified 09/22/17 10:02) RASH, SWELLING AT AREA Sulfa (Sulfonamide Antibiotics) Allergy (Verified 09/22/17 10:02) Physical Exam Vital Signs: Temp Pulse Resp BP Pulse Ox 100.7 F H 9 L 104/74 98 07/19/18 11:35 07/19/18 11:35 07/19/18 11:35 07/19/18 11:35 General appearance: PRESENT: mild distress, other - trearful Eye exam: PRESENT: EOMI Mouth exam: PRESENT: moist, neck supple Neck exam: PRESENT: full ROM Respiratory exam: PRESENT: clear to auscultation dmitri Cardiovascular exam: PRESENT: RRR GI/Abdominal exam: PRESENT: soft Rectal exam: PRESENT: deferred Extremities exam: PRESENT: full ROM Musculoskeletal exam: PRESENT: full ROM, other - decreased ROM left hip due to cellulitis pain Skin exam: PRESENT: other - large area of erythema, edema involving the entire left upper inner thigh, extendoing to the left labia majora and the groin. No flora abscess fullness appreciated, diffuse tenderness; old induration area is appreciated in the left groin with skin pinpint opening Results Laboratory Results: 07/19/18 12:45 07/19/18 12:45 07/19/18 07/19/18 07/19/18 11:50 11:50 12:45 WBC Cancelled RBC Cancelled Hgb Cancelled Hct Cancelled MCV Cancelled MCH Cancelled MCHC Cancelled RDW Cancelled Plt Count Cancelled Seg Neutrophils % Cancelled Lymphocytes % Cancelled Monocytes % Cancelled Eosinophils % Cancelled Basophils % Cancelled Absolute Neutrophils Cancelled Absolute Lymphocytes Cancelled Absolute Monocytes Cancelled Absolute Eosinophils Cancelled Absolute Basophils Cancelled VBG pH VBG pCO2 VBG HCO3 VBG Base Excess Sodium Cancelled Potassium Cancelled Chloride Cancelled Carbon Dioxide Cancelled Anion Gap Cancelled BUN Cancelled Creatinine Cancelled Est GFR ( Amer) Cancelled Est GFR (Non-Af Amer) Cancelled Glucose Cancelled Lactic Acid 2.2 H Calcium Cancelled Total Bilirubin Cancelled AST Cancelled ALT Cancelled Alkaline Phosphatase Cancelled Total Protein Cancelled Albumin Cancelled Urine Color Urine Appearance Urine pH Ur Specific Sledge Urine Protein Urine Glucose (UA) Urine Ketones Urine Blood Urine Nitrite Ur Leukocyte Esterase Urine WBC (Auto) Urine RBC (Auto) 07/19/18 07/19/18 07/19/18 12:45 12:45 12:45 WBC 10.7 H RBC 4.58 Hgb 9.8 L Hct 30.0 L MCV 66 L MCH 21.4 L MCHC 32.6 RDW 19.5 H Plt Count 444 Seg Neutrophils % 86.8 H Lymphocytes % 8.0 L Monocytes % 4.7 Eosinophils % 0.2 Basophils % 0.3 Absolute Neutrophils 9.3 H Absolute Lymphocytes 0.9 Absolute Monocytes 0.5 Absolute Eosinophils 0.0 Absolute Basophils 0.0 VBG pH 7.42 VBG pCO2 45.0 VBG HCO3 28.5 VBG Base Excess 3.5 Sodium 135.9 L Potassium 3.7 Chloride 96 L Carbon Dioxide 28 Anion Gap 12 BUN 6 L Creatinine 0.50 L Est GFR ( Amer) > 60 Est GFR (Non-Af Amer) > 60 Glucose 120 H Lactic Acid Calcium 8.7 Total Bilirubin 0.3 AST 10 L ALT 15 Alkaline Phosphatase 173 H Total Protein 7.2 Albumin 3.2 L Urine Color Urine Appearance Urine pH Ur Specific Sledge Urine Protein Urine Glucose (UA) Urine Ketones Urine Blood Urine Nitrite Ur Leukocyte Esterase Urine WBC (Auto) Urine RBC (Auto) 07/19/18 12:53 WBC RBC Hgb Hct MCV MCH MCHC RDW Plt Count Seg Neutrophils % Lymphocytes % Monocytes % Eosinophils % Basophils % Absolute Neutrophils Absolute Lymphocytes Absolute Monocytes Absolute Eosinophils Absolute Basophils VBG pH VBG pCO2 VBG HCO3 VBG Base Excess Sodium Potassium Chloride Carbon Dioxide Anion Gap BUN Creatinine Est GFR ( Amer) Est GFR (Non-Af Amer) Glucose Lactic Acid Calcium Total Bilirubin AST ALT Alkaline Phosphatase Total Protein Albumin Urine Color YELLOW Urine Appearance SLIGHTLY-CLOUDY Urine pH 7.0 Ur Specific Sledge 1.003 Urine Protein NEGATIVE Urine Glucose (UA) NEGATIVE Urine Ketones NEGATIVE Urine Blood SMALL H Urine Nitrite NEGATIVE Ur Leukocyte Esterase TRACE H Urine WBC (Auto) 4 Urine RBC (Auto) 0 07/19/18 12:45 Troponin I < 0.012 Impressions: Chest X-Ray 07/19/18 12:14 IMPRESSION: NO ACUTE FINDINGS. Assessment & Plan - Diagnosis (1) Cellulitis of left thigh Is this a current diagnosis for this admission?: Yes (2) Cellulitis of left groin Is this a current diagnosis for this admission?: Yes - Plan Summary Plan Summary: A/ Severe cellulitis left upper inner this extending to left groin and left labia majora x 5 days HX of IVDA, now stopped x 1 year according to patient Physical exam shows cellulitis, no real abscess appreciated Slight leukocytosis (10.7) mildly elevated lactic acid (2.2) Low grade temperature (100.7) Urine toxicology screening significant for benzodiazepines and barbiturates, no popioids found I am questioning the waiting time of 5 days before she showed up to the ED, as heroin metabolites are not identified in the urine after 3-4 days P/ Admit by hospitalist IV Abx (vanco/Zosyn) Obtain pelvis and left upper thigh CT scan with IV contrast to identify abscess; however, even if negative, she will need to undergo surgery and have ths tissues open to prevent anerobic infection Keep NPO IVF
[2018-07-19] MEDS ORDERED: HYDROMORPHONE HCL INJ/PF 2 MG/ML AMPULE IV PRN ×2 (15:09)
--- NOTE | 2018-07-19 15:16 | EKG REPORT ---
SEVERITY:- ABNORMAL ECG - SINUS RHYTHM ABNORMAL T, PROBABLE ISCHEMIA, ANT-LAT LEADS , NEW COMPARED TO 09/21/17 : Confirmed by: Yoshi Palmer MD 19-Jul-2018 15:15:53
--- NOTE | 2018-07-19 15:36 | RADIOLOGY REPORT (SQ) ---
EXAM DESCRIPTION: CT PELVIS WITH COMPLETED DATE/TIME: 07/19/2018 3:09 pm REASON FOR STUDY: eval for abscess from pelvis to L mid thigh COMPARISON: None. TECHNIQUE: CT scan of the pelvis and proximal left thigh performed using helical scanning technique with dynamic intravenous contrast injection. No oral contrast. Images reviewed with lung, soft tissue , and bone windows. Reconstructed coronal and sagittal MPR images reviewed. Delayed images for evalua tion of the urinary system also acquired. All images stored on PACS. All CT scanners at this facility use dose modulation, iterative reconstruction, and/or weight based d osing when appropriate to reduce radiation dose to as low as reasonably achievable (ALARA). [facility]: Dose Right [facility]: CareDose [facility]: Dose Right [facility]: Teradose 4D [facility]: Nitric Bio CONTRAST TYPE AND DOSE: 100 mL Omnipaque 350- low osmolar. RENAL FUNCTION: GFR > 60. RADIATION DOSE: CT Rad equipment meets quality standard of care and radiation dose reduction techniq ues were employed. CTDIvol: 6.5 mGy. DLP: 285 mGy-cm.. LIMITATIONS: None. FINDINGS: PELVIS and soft tissues: Diffuse subcutaneous and adductor muscular edema with mild hetero geneous enhancement in the muscle belly, in the midportion of the adductor longus and tano there ar e small areas of probable rim enhancement- abscess. Numerous linear metallic foreign bodies are pres ent in both common and superficial femoral vascular distributions. There does appear to be a deep ve in thrombosis in the proximal left superficial femoral vein. There is lymphadenopathy in the left in guinal and external and common iliac chains. BONES: No acute findings. OTHER: No other significant finding. IMPRESSION: Diffuse subcutaneous and adductor muscular edema with mild heterogeneous enhancement in the muscle belly, in the midportion of the adductor longus and tano there are small areas of probab le rim enhancement- abscess. Numerous linear metallic foreign bodies are present in both common and superficial femoral vascular distributions. There does appear to be a deep vein thrombosis in the pr oximal left superficial femoral vein.There is lymphadenopathy in the left inguinal and external and c ommon iliac chains. TECHNICAL DOCUMENTATION: JOB ID: [id number] [id number] Quality ID # [id number]: Final reports with documentation of one or more dose reduction techniques (e.g., Au tomated exposure control, adjustment of the mA and/or kV according to patient size, use of iterative reconstruction technique) 2010 [employer]- All Rights Reserved Reading location - IP/workstation name: [email or web address]
--- NOTE | 2018-07-19 15:44 | Progress Note ---
Provider Note Provider Note: CT scan findings d/w radiologist nutrition services aide 1) Multiple small abscesses in the area of the left thigh adductors 2) Multiple broken off or intact small needles in the left and the right groin 3) left superficial femoral vein DVT Plan: I&D left inner upper thigh abscess with drain placement today
--- NOTE | 2018-07-19 15:46 | PDOC H&P ---
History of Present Illness Admission Date/PCP: KEDAR RANKIN History of Present Illness: CECY VALDERRAMA is a 32 year old female past medical history of hepatitis C, bacterial meningitis, spinal epidural abscess, IV drug abuse, tobacco abuse, multiple abscesses, seizure disorder, chronic back pain, depression, anxiety, leukopenia, thrombocytopenia, anemia presenting to ED planing of left lower thigh left thigh pain associated with fever chills and lethargy. About 5 days ago patient noticed edema and swelling at the posterior left thigh which rapidly progressed involving all her thigh all the way to labia majora, denies any IV drug abuse, has been sober for 3 years, denies any trauma, bug bites, tick bites or animal bites. Pain is throbbing, 9/10, worse with movement, no alleviating factor, nonradiating, associated with nausea, fever, chills and weakness. Denies any chest pain, shortness of breath, vomiting, joint pain, joint swelling, headache, focal neurological deficits, diarrhea, dysuria, urethral discharge, constipation, weight changes. In the ED he was found to have a temperature of 100.7, WBC 10.7, hemoglobin 9.8, pulse 444, lactic acid 2.2, troponins <0.012, and UA negative, UDS positive for barbiturates and benzodiazepines. Surgery was consulted for evaluation but they recommended that she should be admitted under medicine as she has multiple underlying medical problems and they will follow as consult. She was started on vancomycin and Zosyn and IV fluids. Hospitalist was consulted for admission. Past Medical History Cardiac Medical History: Denies: Coronary Artery Disease, Myocardial Infarction, Hypertension Pulmonary Medical History: Denies: Asthma, Bronchitis, Chronic Obstructive Pulmonary Disease (COPD), Pneumonia Neurological Medical History: Reports: Seizures Musculoskeltal Medical History: Denies: Arthritis Psychiatric Medical History: Reports: Depression - reports history of anxiety Hematology: Reports: Anemia Past Surgical History Past Surgical History: Reports: Appendectomy, Section, Other - D&C, shoulder abscess surgery Social History Smoking Status: Current Every Day Smoker Frequency of Alcohol Use: None Hx Recreational Drug Use: Yes Drugs: Other Hx Prescription Drug Abuse: Yes - opiates, suboxone Family History Family History: Reviewed & Not Pertinent, Hypertension Parental Family History Reviewed: Yes Children Family History Reviewed: Yes Sibling(s) Family History Reviewed.: Yes Medication/Allergy Allergies/Adverse Reactions: latex [Latex] Allergy (Intermediate, Verified 09/22/17 10:02) RASH, SWELLING AT AREA Sulfa (Sulfonamide Antibiotics) Allergy (Verified 09/22/17 10:02) Review of Systems Review of Systems: as per HPI Physical Exam Vital Signs: Temp Pulse Resp BP Pulse Ox 100.7 F H 9 L 104/74 98 07/19/18 11:35 07/19/18 11:35 07/19/18 11:35 07/19/18 11:35 General appearance: PRESENT: mild distress Head exam: PRESENT: atraumatic, normocephalic Neck exam: ABSENT: carotid bruit, JVD, lymphadenopathy, thyromegaly Respiratory exam: PRESENT: clear to auscultation dmitri. ABSENT: rales, rhonchi, wheezes Cardiovascular exam: PRESENT: RRR. ABSENT: diastolic murmur, rubs, systolic murmur GI/Abdominal exam: PRESENT: normal bowel sounds, soft. ABSENT: distended, guarding, mass, organolmegaly, rebound, tenderness Extremities exam: PRESENT: other - Erythema and exquisite tenderness left lower extremity above the knee in approximately 2 left labia majora. 0.5 x 0.5 cm draining sinus med thigh fold. No collection could be appreciated due to patient being in extreme pain. Distally neurovascularly intact.. ABSENT: calf tenderness, clubbing, pedal edema Results Laboratory Results: 07/19/18 12:45 07/19/18 12:45 07/19/18 07/19/18 07/19/18 11:50 11:50 12:45 WBC Cancelled RBC Cancelled Hgb Cancelled Hct Cancelled MCV Cancelled MCH Cancelled MCHC Cancelled RDW Cancelled Plt Count Cancelled Seg Neutrophils % Cancelled Lymphocytes % Cancelled Monocytes % Cancelled Eosinophils % Cancelled Basophils % Cancelled Absolute Neutrophils Cancelled Absolute Lymphocytes Cancelled Absolute Monocytes Cancelled Absolute Eosinophils Cancelled Absolute Basophils Cancelled VBG pH VBG pCO2 VBG HCO3 VBG Base Excess Sodium Cancelled Potassium Cancelled Chloride Cancelled Carbon Dioxide Cancelled Anion Gap Cancelled BUN Cancelled Creatinine Cancelled Est GFR ( Amer) Cancelled Est GFR (Non-Af Amer) Cancelled Glucose Cancelled Lactic Acid 2.2 H Calcium Cancelled Total Bilirubin Cancelled AST Cancelled ALT Cancelled Alkaline Phosphatase Cancelled Total Protein Cancelled Albumin Cancelled Urine Color Urine Appearance Urine pH Ur Specific [place] Urine Protein Urine Glucose (UA) Urine Ketones Urine Blood Urine Nitrite Ur Leukocyte Esterase Urine WBC (Auto) Urine RBC (Auto) 07/19/18 07/19/18 07/19/18 12:45 12:45 12:45 WBC 10.7 H RBC 4.58 Hgb 9.8 L Hct 30.0 L MCV 66 L MCH 21.4 L MCHC 32.6 RDW 19.5 H Plt Count 444 Seg Neutrophils % 86.8 H Lymphocytes % 8.0 L Monocytes % 4.7 Eosinophils % 0.2 Basophils % 0.3 Absolute Neutrophils 9.3 H Absolute Lymphocytes 0.9 Absolute Monocytes 0.5 Absolute Eosinophils 0.0 Absolute Basophils 0.0 VBG pH 7.42 VBG pCO2 45.0 VBG HCO3 28.5 VBG Base Excess 3.5 Sodium 135.9 L Potassium 3.7 Chloride 96 L Carbon Dioxide 28 Anion Gap 12 BUN 6 L Creatinine 0.50 L Est GFR ( Amer) > 60 Est GFR (Non-Af Amer) > 60 Glucose 120 H Lactic Acid Calcium 8.7 Total Bilirubin 0.3 AST 10 L ALT 15 Alkaline Phosphatase 173 H Total Protein 7.2 Albumin 3.2 L Urine Color Urine Appearance Urine pH Ur Specific [place] Urine Protein Urine Glucose (UA) Urine Ketones Urine Blood Urine Nitrite Ur Leukocyte Esterase Urine WBC (Auto) Urine RBC (Auto) 07/19/18 12:53 WBC RBC Hgb Hct MCV MCH MCHC RDW Plt Count Seg Neutrophils % Lymphocytes % Monocytes % Eosinophils % Basophils % Absolute Neutrophils Absolute Lymphocytes Absolute Monocytes Absolute Eosinophils Absolute Basophils VBG pH VBG pCO2 VBG HCO3 VBG Base Excess Sodium Potassium Chloride Carbon Dioxide Anion Gap BUN Creatinine Est GFR ( Amer) Est GFR (Non-Af Amer) Glucose Lactic Acid Calcium Total Bilirubin AST ALT Alkaline Phosphatase Total Protein Albumin Urine Color YELLOW Urine Appearance SLIGHTLY-CLOUDY Urine pH 7.0 Ur Specific [place] 1.003 Urine Protein NEGATIVE Urine Glucose (UA) NEGATIVE Urine Ketones NEGATIVE Urine Blood SMALL H Urine Nitrite NEGATIVE Ur Leukocyte Esterase TRACE H Urine WBC (Auto) 4 Urine RBC (Auto) 0 07/19/18 12:45 Troponin I < 0.012 Impressions: Chest X-Ray 07/19/18 12:14 IMPRESSION: NO ACUTE FINDINGS. Assessment and Plan - Diagnosis (1) Abscess of left upper extremity Is this a current diagnosis for this admission?: Yes Plan: Multiple thigh abscesses. Patient is off to for I&D. Started on vancomycin and Zosyn. Started on D5 NS, N.p.o. in anticipation for possible surgery. Follow-up blood cultures. CRP/ESR. Trend lactic acid. CRP/ESR. (2) DVT, femoral, acute Qualifiers: Laterality: left Qualified Code(s): I82.412 - Acute embolism and thrombosis of left femoral vein Is this a current diagnosis for this admission?: Yes Plan: Left femoral vein superficial thrombosis. Patient is off to the OR for I&D of multiple abscesses on the left thigh. Dr. Hoffman from surgery who is aware of the DVT called me and stated that he will start her on low-dose heparin after surgery later tonight and she can be switched to full dose heparin tomorrow. (3) SIRS (systemic inflammatory response syndrome) Is this a current diagnosis for this admission?: Yes Plan: Due to problem #1. Started on vancomycin and Zosyn. Started on D5 NS, N.p.o. in anticipation for possible surgery. Follow-up blood cultures. CRP/ESR. Trend lactic acid. Continue volume resuscitation and monitor vitals and volume status. (4) Anemia Qualifiers: Anemia type: iron deficiency Iron deficiency anemia type: unspecified iron deficiency Qualified Code(s): D50.9 - Iron deficiency anemia, unspecified Is this a current diagnosis for this admission?: No Plan: Chronic. Acute combined anemia of iron deficiency and chronic disease. Monitor H&H. Transfuse if Hgb < 8, actively bleeding or symptomatic. (5) History of intravenous drug abuse Is this a current diagnosis for this admission?: No Plan: Per patient she has been sober for the last 3 years. Restart Suboxone. 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 Restart Lamictal. Seizure precautions. (7) Anxiety disorder Is this a current diagnosis for this admission?: No Plan: Restart BuSpar. (8) Migraine Is this a current diagnosis for this admission?: No Plan: Restart Fioricet.
[2018-07-19] MEDS ORDERED: VANCOMYCIN HCL 0 MG in DEXTROSE 5%-WATER 250 ML IV NR (16:00)
[2018-07-19] MEDS ORDERED: BUPIVACAINE HCL 0.5 % INJ/PF 30 ML SDV ONE (17:53)
[2018-07-19] MEDS ORDERED: NEOMY/BACITRAC ZN/POLY OINT 15 GM ONE (18:15)
[2018-07-19] MEDS ORDERED: DIPHENHYDRAMINE HCL 50 MG/ML VIAL IV PRN (18:22)
[2018-07-19] MEDS ORDERED: ONDANSETRON HCL INJ/PF 4 MG/2 ML SDV IV PRN (18:22)
[2018-07-19] MEDS ORDERED: MEPERIDINE HCL/PF INJ 25 MG/1 ML DISP.SYRIN IV PRN (18:22)
--- NOTE | 2018-07-19 18:37 | Operative Report ---
Nonrecallable Operative Report DATE OF SURGERY: 07/19/18 PREOPERATIVE DIAGNOSIS: left upper inner thigh abscess. Hx of IVDA. Multiple foreign bodies (needles) in the subcutaneous tissue of each groin POSTOPERATIVE DIAGNOSIS: same OPERATION: incision and drainage left upper inner thigh absess SURGEON: DELORES STEELE ANESTHESIA: LMAC - plus 40 mL 0.5% marcaine without epineprhine TISSUE REMOVED OR ALTERED: n/a COMPLICATIONS: n/a ESTIMATED BLOOD LOSS: NONE INTRAOPERATIVE FINDINGS: LARGE AMOUNT OF SUBCUTANEOUS EDEMA, no farnk collection of purulent materal identified PROCEDURE: see dictation
[2018-07-19] MEDS: DEXTROSE 5%-NORMAL SALINE 1,000 ML IV PRN (20:33)
[2018-07-19] MEDS: PIPERACILLIN SODIUM/TAZOBACTAM 4.5 GM in NORMAL SALINE 100 ML IV SCH (20:35)
[2018-07-19 22:04] LABS: INTERNATIONAL RATION (INR) 1.22
[2018-07-19] MEDS: PANTOPRAZOLE SODIUM 40 MG VIAL IV SCH (22:31)
[2018-07-20] MEDS ORDERED: VANCOMYCIN HCL INJ 1000 MG VIAL IV PRN (00:32)
[2018-07-20] MEDS ORDERED: VANCOMYCIN HCL 1,000 MG in DEXTROSE 5%-WATER 250 ML IV ONE ×4 (01:00)
[2018-07-20] MEDS ORDERED: VANCOMYCIN HCL INJ 1000 MG VIAL ONE (01:10)
[2018-07-20] MEDS ORDERED: HEPARIN SODIUM,PORCINE/D5W 25,000 UNIT/250 ML RTUINJ IV PRN (03:30)
[2018-07-20] MEDS ORDERED: ACETAMINOPHEN 325 MG TABLET PO PRN ×3 (04:00→10:03)
[2018-07-20] MEDS: PIPERACILLIN SODIUM/TAZOBACTAM 4.5 GM in NORMAL SALINE 100 ML IV SCH ×4 (04:19→23:33)
[2018-07-20] MEDS ORDERED: LIDOCAINE 1% INJ-PF (10 MG/ML) 30 ML SDV ONE (05:07)
--- NOTE | 2018-07-20 06:24 | Operative Report ---
Nonrecallable Operative Report DATE OF SURGERY: 07/20/18 PREOPERATIVE DIAGNOSIS: need IV access POSTOPERATIVE DIAGNOSIS: same OPERATION: placement of right subclavian vein triple lumen central venous catheter SURGEON: DELORES STEELE ANESTHESIA: Local - 30 mL lidocaine with epinephrine TISSUE REMOVED OR ALTERED: n/a COMPLICATIONS: n/a ESTIMATED BLOOD LOSS: n/a INTRAOPERATIVE FINDINGS: as above PROCEDURE: see dictation
--- NOTE | 2018-07-20 06:54 | OPERATIVE REPORT E ---
Operative Report NAME: CECY VALDERRAMA : 1985 AGE: 32Y DATE OF SURGERY: 07/20/2018 ROOM: 307 PREOPERATIVE DIAGNOSIS: NEED FOR IV ACCESS. POSTOPERATIVE DIAGNOSIS: NEED FOR IV ACCESS. OPERATION: Placement of right superior vena cava triple-lumen venous catheter. SURGEON: DELORES STEELE M.D. CAMPUS RECRUITER: None. BLEEDING: Minimal. COMPLICATIONS: None. ANESTHESIA: Local, about 30 mL of 1% lidocaine without epinephrine. INDICATION AND FINDINGS: This is a 32-year-old female, IV drug abuser (heroin), who presented to the emergency room with a large area of cellulitis of the left upper inner thigh and groin. The patient went to surgery for drainage of the abscess in the left upper thigh. However, she has a very difficult IV access and I have been requested to place a central line. The procedure, risks, benefits, and complications explained to the patient. She understands and decides to proceed. DESCRIPTION OF THE PROCEDURE: The procedure was done at bedside. The patient was placed in a supine position. A towel was placed in between the scapula. The right side of the chest and neck were prepped and draped in the usual fashion. The area just below the midportion of the right clavicle was infiltrated with lidocaine. A 16-gauge needle was then used to easily cannulate the subclavian vein. A guidewire was inserted through the needle into the subclavian vein to the superior vena cava. The needle was withdrawn. The insertion point of the guidewire was enlarged with a #11 blade and a tissue dilator, which was removed. The triple-lumen catheter was inserted over the guidewire into the subclavian vein to the superior vena cava up to 16 cm. The guidewire was then removed. Each port was then aspirated and flushed with normal saline without difficulty. The catheter was secured to the skin with silk sutures. Sterile dressings were applied. The patient tolerated the procedure well and a chest x-ray was obtained to confirm position of the line. DICTATING PHYSICIAN: DELORES STEELE M.D. [id number] PHY#: [id number] ID: [id number] JOB#: [id number] ACCT: [id number] cc:DELORES STEELE M.D. > MTDD
[2018-07-20 07:39] LABS: ANION GAP 7 (5-19); BLOOD UREA NITROGEN 8 mg/dL (7-20); CALCIUM 7.8 mg/dL (8.4-10.2); CARBON DIOXIDE 27 mmol/L (22-30); CHLORIDE 103 mmol/L (98-107); GLUCOSE 119 mg/dL (75-110); POTASSIUM 4.1 mmol/L (3.6-5.0)
[2018-07-20 07:41] LABS: ABSOLUTE LYMPHOCYTES (AUTO) 0.6 10^3/uL (0.5-4.7); ABSOLUTE MONOCYTES (AUTO) 0.4 10^3/uL (0.1-1.4); ABSOLUTE NEUT (AUTO) 7.9 10^3/uL (1.7-8.2); BASOPHILS % (AUTO) 0.1 % (0-2); EOSINOPHILS % (AUTO) 0.1 % (0-6); HEMATOCRIT 22.9 % (36.0-47.0); LYMPHOCYTES % (AUTO) 6.8 % (13-45); MEAN CORPUSCULAR HEMOGLOBIN 21.2 pg (27.0-33.4); MEAN CORPUSCULAR HGB CONC 31.9 g/dL (32.0-36.0); MEAN CORPUSCULAR VOLUME 66 fl (80-97); MONOCYTES % (AUTO) 4.8 % (3-13); PLATELET COUNT 339 10^3/uL (150-450); RED BLOOD COUNT 3.46 10^6/uL (3.72-5.28); RED CELL DISTRIBUTION WIDTH 19.3 % (11.5-14.0); SEGMENTED NEUTROPHILS % (AUTO) 88.2 % (42-78); TOTAL CELLS COUNTED % (AUTO) 100 %
[2018-07-20 07:44] LABS: HEMOGLOBIN 7.3 g/dL (12.0-15.5)
[2018-07-20 07:45] LABS: PROTHROMBIN TIME 14.8 SEC (11.4-15.4)
[2018-07-20 07:46] LABS: PARTIAL THROMBOPLASTIN TIME 45.5 SEC (23.5-35.8)
[2018-07-20] MEDS ORDERED: NORMAL SALINE 250 ML IV PRN ×2 (08:03)
--- NOTE | 2018-07-20 08:43 | RADIOLOGY REPORT (SQ) ---
EXAM DESCRIPTION: CHEST SINGLE VIEW COMPLETED DATE/TIME: 07/20/2018 6:26 am REASON FOR STUDY: central line placement COMPARISON: 07/19/2018. EXAM PARAMETERS: NUMBER OF VIEWS: One view. TECHNIQUE: Single frontal radiographic view of the chest acquired. RADIATION DOSE: NA LIMITATIONS: None. FINDINGS: LUNGS AND PLEURA: No opacities, masses or pneumothorax. No pleural effusion. MEDIASTINUM AND HILAR STRUCTURES: No masses. Contour normal. HEART AND VASCULAR STRUCTURES: Heart normal in size. Normal vasculature. BONES: No acute findings. HARDWARE: Right side central line. Tip at the level of the superior vena cava. OTHER: No other significant finding. IMPRESSION: CENTRAL LINE IN SATISFACTORY POSITION WITH NO PNEUMOTHORAX. NO ACUTE RADIOGRAPHIC FINDI NG IN THE CHEST. TECHNICAL DOCUMENTATION: JOB ID: [id number] All- All Rights Reserved Reading location - IP/workstation name: [email or web address]
[2018-07-20 09:00] LABS: ABSOLUTE RETICS # 0.018 10^6/uL (0.028-0.122); RETICULOCYTE COUNT (AUTO) 0.52 % (0.66-2.85)
[2018-07-20 09:01] LABS: IRON(TIBC) 10.3 ug/dL (37-170)
[2018-07-20] MEDS: PANTOPRAZOLE SODIUM 40 MG VIAL IV SCH ×2 (09:44→21:07)
[2018-07-20] MEDS: DEXTROSE 5%-NORMAL SALINE 1,000 ML IV PRN (09:44)
[2018-07-20] MEDS ORDERED: TRAMADOL HCL 50 MG TABLET PO PRN (09:49)
[2018-07-20] MEDS ORDERED: ENOXAPARIN SODIUM INJ 40 MG/0.4 ML DISP.SYRIN SUBCUT SCH (10:00)
--- NOTE | 2018-07-20 10:25 | PDOC PROGRESS REPORT ---
Subjective Progress Note for:: 07/20/18 Reason For Visit: LE ABSCESS Physical Exam Vital Signs: Temp Pulse Resp BP Pulse Ox 97.3 F 44 L 14 104/56 L 99 07/20/18 04:06 07/20/18 04:06 07/20/18 04:06 07/20/18 04:06 07/20/18 04:06 Intake & Output 07/19/18 07/20/18 07/21/18 06:59 06:59 06:59 Intake Total 3990 Output Total 1155 Balance 2835 Weight 62.2 kg Results Laboratory Results: 07/20/18 06:30 07/20/18 06:30 07/19/18 07/19/18 07/19/18 11:50 11:50 12:45 WBC Cancelled RBC Cancelled Hgb Cancelled Hct Cancelled MCV Cancelled MCH Cancelled MCHC Cancelled RDW Cancelled Plt Count Cancelled Seg Neutrophils % Cancelled Lymphocytes % Cancelled Monocytes % Cancelled Eosinophils % Cancelled Basophils % Cancelled Absolute Neutrophils Cancelled Absolute Lymphocytes Cancelled Absolute Monocytes Cancelled Absolute Eosinophils Cancelled Absolute Basophils Cancelled Retic Count (auto) Absolute Retic VBG pH VBG pCO2 VBG HCO3 VBG Base Excess Sodium Cancelled Potassium Cancelled Chloride Cancelled Carbon Dioxide Cancelled Anion Gap Cancelled BUN Cancelled Creatinine Cancelled Est GFR ( Amer) Cancelled Est GFR (Non-Af Amer) Cancelled Glucose Cancelled Lactic Acid 2.2 H Calcium Cancelled Magnesium Iron TIBC % Saturation Ferritin Total Bilirubin Cancelled AST Cancelled ALT Cancelled Alkaline Phosphatase Cancelled C-Reactive Protein Total Protein Cancelled Albumin Cancelled Vitamin B12 Folate Urine Color Urine Appearance Urine pH Ur Specific [place] Urine Protein Urine Glucose (UA) Urine Ketones Urine Blood Urine Nitrite Ur Leukocyte Esterase Urine WBC (Auto) Urine RBC (Auto) Blood Type Antibody Screen 07/19/18 07/19/18 07/19/18 12:45 12:45 12:45 WBC 10.7 H RBC 4.58 Hgb 9.8 L Hct 30.0 L MCV 66 L MCH 21.4 L MCHC 32.6 RDW 19.5 H Plt Count 444 Seg Neutrophils % 86.8 H Lymphocytes % 8.0 L Monocytes % 4.7 Eosinophils % 0.2 Basophils % 0.3 Absolute Neutrophils 9.3 H Absolute Lymphocytes 0.9 Absolute Monocytes 0.5 Absolute Eosinophils 0.0 Absolute Basophils 0.0 Retic Count (auto) Absolute Retic VBG pH 7.42 VBG pCO2 45.0 VBG HCO3 28.5 VBG Base Excess 3.5 Sodium 135.9 L Potassium 3.7 Chloride 96 L Carbon Dioxide 28 Anion Gap 12 BUN 6 L Creatinine 0.50 L Est GFR ( Amer) > 60 Est GFR (Non-Af Amer) > 60 Glucose 120 H Lactic Acid Calcium 8.7 Magnesium Iron TIBC % Saturation Ferritin Total Bilirubin 0.3 AST 10 L ALT 15 Alkaline Phosphatase 173 H C-Reactive Protein Total Protein 7.2 Albumin 3.2 L Vitamin B12 Folate Urine Color Urine Appearance Urine pH Ur Specific [place] Urine Protein Urine Glucose (UA) Urine Ketones Urine Blood Urine Nitrite Ur Leukocyte Esterase Urine WBC (Auto) Urine RBC (Auto) Blood Type Antibody Screen 07/19/18 07/19/18 07/19/18 12:45 12:53 21:42 WBC RBC Hgb Hct MCV MCH MCHC RDW Plt Count Seg Neutrophils % Lymphocytes % Monocytes % Eosinophils % Basophils % Absolute Neutrophils Absolute Lymphocytes Absolute Monocytes Absolute Eosinophils Absolute Basophils Retic Count (auto) Absolute Retic VBG pH VBG pCO2 VBG HCO3 VBG Base Excess Sodium Potassium Chloride Carbon Dioxide Anion Gap BUN Creatinine Est GFR ( Amer) Est GFR (Non-Af Amer) Glucose Lactic Acid 1.1 Calcium Magnesium Iron TIBC % Saturation Ferritin Total Bilirubin AST ALT Alkaline Phosphatase C-Reactive Protein 241.3 H Total Protein Albumin Vitamin B12 Folate Urine Color YELLOW Urine Appearance SLIGHTLY-CLOUDY Urine pH 7.0 Ur Specific [place] 1.003 Urine Protein NEGATIVE Urine Glucose (UA) NEGATIVE Urine Ketones NEGATIVE Urine Blood SMALL H Urine Nitrite NEGATIVE Ur Leukocyte Esterase TRACE H Urine WBC (Auto) 4 Urine RBC (Auto) 0 Blood Type Antibody Screen 07/20/18 07/20/18 07/20/18 06:30 06:30 06:30 WBC 9.0 RBC 3.46 L Hgb 7.3 L D Hct 22.9 L MCV 66 L MCH 21.2 L MCHC 31.9 L RDW 19.3 H Plt Count 339 Seg Neutrophils % 88.2 H Lymphocytes % 6.8 L Monocytes % 4.8 Eosinophils % 0.1 Basophils % 0.1 Absolute Neutrophils 7.9 Absolute Lymphocytes 0.6 Absolute Monocytes 0.4 Absolute Eosinophils 0.0 Absolute Basophils 0.0 Retic Count (auto) Absolute Retic VBG pH VBG pCO2 VBG HCO3 VBG Base Excess Sodium 137.0 Potassium 4.1 Chloride 103 Carbon Dioxide 27 Anion Gap 7 BUN 8 Creatinine 0.44 L Est GFR ( Amer) > 60 Est GFR (Non-Af Amer) > 60 Glucose 119 H Lactic Acid Calcium 7.8 L Magnesium 2.2 Iron TIBC % Saturation Ferritin Total Bilirubin AST ALT Alkaline Phosphatase C-Reactive Protein Total Protein Albumin Vitamin B12 676.0 Folate Urine Color Urine Appearance Urine pH Ur Specific [place] Urine Protein Urine Glucose (UA) Urine Ketones Urine Blood Urine Nitrite Ur Leukocyte Esterase Urine WBC (Auto) Urine RBC (Auto) Blood Type Antibody Screen 07/20/18 07/20/18 07/20/18 06:30 06:30 08:36 WBC RBC Hgb Hct MCV MCH MCHC RDW Plt Count Seg Neutrophils % Lymphocytes % Monocytes % Eosinophils % Basophils % Absolute Neutrophils Absolute Lymphocytes Absolute Monocytes Absolute Eosinophils Absolute Basophils Retic Count (auto) 0.52 L Absolute Retic 0.018 L VBG pH VBG pCO2 VBG HCO3 VBG Base Excess Sodium Potassium Chloride Carbon Dioxide Anion Gap BUN Creatinine Est GFR ( Amer) Est GFR (Non-Af Amer) Glucose Lactic Acid Calcium Magnesium Iron 10.3 L TIBC 158 L % Saturation 7 Ferritin 116.00 Total Bilirubin AST ALT Alkaline Phosphatase C-Reactive Protein Total Protein Albumin Vitamin B12 Folate 13.00 Urine Color Urine Appearance Urine pH Ur Specific [place] Urine Protein Urine Glucose (UA) Urine Ketones Urine Blood Urine Nitrite Ur Leukocyte Esterase Urine WBC (Auto) Urine RBC (Auto) Blood Type A POSITIVE Antibody Screen NEGATIVE 07/19/18 12:45 Troponin I < 0.012 Impressions: Pelvis CT 07/19/18 14:16 IMPRESSION: Diffuse subcutaneous and adductor muscular edema with mild heterogeneous enhancement in the muscle belly, in the midportion of the adductor longus and tano there are small areas of probable rim enhancement- abscess. Numerous linear metallic foreign bodies are present in both common and superficial femoral vascular distributions. There does appear to be a deep vein thrombosis in the proximal left superficial femoral vein.There is lymphadenopathy in the left inguinal and external and common iliac chains. Chest X-Ray 07/20/18 05:55 IMPRESSION: CENTRAL LINE IN SATISFACTORY POSITION WITH NO PNEUMOTHORAX. NO ACUTE RADIOGRAPHIC FINDING IN THE CHEST. Assessment & Plan - Diagnosis (1) Abscess of left lower extremity Is this a current diagnosis for this admission?: Yes - Plan Summary Plan Summary: This is a 32-year-old female status post incision and drainage of a multiloculated abscess of the left lower extremity. The patient has multiple Angelia drains in place. The iodoform packing was removed. There is no active purulence, although there is serous drainage. Continue with dry dressing changes over the [place] drains twice daily and as needed. Continue with antibiotics. Will continue to monitor to ensure resolution of infection.
[2018-07-20] MEDS: KETOROLAC TROMETHAMINE INJ/PF 30 MG/1 ML SDV IV PRN ×2 (11:16→21:06)
[2018-07-20] MEDS: VANCOMYCIN HCL 1,000 MG in DEXTROSE 5%-WATER 250 ML IV SCH ×2 (11:17→17:27)
[2018-07-20] MEDS ORDERED: HYDROXYZINE PAMOATE 25 MG CAPSULE PO PRN (11:43)
[2018-07-20] MEDS ORDERED: BUTALB/ACETAMINOPHEN/CAFFEINE 1 TAB EACH PO PRN (11:43)
[2018-07-20] MEDS ORDERED: BUPRENORPHINE HCL 8 MG SL SCH (12:00)
[2018-07-20] MEDS ORDERED: (PENDING PHARMACY ID) (Buspirone Hcl [Buspar 30 Mg Tablet] 30 MG) PO SCH (12:00)
[2018-07-20] MEDS ORDERED: SERTRALINE HCL 50 MG TABLET PO SCH (13:00)
[2018-07-20] MEDS: BUSPIRONE HCL 10 MG TABLET PO SCH ×2 (13:14→21:09)
[2018-07-20] MEDS: GABAPENTIN 300 MG CAPSULE PO SCH ×3 (13:15→21:09)
[2018-07-20] MEDS: BUPRENORPHINE HCL 2 MG SUBLINGUAL TABLET SL SCH ×2 (13:16→21:09)
[2018-07-20] MEDS ORDERED: FERRIC CARBOXYMALTOSE 750 MG in NORMAL SALINE 250 ML IV ONE (15:00)
[2018-07-20] MEDS ORDERED: HEPARIN SOD (PORCINE) 1,000 UNIT/ML 10 ML VIAL IV ONE (16:30)
[2018-07-20] MEDS: HEPARIN SODIUM,PORCINE/D5W 25,000 UNIT/250 ML RTUINJ IV PRN (18:07)
[2018-07-20 19:04] LABS: HEMATOCRIT 26.7 % (36.0-47.0); HEMOGLOBIN 8.6 g/dL (12.0-15.5); MEAN CORPUSCULAR HGB CONC 32.2 g/dL (32.0-36.0); MEAN CORPUSCULAR VOLUME 69 fl (80-97); PLATELET COUNT 339 10^3/uL (150-450); RED CELL DISTRIBUTION WIDTH 20.5 % (11.5-14.0); WHITE BLOOD COUNT 8.3 10^3/uL (4.0-10.5)
[2018-07-20] MEDS: SERTRALINE HCL 50 MG TABLET PO SCH (21:11)
[2018-07-20] MEDS: LAMOTRIGINE 200 MG PO SCH (21:12)
[2018-07-20] MEDS ORDERED: LAMOTRIGINE 200 MG PO SCH (22:00)
[2018-07-20] MEDS ORDERED: HEPARIN SOD (PORCINE) 1,000 UNIT/ML 10 ML VIAL ONE (22:26)
[2018-07-20] MEDS ORDERED: HEPARIN SOD (PORCINE) 1,000 UNIT/ML 10 ML VIAL IV PRN (23:30)
[2018-07-21] MEDS ORDERED: HEPARIN SOD (PORCINE) 1,000 UNIT/ML 10 ML VIAL IV ONE (00:15)
[2018-07-21] MEDS: VANCOMYCIN HCL 1,000 MG in DEXTROSE 5%-WATER 250 ML IV SCH ×4 (01:28→18:54)
[2018-07-21] MEDS: KETOROLAC TROMETHAMINE INJ/PF 30 MG/1 ML SDV IV PRN ×3 (04:34→21:14)
[2018-07-21] MEDS: PIPERACILLIN SODIUM/TAZOBACTAM 4.5 GM in NORMAL SALINE 100 ML IV SCH ×4 (04:38→21:11)
--- NOTE | 2018-07-21 04:56 | PDOC PROGRESS REPORT ---
Subjective Progress Note for:: 07/20/18 Subjective:: CECY VALDERRAMA is a 32 year old female past medical history of hepatitis C, bacterial meningitis, spinal epidural abscess, IV drug abuse, tobacco abuse, multiple abscesses, seizure disorder, chronic back pain, depression, anxiety, leukopenia, thrombocytopenia, anemia presenting to ED planing of left lower thigh left thigh pain associated with fever chills and lethargy. She is admitted for a LLE abscess. I&D yesterday by surgery. Patient seen this AM, she is complaining of pain to the LLE - medial upper thigh. She remains afebrile and nontoxic appearing. Treated with Nubain IV. Avoiding IV narcotics because of IVDU history. Plan to restart her Subutex. Continue IV antibiotics and switch to full dose heparin for superficial DVT Reason For Visit: LE ABSCESS Physical Exam Vital Signs: Temp Pulse Resp BP Pulse Ox 97.6 F 41 L 16 91/44 L 97 07/20/18 23:46 07/21/18 02:00 07/20/18 23:46 07/20/18 23:46 07/20/18 23:46 Intake & Output 07/19/18 07/20/18 07/21/18 06:59 06:59 06:59 Intake Total 3990 2810 Output Total 1155 700 Balance 2835 2110 Weight 62.2 kg General appearance: PRESENT: no acute distress, well-developed, well-nourished Head exam: PRESENT: atraumatic, normocephalic Eye exam: PRESENT: conjunctiva pink, EOMI, PERRLA. ABSENT: scleral icterus Ear exam: PRESENT: normal external ear exam Mouth exam: PRESENT: moist, tongue midline Neck exam: ABSENT: carotid bruit, JVD, lymphadenopathy, thyromegaly Respiratory exam: PRESENT: clear to auscultation dmitri, symmetrical, unlabored. ABSENT: rales, rhonchi, wheezes Cardiovascular exam: PRESENT: RRR. ABSENT: diastolic murmur, rubs, systolic murmur Pulses: PRESENT: normal radial pulses, normal dorsalis pedis pul Vascular exam: PRESENT: normal capillary refill GI/Abdominal exam: PRESENT: normal bowel sounds, soft. ABSENT: distended, guarding, mass, organolmegaly, rebound, tenderness Rectal exam: PRESENT: deferred Extremities exam: PRESENT: full ROM. ABSENT: calf tenderness, clubbing, pedal edema Neurological exam: PRESENT: alert, awake, oriented to person, oriented to place, oriented to time, oriented to situation Psychiatric exam: PRESENT: appropriate affect, normal mood Skin exam: PRESENT: dry, erythema, intact, warm, other - LLE SURGICAL SITE IS WR APPED. THE AREA IS TTP AND ERYTHEMATOUS. ABSENT: cyanosis, rash Results Laboratory Results: 07/20/18 18:40 07/20/18 06:30 07/20/18 07/20/18 07/20/18 06:30 06:30 06:30 WBC 9.0 RBC 3.46 L Hgb 7.3 L D Hct 22.9 L MCV 66 L MCH 21.2 L MCHC 31.9 L RDW 19.3 H Plt Count 339 Seg Neutrophils % 88.2 H Lymphocytes % 6.8 L Monocytes % 4.8 Eosinophils % 0.1 Basophils % 0.1 Absolute Neutrophils 7.9 Absolute Lymphocytes 0.6 Absolute Monocytes 0.4 Absolute Eosinophils 0.0 Absolute Basophils 0.0 Retic Count (auto) Absolute Retic Sodium 137.0 Potassium 4.1 Chloride 103 Carbon Dioxide 27 Anion Gap 7 BUN 8 Creatinine 0.44 L Est GFR ( Amer) > 60 Est GFR (Non-Af Amer) > 60 Glucose 119 H Calcium 7.8 L Magnesium 2.2 Iron TIBC % Saturation Ferritin Vitamin B12 676.0 Folate Blood Type Antibody Screen 07/20/18 07/20/18 07/20/18 06:30 06:30 08:36 WBC RBC Hgb Hct MCV MCH MCHC RDW Plt Count Seg Neutrophils % Lymphocytes % Monocytes % Eosinophils % Basophils % Absolute Neutrophils Absolute Lymphocytes Absolute Monocytes Absolute Eosinophils Absolute Basophils Retic Count (auto) 0.52 L Absolute Retic 0.018 L Sodium Potassium Chloride Carbon Dioxide Anion Gap BUN Creatinine Est GFR ( Amer) Est GFR (Non-Af Amer) Glucose Calcium Magnesium Iron 10.3 L TIBC 158 L % Saturation 7 Ferritin 116.00 Vitamin B12 Folate 13.00 Blood Type A POSITIVE Antibody Screen NEGATIVE 07/20/18 18:40 WBC 8.3 RBC 3.90 Hgb 8.6 L Hct 26.7 L MCV 69 L MCH 22.0 L MCHC 32.2 RDW 20.5 H Plt Count 339 Seg Neutrophils % Lymphocytes % Monocytes % Eosinophils % Basophils % Absolute Neutrophils Absolute Lymphocytes Absolute Monocytes Absolute Eosinophils Absolute Basophils Retic Count (auto) Absolute Retic Sodium Potassium Chloride Carbon Dioxide Anion Gap BUN Creatinine Est GFR ( Amer) Est GFR (Non-Af Amer) Glucose Calcium Magnesium Iron TIBC % Saturation Ferritin Vitamin B12 Folate Blood Type Antibody Screen 07/19/18 12:53 Clean Catch Midstream Urine Culture - Final Mixed Urogenital Libby 07/19/18 12:45 Troponin I < 0.012 Impressions: Pelvis CT 07/19/18 14:16 IMPRESSION: Diffuse subcutaneous and adductor muscular edema with mild heterogeneous enhancement in the muscle belly, in the midportion of the adductor longus and tano there are small areas of probable rim enhancement- abscess. Numerous linear metallic foreign bodies are present in both common and superficial femoral vascular distributions. There does appear to be a deep vein thrombosis in the proximal left superficial femoral vein.There is lymp hadenopathy in the left inguinal and external and common iliac chains. Chest X-Ray 07/20/18 05:55 IMPRESSION: CENTRAL LINE IN SATISFACTORY POSITION WITH NO PNEUMOTHORAX. NO ACUTE RADIOGRAPHIC FINDING IN THE CHEST. Status: Imported from PACS Assessment and Plan - Diagnosis (1) Cellulitis of left groin Is this a current diagnosis for this admission?: Yes Plan: Multiple thigh abscesses, etiology is IVDU. Multiple small hypodermic needles found in her thigh/groin on CT. POD#1 I&D. Continue on vancomycin and Zosyn. Wound culture pending Blood cultures pending. Lactate 1.1, no longer trending (2) DVT, femoral, acute Qualifiers: Laterality: left Qualified Code(s): I82.412 - Acute embolism and thrombosis of left femoral vein Is this a current diagnosis for this admission?: Yes Plan: Left femoral vein superficial thrombosis. Now on full dose heparin gtt s/p I&D Will bridge to A/C prior to discharge (3) Migraine Is this a current diagnosis for this admission?: No Plan: Continue Fioricet. (4) Anemia Qualifiers: Anemia type: iron deficiency Iron deficiency anemia type: unspecified iron deficiency Qualified Code(s): D50.9 - Iron deficiency anemia, unspecified Is this a current diagnosis for this admission?: No Plan: Hgb 7.9 PMH iron deficiency anemia Transfuse 1 U PRBC Anemia studies reveal serum iron level of 10 Iron infusion today Monitor H&H and Iron/TIBC. Transfuse if Hgb < 8, actively bleeding or symptomatic. (5) Anxiety disorder Is this a current diagnosis for this admission?: No Plan: Continue BuSpar. (6) History of intravenous drug abuse Is this a current diagnosis for this admission?: No Plan: Continue Subutex Patient states she has "not used a needle in over a year" Lives at home alone in a house (7) History of seizure Is this a current diagnosis for this admission?: Yes Plan: Continue Lamictal. Seizure precautions. - Time Time Spent with patient: 15-24 minutes Medications reviewed and adjusted accordingly: Yes Anticipated discharge: Home Within: Other - when medically stable - Inpatient Certification Based on my medical assessment, after consideration of the patient's comorbidi ties, presenting symptoms, or acuity I expect that the services needed warrant INPATIENT care.: Yes I certify that my determination is in accordance with my understanding of [facility] requirements for reasonable and necessary INPATIENT services [42 CFR 412.3e].: Yes Medical Necessity: Need for IV Antibiotics, Need for Surgery, Risk of Complication if Not Cared For in Hospital
[2018-07-21 05:21] LABS: HEMATOCRIT 25.9 % (36.0-47.0); HEMOGLOBIN 8.3 g/dL (12.0-15.5); MEAN CORPUSCULAR HGB CONC 32.1 g/dL (32.0-36.0); MEAN CORPUSCULAR VOLUME 68 fl (80-97); PLATELET COUNT 347 10^3/uL (150-450); RED BLOOD COUNT 3.79 10^6/uL (3.72-5.28); RED CELL DISTRIBUTION WIDTH 20.5 % (11.5-14.0); WHITE BLOOD COUNT 6.1 10^3/uL (4.0-10.5)
[2018-07-21] MEDS: GABAPENTIN 300 MG CAPSULE PO SCH ×3 (05:22→21:12)
[2018-07-21] MEDS: BUPRENORPHINE HCL 2 MG SUBLINGUAL TABLET SL SCH ×3 (05:22→21:11)
[2018-07-21 05:51] LABS: ABSOLUTE LYMPHOCYTES# (MANUAL) 1.6 10^3/uL (0.5-4.7); ABSOLUTE NEUTROPHILS# (MANUAL) 4.5 10^3/uL (1.7-8.2); BASOPHILS % (MANUAL) 0 % (0-2); EOSINOPHILS % (MANUAL) 0 % (0-6); LYMPHOCYTES % (MANUAL) 26 % (13-45); METAMYELOCYTES % (MANUAL) 1 % (0); MONOCYTES % (MANUAL) 0 % (3-13); SEGMENTED NEUTROPHILS % (MAN) 73 % (42-78); TOTAL CELLS COUNTED 100
[2018-07-21 05:53] LABS: TOXIC GRANULATION 1+; TOXIC VACUOLATION PRESENT
[2018-07-21 05:54] LABS: ANISOCYTOSIS 2+; POIKILOCYTOSIS 2+
[2018-07-21] MEDS: HEPARIN SOD (PORCINE) 1,000 UNIT/ML 10 ML VIAL IV PRN (05:54)
[2018-07-21 05:55] LABS: OVALOCYTES 2+; PLATELET COMMENT ADEQUATE; SCHISTOCYTES SLIGHT; TEAR DROP CELLS 1+
[2018-07-21 05:58] LABS: ANION GAP 6 (5-19); BLOOD UREA NITROGEN 5 mg/dL (7-20); CALCIUM 7.8 mg/dL (8.4-10.2); CARBON DIOXIDE 28 mmol/L (22-30); CHLORIDE 107 mmol/L (98-107); GLUCOSE 99 mg/dL (75-110); POTASSIUM 3.4 mmol/L (3.6-5.0)
[2018-07-21] MEDS ORDERED: HEPARIN SOD (PORCINE) 1,000 UNIT/ML 10 ML VIAL IV PRN (06:00)
--- NOTE | 2018-07-21 07:52 | OPERATIVE REPORT E ---
Operative Report NAME: CECY VALDERRAMA : 1985 AGE: 32Y DATE OF SURGERY: 07/19/2018 ROOM: 307 PREOPERATIVE DIAGNOSES: 1. EXTENSIVE AREA OF CELLULITIS LEFT UPPER INNER THIGH AND THE LEFT LABIA MAJORA. 2. MULTIPLE SMALL SUBCUTANEOUS ABSCESSES. 3. HISTORY OF IV DRUG ABUSE. 4. PRESENCE OF MULTIPLE RETAINED SUBCUTANEOUS NEEDLES IN THE RIGHT AND LEFT GROIN. POSTOPERATIVE DIAGNOSES: 1. EXTENSIVE AREA OF CELLULITIS LEFT UPPER INNER THIGH AND THE LEFT LABIA MAJORA. 2. MULTIPLE SMALL SUBCUTANEOUS ABSCESSES. 3. HISTORY OF IV DRUG ABUSE. 4. PRESENCE OF MULTIPLE RETAINED SUBCUTANEOUS NEEDLES IN THE RIGHT AND LEFT GROIN. OPERATION: Incision and drainage of left upper inner thigh abscess. SURGEON: DELORES STEELE M.D. MANAGER MORTGAGE: None. BLEEDING: Negative. COMPLICATION: None. ANESTHESIA: General. FLUIDS: 800. URINE OUTPUT: More than 150 mL. VEINS: 1/4 inch in size. DRAINS: Angelia drains were used. INDICATION AND FINDINGS: This is a 32-year-old female with a history of IV drug abuse, particularly heroin. She reports she quit heroin about a year ago; however, she presented to the emergency room with a large area of erythema, swelling, pain localized in the left upper inner thigh and extending toward the groin on the left as well as her left labia majora which was swollen and erythematous. The patient's urine drug screen was negative. She is currently on oral Suboxone for detoxification. According to the patient, she injected some of the oral Suboxone in the left upper thigh in the attempt to get into the left femoral vein two weeks ago. A CT scan of the pelvis and left upper thigh was done revealing a large area of swelling extending from just below the inguinal crease down to the upper thigh and medially and laterally. Small subcutaneous abscesses were seen scattered throughout the lower aspect of the area. However, a large fluid collection could not be identified either on physical exam or on CT scan. DESCRIPTION OF PROCEDURE: A decision was made to perform several transverse counter incisions about 1/2 an inch in length each, spread out throughout the entire edges of the area of cellulitis of the left upper inner thigh. This was done with Bovie and the incisions were then connected to each other subcutaneously with a finger and by placing a 1/4 inch Angelia drain from one incision to the other and tying the drains to themselves with 2-0 Silk Nylon sutures. This was done with the idea to allow air and oxygen into the subcutaneous tissue to prevent an onset of an anaerobic infection. A finger was inserted through each incision and delivered to the corresponding counter incision. Each incision was then irrigated with normal saline, which was seen outflowing from the respective counterincision itself. Subsequently [place] drains were inserted through each incision and exited through the counter incision and secured to the skin with 2-0 Silk suture. Triple antibiotic ointment was applied to each incision and a 1/2 inch packing strip was inserted through each incision into the subcutaneous tissue and divided to length. The area was cleaned with Betadine, dried, covered with 4 x 4s, ABD, and Bernardo wraps. The [place] catheter was left in place. The patient tolerated the procedure well, extubated, and transferred to the recovery room in stable condition. DICTATING PHYSICIAN: DELORES STEELE M.D. [id number] PHY#: [id number] ID: [id number] JOB#: [id number] ACCT: [id number] cc:DELORES STEELE M.D. > MTDD
--- NOTE | 2018-07-21 08:32 | PDOC PROGRESS REPORT ---
Subjective Progress Note for:: 07/21/18 Reason For Visit: LE ABSCESS; no c/o Physical Exam Vital Signs: Temp Pulse Resp BP Pulse Ox 97.6 F 41 L 16 91/44 L 97 07/20/18 23:46 07/21/18 02:00 07/20/18 23:46 07/20/18 23:46 07/20/18 23:46 Intake & Output 07/20/18 07/21/18 07/22/18 06:59 06:59 06:59 Intake Total 3990 2997 Output Total 1155 700 Balance 2835 2297 Weight 62.2 kg 68.4 kg General appearance: PRESENT: no acute distress Extremities exam: PRESENT: other - Left thigh: resolved erythema; still diffuse edema, [place] drains in place, no drainage, minimal tenderness Results Laboratory Results: 07/21/18 04:30 07/21/18 04:30 07/20/18 07/20/18 07/20/18 06:30 06:30 06:30 WBC RBC Hgb Hct MCV MCH MCHC RDW Plt Count Seg Neutrophils % Lymphocytes % Monocytes % Eosinophils % Basophils % Absolute Neutrophils Absolute Lymphocytes Absolute Monocytes Absolute Eosinophils Absolute Basophils Retic Count (auto) 0.52 L Absolute Retic 0.018 L Sodium Potassium Chloride Carbon Dioxide Anion Gap BUN Creatinine Est GFR ( Amer) Est GFR (Non-Af Amer) Glucose Calcium Magnesium Iron 10.3 L TIBC 158 L % Saturation 7 Ferritin 116.00 Vitamin B12 676.0 Folate 13.00 Blood Type Antibody Screen 07/20/18 07/20/18 07/21/18 08:36 18:40 04:30 WBC 8.3 6.1 RBC 3.90 3.79 Hgb 8.6 L 8.3 L Hct 26.7 L 25.9 L MCV 69 L 68 L MCH 22.0 L 22.0 L MCHC 32.2 32.1 RDW 20.5 H 20.5 H Plt Count 339 347 Seg Neutrophils % Not Reportable Lymphocytes % Not Reportable Monocytes % Not Reportable Eosinophils % Not Reportable Basophils % Not Reportable Absolute Neutrophils Not Reportable Absolute Lymphocytes Not Reportable Absolute Monocytes Not Reportable Absolute Eosinophils Not Reportable Absolute Basophils Not Reportable Retic Count (auto) Absolute Retic Sodium Potassium Chloride Carbon Dioxide Anion Gap BUN Creatinine Est GFR ( Amer) Est GFR (Non-Af Amer) Glucose Calcium Magnesium Iron TIBC % Saturation Ferritin Vitamin B12 Folate Blood Type A POSITIVE Antibody Screen NEGATIVE 07/21/18 04:30 WBC RBC Hgb Hct MCV MCH MCHC RDW Plt Count Seg Neutrophils % Lymphocytes % Monocytes % Eosinophils % Basophils % Absolute Neutrophils Absolute Lymphocytes Absolute Monocytes Absolute Eosinophils Absolute Basophils Retic Count (auto) Absolute Retic Sodium 141.0 Potassium 3.4 L Chloride 107 Carbon Dioxide 28 Anion Gap 6 BUN 5 L Creatinine 0.53 Est GFR ( Amer) > 60 Est GFR (Non-Af Amer) > 60 Glucose 99 Calcium 7.8 L Magnesium 2.1 Iron TIBC % Saturation Ferritin Vitamin B12 Folate Blood Type Antibody Screen 07/19/18 12:53 Clean Catch Midstream Urine Culture - Final Mixed Urogenital Libby 07/19/18 12:45 Troponin I < 0.012 Impressions: Pelvis CT 07/19/18 14:16 IMPRESSION: Diffuse subcutaneous and adductor muscular edema with mild heterogeneous enhancement in the muscle belly, in the midportion of the adductor longus and tano there are small areas of probable rim enhancement- abscess. Numerous linear metallic foreign bodies are present in both common and supe rficial femoral vascular distributions. There does appear to be a deep vein thrombosis in the proximal left superficial femoral vein.There is lymphadenopathy in the left inguinal and external and common iliac chains. Chest X-Ray 07/20/18 05:55 IMPRESSION: CENTRAL LINE IN SATISFACTORY POSITION WITH NO PNEUMOTHORAX. NO ACUTE RADIOGRAPHIC FINDING IN THE CHEST. Assessment & Plan - Diagnosis (1) Cellulitis of left thigh Is this a current diagnosis for this admission?: Yes (2) Cellulitis of left groin Is this a current diagnosis for this admission?: Yes - Plan Summary Plan Summary: A/ POD#2 after incision and drainage left upper thigh Left thigh: resolved erythema; still diffuse edema, Angelia drains in place, no drainage, minimal tenderness WBC normal Cx pending (GPC) On Vanco/Zosyn P/ Continue IV abx until final cx are back, then tailor abx treatment Remove [place] Heplock IVF Ambulate q2 hours Daily dressing changes with topical triple antibiotic ointment and dry sponges
[2018-07-21] MEDS: BUSPIRONE HCL 10 MG TABLET PO SCH ×2 (09:19→21:11)
[2018-07-21] MEDS: FAMOTIDINE 20 MG TABLET PO SCH ×2 (10:06→21:12)
[2018-07-21] MEDS: HEPARIN SODIUM,PORCINE/D5W 25,000 UNIT/250 ML RTUINJ IV PRN (14:14)
[2018-07-21 21:05] LABS: VANCOMYCIN,TROUGH 14.9 ug/mL (5.0-20.0)
[2018-07-21] MEDS: LAMOTRIGINE 200 MG PO SCH (21:12)
[2018-07-21] MEDS: SERTRALINE HCL 50 MG TABLET PO SCH (21:12)
[2018-07-22] MEDS: VANCOMYCIN HCL 1,000 MG in DEXTROSE 5%-WATER 250 ML IV SCH ×3 (01:35→18:21)
[2018-07-22] MEDS: PIPERACILLIN SODIUM/TAZOBACTAM 4.5 GM in NORMAL SALINE 100 ML IV SCH ×3 (03:35→15:53)
[2018-07-22] MEDS: KETOROLAC TROMETHAMINE INJ/PF 30 MG/1 ML SDV IV PRN ×3 (03:53→16:00)
--- NOTE | 2018-07-22 05:25 | PDOC PROGRESS REPORT ---
Subjective Progress Note for:: 07/21/18 Subjective:: CECY VALDERRAMA is a 32 year old female past medical history of hepatitis C, bacterial meningitis, spinal epidural abscess, IV drug abuse, tobacco abuse, multiple abscesses, seizure disorder, chronic back pain, depression, anxiety, leukopenia, thrombocytopenia, anemia presenting to ED planing of left thigh pain associated with fever chills and lethargy. She is admitted for a LLE abscess. POD#2 I&D by surgery. Patient seen this AM, she is complaining of pain to the LLE - medial upper thigh. She remains afebrile and nontoxic appearing. Treated with Nubain IV. Continue IV antibiotics and full dose heparin for superficial DVT Reason For Visit: LE ABSCESS Physical Exam Vital Signs: Temp Pulse Resp BP Pulse Ox 98.1 F 49 L 18 97/43 L 100 07/21/18 15:42 07/21/18 15:42 07/21/18 15:42 07/21/18 15:42 07/21/18 15:42 Intake & Output 07/20/18 07/21/18 07/22/18 06:59 06:59 06:59 Intake Total 3990 2997 2259 Output Total 1155 700 250 Balance 2835 2297 2008 Weight 62.2 kg 68.4 kg General appearance: PRESENT: no acute distress, thin Head exam: PRESENT: atraumatic, normocephalic Eye exam: PRESENT: conjunctiva pink, EOMI, PERRLA. ABSENT: scleral icterus Ear exam: PRESENT: normal external ear exam Mouth exam: PRESENT: moist, tongue midline Neck exam: ABSENT: carotid bruit, JVD, lymphadenopathy, thyromegaly Respiratory exam: PRESENT: clear to auscultation dmitri, symmetrical, unlabored. ABSENT: rales, rhonchi, wheezes Cardiovascular exam: PRESENT: RRR. ABSENT: diastolic murmur, rubs, systolic murmur Pulses: PRESENT: normal radial pulses, normal dorsalis pedis pul Vascular exam: PRESENT: normal capillary refill GI/Abdominal exam: PRESENT: normal bowel sounds, soft. ABSENT: distended, guarding, mass, organolmegaly, rebound, tenderness Rectal exam: PRESENT: deferred Extremities exam: PRESENT: full ROM, tenderness - L THIGH. ABSENT: calf tenderness, clubbing, pedal edema Musculoskeletal exam: PRESENT: ambulatory, full ROM Neurological exam: PRESENT: alert, awake, oriented to person, oriented to place, oriented to time, oriented to situation Psychiatric exam: PRESENT: appropriate affect, normal mood Skin exam: PRESENT: dry, intact, warm, other - AREA OF ERYTHEMA AND TENDERNESS TO L THIGH. ABSENT: cyanosis, rash Results Laboratory Results: 07/21/18 04:30 07/21/18 04:30 07/21/18 07/21/18 04:30 04:30 WBC 6.1 RBC 3.79 Hgb 8.3 L Hct 25.9 L MCV 68 L MCH 22.0 L MCHC 32.1 RDW 20.5 H Plt Count 347 Seg Neutrophils % Not Reportable Lymphocytes % Not Reportable Monocytes % Not Reportable Eosinophils % Not Reportable Basophils % Not Reportable Absolute Neutrophils Not Reportable Absolute Lymphocytes Not Reportable Absolute Monocytes Not Reportable Absolute Eosinophils Not Reportable Absolute Basophils Not Reportable Sodium 141.0 Potassium 3.4 L Chloride 107 Carbon Dioxide 28 Anion Gap 6 BUN 5 L Creatinine 0.53 Est GFR ( Amer) > 60 Est GFR (Non-Af Amer) > 60 Glucose 99 Calcium 7.8 L Magnesium 2.1 07/19/18 12:45 Troponin I < 0.012 Impressions: Pelvis CT 07/19/18 14:16 IMPRESSION: Diffuse subcutaneous and adductor muscular edema with mild heter ogeneous enhancement in the muscle belly, in the midportion of the adductor longus and tano there are small areas of probable rim enhancement- abscess. Numerous linear metallic foreign bodies are present in both common and superficial femoral vascular distributions. There does appear to be a deep vein thrombosis in the proximal left superficial femoral vein.There is lymphadenopathy in the left inguinal and external and common iliac chains. Chest X-Ray 07/20/18 05:55 IMPRESSION: CENTRAL LINE IN SATISFACTORY POSITION WITH NO PNEUMOTHORAX. NO ACUTE RADIOGRAPHIC FINDING IN THE CHEST. Status: Imported from PACS Assessment and Plan - Diagnosis (1) Cellulitis of left groin Is this a current diagnosis for this admission?: Yes Plan: Multiple thigh abscesses, etiology is IVDU. Multiple small hypodermic needles found in her thigh/groin on CT. POD#2 I&D. Continue on vancomycin and Zosyn. Wound culture pending Blood cultures pending. Lactate 1.1, no longer trending Once C&S are resulted, will need to consult ID regarding antibiotic duration. Patient is very high risk for abuse, cannot d/c home with a PICC line. Will need to discuss treatment options with patient and family (2) DVT, femoral, acute Qualifiers: Laterality: left Qualified Code(s): I82.412 - Acute embolism and thrombosis of left femoral vein Is this a current diagnosis for this admission?: Yes Plan: Left femoral vein superficial thrombosis. Now on full dose heparin gtt s/p I&D Will bridge to A/C prior to discharge (3) Migraine Is this a current diagnosis for this admission?: No Plan: Continue Fioricet. (4) Anemia Qualifiers: Anemia type: iron deficiency Iron deficiency anemia type: unspecified iron deficiency Qualified Code(s): D50.9 - Iron deficiency anemia, unspecified Is this a current diagnosis for this admission?: No Plan: Hgb 8.3 PMH iron deficiency anemia S/p 1 U PRBC Anemia studies reveal serum iron level of 10 Iron infusion 07/20, will reassess need for additional iron infusions Monitor H&H and Iron/TIBC. Transfuse if Hgb < 8, actively bleeding or symptomatic. (5) Anxiety disorder Is this a current diagnosis for this admission?: No Plan: Continue BuSpar. (6) History of intravenous drug abuse Is this a current diagnosis for this admission?: No Plan: Continue Subutex Patient states she has "not used a needle in over a year" Avoid IV narcotics due to IVDU Lives at home alone in a house (7) History of seizure Is this a current diagnosis for this admission?: Yes Plan: Continue Lamictal. Seizure precautions. - Time Time Spent with patient: 15-24 minutes Medications reviewed and adjusted accordingly: Yes Anticipated discharge: Home Within: Other - when stabilized - Inpatient Certification Based on my medical assessment, after consideration of the patient's comorbidities, presenting symptoms, or acuity I expect that the services needed warrant INPATIENT care.: Yes I certify that my determination is in accordance with my understanding of [employer]'s requirements for reasonable and necessary INPATIENT services [42 CFR 412.3e].: Yes Medical Necessity: Need for IV Antibiotics
[2018-07-22] MEDS: GABAPENTIN 300 MG CAPSULE PO SCH ×3 (05:35→21:05)
[2018-07-22] MEDS: BUPRENORPHINE HCL 2 MG SUBLINGUAL TABLET SL SCH ×3 (05:36→21:04)
[2018-07-22 06:01] LABS: INTERNATIONAL RATION (INR) 0.98; PROTHROMBIN TIME 13.5 SEC (11.4-15.4)
[2018-07-22 06:04] LABS: ABSOLUTE RETICS # 0.023 10^6/uL (0.028-0.122); HEMATOCRIT 23.2 % (36.0-47.0); MEAN CORPUSCULAR HEMOGLOBIN 22.1 pg (27.0-33.4); MEAN CORPUSCULAR VOLUME 69 fl (80-97); PLATELET COUNT 347 10^3/uL (150-450); RED BLOOD COUNT 3.36 10^6/uL (3.72-5.28); RETICULOCYTE COUNT (AUTO) 0.68 % (0.66-2.85)
[2018-07-22 06:20] LABS: ANION GAP 6 (5-19); BLOOD UREA NITROGEN 6 mg/dL (7-20); CALCIUM 7.8 mg/dL (8.4-10.2); CARBON DIOXIDE 30 mmol/L (22-30); CHLORIDE 106 mmol/L (98-107); GLUCOSE 93 mg/dL (75-110); IRON(TIBC) 63.3 ug/dL (37-170); POTASSIUM 3.5 mmol/L (3.6-5.0); SODIUM 141.5 mmol/L (137-145)
[2018-07-22 06:33] LABS: HEMOGLOBIN 7.4 g/dL (12.0-15.5)
[2018-07-22 06:36] LABS: ABSOLUTE LYMPHOCYTES# (MANUAL) 1.1 10^3/uL (0.5-4.7); ABSOLUTE MONOCYTES # (MANUAL) 0.2 10^3/uL (0.1-1.4); ABSOLUTE NEUTROPHILS# (MANUAL) 4.6 10^3/uL (1.7-8.2); BAND NEUTROPHILS % (MANUAL) 1 % (3-5); BASOPHILS % (MANUAL) 0 % (0-2); EOSINOPHILS % (MANUAL) 1 % (0-6); LYMPHOCYTES % (MANUAL) 19 % (13-45); MONOCYTES % (MANUAL) 4 % (3-13); SEGMENTED NEUTROPHILS % (MAN) 75 % (42-78); TOTAL CELLS COUNTED 100
[2018-07-22 06:37] LABS: HYPERSEGMENTED NEUTROPHILS PRESENT
[2018-07-22 06:38] LABS: ANISOCYTOSIS 3+; OVALOCYTES 1+; POIKILOCYTOSIS 1+; TOXIC GRANULATION SLIGHT
[2018-07-22 06:39] LABS: PLATELET CLUMPS PRESENT; PLATELET COMMENT ADEQUATE
[2018-07-22 07:24] LABS: FOLATE 6.32 ng/mL (>2.76)
[2018-07-22] MEDS: BUSPIRONE HCL 10 MG TABLET PO SCH ×2 (09:54→21:05)
[2018-07-22] MEDS: HEPARIN SODIUM,PORCINE/D5W 25,000 UNIT/250 ML RTUINJ IV PRN (09:54)
[2018-07-22] MEDS: FAMOTIDINE 20 MG TABLET PO SCH ×2 (09:54→21:05)
[2018-07-22] MEDS: HEPARIN SOD (PORCINE) 1,000 UNIT/ML 10 ML VIAL IV PRN (09:57)
--- NOTE | 2018-07-22 10:54 | PDOC PROGRESS REPORT ---
Subjective Progress Note for:: 07/22/18 Subjective:: no c/o Reason For Visit: LE ABSCESS Physical Exam Vital Signs: Temp Pulse Resp BP Pulse Ox 97.9 F 44 L 16 116/60 96 07/22/18 09:04 07/22/18 09:04 07/22/18 09:04 07/22/18 09:04 07/22/18 09:04 Intake & Output 07/21/18 07/22/18 07/23/18 06:59 06:59 06:59 Intake Total 2997 2609 250 Output Total 700 250 Balance 2297 2359 250 Weight 68.4 kg 67.9 kg General appearance: PRESENT: no acute distress Skin exam: PRESENT: other - right thigh: swelling decreased, no tenderness, [place] drains in place Results Laboratory Results: 07/22/18 05:15 07/22/18 05:15 07/20/18 07/22/18 07/22/18 08:36 05:15 05:15 WBC 6.0 RBC 3.36 L Hgb 7.4 L Hct 23.2 L MCV 69 L MCH 22.1 L MCHC 32.0 RDW 21.0 H Plt Count 347 Seg Neutrophils % Not Reportable Lymphocytes % Not Reportable Monocytes % Not Reportable Eosinophils % Not Reportable Basophils % Not Reportable Absolute Neutrophils Not Reportable Absolute Lymphocytes Not Reportable Absolute Monocytes Not Reportable Absolute Eosinophils Not Reportable Absolute Basophils Not Reportable Retic Count (auto) 0.68 Absolute Retic 0.023 L Sodium 141.5 Potassium 3.5 L Chloride 106 Carbon Dioxide 30 Anion Gap 6 BUN 6 L Creatinine 0.59 Est GFR ( Amer) > 60 Est GFR (Non-Af Amer) > 60 Glucose 93 Calcium 7.8 L Magnesium 2.1 Iron 63.3 TIBC 169 L % Saturation 37 Ferritin 236.00 H Vitamin B12 751.0 Folate 6.32 Blood Type A POSITIVE Antibody Screen NEGATIVE 07/19/18 12:45 Blood Blood Culture - Final Mrsa (Meth Resis Staph Aureus) 07/19/18 21:42 Blood Blood Culture - Final Mrsa (Meth Resis Staph Aureus) 07/19/18 12:45 Troponin I < 0.012 Impressions: Pelvis CT 07/19/18 14:16 IMPRESSION: Diffuse subcutaneous and adductor muscular edema with mild heterogeneous enhancement in the muscle belly, in the midportion of the adductor longus and tano there are small areas of probable rim enhancement- abscess. Numerous linear metallic foreign bodies are present in both common and superficial femoral vascular distributions. There does appear to be a deep vein thrombosis in the proximal left superficial femoral vein.There is lymphadenopathy in the left inguinal and external and common iliac chains. Chest X-Ray 07/20/18 05:55 IMPRESSION: CENTRAL LINE IN SATISFACTORY POSITION WITH NO PNEUMOTHORAX. NO ACUTE RADIOGRAPHIC FINDING IN THE CHEST. Assessment & Plan - Diagnosis (1) Cellulitis of left thigh Is this a current diagnosis for this admission?: Yes (2) Cellulitis of left groin Is this a current diagnosis for this admission?: Yes - Plan Summary Plan Summary: A/ POD#3 after I&D left thigh area of cellulitis Left thogh cx are negative so far Blood cx positive for MRSA patient on Vanco Zosyn P/ No acute general Surgery issues identified Patient can be discharged to home at anytime by the General Surgery viewpoint Angelia drain can be removed before discharge
--- NOTE | 2018-07-22 15:44 | Progress Note ---
Provider Note Provider Note: ID Consult Note Asked to review patient's chart by Elena Lewis NP. Pt not seen or examined. Pt is a 32 year old woman with PMH including IVDU who was admitted on 07/19/18 with an extensive area of erythema, swelling and pain involving the L upper inner thigh and labia majora. CT scan showed diffuse subcutaneous and muscular edema of the medial thigh with small areas of probable abscess in the midportion of the adductor longus and tano and DVT in the proximal L superficial femoral vein. Although CT scan showed small subcutaneous abscesses scattered throughout the lower aspect of the area, no large fluid collection was identified on exam or CT scan. One blood culture set on admission grew MRSA. The other set also grew MRSA in one bottle. She was taken to the OR on 07/19 for incision and drainage. The submitted specimen from this did not yield growth or organisms on gram stain. She has been receiving vancomycin 1 gram q8h. Impression/Recommendations complicated MRSA bacteremia with septic thrombophlebitis - Continue IV vancomycin dosed with assistance of pharmacy to achieve goal trough of 15-20 - Recommend discontinuing Zosyn; no Gram negatives identified - Agree with plan for TTE and repeat blood cultures today - Duration of therapy: to be determined. * Situations in which therapy can be limited to 2 weeks are few - those in which there is an identifiable and removable focus of infection, rapid clearance of bacteremia, rapid defervescence of the patient, lack of IE or pre-existing valve abnormalities that place the patient at high risk for development of IE, no metastatic foci of disease, and no implanted hardware. * Failure to meet all of the above criteria would make Staph aureus bacteremia complicated and in need of at least 4 weeks of treatment, and typically a 6 week duration is considered for endovascular infections. * For this patient, whether she clears the bacteremia rapidly remains to be seen, but she will most likely require a long duration of therapy considering the appearance of a septic deep vein thrombosis involving the superficial femoral vein arising in the setting of Staph aureus bacteremia. Phu Hunter MD [facility] Infectious Diseases pager [phone]
[2018-07-22 16:50] LABS: HEMATOCRIT 26.3 % (36.0-47.0); HEMOGLOBIN 8.6 g/dL (12.0-15.5); MEAN CORPUSCULAR HEMOGLOBIN 22.9 pg (27.0-33.4); MEAN CORPUSCULAR HGB CONC 32.7 g/dL (32.0-36.0); MEAN CORPUSCULAR VOLUME 70 fl (80-97); RED BLOOD COUNT 3.76 10^6/uL (3.72-5.28); RED CELL DISTRIBUTION WIDTH 20.8 % (11.5-14.0)
[2018-07-22 17:12] LABS: ABSOLUTE LYMPHOCYTES# (MANUAL) 1.1 10^3/uL (0.5-4.7); ABSOLUTE MONOCYTES # (MANUAL) 0.4 10^3/uL (0.1-1.4); ABSOLUTE NEUTROPHILS# (MANUAL) 4.4 10^3/uL (1.7-8.2); BAND NEUTROPHILS % (MANUAL) 5 % (3-5); BASOPHILS % (MANUAL) 0 % (0-2); EOSINOPHILS % (MANUAL) 2 % (0-6); LYMPHOCYTES % (MANUAL) 19 % (13-45); MONOCYTES % (MANUAL) 6 % (3-13); SEGMENTED NEUTROPHILS % (MAN) 68 % (42-78); TOTAL CELLS COUNTED 100
[2018-07-22 17:14] LABS: ANISOCYTOSIS 2+; OVALOCYTES 1+; PLATELET COMMENT ADEQUATE; PLATELET LARGE PRESENT; POIKILOCYTOSIS 1+; POLYCHROMASIA SLIGHT
[2018-07-22 17:15] LABS: PLATELET COUNT 362 10^3/uL (150-450)
--- NOTE | 2018-07-22 19:36 | PDOC PROGRESS REPORT ---
Subjective Progress Note for:: 07/22/18 Subjective:: CECY VALDERRAMA is a 32 year old female past medical history of hepatitis C, bacterial meningitis, spinal epidural abscess, IV drug abuse, tobacco abuse, multiple abscesses, seizure disorder, chronic back pain, depression, anxiety, leukopenia, thrombocytopenia, anemia admitted 07/19/18 for abscess with cellulitis to the left groin. Patient was seen on morning rounds. She is found resting in bed comfortably on room air. Her wound was not visualized his surgery had just been noted by and she has a new clean dry dressing in place. She reports that her medial thigh is improved in discomfort, however, she notes that she continues to have worsened tenderness to her left labia majora without drainage. Otherwise, she denies fever, chills, chest pain, dyspnea, orthopnea, abdominal pain, nausea vomiting and diarrhea. Patient reports that she has been IV drug use free for approximately 1 year and is currently managing her disorder with Subutex. She has no other questions or concerns at this time. No concerns per nursing. Reason For Visit: LE ABSCESS Physical Exam Vital Signs: Temp Pulse Resp BP Pulse Ox 98.2 F 42 L 16 114/49 L 98 07/22/18 15:59 07/22/18 15:59 07/22/18 15:59 07/22/18 15:59 07/22/18 15:59 Intake & Output 07/21/18 07/22/18 07/23/18 06:59 06:59 06:59 Intake Total 2997 2609 1266 Output Total 700 250 Balance 2297 2359 1266 Weight 68.4 kg 67.9 kg General appearance: PRESENT: no acute distress, cooperative, well-developed, well-nourished Head exam: PRESENT: atraumatic, normocephalic Eye exam: PRESENT: conjunctiva pink, EOMI, PERRLA. ABSENT: scleral icterus Ear exam: PRESENT: normal external ear exam Mouth exam: PRESENT: moist, tongue midline Neck exam: ABSENT: carotid bruit, JVD, lymphadenopathy, thyromegaly Respiratory exam: PRESENT: clear to auscultation dmitir, symmetrical, unlabored. ABSENT: rales, rhonchi, wheezes Cardiovascular exam: PRESENT: RRR, +S1, +S2. ABSENT: diastolic murmur, rubs, s ystolic murmur Pulses: PRESENT: normal dorsalis pedis pul Vascular exam: PRESENT: normal capillary refill GI/Abdominal exam: PRESENT: normal bowel sounds, soft. ABSENT: distended, guarding, mass, organolmegaly, rebound, tenderness Rectal exam: PRESENT: deferred Gentrourinary exam: PRESENT: other - Edema, erythema, tenderness to left labia majora. 1 mm round lesion to exterior/superior region without drainage. Unable to identify/locate any other lesions or areas of drainage. Extremities exam: PRESENT: full ROM. ABSENT: calf tenderness, clubbing, pedal edema Neurological exam: PRESENT: alert, awake, oriented to person, oriented to place, oriented to time, oriented to situation, CN II-XII grossly intact. ABSENT: m otor sensory deficit Psychiatric exam: PRESENT: appropriate affect, normal mood. ABSENT: homicidal ideation, suicidal ideation Skin exam: PRESENT: dry, warm, other - Surgical incision to left medial thigh not visualized; clean dry dressing in place.. ABSENT: cyanosis, rash Results Laboratory Results: 07/22/18 15:30 07/22/18 05:15 07/20/18 07/22/18 07/22/18 08:36 05:15 05:15 WBC 6.0 RBC 3.36 L Hgb 7.4 L Hct 23.2 L MCV 69 L MCH 22.1 L MCHC 32.0 RDW 21.0 H Plt Count 347 Seg Neutrophils % Not Reportable Lymphocytes % Not Reportable Monocytes % Not Reportable Eosinophils % Not Reportable Basophils % Not Reportable Absolute Neutrophils Not Reportable Absolute Lymphocytes Not Reportable Absolute Monocytes Not Reportable Absolute Eosinophils Not Reportable Absolute Basophils Not Reportable Retic Count (auto) 0.68 Absolute Retic 0.023 L Sodium 141.5 Potassium 3.5 L Chloride 106 Carbon Dioxide 30 Anion Gap 6 BUN 6 L Creatinine 0.59 Est GFR ( Amer) > 60 Est GFR (Non-Af Amer) > 60 Glucose 93 Calcium 7.8 L Magnesium 2.1 Iron 63.3 TIBC 169 L % Saturation 37 Ferritin 236.00 H Vitamin B12 751.0 Folate 6.32 Blood Type A POSITIVE Antibody Screen NEGATIVE 07/22/18 15:30 WBC 6.0 RBC 3.76 Hgb 8.6 L Hct 26.3 L MCV 70 L MCH 22.9 L MCHC 32.7 RDW 20.8 H Plt Count 362 Seg Neutrophils % Not Reportable Lymphocytes % Not Reportable Monocytes % Not Reportable Eosinophils % Not Reportable Basophils % Not Reportable Absolute Neutrophils Not Reportable Absolute Lymphocytes Not Reportable Absolute Monocytes Not Reportable Absolute Eosinophils Not Reportable Absolute Basophils Not Reportable Retic Count (auto) Absolute Retic Sodium Potassium Chloride Carbon Dioxide Anion Gap BUN Creatinine Est GFR ( Amer) Est GFR (Non-Af Amer) Glucose Calcium Magnesium Iron TIBC % Saturation Ferritin Vitamin B12 Folate Blood Type Antibody Screen 07/19/18 12:45 Blood Blood Culture - Final Mrsa (Meth Resis Staph Aureus) 07/19/18 21:42 Blood Blood Culture - Final Mrsa (Meth Resis Staph Aureus) 07/19/18 12:45 Troponin I < 0.012 Impressions: Pelvis CT 07/19/18 14:16 IMPRESSION: Diffuse subcutaneous and adductor muscular edema with mild heterogeneous enhancement in the muscle belly, in the midportion of the adductor longus and tano there are small areas of probable rim enhancement- abscess. Numerous linear metallic foreign bodies are present in both common and superficial femoral vascular distributions. There does appear to be a deep vein thrombosis in the proximal left superficial femoral vein.There is lymphadenopathy in the left inguinal and external and common iliac chains. Chest X-Ray 07/20/18 05:55 IMPRESSION: CENTRAL LINE IN SATISFACTORY POSITION WITH NO PNEUMOTHORAX. NO ACUTE RADIOGRAPHIC FINDING IN THE CHEST. Assessment and Plan - Diagnosis (1) Cellulitis of left thigh Is this a current diagnosis for this admission?: Yes Plan: Multiple thigh abscesses, etiology is likely IVDU. Multiple small hypodermic needles found in her thigh/groin on CT. POD#3 I&D. Continue on vancomycin. Zosyn discontinued per ID recommendations. Wound culture has no growth at 3 days. Blood cultures demonstrating MRSA in both sets. Repeat blood cultures pending Lactate 1.1, no longer trending Infectious disease was consulted; recommend minimum 4 weeks IV vancomycin due to patient's complicated history and evidence of septic thrombus to the left femoral vein. Patient is very high risk for abuse, cannot d/c home with a PICC line. (2) Bartholin's gland abscess Is this a current diagnosis for this admission?: Yes Plan: Erythema and edema noted to the left labia majora. No identified anterior lesions or drainage present. Discussed with FABRIC COATING SUPERVISOR today; appreciate Dr. Carranza's evaluation recommendatio ns. Start warm compress and sitz bath's. Continue antibiotics as above. (3) DVT, femoral, acute Qualifiers: Laterality: left Qualified Code(s): I82.412 - Acute embolism and thrombosis of left femoral vein Is this a current diagnosis for this admission?: Yes Plan: Left femoral vein superficial thrombosis. Now on full dose heparin gtt s/p I&D Will bridge to A/C prior to discharge; will need to speak with discharge planning regarding affordable anticoagulation options. (4) Migraine Is this a current diagnosis for this admission?: No Plan: Continue Fioricet as needed. (5) Anemia Qualifiers: Anemia type: iron deficiency Iron deficiency anemia type: unspecified iron deficiency Qualified Code(s): D50.9 - Iron deficiency anemia, unspecified Is this a current diagnosis for this admission?: No Plan: Hgb 8.6 PMH iron deficiency anemia S/p 2 U PRBC Anemia studies reveal serum iron level of 10 Iron infusion 07/20, will reassess need for additional iron infusions Monitor H&H and Iron/TIBC. Transfuse if Hgb < 8, actively bleeding or symptomatic. Has been followed by Dr. Rivera as outpatient. If patient requires additional blood products, will consult hematology. (6) Anxiety disorder Is this a current diagnosis for this admission?: No Plan: Continue BuSpar. (7) History of intravenous drug abuse Is this a current diagnosis for this admission?: No Plan: Continue Subutex Patient states she has "not used a needle in over a year" Avoid IV narcotics due to IVDU Lives at home alone in a house Discharge planning is consulted. (8) History of seizure Is this a current diagnosis for this admission?: Yes Plan: Continue Lamictal. Seizure precautions. - Time Time Spent with patient: 25-34 minutes Medications reviewed and adjusted accordingly: Yes Anticipated discharge: Home Within: Other - ~4 weeks - Inpatient Certification Based on my medical assessment, after consideration of the patient's comorbidities, presenting symptoms, or acuity I expect that the services needed warrant INPATIENT care.: Yes I certify that my determination is in accordance with my understanding of Medicare's requirements for reasonable and necessary INPATIENT services [42 CFR 412.3e].: Yes Medical Necessity: Need for IV Antibiotics
--- NOTE | 2018-07-22 20:34 | PDOC CONSULTATION ---
Consultation Consult Date: 07/22/18 Provider Consulted: RAFFAELE BAIRD Consult reason:: left labial swelling History of Present Illness Admission Date/PCP: 07/19/18 15:47 KEDAR RANKIN History of Present Illness: CECY VALDERRAMA is a 32 year old female admited for leg abscess and underwent I&D with Gen Surg. HYDRO ELECTRIC STATION OPERATOR noted this am regarding pt's c/o labial swelling and asked MIDLEVEL PROVIDER to consult. Past Medical History Gynecological Infection: Yes - clamydia 1 year ago. treated Obstetrical History: none - (infant from SIDS) Cardiac Medical History: Denies: Coronary Artery Disease, Myocardial Infarction, Hypertension Pulmonary Medical History: Denies: Asthma, Bronchitis, Chronic Obstructive Pulmonary Disease (COPD), Pneumonia Neurological Medical History: Reports: Seizures Musculoskeltal Medical History: Denies: Arthritis Psychiatric Medical History: Reports: Depression - reports history of anxiety Social History Smoking Status: Current Every Day Smoker Number of Years Smokin Last Time Smoked: 07/19/18 Frequency of Alcohol Use: None Hx Recreational Drug Use: Yes Drugs: Other Hx Prescription Drug Abuse: Yes - Advance Directive Resuscitation Status: Full Code Family History Family History: Reviewed & Not Pertinent, Hypertension Parental Family History Reviewed: Yes Children Family History Reviewed: Yes Sibling(s) Family History Reviewed.: Yes Medication/Allergy Home Medications: Buprenorphine HCl [Subutex 8 mg Sublingual Tablet] 8 mg SL Q8 07/20/18 Buspirone HCl [Buspar 30 mg Tablet] 30 mg PO BID 07/20/18 Butalb/Acetaminophen/Caffeine [Fioricet (50-325-40 mg) Tablet] 1 tab PO Q8HP PRN 07/20/18 Gabapentin [Neurontin 300 mg Capsule] 900 mg PO Q8 07/20/18 Hydroxyzine Pamoate [Vistaril 25 mg Capsule] 25 mg PO Q8HP PRN 07/20/18 Lamotrigine [Lamotrigine ER] 200 mg PO QHS 07/20/18 Sertraline HCl [Zoloft] 100 mg PO DAILY 07/20/18 Allergies/Adverse Reactions: latex [Latex] Allergy (Intermediate, Verified 09/22/17 10:02) RASH, SWELLING AT AREA Sulfa (Sulfonamide Antibiotics) Allergy (Verified 09/22/17 10:02) Physical Exam - Physical Exam Vital Signs: Temp Pulse Resp BP Pulse Ox 98.2 F 42 L 16 114/49 L 98 07/22/18 15:59 07/22/18 19:00 07/22/18 15:59 07/22/18 15:59 07/22/18 15:59 Intake & Output 07/21/18 07/22/18 07/23/18 06:59 06:59 06:59 Intake Total 2997 2609 1266 Output Total 700 250 Balance 2297 2359 1266 Weight 68.4 kg 67.9 kg General appearance: PRESENT: no acute distress, cooperative - Gynecological Exam Labia: other - left labia majora edematous, mild erythema. No fluctuance or lesions noted. Urethra: normal Introitus: normal Perineum: normal Result Laboratory Results: 07/22/18 15:30 07/22/18 05:15 07/20/18 07/22/18 07/22/18 08:36 05:15 05:15 WBC 6.0 RBC 3.36 L Hgb 7.4 L Hct 23.2 L MCV 69 L MCH 22.1 L MCHC 32.0 RDW 21.0 H Plt Count 347 Seg Neutrophils % Not Reportable Lymphocytes % Not Reportable Monocytes % Not Reportable Eosinophils % Not Reportable Basophils % Not Reportable Absolute Neutrophils Not Reportable Absolute Lymphocytes Not Reportable Absolute Monocytes Not Reportable Absolute Eosinophils Not Reportable Absolute Basophils Not Reportable Retic Count (auto) 0.68 Absolute Retic 0.023 L Sodium 141.5 Potassium 3.5 L Chloride 106 Carbon Dioxide 30 Anion Gap 6 BUN 6 L Creatinine 0.59 Est GFR ( Amer) > 60 Est GFR (Non-Af Amer) > 60 Glucose 93 Calcium 7.8 L Magnesium 2.1 Iron 63.3 TIBC 169 L % Saturation 37 Ferritin 236.00 H Vitamin B12 751.0 Folate 6.32 Blood Type A POSITIVE Antibody Screen NEGATIVE 07/22/18 15:30 WBC 6.0 RBC 3.76 Hgb 8.6 L Hct 26.3 L MCV 70 L MCH 22.9 L MCHC 32.7 RDW 20.8 H Plt Count 362 Seg Neutrophils % Not Reportable Lymphocytes % Not Reportable Monocytes % Not Reportable Eosinophils % Not Reportable Basophils % Not Reportable Absolute Neutrophils Not Reportable Absolute Lymphocytes Not Reportable Absolute Monocytes Not Reportable Absolute Eosinophils Not Reportable Absolute Basophils Not Reportable Retic Count (auto) Absolute Retic Sodium Potassium Chloride Carbon Dioxide Anion Gap BUN Creatinine Est GFR ( Amer) Est GFR (Non-Af Amer) Glucose Calcium Magnesium Iron TIBC % Saturation Ferritin Vitamin B12 Folate Blood Type Antibody Screen 07/19/18 12:45 Blood Blood Culture - Final Mrsa (Meth Resis Staph Aureus) 07/19/18 21:42 Blood Blood Culture - Final Mrsa (Meth Resis Staph Aureus) 07/19/18 12:45 Troponin I < 0.012 Impressions: Pelvis CT 07/19/18 14:16 IMPRESSION: Diffuse subcutaneous and adductor muscular edema with mild heterogeneous enhancement in the muscle belly, in the midportion of the adductor longus and tano there are small areas of probable rim enhancement- abscess. Numerous linear metallic foreign bodies are present in both common and superficial femoral vascular distributions. There does appear to be a deep vein thrombosis in the proximal left superficial femoral vein.There is lymphadenopathy in the left inguinal and external and common iliac chains. Chest X-Ray 07/20/18 05:55 IMPRESSION: CENTRAL LINE IN SATISFACTORY POSITION WITH NO PNEUMOTHORAX. NO ACUTE RADIOGRAPHIC FINDING IN THE CHEST. Assessment & Plan - Plan Summary Plan Summary: there is no fluid pocket amenable for drainage at this. would continue antibiotics. Sitz baths and compresses alternate with ice packs for swelling. Will monitor daily for possibility of drainage/word catheter placement.
[2018-07-22] MEDS: LAMOTRIGINE 200 MG PO SCH (21:04)
[2018-07-22] MEDS: SERTRALINE HCL 50 MG TABLET PO SCH (21:05)
[2018-07-23] MEDS ORDERED: KETOROLAC TROMETHAMINE INJ/PF 30 MG/1 ML SDV ONE (01:28)
[2018-07-23] MEDS: KETOROLAC TROMETHAMINE INJ/PF 30 MG/1 ML SDV IV PRN ×3 (01:39→16:19)
[2018-07-23] MEDS: VANCOMYCIN HCL 1,000 MG in DEXTROSE 5%-WATER 250 ML IV SCH ×3 (01:48→17:35)
[2018-07-23] MEDS: HEPARIN SODIUM,PORCINE/D5W 25,000 UNIT/250 ML RTUINJ IV PRN ×2 (01:55→17:36)
[2018-07-23] MEDS: BUPRENORPHINE HCL 2 MG SUBLINGUAL TABLET SL SCH ×3 (05:33→21:04)
[2018-07-23] MEDS: GABAPENTIN 300 MG CAPSULE PO SCH ×3 (05:33→21:01)
[2018-07-23 05:56] LABS: ANION GAP 6 (5-19); BLOOD UREA NITROGEN 6 mg/dL (7-20); CALCIUM 8.4 mg/dL (8.4-10.2); CARBON DIOXIDE 29 mmol/L (22-30); CHLORIDE 107 mmol/L (98-107); GLUCOSE 96 mg/dL (75-110); POTASSIUM 3.6 mmol/L (3.6-5.0); SODIUM 142.2 mmol/L (137-145)
[2018-07-23 06:02] LABS: HEMATOCRIT 28.2 % (36.0-47.0); HEMOGLOBIN 9.1 g/dL (12.0-15.5); MEAN CORPUSCULAR HEMOGLOBIN 22.5 pg (27.0-33.4); MEAN CORPUSCULAR HGB CONC 32.2 g/dL (32.0-36.0); MEAN CORPUSCULAR VOLUME 70 fl (80-97); PLATELET COUNT 371 10^3/uL (150-450); RED BLOOD COUNT 4.03 10^6/uL (3.72-5.28); RED CELL DISTRIBUTION WIDTH 20.9 % (11.5-14.0); WHITE BLOOD COUNT 6.4 10^3/uL (4.0-10.5)
[2018-07-23] MEDS: BUSPIRONE HCL 10 MG TABLET PO SCH ×2 (09:04→21:01)
[2018-07-23] MEDS: FAMOTIDINE 20 MG TABLET PO SCH ×2 (09:04→21:02)
--- NOTE | 2018-07-23 10:30 | PDOC PROGRESS REPORT ---
Subjective Progress Note for:: 07/23/18 Subjective:: mild pains left leg Reason For Visit: LE ABSCESS Physical Exam Vital Signs: Temp Pulse Resp BP Pulse Ox 98.2 F 44 L 18 108/67 98 07/23/18 08:03 07/23/18 08:03 07/23/18 08:03 07/23/18 08:03 07/23/18 08:03 Intake & Output 07/22/18 07/23/18 07/24/18 06:59 06:59 06:59 Intake Total 2609 2064 Output Total 250 200 Balance 2359 1864 Weight 67.9 kg 69.5 kg Exam: I&D site left leg looks clean and dry Drain in place Results Laboratory Results: 07/23/18 05:17 07/23/18 05:17 07/22/18 07/23/18 07/23/18 15:30 05:17 05:17 WBC 6.0 6.4 RBC 3.76 4.03 Hgb 8.6 L 9.1 L Hct 26.3 L 28.2 L MCV 70 L 70 L MCH 22.9 L 22.5 L MCHC 32.7 32.2 RDW 20.8 H 20.9 H Plt Count 362 371 Seg Neutrophils % Not Reportable Lymphocytes % Not Reportable Monocytes % Not Reportable Eosinophils % Not Reportable Basophils % Not Reportable Absolute Neutrophils Not Reportable Absolute Lymphocytes Not Reportable Absolute Monocytes Not Reportable Absolute Eosinophils Not Reportable Absolute Basophils Not Reportable Sodium 142.2 Potassium 3.6 Chloride 107 Carbon Dioxide 29 Anion Gap 6 BUN 6 L Creatinine 0.86 Est GFR ( Amer) > 60 Est GFR (Non-Af Amer) > 60 Glucose 96 Calcium 8.4 07/19/18 12:45 Blood Blood Culture - Final Mrsa (Meth Resis Staph Aureus) 07/19/18 21:42 Blood Blood Culture - Final Mrsa (Meth Resis Staph Aureus) 07/19/18 12:45 Troponin I < 0.012 Impressions: Pelvis CT 07/19/18 14:16 IMPRESSION: Diffuse subcutaneous and adductor muscular edema with mild heterogeneous enhancement in the muscle belly, in the midportion of the adductor longus and tano there are small areas of probable rim enhancement- abscess. Numerous linear metallic foreign bodies are present in both common and superficial femoral vascular distributions. There does appear to be a deep vein thrombosis in the proximal left superficial femoral vein.There is lymphadenopathy in the left inguinal and external and common iliac chains. Chest X-Ray 07/20/18 05:55 IMPRESSION: CENTRAL LINE IN SATISFACTORY POSITION WITH NO PNEUMOTHORAX. NO ACUTE RADIOGRAPHIC FINDING IN THE CHEST. Assessment & Plan - Time Time Spent with patient: 15-24 minutes - Plan Summary Plan Summary: Continue IV antibiotics and anticoagulation Plan to remove drain tomorrow
--- NOTE | 2018-07-23 18:07 | PDOC PROGRESS REPORT ---
Subjective Progress Note for:: 07/23/18 Subjective:: CECY VALDERRAMA is a 32 year old female past medical history of hepatitis C, bacterial meningitis, spinal epidural abscess, IV drug abuse, tobacco abuse, multiple abscesses, seizure disorder, chronic back pain, depression, anxiety, leukopenia, thrombocytopenia, anemia admitted 07/19/18 for abscess with cellulitis to the left groin. Patient was seen on morning rounds. She is found resting in bed comfortably on room air. Her wound was not visualized visualized today; she reports decreased tenderness of both her left thigh and labia majora. Otherwise, she denies fever, chills, chest pain, dyspnea, orthopnea, abdominal pain, nausea vomiting and diarrhea. She has no other questions or concerns at this time. No concerns per nursing. Reason For Visit: LE ABSCESS Physical Exam Vital Signs: Temp Pulse Resp BP Pulse Ox 98.1 F 82 18 112/48 L 99 07/23/18 16:34 07/23/18 16:34 07/23/18 16:34 07/23/18 16:34 07/23/18 16:34 Intake & Output 07/22/18 07/23/18 07/24/18 06:59 06:59 06:59 Intake Total 2609 2064 1086 Output Total 250 200 Balance 2359 1864 1086 Weight 67.9 kg 69.5 kg General appearance: PRESENT: no acute distress, well-developed, well-nourished Head exam: PRESENT: atraumatic, normocephalic Eye exam: PRESENT: conjunctiva pink, EOMI, PERRLA. ABSENT: scleral icterus Ear exam: PRESENT: normal external ear exam Mouth exam: PRESENT: moist, tongue midline Neck exam: ABSENT: carotid bruit, JVD, lymphadenopathy, thyromegaly Respiratory exam: PRESENT: clear to auscultation dmitri, symmetrical, unlabored. ABSENT: rales, rhonchi, wheezes Cardiovascular exam: PRESENT: RRR, +S1, +S2. ABSENT: diastolic murmur, rubs, systolic murmur Pulses: PRESENT: normal dorsalis pedis pul Vascular exam: PRESENT: normal capillary refill GI/Abdominal exam: PRESENT: normal bowel sounds, soft. ABSENT: distended, guarding, mass, organolmegaly, rebound, tenderness Rectal exam: PRESENT: deferred Extremities exam: PRESENT: full ROM. ABSENT: calf tenderness, clubbing, pedal edema Neurological exam: PRESENT: alert, awake, oriented to person, oriented to place, oriented to time, oriented to situation, CN II-XII grossly intact. ABSENT: motor sensory deficit Psychiatric exam: PRESENT: appropriate affect, normal mood. ABSENT: homicidal ideation, suicidal ideation Skin exam: PRESENT: dry, warm. ABSENT: cyanosis, intact - Surgical incision and labia majora not visualized today., rash Results Laboratory Results: 07/23/18 05:17 07/23/18 05:17 07/23/18 07/23/18 05:17 05:17 WBC 6.4 RBC 4.03 Hgb 9.1 L Hct 28.2 L MCV 70 L MCH 22.5 L MCHC 32.2 RDW 20.9 H Plt Count 371 Sodium 142.2 Potassium 3.6 Chloride 107 Carbon Dioxide 29 Anion Gap 6 BUN 6 L Creatinine 0.86 Est GFR ( Amer) > 60 Est GFR (Non-Af Amer) > 60 Glucose 96 Calcium 8.4 07/19/18 18:16 Thigh - Inner Gram Stain - Final 07/19/18 18:16 Thigh - Inner Wound Culture - Final NO AEROBIC OR ANAEROBIC ORGANISMS RECOVERED 07/19/18 12:45 Troponin I < 0.012 Impressions: Pelvis CT 07/19/18 14:16 IMPRESSION: Diffuse subcutaneous and adductor muscular edema with mild heterogeneous enhancement in the muscle belly, in the midportion of the adductor longus and tano there are small areas of probable rim enhancement- abscess. Numerous linear metallic foreign bodies are present in both common and superficial femoral vascular distributions. There does appear to be a deep vein thrombosis in the proximal left superficial femoral vein.There is lymphadenopathy in the left inguinal and external and common iliac chains. Chest X-Ray 07/20/18 05:55 IMPRESSION: CENTRAL LINE IN SATISFACTORY POSITION WITH NO PNEUMOTHORAX. NO ACUTE RADIOGRAPHIC FINDING IN THE CHEST. Assessment and Plan - Diagnosis (1) Cellulitis of left thigh Is this a current diagnosis for this admission?: Yes Plan: Multiple thigh abscesses, etiology is likely IVDU. Multiple small hypodermic needles found in her thigh/groin on CT. POD#3 I&D. Continue on vancomycin. Zosyn discontinued per ID recommendations. Wound culture has no growth. Blood cultures demonstrating MRSA in both sets. Repeat blood cultures negative at 24 hours. Lactate 1.1, no longer trending Infectious disease was consulted; recommend minimum 4 weeks IV vancomycin due to patient's complicated history and evidence of septic thrombus to the left f emoral vein. Stop date 08/19/18 Patient is very high risk for abuse, cannot d/c home with a PICC line. Patient was previously d/c'd with PICC (2018) and returned w/ sepsis, septic arthritis, upper extremity DVT, and concern for ongoing drug use through PICC line. (2) Bartholin's gland abscess Is this a current diagnosis for this admission?: Yes Plan: Erythema and edema noted to the left labia majora. No identified anterior lesions or drainage present. OBGYN consulted; appreciate Dr. Carranza's evaluation recommendations. Start warm compress and sitz bath's. Continue antibiotics as above. (3) DVT, femoral, acute Qualifiers: Laterality: left Qualified Code(s): I82.412 - Acute embolism and thrombosis of left femoral vein Is this a current diagnosis for this admission?: Yes Plan: Left femoral vein superficial thrombosis. Now on full dose heparin gtt s/p I&D Will bridge to A/C prior to discharge; will need to speak with discharge planning regarding affordable anticoagulation options. Continue Heparin gtt until TECHNOLOGY METHODOLOGY CONSULTANT and Surgery sign off. (4) Migraine Is this a current diagnosis for this admission?: No Plan: Continue Fioricet as needed. (5) Anemia Qualifiers: Anemia type: iron deficiency Iron deficiency anemia type: unspecified iron deficiency Qualified Code(s): D50.9 - Iron deficiency anemia, unspecified Is this a current diagnosis for this admission?: No Plan: Hgb 9.1 PMH iron deficiency anemia S/p 2 U PRBC Anemia studies reveal serum iron level of 10 Iron infusion 07/20, will reassess need for additional iron infusions Monitor H&H and Iron/TIBC. Transfuse if Hgb < 8, actively bleeding or symptomatic. Has been followed by Dr. Rivera as outpatient. If patient requires additional blood products, will consult hematology. (6) Anxiety disorder Is this a current diagnosis for this admission?: No Plan: Continue BuSpar. (7) History of intravenous drug abuse Is this a current diagnosis for this admission?: No Plan: Continue Subutex Patient states she has "not used a needle in over a year" Avoid IV narcotics due to IVDU Discharge planning is consulted. (8) History of seizure Is this a current diagnosis for this admission?: Yes Plan: Continue Lamictal. Seizure precautions. (9) Bacteremia Is this a current diagnosis for this admission?: Yes Plan: MRSA positive (4/4 bottles) 07/22/18 Repeat cultures are negative at 24 hours. Infectious disease was consulted; recommend minimum 4 weeks IV vancomycin due to patient's complicated history and evidence of septic thrombus to the left femoral vein. Stop date 08/19/18 Patient is very high risk for abuse, cannot d/c home with a PICC line. Patient was previously d/c'd with PICC (2018) and returned w/ sepsis, septic arthritis, upper extremity DVT, and concern for ongoing drug use through PICC line. - Time Time Spent with patient: 25-34 minutes Medications reviewed and adjusted accordingly: Yes Anticipated discharge: Home Within: Other
--- NOTE | 2018-07-23 18:31 | PDOC PROGRESS REPORT ---
Subjective Progress Note for:: 07/23/18 Subjective:: Patient states that her left labia has improved. It is not as red but remains somewhat swollen. She is using the hot and cold compresses but declines to use sitz baths. Reason For Visit: LE ABSCESS Physical Exam - Physical Exam Vital Signs: Temp Pulse Resp BP Pulse Ox 98.1 F 82 18 112/48 L 99 07/23/18 16:34 07/23/18 16:34 07/23/18 16:34 07/23/18 16:34 07/23/18 16:34 Intake & Output 07/22/18 07/23/18 07/24/18 06:59 06:59 06:59 Intake Total 2609 2064 1086 Output Total 250 200 Balance 2359 1864 1086 Weight 67.9 kg 69.5 kg General appearance: PRESENT: no acute distress Respiratory exam: PRESENT: clear to auscultation dmitri Cardiovascular exam: PRESENT: RRR GI/Abdominal exam: PRESENT: normal bowel sounds, soft Extremities exam: ABSENT: calf tenderness, clubbing, full ROM, joint swelling, pedal edema, tenderness, +1 edema, +2 edema, other - Gynecological Exam Labia: other - left labia majora edematous, mild erythema. No fluctuance or lesions noted. Urethra: normal Introitus: normal Perineum: normal Result Laboratory Results: 07/23/18 05:17 07/23/18 05:17 07/23/18 07/23/18 05:17 05:17 WBC 6.4 RBC 4.03 Hgb 9.1 L Hct 28.2 L MCV 70 L MCH 22.5 L MCHC 32.2 RDW 20.9 H Plt Count 371 Sodium 142.2 Potassium 3.6 Chloride 107 Carbon Dioxide 29 Anion Gap 6 BUN 6 L Creatinine 0.86 Est GFR ( Amer) > 60 Est GFR (Non-Af Amer) > 60 Glucose 96 Calcium 8.4 07/19/18 18:16 Thigh - Inner Gram Stain - Final 07/19/18 18:16 Thigh - Inner Wound Culture - Final NO AEROBIC OR ANAEROBIC ORGANISMS RECOVERED 07/19/18 12:45 Troponin I < 0.012 Impressions: Pelvis CT 07/19/18 14:16 IMPRESSION: Diffuse subcutaneous and adductor muscular edema with mild heterogeneous enhancement in the muscle belly, in the midportion of the adductor longus and tano there are small areas of probable rim enhancement- abscess. Numerous linear metallic foreign bodies are present in both common and superficial femoral vascular distributions. There does appear to be a deep vein thrombosis in the proximal left superficial femoral vein.There is lymp hadenopathy in the left inguinal and external and common iliac chains. Chest X-Ray 07/20/18 05:55 IMPRESSION: CENTRAL LINE IN SATISFACTORY POSITION WITH NO PNEUMOTHORAX. NO ACUTE RADIOGRAPHIC FINDING IN THE CHEST. Assessment & Plan - Diagnosis (1) MRSA (methicillin resistant staph aureus) culture positive Is this a current diagnosis for this admission?: Yes (2) Labia enlarged Is this a current diagnosis for this admission?: Yes (3) Bacteremia Is this a current diagnosis for this admission?: Yes (4) Cellulitis of left groin Is this a current diagnosis for this admission?: Yes (5) Cellulitis of left thigh Is this a current diagnosis for this admission?: Yes - Time Time Spent with patient: Less than 15 minutes - Plan Summary Plan Summary: Continue current care
--- NOTE | 2018-07-23 20:08 | XCELERA REPORT ---
[address] [address] Transthoracic Echocardiogram Report Name: CECY VALDERRAMA Age: 32 yrs Gender: Female : 1985 Patient Status: Inpatient Patient Location: [address] [place], [place] [id number] Study Date: 07/22/2018 02:26 PM Height: 70 in Weight: 149 lb BSA: 1.8 m2 Procedure: A two-dimensional transthoracic echocardiogram with color flow Doppler was performed. Study Quality: Good. Reason For Study: r/o endocarditis; mrsa bacteremia History: r/o endocarditis; mrsa bacteremia. Ordering Physician: TOD LAMB Performed By: Sabina Saldana Interpretation Summary Recommend STEPHANIE if clinical uspcion is high. The left ventricle is normal in size. There is normal left ventricular wall thickness. LV EF is 65% The left ventricular ejection fraction is within normal limits. Doppler measurements suggest normal left ventricular diastolic function The left ventricular wall motion is normal. There is no thrombus. There is no ventricular septal defect visualized. The right ventricle is not well visualized secondary to technical limitations The right ventricle is grossly normal size. The right atrium is normal. The left atrial size is normal. The interatrial septum is intact with no evidence for an atrial septal defect. There is no Doppler evidence for an interatrial shunt There is no evidence of mitral valve prolapse. There is no vegetation seen on the mitral valve. There is no mitral valve stenosis. There is a mild to moderate amount of mitral regurgitation There are 2 MR jets There is no aortic valvular vegetation. There is no aortic valve stenosis There is no LVOT obstruction. No aortic regurgitation is present. There is no tricuspid stenosis. There is a moderate amount of tricuspid regurgitation There is mild to moderate pulmonary hypertension by echo RVSP is 46 to 51 mm of Hg , with RA mean of 5 -10. There is no pulmonic valvular stenosis. There is no pulmonic valvular regurgitation. The aortic root is normal size. The inferior vena cava appeared normal and decreased < 50% with respiration (RAP 10-15 mmHg) There is no pericardial effusion. Recommend STEPHANIE if clinical uspcion is high. MMode/2D Measurements & Calculations RVDd: 4.1 cm LVIDd: 4.9 cm FS: 34.0 % Ao root diam: 2.6 cm IVSd: 0.99 cm LVIDs: 3.2 cm EDV(Teich): 110.3 ml Ao root area: 5.3 cm2 LVPWd: 1.00 cm ESV(Teich): 41.0 ml LA dimension: 4.0 cm EF(Teich): 62.8 % Doppler Measurements & Calculations MV E max khurram: MV P1/2t max khurram: Ao V2 max: LV V1 max P.3 cm/sec 129.8 cm/sec 133.0 cm/sec 4.4 mmHg MV A max khurram: MV P1/2t: 76.9 msec Ao max P.1 mmHgLV V1 max: 38.5 cm/sec MVA(P1/2t): 2.9 cm2 105.1 cm/sec MV E/A: 3.4 MV dec slope: 494.4 cm/sec2 MV dec time: 0.27 sec PA V2 max: TR max khurram: MV P1/2t-pr_phl: 107.6 cm/sec 298.6 cm/sec 76.9 msec PA max P.6 mmHgTR max P.7 mmHg Left Ventricle The left ventricle is normal in size. There is normal left ventricular wall thickness. LV EF is 65%. The left ventricular ejection fraction is within normal limits. Doppler measurements suggest normal left ventricular diastolic function. The left ventricular wall motion is normal. There is no thrombus. There is no ventricular septal defect visualized. Right Ventricle The right ventricle is not well visualized secondary to technical limitations. The right ventricle is grossly normal size. Atria The right atrium is normal. The left atrial size is normal. The interatrial septum is intact with no evidence for an atrial septal defect. There is no Doppler evidence for an interatrial shunt. Mitral Valve There is no evidence of mitral valve prolapse. There is no vegetation seen on the mitral valve. There is no mitral valve stenosis. There is a mild to moderate amount of mitral regurgitation. There are 2 MR jets. Aortic Valve There is no aortic valvular vegetation. There is no aortic valve stenosis. There is no LVOT obstruction. No aortic regurgitation is present. Tricuspid Valve There is no tricuspid stenosis. There is a moderate amount of tricuspid regurgitation. There is mild to moderate pulmonary hypertension by echo. RVSP is 46 to 51 mm of Hg , with RA mean of 5 -10. Pulmonic Valve There is no pulmonic valvular stenosis. There is no pulmonic valvular regurgitation. Great Vessels The aortic root is normal size. The inferior vena cava appeared normal and decreased < 50% with respiration (RAP 10-15 mmHg). Effusions There is no pericardial effusion. : TOD LAMB > Almaz Escamilla
[2018-07-23] MEDS: LAMOTRIGINE 200 MG PO SCH (21:00)
[2018-07-23] MEDS: SERTRALINE HCL 50 MG TABLET PO SCH (21:03)
[2018-07-24] MEDS: VANCOMYCIN HCL 1,000 MG in DEXTROSE 5%-WATER 250 ML IV SCH ×2 (01:55→10:10)
[2018-07-24] MEDS: BUPRENORPHINE HCL 2 MG SUBLINGUAL TABLET SL SCH ×2 (05:23→13:21)
[2018-07-24] MEDS: GABAPENTIN 300 MG CAPSULE PO SCH ×2 (05:23→13:21)
[2018-07-24] MEDS: HEPARIN SODIUM,PORCINE/D5W 25,000 UNIT/250 ML RTUINJ IV PRN (10:10)
[2018-07-24] MEDS: KETOROLAC TROMETHAMINE INJ/PF 30 MG/1 ML SDV IV PRN (10:12)
[2018-07-24] MEDS: BUSPIRONE HCL 10 MG TABLET PO SCH (10:12)
[2018-07-24] MEDS: FAMOTIDINE 20 MG TABLET PO SCH (10:12)
[2018-07-24 11:48] VITALS: BP 122/70
--- NOTE | 2018-07-24 12:54 | PDOC PROGRESS REPORT ---
Subjective Progress Note for:: 07/24/18 Subjective:: left thigh pains Reason For Visit: LE ABSCESS Physical Exam Vital Signs: Temp Pulse Resp BP Pulse Ox 97.8 F 43 L 16 122/70 97 07/24/18 11:29 07/24/18 11:29 07/24/18 11:29 07/24/18 11:29 07/24/18 11:29 Intake & Output 07/23/18 07/24/18 07/25/18 06:59 06:59 06:59 Intake Total 2064 1586 500 Output Total 200 Balance 1864 1586 500 Weight 69.5 kg 70.2 kg Exam: Left thigh inflammation decreasing. No drainage along drain sites. Results Laboratory Results: 07/23/18 05:17 07/23/18 05:17 07/19/18 18:16 Thigh - Inner Gram Stain - Final 07/19/18 18:16 Thigh - Inner Wound Culture - Final NO AEROBIC OR ANAEROBIC ORGANISMS RECOVERED 07/19/18 12:45 Troponin I < 0.012 Impressions: Pelvis CT 07/19/18 14:16 IMPRESSION: Diffuse subcutaneous and adductor muscular edema with mild heterogeneous enhancement in the muscle belly, in the midportion of the adductor longus and tano there are small areas of probable rim enhancement- abscess. Numerous linear metallic foreign bodies are present in both common and superficial femoral vascular distributions. There does appear to be a deep vein thrombosis in the proximal left superficial femoral vein.There is lymphadenopathy in the left inguinal and external and common iliac chains. Chest X-Ray 07/20/18 05:55 IMPRESSION: CENTRAL LINE IN SATISFACTORY POSITION WITH NO PNEUMOTHORAX. NO ACUTE RADIOGRAPHIC FINDING IN THE CHEST. Assessment & Plan - Time Time Spent with patient: 15-24 minutes - Inpatient Certification Medical Necessity: Need for IV Antibiotics - Plan Summary Plan Summary: All 3 gabriel drains removed from left thigh Would continue IV antibiotics knowing ID suggested total 4 weeks Could continue a few more days then discharge on po antibiotics More dangerous to send her home on a Picc line since she has history of drug abuse Will sign off. Call for questions
--- NOTE | 2018-07-24 14:33 | Left Against Medical Advice ---
Against Medical Advice Admission Date/Time: 07/19/18 15:47 Primary Care Provider: KEDAR RANKIN Date of Patient Emigration: 07/24/18 - Diagnosis: (1) Cellulitis of left thigh Is this a current diagnosis for this admission?: Yes (2) Bartholin's gland abscess Is this a current diagnosis for this admission?: Yes (3) DVT, femoral, acute Is this a current diagnosis for this admission?: Yes (4) Migraine Is this a current diagnosis for this admission?: No (5) Anemia Is this a current diagnosis for this admission?: Yes (6) Anxiety disorder Is this a current diagnosis for this admission?: Yes (7) History of intravenous drug abuse Is this a current diagnosis for this admission?: Yes (8) History of seizure Is this a current diagnosis for this admission?: Yes (9) Bacteremia Is this a current diagnosis for this admission?: Yes - Summary: Summary: Please see Admission and Progress Notes as well. CECY VALDERRAMA is a 32 F, who LEFT AGAINST MEDICAL ADVICE. The Patient was admitted on 07/19/18 15:47. The patient was admitted with cellulitis and abscess formation to the left anterior thigh and a edematous, erythematous, tender left labia majora concerning for Kingfisher gland abscess. She underwent surgical I&D of the thigh on day of admission with drains placed which were removed by Surgical services today. Patient was empirically placed on IV Zosyn and vancomycin. ADMISSIONS MANAGER was consulted; recommended conservative measures with sitz bath and warm compress to the labia majora; has improved significantly since time of admission. Pelvic CT imaging was highly concerning for thrombosis of the left superficial femoral artery so patient was placed on heparin drip. Blood cultures grew MRSA in 3/4 bottles. Infectious disease was consulted and recommended rule out endocarditis; TTE was negative with recommendations for follow-up STEPHANIE as indicated. Infectious di edmund had advised a 4-week course of antibiotics given the patient's septic thrombosis and 6 weeks for confirmed endocarditis. Repeat blood cultures are negative. Unfortunately the patient has decided today to leave AGAINST MEDICAL ADVICE despite urging to remain by hospital staff and family members. She is provided prescriptions for Xarelto; transmitted to patient's pharmacy. She is advised that I cannot prescribe adequate antibiotic for treatment of MRSA bacteremia. She is advised of the risks, including endocarditis and , related to suboptimal treatment of MRSA bacteremia and encouraged to return to the hospital for treatment if she changes her mind.
== END 2018-07-24 14:43 | disposition left against medical advice (07) | DRG 603 ==
LOC: ER 11:25 → EH 15:47 → 3N 19:40
PROVIDERS: ADMIT Internal Medicine; ATTEND Internal Medicine
PROC: 0J9P00Z Drainage of Left Lower Leg Subcutaneous Tissue and Fascia with Drainage Device, Open Approach (ICD-10-PCS; principal; 2018-07-19 17:30)
PROC: 02HV33Z Insertion of Infusion Device into Superior Vena Cava, Percutaneous Approach (ICD-10-PCS; 2018-07-20)
PROC: 30233N1 Transfusion of Nonautologous Red Blood Cells into Peripheral Vein, Percutaneous Approach (ICD-10-PCS; 2018-07-20)
PROC: 30233N1 Transfusion of Nonautologous Red Blood Cells into Peripheral Vein, Percutaneous Approach (ICD-10-PCS; 2018-07-22)
DX: L03.116 Cellulitis of left lower limb (principal); R78.81 Bacteremia; L03.314 Cellulitis of groin; I82.412 Acute embolism and thrombosis of left femoral vein; N75.1 Abscess of Bartholin's gland; F11.20 Opioid dependence, uncomplicated; N76.2 Acute vulvitis; B95.62 Methicillin resistant Staphylococcus aureus infection as the cause of diseases classified elsewhere; D50.9 Iron deficiency anemia, unspecified; G40.909 Epilepsy, unspecified, not intractable, without status epilepticus; G43.909 Migraine, unspecified, not intractable, without status migrainosus; B19.20 Unspecified viral hepatitis C without hepatic coma; M79.5 Residual foreign body in soft tissue; F41.8 Other specified anxiety disorders; F17.210 Nicotine dependence, cigarettes, uncomplicated; Z79.01 Long term (current) use of anticoagulants; Z79.899 Other long term (current) drug therapy
CPT/HCPCS: 36415; 36430; 400; 71045; 72193; 80048; 80053; 80202; 80307; 81001; 81025; 82607; 82728; 82746; 82803; 83540; 83550; 83605; 83735; 84484; 85025; 85027; 85045; 85610; 85652; 85730; 86140; 86850; 86900; 86901; 86920; 87040; 87070; 87075; 87077; 87086; 87186; 87205; 93005; 93010; 93306; C1751; J0131; J0330; J0571; J1100; J1170; J1439; J1644; J1885; J2001; J2250; J2405; J2543; J2704; J3010; J3370; J3490; J7030; J7042; J7050; J7060; P9016; S0164

== ENCOUNTER 2018-12-05 22:44 | Inpatient (IN) | payer MEDICAID ==
[2018-12-06] MEDS ORDERED: MORPHINE SULFATE 10 MG/ML INJ IV ONE (02:17)
--- NOTE | 2018-12-06 02:24 | RADIOLOGY REPORT (SQ) ---
EXAM: X-ray knee four or more views CLINICAL DATA: 33-year-old female who twisted her right knee three days ago and has minimal range of motion and severe pain, unable to straighten leg TECHNICAL DATA: Three x-ray views of the right knee were performed on 12/06/2018 at 12:39 AM. COMPARISONS: None FINDINGS: There is no evidence of acute fracture or dislocation. The knee is fixed in partial flexion as the patient is unable to straighten the knee due to pain. Underlying ligamentous injury is not excluded. No significant arthritic or degenerative changes are identified. No pathologic lytic or sclerotic bone lesions are seen. Bone mineralization is slightly diminished. No focal soft tissue abnormalities are identified. There is no evidence of a joint effusion. There is no evidence of subcutaneous emphysema. IMPRESSION: 1. No definite acute osseous injury. 2. The knee appears to be fixed in partial flexion as the patient is unable to straighten the knee secondary to pain. Underlying ligamentous injury is not excluded.
--- NOTE | 2018-12-06 03:28 | ER Document Report ---
ED Extremity Problem, Lower - General Chief Complaint: Knee Injury Stated Complaint: KNEE SWELLING Time Seen by Provider: 12/06/18 02:01 Primary Care Provider: KEDAR RANKIN MD [Primary Care Provider] - Follow up as needed TRAVEL OUTSIDE OF THE [place] IN LAST 30 DAYS: Yes - HPI Notes: This is a 33-year-old female who presents today with a complaint of right knee injury for the past 2 days. Patient states she tripped and fell, hitting her right knee about 2 days ago. Pain has increased and she has had more swelling in the knee. Pain is worse with distention and weightbearing. She denies any fever or chills. She denies any illnesses. Describes her symptoms as moderate. - Related Data Allergies/Adverse Reactions: latex [Latex] Allergy (Intermediate, Verified 09/22/17 10:02) RASH, SWELLING AT AREA Sulfa (Sulfonamide Antibiotics) Allergy (Verified 09/22/17 10:02) Past Medical History - Social History Smoking Status: Never Smoker Frequency of alcohol use: None Drug Abuse: None Family History: Reviewed & Not Pertinent, Hypertension Patient has suicidal ideation: No Patient has homicidal ideation: No - Past Medical History Cardiac Medical History: Denies: Hx Coronary Artery Disease, Hx Heart Attack, Hx Hypertension Pulmonary Medical History: Denies: Hx Asthma, Hx Bronchitis, Hx COPD, Hx Pneumonia Neurological Medical History: Reports: Hx Seizures Renal/ Medical History: Denies: Hx Peritoneal Dialysis Musculoskeletal Medical History: Denies Hx Arthritis Psychiatric Medical History: Reports: Hx Anxiety, Hx Depression - reports history of anxiety Past Surgical History: Reports: Hx Appendectomy, Hx Cardiac Surgery - Ablation for SVT, Hx Section, Hx Neurologic Surgery, Other - D&C, shoulder abscess surgery - Immunizations Hx Diphtheria, Pertussis, Tetanus Vaccination: No Review of Systems - Review of Systems Constitutional: denies: Fever Cardiovascular: denies: Chest pain Gastrointestinal: denies: Abdominal pain Genitourinary: denies: Burning, Dysuria Musculoskeletal: Joint pain -: Yes All other systems reviewed and negative Physical Exam - Vital signs Vitals: Temp Pulse Resp BP Pulse Ox 98.5 F 76 18 92/43 L 100 12/05/18 23:06 12/05/18 23:06 12/05/18 23:06 12/05/18 23:06 12/05/18 23:06 - General General appearance: Appears well, Alert Notes: Appears uncomfortable, in pain. - Respiratory Respiratory status: No respiratory distress Chest status: Nontender Breath sounds: Normal Chest palpation: Normal - Cardiovascular Rhythm: Regular Heart sounds: Normal auscultation Murmur: No - Abdominal Inspection: Normal Distension: No distension Bowel sounds: Normal Tenderness: Nontender Organomegaly: No organomegaly - Extremities Knee: Tender - There is tenderness and swelling of the right knee. There is slight abrasion. There is no obvious effusion. There is no calf tenderness. There is pain with extension of the knee. No warmth appreciated. Normal distal exam of the right lower extremity. - Neurological Neuro grossly intact: Yes Cognition: Normal Orientation: AAOx4 [place] Coma Scale Eye Opening: Spontaneous [place] Coma Scale Verbal: Oriented [place] Coma Scale Motor: Obeys Commands [place] Coma Scale Total: 15 Speech: Normal Motor strength normal: LUE, RUE, LLE, RLE Sensory: Normal - Skin Skin Temperature: Warm Skin Moisture: Dry Skin Color: Normal Course - Re-evaluation Re-evalutation: 12/06/18 03:28 Differential diagnosis includes knee contusion versus fracture. Given swelling, will check hemoglobin to rule out any traumatic hematoma. No clinical suspicion for infectious etiology. 12/06/18 04:43 Patient continues to complain of severe pain. Knee still held in flexion. I will get a CT scan given unremarkable x-ray. Awaiting labs. 12/06/18 06:26 Patient is being overly dramatic. She is asking for more narcotic pain medication. I have reviewed her records. There is no indication for narcotic medication at this time. Patient needs to have her scan abdominal. Patient's care discussed with Dr. Sequeira. Care transferred to Dr. Sequeira pending the CT and labs. Anticipate discharge if CT scan is negative. - Vital Signs Vital signs: Temp Pulse Resp BP Pulse Ox 98.5 F 76 18 92/43 L 100 12/05/18 23:06 12/05/18 23:06 12/05/18 23:06 12/05/18 23:06 12/05/18 23:06 - Laboratory Result Diagrams: 12/06/18 05:48 12/06/18 05:48 Discharge - Discharge Clinical Impression: Knee injury Qualifiers: Encounter type: initial encounter Laterality: right Qualified Code(s): S89.91XA - Unspecified injury of right lower leg, initial encounter Condition: Stable Disposition: OTHER Instructions: Knee Immobilizing Splint ([facility]), Sprained Knee ([facility]) Referrals: KEDAR RANKIN MD [Primary Care Provider] - Follow up as needed
[2018-12-06] MEDS ORDERED: HYDROMORPHONE HCL INJ/PF 2 MG/ML AMPULE IV ONE (04:42)
[2018-12-06] MEDS ORDERED: HYDROMORPHONE HCL INJ/PF 2 MG/ML AMPULE IM ONE (05:21)
[2018-12-06 06:14] LABS: ABSOLUTE EOSINOPHILS # (AUTO) 0.1 10^3/uL (0.0-0.6); ABSOLUTE LYMPHOCYTES (AUTO) 1.1 10^3/uL (0.5-4.7); ABSOLUTE MONOCYTES (AUTO) 0.9 10^3/uL (0.1-1.4); ABSOLUTE NEUT (AUTO) 8.5 10^3/uL (1.7-8.2); BASOPHILS % (AUTO) 0.2 % (0-2); EOSINOPHILS % (AUTO) 0.5 % (0-6); HEMATOCRIT 34.3 % (36.0-47.0); HEMOGLOBIN 11.7 g/dL (12.0-15.5); LYMPHOCYTES % (AUTO) 10.4 % (13-45); MEAN CORPUSCULAR HEMOGLOBIN 27.9 pg (27.0-33.4); MEAN CORPUSCULAR VOLUME 82 fl (80-97); MONOCYTES % (AUTO) 8.6 % (3-13); PLATELET COUNT 305 10^3/uL (150-450); RED BLOOD COUNT 4.19 10^6/uL (3.72-5.28); RED CELL DISTRIBUTION WIDTH 14.9 % (11.5-14.0); SEGMENTED NEUTROPHILS % (AUTO) 80.3 % (42-78); TOTAL CELLS COUNTED % (AUTO) 100 %; WHITE BLOOD COUNT 10.6 10^3/uL (4.0-10.5)
[2018-12-06 06:28] LABS: ANION GAP 10 (5-19); BLOOD UREA NITROGEN 8 mg/dL (7-20); CALCIUM 8.9 mg/dL (8.4-10.2); CARBON DIOXIDE 26 mmol/L (22-30); CHLORIDE 101 mmol/L (98-107); GLUCOSE 108 mg/dL (75-110)
[2018-12-06] MEDS ORDERED: KETOROLAC TROMETHAMINE INJ/PF 30 MG/1 ML SDV IV ONE (08:41)
[2018-12-06 08:55] LABS: C-REACTIVE PROTEIN 199.3 mg/L (<10.0)
--- NOTE | 2018-12-06 11:44 | RADIOLOGY REPORT (SQ) ---
EXAM DESCRIPTION: MRI RT LOWER JOINT WITHOUT COMPLETED DATE/TIME: 12/06/2018 10:42 am REASON FOR STUDY: right knee, thigh, leg swelling COMPARISON: X-ray dated 12/06/2018. TECHNIQUE: Right knee images acquired and stored on PACS. Multiplanar images include fat sensitive sequences as T1, water sensitive sequences as FST2 or STIR, cartilage sensitive sequences as FSPD, an d gradient echo sequences. LIMITATIONS: Suboptimal positioning and mild motion artifact. FINDINGS: JOINT AND BURSAE: Joint effusion extending into the suprapatellar bursa. Ganglion cyst. BONE CORTEX AND MARROW: Marked patchy demineralization of the proximal tibia. No marrow edema. No f racture. ACL: Intact. No degeneration or ganglion cyst. PCL: Intact. MCL: Intact. No periligamentous edema or fluid. LCL: Intact. No periligamentous edema or fluid. MEDIAL MENISCUS: No tears. No abnormal signal. LATERAL MENISCUS: No tears. No abnormal signal. MEDIAL COMPARTMENT: Cartilage preserved. No bone bruises or reactive marrow edema. No osteophytes. LATERAL COMPARTMENT: Cartilage preserved. No bone bruises or reactive marrow edema. No osteophytes. PATELLA: No chondromalacia. No subchondral cysts. Medial and lateral retinacula intact. EXTENSOR MECHANISM: Intact. Quadriceps and patella tendons normal. SOFT TISSUES: Adjacent muscles and subcutaneous tissues normal. Normal flow void in popliteal artery and vein. OTHER: No other significant finding. IMPRESSION: 1. JOINT EFFUSION AND GANGLION CYST. 2. MARKED PATCHY DEMINERALIZATION OF THE PROXIMAL TIBIA. 3. NO FRACTURE OR MARROW EDEMA. GROSSLY INTACT MENISCI AND SUPPORTING STRUCTURES WITH NO INTERNAL DE RANGEMENT. TECHNICAL DOCUMENTATION: JOB ID: [id number]- All Rights Reserved Reading location - IP/workstation name: [email or web address]
--- NOTE | 2018-12-06 12:19 | ER Document Report ---
Doctor's Note Notes: 12/06/18 12:10 This 33-year-old female patient came into the emergency room during the night complaining of pain and swelling to her right knee. She reports that she stepped in a hole that her dog dug 2 days ago. She continued to walk on the extremity until it began to hurt too much. She is kept it in a flexed position now for probably 24 hours for more by history. She states that it is too painful to extend. Initial x-rays were read as negative with no effusion. On exam there does appear to be a mild joint effusion. She is very tender to the joint and several centimeters above and below the right knee joint. Her past history is significant for MRSA septic left shoulder, and prior IV drug abuse. She also had several admissions for abscesses and sepsis. She is currently on Subutex. An MRI was done after a CRP came back at approximately 200 and the ESR came back at approximately 100. White blood cell count was also elevated with a shift, and compared to prior sepsis visits, it was higher than most visits. The MRI shows small joint effusion with a ganglion cyst. There is markedly demineralization of the proximal tibia. There is no internal derangement noted. I did discuss the case at length with Dr. Handley who was the surgeon for her septic joint in August 2017. We are both concerned that the patient is a high risk patient for sepsis given her past history, and the current laboratory findings. He is not direct support professional home health today, but is agreeable to seeing the patient tomorrow morning when he comes back direct support professional home health if the hospitalists will admit her for blood cultures and further evaluation. 12/06/18 13:23 I discussed the case with Dr. Diaz who agrees to admit the patient with a consult to Dr. Handley.
[2018-12-06] MEDS ORDERED: ONDANSETRON 4 MG TAB.RAPDIS PO PRN (14:11)
[2018-12-06] MEDS ORDERED: MAGNESIUM HYDROXIDE SUSP 30 ML UDCUP PO PRN (14:11)
[2018-12-06] MEDS ORDERED: MAG HYDROX/AL HYDROX/SIMETH SUSP 30 ML UDCUP PO PRN (14:11)
--- NOTE | 2018-12-06 14:11 | PDOC H&P ---
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 She reports fever, chills, nausea and significant pain. It is to the point where the knee stays flexed and hurts significantly with any movement. It is tender to touch. Evaluation included x- rays and CT as well as MRI scan. Inflammation noted as well as ganglion cyst. There is a very strong possibility of a septic arthritis given her history. Her sed rate and C-reactive protein are extremely elevated. The patient will be admitted to the hospital. We will start IV vancomycin. Dr. tavera is on-call tomorrow and in his discussion with the emergency room physician will see the patient tomorrow morning. He suggested referring the patient to the hospitalist service for admission. Past Medical History Cardiac Medical History: Denies: Coronary Artery Disease, Myocardial Infarction, Hypertension Pulmonary Medical History: Denies: Asthma, Bronchitis, Chronic Obstructive Pulmonary Disease (COPD), Pneumonia Neurological Medical History: Reports: Seizures Musculoskeltal Medical History: Denies: Arthritis Psychiatric Medical History: Reports: Depression - reports history of anxiety, Substance Abuse, Tobacco Dependency Hematology: Reports: Anemia Infectious Medical History: Reports: Methicillin-Resistant Staph Aureus Past Surgical History Past Surgical History: Reports: Appendectomy, Section, Other - D&C, shoulder abscess surgery Social History Information Source: Patient Lives with: Alone Smoking Status: Current Every Day Smoker Electronic Cigarette use?: No Frequency of Alcohol Use: None Hx Recreational Drug Use: Yes Drugs: Other Hx Prescription Drug Abuse: Yes - Advance Directive Resuscitation Status: Full Code Family History Family History: Reviewed & Not Pertinent, Hypertension Parental Family History Reviewed: Yes Children Family History Reviewed: NA Sibling(s) Family History Reviewed.: Yes Medication/Allergy Home Medications: Buprenorphine HCl [Subutex 8 mg Sublingual Tablet] 8 mg SL Q8 12/06/18 Butalb/Acetaminophen/Caffeine [Fioricet (50-325-40 mg) Tablet] 1 tab PO Q8HP PRN 12/06/18 Gabapentin [Neurontin 300 mg Capsule] 900 mg PO Q8 12/06/18 Ibuprofen [Motrin 800 mg Tablet] 800 mg PO Q8HP PRN 12/06/18 Lamotrigine [Lamictal Xr] 200 mg PO QHS 12/06/18 Sertraline HCl [Zoloft] 100 mg PO DAILY 12/06/18 Allergies/Adverse Reactions: latex [Latex] Allergy (Intermediate, Verified 09/22/17 10:02) RASH, SWELLING AT AREA Sulfa (Sulfonamide Antibiotics) Allergy (Verified 09/22/17 10:02) Review of Systems Constitutional: PRESENT: anorexia, fever(s), headache(s), weakness Eyes: ABSENT: visual disturbances Ears: ABSENT: hearing changes Nose, Mouth, and Throat: PRESENT: headache(s). ABSENT: mouth pain, sore throat Cardiovascular: ABSENT: chest pain, edema, palpitations Respiratory: ABSENT: cough, dyspnea, hemoptysis, sputum Gastrointestinal: PRESENT: nausea. ABSENT: abdominal pain, constipation, diarrhea, heartburn, vomiting Genitourinary: ABSENT: difficulty urinating, dysuria, hematuria Musculoskeletal: PRESENT: joint swelling - Swelling right knee, other - Significant pain when attempting to extend the right leg Integumentary: PRESENT: erythema - Mild erythema right knee Neurological: ABSENT: abnormal speech, frequent falls, memory loss, tremor(s) Psychiatric: PRESENT: depression Endocrine: ABSENT: cold intolerance, heat intolerance Hematologic/Lymphatic: ABSENT: easy bleeding, easy bruising Physical Exam Vital Signs: Temp Pulse Resp BP Pulse Ox 98.4 F 96 16 115/72 100 12/06/18 03:03 12/06/18 03:03 12/06/18 03:03 12/06/18 03:03 12/05/18 23:06 Intake & Output 12/05/18 12/06/18 12/07/18 06:59 06:59 06:59 Weight 56.8 kg General appearance: PRESENT: severe distress, thin, well-developed Head exam: PRESENT: atraumatic, normocephalic Eye exam: PRESENT: conjunctiva pink. ABSENT: scleral icterus Ear exam: PRESENT: normal external ear exam. ABSENT: bleeding, drainage Mouth exam: PRESENT: moist, tongue midline Respiratory exam: PRESENT: clear to auscultation dmitri, symmetrical, unlabored. ABSENT: rales, rhonchi, tachypnea, wheezes Cardiovascular exam: PRESENT: RRR, +S1, +S2 GI/Abdominal exam: PRESENT: normal bowel sounds, soft. ABSENT: distended, tenderness Extremities exam: PRESENT: joint swelling, other - Skin around the joint is warm and there is a small area of erythema. Extremely painful with any movement or to palpation. Musculoskeletal exam: PRESENT: tenderness. ABSENT: full ROM, normal inspection Neurological exam: PRESENT: alert, awake, oriented to person, oriented to place, oriented to time, oriented to situation, CN II-XII grossly intact Psychiatric exam: PRESENT: appropriate affect - Affect reflects her pain. ABSENT: agitated, anxious Focused psych exam: ABSENT: delusional, restlessness Skin exam: PRESENT: erythema Results Laboratory Results: 12/06/18 05:48 12/06/18 05:48 12/06/18 12/06/18 12/06/18 05:48 05:48 05:48 WBC 10.6 H RBC 4.19 Hgb 11.7 L Hct 34.3 L MCV 82 MCH 27.9 MCHC 34.0 RDW 14.9 H Plt Count 305 Seg Neutrophils % 80.3 H Sodium 136.7 L Potassium 4.0 Chloride 101 Carbon Dioxide 26 Anion Gap 10 BUN 8 Creatinine 0.39 L Est GFR ( Amer) > 60 Glucose 108 Calcium 8.9 C-Reactive Protein 199.3 H Impressions: Knee X-Ray 12/05/18 00:00 IMPRESSION: 1. No definite acute osseous injury. 2. The knee appears to be fixed in partial flexion as the patient is unable to straighten the knee secondary to pain. Underlying ligamentous injury is not excluded. Lower Extremity MRI 12/06/18 09:21 IMPRESSION: 1. JOINT EFFUSION AND GANGLION CYST. 2. MARKED PATCHY DEMINERALIZATION OF THE PROXIMAL TIBIA. 3. NO FRACTURE OR MARROW EDEMA. GROSSLY INTACT MENISCI AND SUPPORTING STRUCTURES WITH NO INTERNAL DERANGEMENT. Assessment and Plan - Diagnosis (1) Septic arthritis Qualifiers: Septic arthritis location: knee Septic arthritis organism: staphylococcal Laterality: left Qualified Code(s): M00.062 - Staphylococcal arthritis, left knee Is this a current diagnosis for this admission?: Yes (2) Elevated C-reactive protein (CRP) Is this a current diagnosis for this admission?: Yes (3) Elevated erythrocyte sedimentation rate Is this a current diagnosis for this admission?: Yes (4) Opioid dependence Qualifiers: Substance use status: in remission Qualified Code(s): F11.21 - Opioid dependence, in remission Is this a current diagnosis for this admission?: Yes (5) History of methicillin resistant Staph aureus Is this a current diagnosis for this admission?: Yes - Plan Summary Summary: 12/06/2018 Septic arthritis-patient has had multiple infections some requiring surgery with methicillin-resistant staph aureus in the past. Her sed rate and C-reactive protein are markedly elevated. Likely related to IV drug use. She states that she has stopped. I will start her on vancomycin therapy. Dr. Valencia will see her tomorrow. We will continue her Subutex but no additional opiate therapy for pain. Ibuprofen and ketorolac ordered Opioid addiction-continue Subutex Hepatitis C-standard contact precautions regarding blood and body fluids. Tobacco dependence-nicotine patch available if needed - Time Time Spent with patient: 35 or more minutes Medications reviewed and adjusted accordingly: Yes Anticipated discharge: Home - Inpatient Certification Based on my medical assessment, after consideration of the patient's comorbidities, presenting symptoms, or acuity I expect that the services needed warrant INPATIENT care.: Yes I certify that my determination is in accordance with my understanding of Medicare's requirements for reasonable and necessary INPATIENT services [42 CFR 412.3e].: Yes Medical Necessity: Need for IV Antibiotics 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
[2018-12-06] MEDS ORDERED: VANCOMYCIN HCL 0 MG in DEXTROSE 5%-WATER 250 ML IV NR (14:30)
[2018-12-06 14:48] LABS: ALBUMIN 3.3 g/dL (3.5-5.0); ALKALINE PHOSPHATASE 164 U/L (38-126); ASPARTATE AMINO TRANSFERASE 17 U/L (14-36); BILIRUBIN,DIRECT 0.2 mg/dL (0.0-0.4); BILIRUBIN,TOTAL 0.3 mg/dL (0.2-1.3)
[2018-12-06] MEDS: BUPRENORPHINE HCL 2 MG SUBLINGUAL TABLET SL SCH ×2 (15:41→21:52)
[2018-12-06] MEDS: SERTRALINE HCL 50 MG TABLET PO SCH (15:41)
[2018-12-06] MEDS: KETOROLAC TROMETHAMINE INJ/PF 30 MG/1 ML SDV IV PRN ×2 (15:42→21:50)
[2018-12-06] MEDS: NORMAL SALINE 1000 ML 1,000 ML IV PRN (15:46)
[2018-12-06] MEDS ORDERED: NICOTINE 14 MG/24 HR PATCH.TD24 TD PRN (17:03)
[2018-12-06] MEDS: VANCOMYCIN HCL 750 MG in DEXTROSE 5%-WATER 250 ML IV SCH (17:17)
[2018-12-06 17:56] LABS: APPEARANCE,URINE TURBID; BILIRUBIN,URINE NEGATIVE (NEGATIVE); COLOR,URINE YELLOW; GLUCOSE, URINE NEGATIVE (NEGATIVE); KETONES,URINE 20 mg/dL (NEGATIVE); LEUKOCYTE ESTERASE,URINE NEGATIVE (NEGATIVE); NITRITE,URINE NEGATIVE (NEGATIVE); PROTEIN,URINE 100 mg/dL (NEGATIVE); URINE SPECIFIC GRAVITY 1.023
[2018-12-06] MEDS: HEPARIN SOD (PORCINE) 5,000 UNIT/ML 1 ML VIAL SUBCUT SCH (21:52)
[2018-12-06] MEDS: GABAPENTIN 300 MG CAPSULE PO SCH (21:52)
[2018-12-06] MEDS: FAMOTIDINE 20 MG TABLET PO SCH (21:52)
[2018-12-06] MEDS ORDERED: BUPRENORPHINE HCL 8 MG SL SCH (22:00)
[2018-12-07] MEDS: VANCOMYCIN HCL 750 MG in DEXTROSE 5%-WATER 250 ML IV SCH ×3 (01:11→21:07)
[2018-12-07] MEDS: KETOROLAC TROMETHAMINE INJ/PF 30 MG/1 ML SDV IV PRN ×3 (04:15→19:04)
[2018-12-07] MEDS: BUPRENORPHINE HCL 2 MG SUBLINGUAL TABLET SL SCH ×3 (05:12→21:52)
[2018-12-07] MEDS: HEPARIN SOD (PORCINE) 5,000 UNIT/ML 1 ML VIAL SUBCUT SCH ×3 (05:12→21:52)
[2018-12-07] MEDS: GABAPENTIN 300 MG CAPSULE PO SCH ×3 (05:13→21:52)
[2018-12-07 05:36] LABS: ABSOLUTE BASOPHILS # (AUTO) 0.1 10^3/uL (0.0-0.2); ABSOLUTE LYMPHOCYTES (AUTO) 1.4 10^3/uL (0.5-4.7); ABSOLUTE MONOCYTES (AUTO) 1.1 10^3/uL (0.1-1.4); ABSOLUTE NEUT (AUTO) 7.9 10^3/uL (1.7-8.2); BASOPHILS % (AUTO) 0.9 % (0-2); EOSINOPHILS % (AUTO) 0.4 % (0-6); HEMATOCRIT 35.7 % (36.0-47.0); HEMOGLOBIN 12.1 g/dL (12.0-15.5); LYMPHOCYTES % (AUTO) 13.6 % (13-45); MEAN CORPUSCULAR HEMOGLOBIN 27.4 pg (27.0-33.4); MEAN CORPUSCULAR HGB CONC 33.8 g/dL (32.0-36.0); MEAN CORPUSCULAR VOLUME 81 fl (80-97); MONOCYTES % (AUTO) 10.4 % (3-13); PLATELET COUNT 374 10^3/uL (150-450); RED CELL DISTRIBUTION WIDTH 15.1 % (11.5-14.0); SEGMENTED NEUTROPHILS % (AUTO) 74.7 % (42-78); TOTAL CELLS COUNTED % (AUTO) 100 %; WHITE BLOOD COUNT 10.6 10^3/uL (4.0-10.5)
[2018-12-07] MEDS: METRONIDAZOLE 500 MG/NS RTU 500 MG/100 ML RTUPB IV SCH ×3 (05:38→19:05)
--- NOTE | 2018-12-07 05:45 | Progress Note ---
Provider Note Provider Note: Critical care: 12/07/2018 Critical care start time: 5:14 AM Critical care issue: Positive blood culture The patient's nurse informed me of a positive anaerobic blood culture, with preliminary gram-positive cocci growth. Patient was noted to be on vancomycin but no other antibiotic at the present time. I evaluated the patient in her room and found her to have a regular rate and rhythm on cardiac auscultation, lungs were clear to auscultation bilaterally, abdomen was soft with normal bowel sounds, her right knee showed moderate to severe tenderness on palpation and pain with any movement, her mental status was alert and oriented x3. I reviewed her allergies and also reviewed her history of present illness. I discussed the presence of the positive blood cultures with her and indicated that she should notify her nurse if any new symptoms or changes in her previous symptoms should occur. We discussed the antibiotic that she will be receiving to treat a potential anaerobic gram-positive cocci. The patient was then started on Flagyl 500 mg IV every 6 hours pending further culture and sensitivity results. Critical care end time: 5:44 AM Total [id number] critical care time: 17 minutes
[2018-12-07] MEDS: SERTRALINE HCL 50 MG TABLET PO SCH (10:29)
[2018-12-07] MEDS: FAMOTIDINE 20 MG TABLET PO SCH ×2 (10:32→21:52)
[2018-12-07] MEDS: NORMAL SALINE 1000 ML 1,000 ML IV PRN (10:33)
[2018-12-07] MEDS ORDERED: DEXTROSE 40% GEL 15 GM TUBE PO PRN ×2 (12:15)
[2018-12-07] MEDS ORDERED: DEXTROSE 50%-WATER 25 GM/50 ML DISP.SYRIN IV PRN ×2 (12:15)
[2018-12-07] MEDS ORDERED: GLUCAGON,HUMAN RECOMB 1 MG INJ SUBCUT PRN (12:15)
--- NOTE | 2018-12-07 12:15 | PDOC CONSULTATION ---
Consultation Consult Date: 12/07/18 Provider Consulted: ERIK MUNSON History of Present Illness Admission Date/PCP: 12/06/18 14:24 KEDAR RANKIN Patient complains of: Right knee pain History of Present Illness: CECY VALDERRAMA is a 33 year old female with long-standing history of IV drug abuse sustained a twisting injury to her knee approximately 4 days ago when she stepped into a hole. Since that time she states she has had pain and discomfort in the knee but over the past 48 hours the pain significantly worsened. She presented to emergency room where x-rays and MRI were completed demonstrating the effusion. Patient was admitted to hospital service started on IV antibiotics. Patient states her pain is not improved with the IV antibiotics. Denies numbness or tingling. Past Medical History Cardiac Medical History: Denies: Coronary Artery Disease, Myocardial Infarction, Hypertension Pulmonary Medical History: Denies: Asthma, Bronchitis, Chronic Obstructive Pulmonary Disease (COPD), Pneumonia Neurological Medical History: Reports: Seizures Musculoskeltal Medical History: Denies: Arthritis Psychiatric Medical History: Reports: Depression - reports history of anxiety, Substance Abuse, Tobacco Dependency Hematology: Reports: Anemia Infectious Medical History: Reports: Methicillin-Resistant Staph Aureus Past Surgical History Past Surgical History: Reports: Appendectomy, Section, Other - D&C, shoulder abscess surgery Social History Lives with: Alone Smoking Status: Current Every Day Smoker Electronic Cigarette use?: No Frequency of Alcohol Use: None Hx Recreational Drug Use: Yes Drugs: Other Hx Prescription Drug Abuse: Yes - Advance Directive Resuscitation Status: Full Code Family History Family History: Reviewed & Not Pertinent, Hypertension Parental Family History Reviewed: No Children Family History Reviewed: Yes Sibling(s) Family History Reviewed.: No Medication/Allergy Home Medications: Buprenorphine HCl [Subutex 8 mg Sublingual Tablet] 8 mg SL Q8 12/06/18 Butalb/Acetaminophen/Caffeine [Fioricet (50-325-40 mg) Tablet] 1 tab PO Q8HP PRN 12/06/18 Gabapentin [Neurontin 300 mg Capsule] 900 mg PO Q8 12/06/18 Ibuprofen [Motrin 800 mg Tablet] 800 mg PO Q8HP PRN 12/06/18 Lamotrigine [Lamictal Xr] 200 mg PO QHS 12/06/18 Sertraline HCl [Zoloft] 100 mg PO DAILY 12/06/18 Allergies/Adverse Reactions: latex [Latex] Allergy (Intermediate, Verified 09/22/17 10:02) RASH, SWELLING AT AREA Sulfa (Sulfonamide Antibiotics) Allergy (Verified 09/22/17 10:02) Review of Systems Constitutional: ABSENT: chills, fever(s), headache(s), weight gain, weight loss Eyes: ABSENT: visual disturbances Ears: ABSENT: hearing changes Cardiovascular: ABSENT: chest pain, dyspnea on exertion, edema, orthropnea, palpitations Respiratory: ABSENT: cough, hemoptysis Gastrointestinal: ABSENT: abdominal pain, constipation, diarrhea, hematemesis, hematochezia, nausea, vomiting Genitourinary: ABSENT: dysuria, hematuria Musculoskeletal: PRESENT: as per HPI Integumentary: ABSENT: rash, wounds Neurological: ABSENT: abnormal gait, abnormal speech, confusion, dizziness, focal weakness, syncope Psychiatric: ABSENT: anxiety, depression, homidical ideation, suicidal ideation Endocrine: ABSENT: cold intolerance, heat intolerance, menstrual abnormalities, polydipsia, polyuria Hematologic/Lymphatic: ABSENT: easy bleeding, easy bruising, lymphadenopathy Physical Exam Vital Signs: Temp Pulse Resp BP Pulse Ox 98.9 F 61 16 108/62 99 12/07/18 07:00 12/07/18 07:00 12/07/18 07:00 12/07/18 07:00 12/07/18 07:00 Intake & Output 12/06/18 12/07/18 12/08/18 06:59 06:59 06:59 Intake Total 1900 Balance 1900 Weight 56.8 kg 50.7 kg General appearance: PRESENT: no acute distress, well-developed, well-nourished Head exam: PRESENT: atraumatic, normocephalic Eye exam: PRESENT: conjunctiva pink, EOMI, PERRLA. ABSENT: scleral icterus Ear exam: PRESENT: normal external ear exam Mouth exam: PRESENT: moist, tongue midline Neck exam: PRESENT: full ROM. ABSENT: carotid bruit, JVD, lymphadenopathy, thyromegaly Cardiovascular exam: PRESENT: RRR. ABSENT: diastolic murmur, rubs, systolic murmur Pulses: PRESENT: normal dorsalis pedis pul, +2 pedal pulses bilateral Vascular exam: PRESENT: normal capillary refill GI/Abdominal exam: PRESENT: normal bowel sounds, soft. ABSENT: distended, guarding, mass, organolmegaly, rebound, tenderness Rectal exam: PRESENT: deferred Musculoskeletal exam: PRESENT: other - Right knee: Notable effusion. Palpable heat. Small area of erythema along the lateral aspect. Pain with any attempted range of motion. Tenderness on the joint line. Intact plantarflexion/dorsiflexion. Neurological exam: PRESENT: alert, awake, oriented to person, oriented to place, oriented to time, oriented to situation, CN II-XII grossly intact. ABSENT: motor sensory deficit Psychiatric exam: PRESENT: appropriate affect, normal mood. ABSENT: homicidal ideation, suicidal ideation Skin exam: PRESENT: dry, intact, warm. ABSENT: cyanosis, rash Results Laboratory Results: 12/07/18 04:26 12/06/18 05:48 12/06/18 12/06/18 12/07/18 05:48 14:37 04:26 WBC 10.6 H RBC 4.40 Hgb 12.1 Hct 35.7 L MCV 81 MCH 27.4 MCHC 33.8 RDW 15.1 H Plt Count 374 Seg Neutrophils % 74.7 Magnesium Total Bilirubin 0.3 AST 17 Alkaline Phosphatase 164 H Total Protein 7.0 Albumin 3.3 L Urine Color YELLOW Urine Appearance TURBID Urine pH 5.0 Ur Specific [place] 1.023 Urine Protein 100 H Urine Glucose (UA) NEGATIVE Urine Ketones 20 H Urine Blood SMALL H Urine Nitrite NEGATIVE Ur Leukocyte Esterase NEGATIVE Urine WBC (Auto) 2 Urine RBC (Auto) 6 12/07/18 04:26 WBC RBC Hgb Hct MCV MCH MCHC RDW Plt Count Seg Neutrophils % Magnesium 2.1 Total Bilirubin AST Alkaline Phosphatase Total Protein Albumin Urine Color Urine Appearance Urine pH Ur Specific [place] Urine Protein Urine Glucose (UA) Urine Ketones Urine Blood Urine Nitrite Ur Leukocyte Esterase Urine WBC (Auto) Urine RBC (Auto) Impressions: Knee X-Ray 12/05/18 00:00 IMPRESSION: 1. No definite acute osseous injury. 2. The knee appears to be fixed in partial flexion as the patient is unable to straighten the knee secondary to pain. Underlying ligamentous injury is not excluded. Lower Extremity MRI 12/06/18 09:21 IMPRESSION: 1. JOINT EFFUSION AND GANGLION CYST. 2. MARKED PATCHY DEMINERALIZATION OF THE PROXIMAL TIBIA. 3. NO FRACTURE OR MARROW EDEMA. GROSSLY INTACT MENISCI AND SUPPORTING ST RUCTURES WITH NO INTERNAL DERANGEMENT. Status: Image reviewed by me - I have reviewed patient's MRI which demonstrates intra-articular effusion no evidence of meniscus pathology. There is demineralization on the proximal tibia no evidence of osseous abscess or findings suggesting osteomyelitis Assessment & Plan - Diagnosis (1) Knee effusion, right Is this a current diagnosis for this admission?: Yes Plan: Patient has evidence of right knee effusion given her IV drug abuse history and previous septic arthritis history of the left shoulder there is concerns of septic arthritis. We discussed treatment options I have recommended proceeding with aspiration. Risks and benefits of arthrocentesis were explained to the patient patient verbalized understanding consented for bedside procedure. At completion of aspiration there is notable cloudiness of the fluid concerning for septic arthritis thus I discussed with the patient operative intervention which includes arthroscopic irrigation and debridement of the right knee risks and benefits of the surgical procedure were explained to the patient including neurovascular risk, postoperative pain, postoperative stiffness, recurrent infection. Patient verbalized understanding consented for surgical procedure. Procedure note: Pre-/post procedure diagnoses: Right knee effusion Procedure performed: Arthrocentesis right knee Procedure in detail: Right knee was prepped with Betadine and alcohol. Via a superior medial parapatellar approach 18-gauge needle was inserted into the joint capsule 40 cc of cloudy appearing fluid was aspirated. Patient tolerated procedure well. Fluid was sent for culture/sensitivity including AFB, fungal, aerobic/anaerobic, cell count with differential
[2018-12-07 14:50] LABS: URINE COCAINE SCREEN NEGATIVE; URINE MARIJUANA (THC) SCREEN NEGATIVE; URINE METHADONE SCREEN NEGATIVE; URINE PHENCYCLIDINE SCREEN NEGATIVE
[2018-12-07 14:53] LABS: CALCIUM PYROPHOSPHATE CRYSTALS NONE OBSERVED; MONOSODIUM URATE CRYSTALS NONE OBSERVED; OTHER CRYSTALS NONE OBSERVED
[2018-12-07 15:21] LABS: URINE BARBITURATES SCREEN UNCONFIRMED POSITIVE; URINE BENZODIAZEPINES SCREEN UNCONFIRMED POSITIVE
[2018-12-07] MEDS: ACETAMINOPHEN 325 MG TABLET PO PRN (15:39)
--- NOTE | 2018-12-07 15:56 | PDOC PROGRESS REPORT ---
Subjective Progress Note for:: 12/07/18 Subjective:: The patient is in much less pain today. She reports that she has 2 broken ribs on the left and that did not come up during the admission yesterday. She stated that she got some relief with the joint aspiration earlier but the pressure and pain have returned. She is scheduled for the operating room later today. Reason For Visit: POSSIBLE SEPTIC ARTHRITIS Physical Exam Vital Signs: Temp Pulse Resp BP Pulse Ox 100.1 F 58 L 12 112/56 L 95 12/07/18 11:00 12/07/18 11:00 12/07/18 11:00 12/07/18 11:00 12/07/18 11:00 Intake & Output 12/06/18 12/07/18 12/08/18 06:59 06:59 06:59 Intake Total 1900 590 Balance 1900 590 Weight 56.8 kg 50.7 kg General appearance: PRESENT: no acute distress, cooperative, well-developed Head exam: PRESENT: atraumatic, normocephalic Ear exam: PRESENT: normal external ear exam. ABSENT: bleeding, drainage Mouth exam: PRESENT: dry mucosa, tongue midline Respiratory exam: PRESENT: chest wall tenderness - left, symmetrical, unlabored. ABSENT: rhonchi, tachypnea, wheezes Cardiovascular exam: PRESENT: RRR, +S1, +S2 GI/Abdominal exam: PRESENT: normal bowel sounds, soft. ABSENT: distended, tenderness Extremities exam: PRESENT: joint swelling. ABSENT: pedal edema Musculoskeletal exam: PRESENT: tenderness. ABSENT: full ROM, normal inspection Neurological exam: PRESENT: alert, awake, oriented to person, oriented to place, oriented to time, oriented to situation Psychiatric exam: PRESENT: appropriate affect. ABSENT: agitated, anxious Focused psych exam: ABSENT: delusional, restlessness Results Laboratory Results: 12/07/18 04:26 12/06/18 12/07/18 12/07/18 14:37 04:26 04:26 WBC 10.6 H RBC 4.40 Hgb 12.1 Hct 35.7 L MCV 81 MCH 27.4 MCHC 33.8 RDW 15.1 H Plt Count 374 Seg Neutrophils % 74.7 Magnesium 2.1 Urine Color YELLOW Urine Appearance TURBID Urine pH 5.0 Ur Specific [place] 1.023 Urine Protein 100 H Urine Glucose (UA) NEGATIVE Urine Ketones 20 H Urine Blood SMALL H Urine Nitrite NEGATIVE Ur Leukocyte Esterase NEGATIVE Urine WBC (Auto) 2 Urine RBC (Auto) 6 Fluid Type 12/07/18 12:05 WBC RBC Hgb Hct MCV MCH MCHC RDW Plt Count Seg Neutrophils % Magnesium Urine Color Urine Appearance Urine pH Ur Specific [place] Urine Protein Urine Glucose (UA) Urine Ketones Urine Blood Urine Nitrite Ur Leukocyte Esterase Urine WBC (Auto) Urine RBC (Auto) Fluid Type SYNOVIAL Impressions: Knee X-Ray 12/05/18 00:00 IMPRESSION: 1. No definite acute osseous injury. 2. The knee appears to be fixed in partial flexion as the patient is unable to straighten the knee secondary to pain. Underlying ligamentous injury is not excluded. Lower Extremity MRI 12/06/18 09:21 IMPRESSION: 1. JOINT EFFUSION AND GANGLION CYST. 2. MARKED PATCHY DEMINERALIZATION OF THE PROXIMAL TIBIA. 3. NO FRACTURE OR MARROW EDEMA. GROSSLY INTACT MENISCI AND SUPPORTING STRUCTURES WITH NO INTERNAL DERANGEMENT. Assessment and Plan - Diagnosis (1) Septic arthritis Qualifiers: Septic arthritis location: knee Septic arthritis organism: staphylococcal Laterality: left Qualified Code(s): M00.062 - Staphylococcal arthritis, left knee Is this a current diagnosis for this admission?: Yes (2) Elevated C-reactive protein (CRP) Is this a current diagnosis for this admission?: Yes (3) Elevated erythrocyte sedimentation rate Is this a current diagnosis for this admission?: Yes (4) Opioid dependence Qualifiers: Substance use status: in remission Qualified Code(s): F11.21 - Opioid dependence, in remission Is this a current diagnosis for this admission?: Yes (5) History of methicillin resistant Staph aureus Is this a current diagnosis for this admission?: Yes - Plan Summary Summary: 12/06/2018 Septic arthritis-patient has had multiple infections some requiring surgery with methicillin-resistant staph aureus in the past. Her sed rate and C-reactive protein are markedly elevated. Likely related to IV drug use. She states that she has stopped. I will start her on vancomycin therapy. Dr. Valencia will see her tomorrow. We will continue her Subutex but no additional opiate therapy for pain. Ibuprofen and ketorolac ordered Opioid addiction-continue Subutex Hepatitis C-standard contact precautions regarding blood and body fluids. Tobacco dependence-nicotine patch available if needed 12/07/2018- Orthopedic surgery aspirated the knee today. There was purulent material and the patient will be going to the operating room. 1 blood culture has already grown gram-positive cocci in clusters. She will remain on the vancomycin with a history of methicillin resistant staph aureus infections in the past. Continue current pain management. Nicotine patch for tobacco dependence. Monitor liver function with chronic hepatitis C. The patient's toxicology screen was positive for benzodiazepines, opiates, barbiturates and screen for amphetamines is pending. The patient is at significant risk for withdrawal. PRN medications will be made available. - Time Time Spent with patient: 15-24 minutes Medications reviewed and adjusted accordingly: Yes
[2018-12-07 15:57] LABS: FLUID SOURCE KNEE; FLUID TYPE SYNOVIAL
[2018-12-07 15:58] LABS: FLUID APPEARANCE CLOUDY; FLUID COLOR AMBER; FLUID VISCOSITY MODERATELY VISCOUS
[2018-12-07] MEDS ORDERED: LIDOCAINE 1% INJ-PF (10 MG/ML) 30 ML SDV ONE (16:01)
[2018-12-07] MEDS ORDERED: MIDAZOLAM 2 MG/2 ML INJ ONE (16:47)
[2018-12-07] MEDS ORDERED: PROPOFOL INJ 200 MG/20 ML VIAL IV ONE (16:48)
[2018-12-07] MEDS ORDERED: PROMETHAZINE HCL INJ 25 MG/1 ML VIAL IV PRN ×2 (17:46)
[2018-12-07] MEDS ORDERED: DIPHENHYDRAMINE HCL 50 MG/ML VIAL IV PRN (17:46)
--- NOTE | 2018-12-07 18:17 | Operative Report ---
Operative Report DATE OF SURGERY: 12/07/18 PREOPERATIVE DIAGNOSIS: Right knee septic arthritis POSTOPERATIVE DIAGNOSIS: Same OPERATION: Arthroscopic irrigation and debridement right knee SURGEON: ERIK MUNSON ANESTHESIA: LMAC COMPLICATIONS: None ESTIMATED BLOOD LOSS: Minimal PROCEDURE: Indication for above procedure: 33-year-old female with long-standing history of IV drug abuse and previous history of left shoulder septic arthritis presented to the emergent with increasing pain and swelling of her right knee after apparent innocuous injury. Patient ultimately had MRI demonstrating intra-articular effusion. Patient underwent arthrocentesis which demonstrated cloudy fluid consistent with possible septic arthritis. Given the appearance of the fluid and patient's laboratory findings and examination findings decision was made to proceed with operative intervention risk and benefits were explained patient verbalized understanding consented for surgical procedure. Procedure In Detail: Patient was seen and evaluated in the preoperative holding area. The right lower extremity was initialized and marked. Patient receiving scheduled IV antibiotics for bacterial prophylaxis. Patient was taken back to the operative room where transferred to the operative table and placed under anesthesia. Once they were adequately anesthetized a nonsterile tourniquet was placed on the lower extremity. A surgical team debriefing was performed ensuring all instrumentation was available, the surgical procedure was discussed with possible concerns reviewed. 20 cc of 1% lidocaine with epinephrine was injected on the medial and lateral portal and intra-articular. The lower extremity was prepped with ChloraPrep and draped in a sterile fashion. A timeout was done identifying correct patient, procedure and extremity everyone in attendance agree with this and verbalized no concerns. The extremity was elevated the tourniquet was inflated to 300 mmHg. Lateral parapatellar portal was established arthroscope was introduced into the patellofemoral joint via triangulation medial portal was established on the medial compartment. There is notable cloudy fluid and synovium throughout the patellofemoral joint. Partial synovectomy was performed. Diagnostic arthroscopy along the medial compartment demonstrate no evidence of meniscal tear. ACL remained intact. Lateral meniscus was visualized without disruption. 3 L of normal saline was irrigated throughout the joint and synovectomy as noted above performed with a arthroscopic shaver. At completion of irrigation a Pantera drain was placed to the medial parapatellar portal under direct visualization. Drain was secured with 3-0 nylon sutures. Portal incisions were closed with interrupted 3-0 nylon suture. Wound was dressed Xeroform 4 x 4's and Bernardo bandage. Tourniquet was deflated. Patient had normal peripheral perfusion. Sponge counts, instrument counts, needle counts were correct. Patient was then awoken from anesthesia. Transferred from the operating room table to the operating room stretcher. There was no intraoperative complications patient tolerated procedure well stable to PACU. Postop plan: Patient will have drain removed in 48 hours pending output. Will likely require 4-6 weeks of IV antibiotics pending culture results.
[2018-12-07] MEDS ORDERED: KETOROLAC TROMETHAMINE INJ/PF 30 MG/1 ML SDV IM PRN (21:04)
[2018-12-07] MEDS ORDERED: LINEZOLID 600 MG TABLET ONE (22:18)
[2018-12-07] MEDS: LINEZOLID 600 MG TABLET PO SCH (22:23)
--- NOTE | 2018-12-07 22:42 | EKG REPORT ---
SEVERITY:- ABNORMAL ECG - SINUS RHYTHM CONSIDER LEFT VENTRICULAR HYPERTROPHY : Confirmed by: Almaz Escamilla MD 07-Dec-2018 22:42:04
[2018-12-07] MEDS: METRONIDAZOLE 500 MG TABLET PO SCH (23:50)
[2018-12-08] MEDS: KETOROLAC TROMETHAMINE INJ/PF 30 MG/1 ML SDV IM PRN ×2 (02:13→10:14)
[2018-12-08] MEDS: GABAPENTIN 300 MG CAPSULE PO SCH ×3 (05:19→23:18)
[2018-12-08] MEDS: BUPRENORPHINE HCL 2 MG SUBLINGUAL TABLET SL SCH ×3 (05:19→23:18)
[2018-12-08] MEDS: METRONIDAZOLE 500 MG TABLET PO SCH ×2 (05:19→12:34)
[2018-12-08] MEDS: HEPARIN SOD (PORCINE) 5,000 UNIT/ML 1 ML VIAL SUBCUT SCH ×3 (05:20→23:22)
[2018-12-08 08:30] LABS: ABSOLUTE BASOPHILS # (AUTO) 0.1 10^3/uL (0.0-0.2); ABSOLUTE LYMPHOCYTES (AUTO) 1.5 10^3/uL (0.5-4.7); ABSOLUTE MONOCYTES (AUTO) 1.1 10^3/uL (0.1-1.4); ABSOLUTE NEUT (AUTO) 7.6 10^3/uL (1.7-8.2); BASOPHILS % (AUTO) 0.9 % (0-2); EOSINOPHILS % (AUTO) 0.4 % (0-6); HEMATOCRIT 30.9 % (36.0-47.0); HEMOGLOBIN 10.5 g/dL (12.0-15.5); LYMPHOCYTES % (AUTO) 14.6 % (13-45); MEAN CORPUSCULAR HEMOGLOBIN 27.6 pg (27.0-33.4); MEAN CORPUSCULAR HGB CONC 33.9 g/dL (32.0-36.0); MEAN CORPUSCULAR VOLUME 81 fl (80-97); MONOCYTES % (AUTO) 10.9 % (3-13); PLATELET COUNT 357 10^3/uL (150-450); SEGMENTED NEUTROPHILS % (AUTO) 73.2 % (42-78); TOTAL CELLS COUNTED % (AUTO) 100 %; WHITE BLOOD COUNT 10.3 10^3/uL (4.0-10.5)
[2018-12-08] MEDS: FAMOTIDINE 20 MG TABLET PO SCH ×2 (10:12→23:19)
[2018-12-08] MEDS: SERTRALINE HCL 50 MG TABLET PO SCH (10:12)
[2018-12-08] MEDS: LINEZOLID 600 MG TABLET PO SCH ×2 (10:13→23:22)
--- NOTE | 2018-12-08 12:43 | PDOC PROGRESS REPORT ---
Subjective Progress Note for:: 12/08/18 Subjective:: Patient lying in bed comfortably. States has pain when she moves her knee. Pain radiates down her leg. Denies numbness or tingling. Denies fever chills or sweats. Reason For Visit: POSSIBLE SEPTIC ARTHRITIS Physical Exam Vital Signs: Temp Pulse Resp BP Pulse Ox 99 F 70 15 110/53 L 96 12/08/18 07:00 12/08/18 07:00 12/08/18 07:00 12/07/18 23:00 12/08/18 07:00 Intake & Output 12/07/18 12/08/18 12/09/18 06:59 06:59 06:59 Intake Total 1900 5060 Output Total 3742 Balance 1900 1318 Weight 50.7 kg 51.7 kg Musculoskeletal exam: PRESENT: other - Right knee: Mild swelling along the calf. No tenderness in the posterior aspect of the knee. Serosanguineous bloody tinged drainage in the drain. No sensory deficits. Intact plantarflexion/dorsiflexion. Results Laboratory Results: 12/08/18 08:09 12/07/18 16:00 12/07/18 12/07/18 12/07/18 12:05 12:05 16:00 WBC RBC Hgb Hct MCV MCH MCHC RDW Plt Count Seg Neutrophils % Sodium Cancelled Potassium Cancelled Chloride Cancelled Carbon Dioxide Cancelled Anion Gap Cancelled BUN Cancelled Creatinine Cancelled Est GFR ( Amer) Cancelled Est GFR (Non-Af Amer) Cancelled Glucose Cancelled Calcium Cancelled Magnesium Fluid Type SYNOVIAL SYNOVIAL Fluid Source KNEE Fluid Color CELSA Fluid Appearance CLOUDY Fluid Viscosity MODERATELY VISCOUS Fluid WBC 33104 Fluid RBC 65504 12/08/18 12/08/18 12/08/18 03:58 03:58 08:09 WBC Cancelled 10.3 RBC Cancelled 3.80 Hgb Cancelled 10.5 L Hct Cancelled 30.9 L MCV Cancelled 81 MCH Cancelled 27.6 MCHC Cancelled 33.9 RDW Cancelled 15.0 H Plt Count Cancelled 357 Seg Neutrophils % Cancelled 73.2 Sodium Potassium Chloride Carbon Dioxide Anion Gap BUN Creatinine Est GFR ( Amer) Est GFR (Non-Af Amer) Glucose Calcium Magnesium 2.2 Fluid Type Fluid Source Fluid Color Fluid Appearance Fluid Viscosity Fluid WBC Fluid RBC Impressions: Knee X-Ray 12/05/18 00:00 IMPRESSION: 1. No definite acute osseous injury. 2. The knee appears to be fixed in partial flexion as the patient is unable to straighten the knee secondary to pain. Underlying ligamentous injury is not excluded. Lower Extremity MRI 12/06/18 09:21 IMPRESSION: 1. JOINT EFFUSION AND GANGLION CYST. 2. MARKED PATCHY DEMINERALIZATION OF THE PROXIMAL TIBIA. 3. NO FRACTURE OR MARROW EDEMA. GROSSLY INTACT MENISCI AND SUPPORTING STRUCTURES WITH NO INTERNAL DERANGEMENT. Assessment & Plan - Diagnosis (1) Knee effusion, right Is this a current diagnosis for this admission?: Yes Plan: Postop day #1 status post arthroscopic debridement right septic knee #1 continue IV antibiotics patient will likely require. 4 weeks of IV antibiotics #2 will begin physical therapy weightbearing as tolerated #3 Will remove the drain on postop day 2/3 #4 discharge planning patient will likely require PICC line at the discretion of the hospitalist team given her positive blood cultures. - Time Time Spent with patient: Less than 15 minutes
--- NOTE | 2018-12-08 15:51 | RADIOLOGY REPORT (SQ) ---
EXAM DESCRIPTION: PICC INSERTION; FLUORO/CV PLACEMENT; U/S GUIDE FOR VASCULAR ACCESS COMPLETED DATE/TIME: 12/08/2018 3:40 pm; 12/08/2018 3:41 pm REASON FOR STUDY: No available IV access peripherally; IV ACCESS COMPARISON: AP chest 07/20/2018 FLUOROSCOPY TIME: 43 seconds 1 digital C-arm and 1 ultrasound images saved to PACS. TECHNIQUE: Fluoroscopic and ultrasound guided PICC placement. LIMITATIONS: None. PROCEDURE: After written consent and assessment were obtained, the patient was brought into the fluo roscopy room and placed supine on the table. Ultrasound evaluation of potential access sites were per formed. After successfully identifying a patent left basilic vein, the left arm was prepped and drape d in a sterile fashion along with the ultrasound probe. The entry site was anesthetized with 1% lidoc elvin. A 21 gauge 7 cm needle was advanced through the skin and into the basilic vein under live ultra sound guidance. An ultrasound image was saved to PACS confirming access site. A .018 guide wire was then inserted through the needle and into the venous system. The needle was then removed and an 11 b lade scalpel was used to make a 1cm skin incision. A 5 fr peel-away sheath was advanced over the wir e and into the venous system. A measurement was then made using the existing wire and live fluoroscop ic guidance. The wire was then removed and trimmed. The PICC was advanced through the peel-away sheat h and into the venous system. The peel-away sheath was removed and the catheter was adhered to the pa tients arm with a stat lock. The catheter was then aspirated and flushed and a sterile bandage was pl aced over the access site. A fluoroscopic spot image was saved to PACS confirming the catheter tip w ithin the superior vena cava. IMPRESSION: SUCCESSFUL PLACEMENT OF A 5 FR DUAL LUMEN 51 CM PICC IN THE LEFT BASILIC VEIN. COMMENT: Patient medication list reviewed: Yes- Quality ID# [id number]:Eligible professional attests to doc umenting in the medical record they obtained, updated, or reviewed the patient's current medications. . Quality ID 145: Final reports for procedures using fluoroscopy that document radiation exposure susan ke, or exposure time and number of fluorographic images (if radiation exposure indices are not avail able) Quality ID #76: The patient was prepped and draped using maximum sterile barrier technique including cap, mask, sterile gown, sterile gloves, a large sterile sheet, hand hygiene, and 2% Chlorhexidine fo r cutaneous antisepsis. When ultrasound is used, sterile ultrasound techniques are followed requiring sterile gel and sterile probes. TECHNICAL DOCUMENTATION: JOB ID: [id number] [employer]- All Rights Reserved rev-07/19 Reading location - IP/workstation name: [email or web address]
--- NOTE | 2018-12-08 16:22 | PDOC PROGRESS REPORT ---
Subjective Progress Note for:: 12/08/18 Subjective:: Arrived back in her room after PICC line insertion. She has a surgical drain in the right knee. The right leg below the dressing is somewhat swollen. She feels pressure that is uncomfortable. Reason For Visit: POSSIBLE SEPTIC ARTHRITIS Physical Exam Vital Signs: Temp Pulse Resp BP Pulse Ox 98.5 F 62 17 109/57 L 98 12/08/18 12:07 12/08/18 12:07 12/08/18 12:07 12/08/18 12:07 12/08/18 12:07 Intake & Output 12/07/18 12/08/18 12/09/18 06:59 06:59 06:59 Intake Total 1900 5060 Output Total 3742 Balance 1900 1318 Weight 50.7 kg 51.7 kg General appearance: PRESENT: no acute distress, thin, well-developed Head exam: PRESENT: atraumatic, normocephalic Ear exam: PRESENT: normal external ear exam. ABSENT: bleeding, drainage Mouth exam: PRESENT: moist, tongue midline Respiratory exam: PRESENT: clear to auscultation dmitri, symmetrical, unlabored. ABSENT: rales, rhonchi, tachypnea, wheezes Cardiovascular exam: PRESENT: RRR, +S1, +S2 GI/Abdominal exam: PRESENT: normal bowel sounds, soft. ABSENT: distended, tenderness Extremities exam: PRESENT: other - Right leg 1+ edema Musculoskeletal exam: ABSENT: ambulatory Neurological exam: PRESENT: alert, awake, oriented to person, oriented to place, oriented to time, oriented to situation, CN II-XII grossly intact Psychiatric exam: PRESENT: appropriate affect. ABSENT: agitated, anxious Focused psych exam: ABSENT: delusional, restlessness Skin exam: PRESENT: dry, warm. ABSENT: rash Results Laboratory Results: 12/08/18 08:09 12/07/18 12/08/18 12/08/18 12:05 03:58 03:58 WBC Cancelled RBC Cancelled Hgb Cancelled Hct Cancelled MCV Cancelled MCH Cancelled MCHC Cancelled RDW Cancelled Plt Count Cancelled Seg Neutrophils % Cancelled Magnesium 2.2 Fluid Type SYNOVIAL Fluid Source KNEE Fluid Color CELSA Fluid Appearance CLOUDY Fluid Viscosity MODERATELY VISCOUS Fluid WBC 85267 Fluid RBC 46277 12/08/18 08:09 WBC 10.3 RBC 3.80 Hgb 10.5 L Hct 30.9 L MCV 81 MCH 27.6 MCHC 33.9 RDW 15.0 H Plt Count 357 Seg Neutrophils % 73.2 Magnesium Fluid Type Fluid Source Fluid Color Fluid Appearance Fluid Viscosity Fluid WBC Fluid RBC Impressions: Knee X-Ray 12/05/18 00:00 IMPRESSION: 1. No definite acute osseous injury. 2. The knee appears to be fixed in partial flexion as the patient is unable to straighten the knee secondary to pain. Underlying ligamentous injury is not excluded. Lower Extremity MRI 12/06/18 09:21 IMPRESSION: 1. JOINT EFFUSION AND GANGLION CYST. 2. MARKED PATCHY DEMINERALIZATION OF THE PROXIMAL TIBIA. 3. NO FRACTURE OR MARROW EDEMA. GROSSLY INTACT MENISCI AND SUPPORTING STRUCTURES WITH NO INTERNAL DERANGEMENT. PICC Line Insertion 12/07/18 00:00 IMPRESSION: SUCCESSFUL PLACEMENT OF A 5 FR DUAL LUMEN 51 CM PICC IN THE LEFT BASILIC VEIN. Guidance Fluoroscopy 12/08/18 00:00 IMPRESSION: SUCCESSFUL PLACEMENT OF A 5 FR DUAL LUMEN 51 CM PICC IN THE LEFT BASILIC VEIN. Interventional Vascular Procedure 12/08/18 00:00 IMPRESSION: SUCCESSFUL PLACEMENT OF A 5 FR DUAL LUMEN 51 CM PICC IN THE LEFT BASILIC VEIN. Assessment and Plan - Diagnosis (1) Septic arthritis Qualifiers: Septic arthritis location: knee Septic arthritis organism: staphylococcal Laterality: left Qualified Code(s): M00.062 - Staphylococcal arthritis, left knee Is this a current diagnosis for this admission?: Yes (2) Elevated C-reactive protein (CRP) Is this a current diagnosis for this admission?: Yes (3) Elevated erythrocyte sedimentation rate Is this a current diagnosis for this admission?: Yes (4) Opioid dependence Qualifiers: Substance use status: in remission Qualified Code(s): F11.21 - Opioid dependence, in remission Is this a current diagnosis for this admission?: Yes (5) History of methicillin resistant Staph aureus Is this a current diagnosis for this admission?: Yes - Plan Summary Summary: 12/06/2018 Septic arthritis-patient has had multiple infections some requiring surgery with methicillin-resistant staph aureus in the past. Her sed rate and C-reactive protein are markedly elevated. Likely related to IV drug use. She states that she has stopped. I will start her on vancomycin therapy. Dr. Valencia will see her tomorrow. We will continue her Subutex but no additional opiate therapy for pain. Ibuprofen and ketorolac ordered Opioid addiction-continue Subutex Hepatitis C-standard contact precautions regarding blood and body fluids. Tobacco dependence-nicotine patch available if needed 12/07/2018- Orthopedic surgery aspirated the knee today. There was purulent material and the patient will be going to the operating room. 1 blood culture has already grown gram-positive cocci in clusters. She will remain on the vancomycin with a history of methicillin resistant staph aureus infections in the past. Continue current pain management. Nicotine patch for tobacco dependence. Monitor liver function with chronic hepatitis C. The patient's toxicology screen was positive for benzodiazepines, opiates, barbiturates and screen for amphetamines is pending. The patient is at significant risk for withdrawal. PRN medications will be made available. 12/08/2018- The patient has a surgical drain in place. Cultures are positive for gram- positive cocci in clusters which will likely be methicillin-resistant staph aureus. The patient will return to vancomycin now that she has a PICC line in place. There is a possibility that once she no longer needs to be in the hospital for surgical reasons she can discharge and possibly take Zyvox for 4 weeks. The pain is reasonably controlled. I explained that the swelling in the right lower leg will go away once the Bernardo wrap dressing on her knee is removed. The plan is for surgery to remove the drain tomorrow I believe. - Time Time Spent with patient: Less than 15 minutes Medications reviewed and adjusted accordingly: Yes Anticipated discharge: Home
[2018-12-08] MEDS: KETOROLAC TROMETHAMINE INJ/PF 30 MG/1 ML SDV IV PRN ×2 (16:34→23:17)
[2018-12-08 16:46] LABS: ANION GAP 7 (5-19); BLOOD UREA NITROGEN 16 mg/dL (7-20); CALCIUM 8.1 mg/dL (8.4-10.2); CARBON DIOXIDE 30 mmol/L (22-30); CHLORIDE 98 mmol/L (98-107); GLUCOSE 103 mg/dL (75-110); POTASSIUM 4.5 mmol/L (3.6-5.0)
[2018-12-08] MEDS: NORMAL SALINE 10 ML SDV (SCHEDULED) IV SCH (23:21)
[2018-12-08] MEDS: METRONIDAZOLE 500 MG/NS RTU 500 MG/100 ML RTUPB IV SCH (23:24)
[2018-12-09] MEDS: VANCOMYCIN HCL 750 MG in DEXTROSE 5%-WATER 250 ML IV SCH ×3 (02:53→17:20)
[2018-12-09 04:15] LABS: ABSOLUTE EOSINOPHILS # (AUTO) 0.1 10^3/uL (0.0-0.6); ABSOLUTE LYMPHOCYTES (AUTO) 1.4 10^3/uL (0.5-4.7); ABSOLUTE MONOCYTES (AUTO) 0.9 10^3/uL (0.1-1.4); ABSOLUTE NEUT (AUTO) 5.8 10^3/uL (1.7-8.2); BASOPHILS % (AUTO) 0.3 % (0-2); HEMATOCRIT 28.1 % (36.0-47.0); HEMOGLOBIN 9.4 g/dL (12.0-15.5); LYMPHOCYTES % (AUTO) 16.6 % (13-45); MEAN CORPUSCULAR HEMOGLOBIN 27.6 pg (27.0-33.4); MEAN CORPUSCULAR HGB CONC 33.3 g/dL (32.0-36.0); MEAN CORPUSCULAR VOLUME 83 fl (80-97); PLATELET COUNT 363 10^3/uL (150-450); RED BLOOD COUNT 3.39 10^6/uL (3.72-5.28); RED CELL DISTRIBUTION WIDTH 15.4 % (11.5-14.0); SEGMENTED NEUTROPHILS % (AUTO) 71.1 % (42-78); TOTAL CELLS COUNTED % (AUTO) 100 %; WHITE BLOOD COUNT 8.1 10^3/uL (4.0-10.5)
[2018-12-09 04:38] LABS: ANION GAP 8 (5-19); BLOOD UREA NITROGEN 17 mg/dL (7-20); CARBON DIOXIDE 27 mmol/L (22-30); CHLORIDE 101 mmol/L (98-107); GLUCOSE 119 mg/dL (75-110); POTASSIUM 4.1 mmol/L (3.6-5.0)
[2018-12-09] MEDS: METRONIDAZOLE 500 MG/NS RTU 500 MG/100 ML RTUPB IV SCH (05:30)
[2018-12-09] MEDS: BUPRENORPHINE HCL 2 MG SUBLINGUAL TABLET SL SCH ×3 (05:30→21:51)
[2018-12-09] MEDS: GABAPENTIN 300 MG CAPSULE PO SCH ×3 (05:30→21:51)
[2018-12-09] MEDS: HEPARIN SOD (PORCINE) 5,000 UNIT/ML 1 ML VIAL SUBCUT SCH ×3 (05:31→21:58)
[2018-12-09] MEDS: NORMAL SALINE 1000 ML 1,000 ML IV PRN ×2 (07:31→20:35)
[2018-12-09] MEDS: NORMAL SALINE 10 ML SDV (SCHEDULED) IV SCH ×3 (09:29→21:54)
[2018-12-09] MEDS: LINEZOLID 600 MG TABLET PO SCH (09:35)
[2018-12-09] MEDS: KETOROLAC TROMETHAMINE INJ/PF 30 MG/1 ML SDV IV PRN ×3 (09:36→21:52)
[2018-12-09] MEDS: FAMOTIDINE 20 MG TABLET PO SCH ×2 (09:36→21:52)
[2018-12-09] MEDS: SERTRALINE HCL 50 MG TABLET PO SCH (09:37)
--- NOTE | 2018-12-09 11:15 | PDOC PROGRESS REPORT ---
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 Patient was seen on morning rounds. She is found resting in bed comfortably on room air eating her breakfast. She reports continued right knee pain and right lower extremity edema; though somewhat improved. She denies fever, chills, chest pain, palpitations, orthopnea, dyspnea, cough, abdominal pain, nausea vomiting and diarrhea. She reports good appetite. She is hopeful to be discharged home soon but otherwise has no questions or concerns at this time. No concerns per nursing. Reason For Visit: POSSIBLE SEPTIC ARTHRITIS Physical Exam Vital Signs: Temp Pulse Resp BP Pulse Ox 97.9 F 52 L 14 99/49 L 98 12/09/18 07:00 12/09/18 07:00 12/09/18 07:00 12/08/18 20:17 12/09/18 07:00 Intake & Output 12/08/18 12/09/18 12/10/18 06:59 06:59 06:59 Intake Total 5060 2027 Output Total 3742 920 Balance 1318 1107 Weight 51.7 kg 51.2 kg General appearance: PRESENT: no acute distress, thin, well-developed, well- nourished Head exam: PRESENT: atraumatic, normocephalic Eye exam: PRESENT: conjunctiva pink, EOMI, PERRLA. ABSENT: scleral icterus Ear exam: PRESENT: normal external ear exam Mouth exam: PRESENT: moist, tongue midline Neck exam: ABSENT: carotid bruit, JVD, lymphadenopathy, thyromegaly Respiratory exam: PRESENT: clear to auscultation dmitri, symmetrical, unlabored. ABSENT: rales, rhonchi, wheezes Cardiovascular exam: PRESENT: RRR. ABSENT: diastolic murmur, rubs, systolic murmur Pulses: PRESENT: normal dorsalis pedis pul Vascular exam: PRESENT: normal capillary refill GI/Abdominal exam: PRESENT: normal bowel sounds, soft. ABSENT: distended, guarding, mass, organolmegaly, rebound, tenderness Rectal exam: PRESENT: deferred Extremities exam: PRESENT: full ROM, joint swelling, tenderness, +2 edema, other - Tenderness, erythema, and +2 edema to the right lower extremity. Bernardo wrap to knee. NYA drain with serosanguineous fluid.. ABSENT: calf tenderness, clubbing, pedal edema Neurological exam: PRESENT: alert, awake, oriented to person, oriented to place, oriented to time, oriented to situation, CN II-XII grossly intact. ABSENT: motor sensory deficit Psychiatric exam: PRESENT: appropriate affect, normal mood. ABSENT: homicidal ideation, suicidal ideation Skin exam: PRESENT: dry, intact, warm. ABSENT: cyanosis, rash Results Laboratory Results: 12/09/18 03:40 12/09/18 03:40 12/08/18 12/09/18 12/09/18 16:03 03:40 03:40 WBC 8.1 RBC 3.39 L Hgb 9.4 L Hct 28.1 L MCV 83 MCH 27.6 MCHC 33.3 RDW 15.4 H Plt Count 363 Seg Neutrophils % 71.1 Sodium 134.5 L Potassium 4.5 Chloride 98 Carbon Dioxide 30 Anion Gap 7 BUN 16 Creatinine 0.75 Est GFR ( Amer) > 60 Glucose 103 Calcium 8.1 L Magnesium 2.2 12/09/18 03:40 WBC RBC Hgb Hct MCV MCH MCHC RDW Plt Count Seg Neutrophils % Sodium 135.7 L Potassium 4.1 Chloride 101 Carbon Dioxide 27 Anion Gap 8 BUN 17 Creatinine 0.52 Est GFR ( Amer) > 60 Glucose 119 H Calcium 8.0 L Magnesium Impressions: Knee X-Ray 12/05/18 00:00 IMPRESSION: 1. No definite acute osseous injury. 2. The knee appears to be fixed in partial flexion as the patient is unable to straighten the knee secondary to pain. Underlying ligamentous injury is not excluded. Lower Extremity MRI 12/06/18 09:21 IMPRESSION: 1. JOINT EFFUSION AND GANGLION CYST. 2. MARKED PATCHY DEMINERALIZATION OF THE PROXIMAL TIBIA. 3. NO FRACTURE OR MARROW EDEMA. GROSSLY INTACT MENISCI AND SUPPORTING STRUCTURES WITH NO INTERNAL DERANGEMENT. PICC Line Insertion 12/07/18 00:00 IMPRESSION: SUCCESSFUL PLACEMENT OF A 5 FR DUAL LUMEN 51 CM PICC IN THE LEFT BASILIC VEIN. Guidance Fluoroscopy 12/08/18 00:00 IMPRESSION: SUCCESSFUL PLACEMENT OF A 5 FR DUAL LUMEN 51 CM PICC IN THE LEFT BASILIC VEIN. Interventional Vascular Procedure 12/08/18 00:00 IMPRESSION: SUCCESSFUL PLACEMENT OF A 5 FR DUAL LUMEN 51 CM PICC IN THE LEFT BASILIC VEIN. Assessment and Plan - Diagnosis (1) Septic arthritis Qualifiers: Septic arthritis location: knee Septic arthritis organism: staphylococcal Laterality: left Qualified Code(s): M00.062 - Staphylococcal arthritis, left knee Is this a current diagnosis for this admission?: Yes (2) Bacteremia due to methicillin resistant Staphylococcus aureus Is this a current diagnosis for this admission?: Yes (3) Elevated C-reactive protein (CRP) Is this a current diagnosis for this admission?: Yes (4) Elevated erythrocyte sedimentation rate Is this a current diagnosis for this admission?: Yes (5) History of methicillin resistant Staph aureus Is this a current diagnosis for this admission?: Yes (6) Opioid dependence Is this a current diagnosis for this admission?: Yes (7) Hepatitis C Qualifiers: Viral hepatitis chronicity: chronic Is this a current diagnosis for this admission?: Yes (8) History of intravenous drug abuse Is this a current diagnosis for this admission?: Yes - Plan Summary Summary: The patient has been admitted to the medical floor. She was placed on IV vancomycin, IV metronidazole, and p.o. Zyvox. Flagyl was discontinued today following final culture results; received 3 days of therapy. Original blood cultures (12/06/2018) show MRSA in 1 of 4 bottles. 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 Repeat blood cultures obtained today to confirm clearance. Right knee fluid cultures demonstrating MRSA. Both with numerous resistances, fortunately sensitive to Bactrim and vancomycin. Patient currently has a PICC line in place; given her history of IV drug use discharge to home for IV antibiotic therapy is not an option. Have consulted infectious disease to evaluate whether or not p.o. treatment with Zyvox alone is appropriate given her positive blood culture. Continuing Tylenol and Toradol as needed for discomfort. Nonpharmacological interventions for discomfort. Antiemetics as needed. Keep extremity elevated. Orthopedics is consulted; currently with a NYA drain in place. Appreciate their assistance in managing septic arthritis. Wound care, NYA drain, Bernardo wrap per their recommendations. UDS this admission was positive for multiple substances; confirmation testing pending. Have continued the patient's home dose Subutex. Avoiding all other opiate medications. NicoDerm patches as needed for nicotine withdrawal. Continue home dose Fioricet, gabapentin, and Zoloft. Heparin for DVT prophylaxis. - Time Time Spent with patient: 25-34 minutes Medications reviewed and adjusted accordingly: Yes
--- NOTE | 2018-12-09 14:53 | PDOC PROGRESS REPORT ---
Subjective Subjective:: Patient lying in bed comfortably. States has pain when she moves her knee. Pain radiates down her leg. Denies numbness or tingling. States some of the swelling has improved. Reason For Visit: POSSIBLE SEPTIC ARTHRITIS Physical Exam Vital Signs: Temp Pulse Resp BP Pulse Ox 98 F 91 17 107/60 100 12/09/18 11:00 12/09/18 11:00 12/09/18 11:00 12/09/18 11:00 12/09/18 11:00 Intake & Output 12/08/18 12/09/18 12/10/18 06:59 06:59 06:59 Intake Total 5060 2027 250 Output Total 3742 920 Balance 1318 1107 250 Weight 51.7 kg 51.2 kg Musculoskeletal exam: PRESENT: other - Right knee: Effusion notably improved no erythema. Streaking erythema into the distal extremity resolved. Calf swelling noted. No palpable fluctuance. Intact plantarflexion/dorsiflexion. Dorsalis pedis pulse 2+. Results Laboratory Results: 12/09/18 03:40 12/09/18 03:40 12/08/18 12/09/18 12/09/18 16:03 03:40 03:40 WBC 8.1 RBC 3.39 L Hgb 9.4 L Hct 28.1 L MCV 83 MCH 27.6 MCHC 33.3 RDW 15.4 H Plt Count 363 Seg Neutrophils % 71.1 Sodium 134.5 L Potassium 4.5 Chloride 98 Carbon Dioxide 30 Anion Gap 7 BUN 16 Creatinine 0.75 Est GFR ( Amer) > 60 Glucose 103 Calcium 8.1 L Magnesium 2.2 12/09/18 03:40 WBC RBC Hgb Hct MCV MCH MCHC RDW Plt Count Seg Neutrophils % Sodium 135.7 L Potassium 4.1 Chloride 101 Carbon Dioxide 27 Anion Gap 8 BUN 17 Creatinine 0.52 Est GFR ( Amer) > 60 Glucose 119 H Calcium 8.0 L Magnesium 12/07/18 17:50 Knee - Right Gram Stain - Final 12/07/18 17:50 Knee - Right Wound Culture - Final Mrsa (Meth Resis Staph Aureus) No Anaerobic Organisms 12/06/18 10:15 Blood Blood Culture - Final Mrsa (Meth Resis Staph Aureus) Impressions: Knee X-Ray 12/05/18 00:00 IMPRESSION: 1. No definite acute osseous injury. 2. The knee appears to be fixed in partial flexion as the patient is unable to straighten the knee secondary to pain. Underlying ligamentous injury is not excluded. Lower Extremity MRI 12/06/18 09:21 IMPRESSION: 1. JOINT EFFUSION AND GANGLION CYST. 2. MARKED PATCHY DEMINERALIZATION OF THE PROXIMAL TIBIA. 3. NO FRACTURE OR MARROW EDEMA. GROSSLY INTACT MENISCI AND SUPPORTING STRUCTURES WITH NO INTERNAL DERANGEMENT. PICC Line Insertion 12/07/18 00:00 IMPRESSION: SUCCESSFUL PLACEMENT OF A 5 FR DUAL LUMEN 51 CM PICC IN THE LEFT BASILIC VEIN. Guidance Fluoroscopy 12/08/18 00:00 IMPRESSION: SUCCESSFUL PLACEMENT OF A 5 FR DUAL LUMEN 51 CM PICC IN THE LEFT BASILIC VEIN. Interventional Vascular Procedure 12/08/18 00:00 IMPRESSION: SUCCESSFUL PLACEMENT OF A 5 FR DUAL LUMEN 51 CM PICC IN THE LEFT BASILIC VEIN. Assessment & Plan - Diagnosis (1) Knee effusion, right Is this a current diagnosis for this admission?: Yes Plan: Postop day #2 status post arthroscopic debridement right septic knee #1 Patient growing methicillin-resistant staph aureus consistent with previous bacteria s #2 Continue physical therapy weightbearing as tolerated encourage patient to begin knee range of motion in bed. #3 Drain removed today. #4 discharge planning patient will likely require PICC line versus p.o. would leave to discretion of hospitalist/infectious disease. - Time Time Spent with patient: Less than 15 minutes
[2018-12-09] MEDS: ACETAMINOPHEN 325 MG TABLET PO PRN (23:54)
[2018-12-10] MEDS: VANCOMYCIN HCL 750 MG in DEXTROSE 5%-WATER 250 ML IV SCH ×2 (02:22→10:32)
[2018-12-10] MEDS: KETOROLAC TROMETHAMINE INJ/PF 30 MG/1 ML SDV IV PRN ×3 (05:08→18:08)
[2018-12-10] MEDS: GABAPENTIN 300 MG CAPSULE PO SCH ×3 (06:00→21:42)
[2018-12-10] MEDS: BUPRENORPHINE HCL 2 MG SUBLINGUAL TABLET SL SCH ×3 (06:00→21:43)
[2018-12-10] MEDS: HEPARIN SOD (PORCINE) 5,000 UNIT/ML 1 ML VIAL SUBCUT SCH ×3 (06:07→21:54)
--- NOTE | 2018-12-10 06:12 | PDOC PROGRESS REPORT ---
Subjective Progress Note for:: 12/10/18 Subjective:: Patient lying in bed comfortably. Patient states her pain has improved since the dressing was changed and drain removed. Still has residual swelling and difficulty moving the knee. Reason For Visit: POSSIBLE SEPTIC ARTHRITIS Physical Exam Vital Signs: Temp Pulse Resp BP Pulse Ox 100.5 F H 70 18 108/55 L 96 12/09/18 23:00 12/09/18 23:00 12/09/18 23:00 12/09/18 23:00 12/09/18 23:00 Intake & Output 12/08/18 12/09/18 12/10/18 06:59 06:59 06:59 Intake Total 5060 2027 2664 Output Total 3742 920 640 Balance 1318 1107 2024 Weight 51.7 kg 51.2 kg 61.3 kg Musculoskeletal exam: PRESENT: other - Right knee: Incisions clean/dry/intact no erythema or drainage. Previous effusion notably improved along with calf swelling. No posterior calf tenderness. Negative Homans. Intact plantarflexion/dorsiflexion. Results Laboratory Results: 12/09/18 03:40 12/09/18 03:40 12/07/18 17:50 Knee - Right Gram Stain - Final 12/07/18 17:50 Knee - Right Wound Culture - Final Mrsa (Meth Resis Staph Aureus) No Anaerobic Organisms 12/06/18 10:15 Blood Blood Culture - Final Mrsa (Meth Resis Staph Aureus) Impressions: Knee X-Ray 12/05/18 00:00 IMPRESSION: 1. No definite acute osseous injury. 2. The knee appears to be fixed in partial flexion as the patient is unable to straighten the knee secondary to pain. Underlying ligamentous injury is not excluded. Lower Extremity MRI 12/06/18 09:21 IMPRESSION: 1. JOINT EFFUSION AND GANGLION CYST. 2. MARKED PATCHY DEMINERALIZATION OF THE PROXIMAL TIBIA. 3. NO FRACTURE OR MARROW EDEMA. GROSSLY INTACT MENISCI AND SUPPORTING STRUCTURES WITH NO INTERNAL DERANGEMENT. PICC Line Insertion 12/07/18 00:00 IMPRESSION: SUCCESSFUL PLACEMENT OF A 5 FR DUAL LUMEN 51 CM PICC IN THE LEFT BASILIC VEIN. Guidance Fluoroscopy 12/08/18 00:00 IMPRESSION: SUCCESSFUL PLACEMENT OF A 5 FR DUAL LUMEN 51 CM PICC IN THE LEFT BASILIC VEIN. Interventional Vascular Procedure 12/08/18 00:00 IMPRESSION: SUCCESSFUL PLACEMENT OF A 5 FR DUAL LUMEN 51 CM PICC IN THE LEFT BASILIC VEIN. Assessment & Plan - Diagnosis (1) Knee effusion, right Is this a current diagnosis for this admission?: Yes Plan: Postop day #2 status post arthroscopic debridement right septic knee #1 Patient growing methicillin-resistant staph aureus consistent with previous bacteria s #2 Continue physical therapy weightbearing as tolerated encourage patient to begin knee range of motion in bed. #3 Drain removed today. #4 discharge planning patient will likely require PICC line versus p.o. would leave to discretion of hospitalist/infectious disease. - Time Time Spent with patient: Less than 15 minutes
[2018-12-10] MEDS: NORMAL SALINE 1000 ML 1,000 ML IV PRN ×2 (07:39→21:45)
[2018-12-10] MEDS: SERTRALINE HCL 50 MG TABLET PO SCH (10:29)
[2018-12-10] MEDS: NORMAL SALINE 10 ML SDV (SCHEDULED) IV SCH ×2 (10:29→21:44)
[2018-12-10] MEDS: FAMOTIDINE 20 MG TABLET PO SCH ×2 (10:29→21:42)
[2018-12-10 11:27] LABS: VANCOMYCIN,TROUGH 8.2 ug/mL (5.0-20.0)
--- NOTE | 2018-12-10 14:14 | Progress Note ---
Provider Note Provider Note: [facility] Ant[facility] Stewardship Consultation HPI Chart reviewed. This is a 33 year-old woman with history of intravenous drug use and recurrent MRSA infection who was admitted on 12/06 due to fever, chills, sweats, and worsening right knee pain. On admission she had fever, hypotension, leukocytosis. Her right knee had edema, erythema and limited range of motion. Her blood cultures from admission on 12/06 had 1/4 bottles with MRSA. She was evaluated by orthopedics and had washout of the knee on 12/07. All synovial fluid cultures were positive for MRSA. Patient had a PICC line placed on 12/08. She has been on vancomycin, doing well, although still with significant pain and ROM limitation per chart review. Low grade fever today but HD stable, asking when she can be discharged home. PMH IVDU Recurrent bloodstream infections Allergies: latex [Latex] Allergy (Intermediate, Verified 09/22/17 10:02) RASH, SWELLING AT AREA Sulfa (Sulfonamide Antibiotics) Allergy (Verified 09/22/17 10:02) Medications: Acetaminophen (Tylenol 325 Mg Tablet) 650 mg PO Q4HP PRN Buprenorphine HCl (Subutex 2 Mg Sl Tablet) 8 mg SL Q8 [facility] Famotidine (Pepcid 20 Mg Tablet) 20 mg PO Q12 [facility] Gabapentin (Neurontin 300 Mg Capsule) 900 mg PO Q8 [facility] Heparin Sodium (Porcine) (Heparin Inj 5,000 Units/Ml 1 Ml Vial) 5,000 unit SUBCUT Q8 MARIANNE Heparin Sodium (Porcine) (Heparin Flush 10 Unit/Ml 5 Ml Disp.Syrg) 30 unit IV Q12 [facility] Sodium Chloride (Nacl 0.9% 1000 Ml Iv Soln) 1,000 mls @ 100 mls/hr IV CONTINUOUS PRN Ketorolac Tromethamine (Toradol Inj/Pf 30 Mg/1 Ml Sdv) 30 mg IV Q6HP PRN Linezolid (Zyvox 600 Mg Tablet) 600 mg PO Q12 [facility] Sertraline HCl (Zoloft 50 Mg Tablet) 100 mg PO DAILY [facility] Sodium Chloride (Saline Flush 2.5 Ml Monoject Prefil Syrin) 2.5 ml IV Q8 [facility] Metronidazole (Flagyl 500 Mg Tablet) 500 mg PO Q6 [facility] Morphine Sulfate (Morphine 10 Mg/Ml Inj) 4 mg IV NOW ONE Vital Signs: Temp Pulse Resp BP Pulse Ox 100.5 F H 64 18 119/50 L 100 12/09/18 23:00 12/10/18 08:52 12/09/18 23:00 12/10/18 08:52 12/10/18 08:52 Intake & Output 12/09/18 12/10/18 12/11/18 06:59 06:59 06:59 Intake Total 2027 3664 250 Output Total 920 640 Balance 1107 3024 250 Weight 51.2 kg 61.3 kg Weight/Height Weight 61.3 kg Height 5 ft 10 in Laboratories: 12/09/18 03:40 12/09/18 03:40 MCV 83 fl (80-97) 12/09/18 03:40 MCH 27.6 pg (27.0-33.4) 12/09/18 03:40 MCHC 33.3 g/dL (32.0-36.0) 12/09/18 03:40 RDW 15.4 % (11.5-14.0) H 12/09/18 03:40 Seg Neutrophils % 71.1 % (42-78) 12/09/18 03:40 Chloride 101 mmol/L (98-107) 12/09/18 03:40 Carbon Dioxide 27 mmol/L (22-30) 12/09/18 03:40 Anion Gap 8 (5-19) 12/09/18 03:40 Est GFR ( Amer) > 60 (>60) 12/09/18 03:40 Est GFR (Non-Af Amer) Cancelled 12/07/18 16:00 Glucose 119 mg/dL (75-110) H 12/09/18 03:40 Calcium 8.0 mg/dL (8.4-10.2) L 12/09/18 03:40 Magnesium 2.2 mg/dL (1.6-2.3) 12/09/18 03:40 Total Bilirubin 0.3 mg/dL (0.2-1.3) 12/06/18 05:48 AST 17 U/L (14-36) 12/06/18 05:48 Alkaline Phosphatase 164 U/L (38-126) H 12/06/18 05:48 C-Reactive Protein 199.3 mg/L (<10.0) H 12/06/18 05:48 Total Protein 7.0 g/dL (6.3-8.2) 12/06/18 05:48 Albumin 3.3 g/dL (3.5-5.0) L 12/06/18 05:48 Urine Color YELLOW 12/06/18 14:37 Urine Appearance TURBID 12/06/18 14:37 Urine pH 5.0 (5.0-9.0) 12/06/18 14:37 Ur Specific [place] 1.023 12/06/18 14:37 Urine Protein 100 mg/dL (NEGATIVE) H 12/06/18 14:37 Urine Glucose (UA) NEGATIVE mg/dL (NEGATIVE) 12/06/18 14:37 Urine Ketones 20 mg/dL (NEGATIVE) H 12/06/18 14:37 Urine Blood SMALL (NEGATIVE) H 12/06/18 14:37 Urine Nitrite NEGATIVE (NEGATIVE) 12/06/18 14:37 Ur Leukocyte Esterase NEGATIVE (NEGATIVE) 12/06/18 14:37 Urine WBC (Auto) 2 /HPF 12/06/18 14:37 Urine RBC (Auto) 6 /HPF 12/06/18 14:37 Fluid Type SYNOVIAL 12/07/18 12:05 Fluid Type SYNOVIAL 12/07/18 12:05 Fluid Source KNEE 12/07/18 12:05 Fluid Color CELSA 12/07/18 12:05 Fluid Appearance CLOUDY 12/07/18 12:05 Fluid Viscosity MODERATELY VISCOUS 12/07/18 12:05 Fluid WBC 09359 /uL 12/07/18 12:05 Fluid RBC 64726 /uL 12/07/18 12:05 12/07/18 17:50 Knee Fluid - Right Gram Stain - Final 12/07/18 17:50 Knee Fluid - Right Body Fluid Culture - Final Mrsa (Meth Resis Staph Aureus) No Anaerobic Organisms 12/07/18 12:05 Knee Fluid - Right Gram Stain - Final 12/07/18 12:05 Knee Fluid - Right Body Fluid Culture - Final Mrsa (Meth Resis Staph Aureus) No Anaerobic Organisms 12/07/18 17:50 Knee - Right Gram Stain - Final 12/07/18 17:50 Knee - Right Wound Culture - Final Mrsa (Meth Resis Staph Aureus) No Anaerobic Organisms 12/06/18 10:15 Blood Blood Culture - Final Mrsa (Meth Resis Staph Aureus) Radiology: Knee X-Ray 12/05/18 00:00 IMPRESSION: 1. No definite acute osseous injury. 2. The knee appears to be fixed in partial flexion as the patient is unable to straighten the knee secondary to pain. Underlying ligamentous injury is not excluded. Lower Extremity MRI 12/06/18 09:21 IMPRESSION: 1. JOINT EFFUSION AND GANGLION CYST. 2. MARKED PATCHY DEMINERALIZATION OF THE PROXIMAL TIBIA. 3. NO FRACTURE OR MARROW EDEMA. GROSSLY INTACT MENISCI AND SUPPORTING STRUCTURES WITH NO INTERNAL DERANGEMENT. Interventional Vascular Procedure 12/08/18 00:00 IMPRESSION: SUCCESSFUL PLACEMENT OF A 5 FR DUAL LUMEN 51 CM PICC IN THE LEFT BASILIC VEIN. Assessment and Recommendations: Patient with IVDU presenting with MRSA bacteremia and septic arthritis of the right knee. Patient's blood culture positive on 12/06 positive for MRSA, follow u p blood culture from 12/09 remain negative in 24 hr. Her synovial fluid cultures all positive for MRSA. In the setting of septic arthritis and bacteremia with MRSA, a TTE is recommended to rule out further endovascular complications. If TTE is of good quality and negative, a total of 4 weeks of antibiotic therapy (from negative blood cultures) is recommended. If TTE is positive, she will need a longer course of antibiotics (6 weeks). Vancomycin is adequate although she was already switched to linezolid. She is on a SSRI that increases the risk of serotonin syndrome and high risk of bone marrow suppression (reversible) and optic neuritis (irreversible) when linezolid is used for > 2 weeks. I would recommend at least 2 weeks of vancomycin while inpatient and then transition to linezolid for 2 weeks if no endovascular complications or other metastatic infection. She had a PICC line placed while she was bacteremic, this might need to be removed due to risk of bacterial seeding. Should monitor ESR and CRP weekly while on antibiotics. If vancomycin used, keep trough 15-20 and monitor GFR. Please call if questions. Pinky Chase MD [facility] Infectious Disease [phone]
--- NOTE | 2018-12-10 14:38 | PDOC PROGRESS REPORT ---
Subjective Progress Note for:: 12/10/18 Subjective:: No adverse events overnight. She did have a fever this morning. She wants to take her oral medications on the schedule she takes them at home. Reason For Visit: POSSIBLE SEPTIC ARTHRITIS Physical Exam Vital Signs: Temp Pulse Resp BP Pulse Ox 100.5 F H 64 18 119/50 L 100 12/09/18 23:00 12/10/18 08:52 12/09/18 23:00 12/10/18 08:52 12/10/18 08:52 Intake & Output 12/09/18 12/10/18 12/11/18 06:59 06:59 06:59 Intake Total 2027 3664 250 Output Total 920 640 Balance 1107 3024 250 Weight 51.2 kg 61.3 kg General appearance: PRESENT: no acute distress, cooperative, disheveled Teeth exam: PRESENT: poor dentation Respiratory exam: PRESENT: clear to auscultation dmitri, unlabored. ABSENT: accessory muscle use, chest wall tenderness, crackles, prolonged expiratory phas, rhonchi, tachypnea, wheezes Cardiovascular exam: PRESENT: RRR, +S1, +S2 Pulses: PRESENT: normal carotid pulses Vascular exam: PRESENT: normal capillary refill GI/Abdominal exam: PRESENT: normal bowel sounds, soft. ABSENT: distended, guarding, rebound, tenderness Extremities exam: PRESENT: joint swelling - There is still a little bit of swelling of the right knee along with 2 well approximated small sutured surgical incisions without surrounding erythema. ABSENT: clubbing, pedal edema Musculoskeletal exam: PRESENT: normal inspection. ABSENT: deformity Neurological exam: PRESENT: alert, awake, oriented to person, oriented to place, oriented to situation Psychiatric exam: PRESENT: appropriate affect, normal mood Skin exam: PRESENT: dry, warm Results Laboratory Results: 12/09/18 03:40 12/09/18 03:40 12/07/18 17:50 Knee Fluid - Right Gram Stain - Final 12/07/18 17:50 Knee Fluid - Right Body Fluid Culture - Final Mrsa (Meth Resis Staph Aureus) No Anaerobic Organisms 12/07/18 12:05 Knee Fluid - Right Gram Stain - Final 12/07/18 12:05 Knee Fluid - Right Body Fluid Culture - Final Mrsa (Meth Resis Staph Aureus) No Anaerobic Organisms 12/07/18 17:50 Knee - Right Gram Stain - Final 12/07/18 17:50 Knee - Right Wound Culture - Final Mrsa (Meth Resis Staph Aureus) No Anaerobic Organisms 12/06/18 10:15 Blood Blood Culture - Final Mrsa (Meth Resis Staph Aureus) Impressions: Knee X-Ray 12/05/18 00:00 IMPRESSION: 1. No definite acute osseous injury. 2. The knee appears to be fixed in partial flexion as the patient is unable to straighten the knee secondary to pain. Underlying ligamentous injury is not excluded. Lower Extremity MRI 12/06/18 09:21 IMPRESSION: 1. JOINT EFFUSION AND GANGLION CYST. 2. MARKED PATCHY DEMINERALIZATION OF THE PROXIMAL TIBIA. 3. NO FRACTURE OR MARROW EDEMA. GROSSLY INTACT MENISCI AND SUPPORTING STRUC TURES WITH NO INTERNAL DERANGEMENT. PICC Line Insertion 12/07/18 00:00 IMPRESSION: SUCCESSFUL PLACEMENT OF A 5 FR DUAL LUMEN 51 CM PICC IN THE LEFT BASILIC VEIN. Guidance Fluoroscopy 12/08/18 00:00 IMPRESSION: SUCCESSFUL PLACEMENT OF A 5 FR DUAL LUMEN 51 CM PICC IN THE LEFT BASILIC VEIN. Interventional Vascular Procedure 12/08/18 00:00 IMPRESSION: SUCCESSFUL PLACEMENT OF A 5 FR DUAL LUMEN 51 CM PICC IN THE LEFT BASILIC VEIN. Assessment and Plan - Diagnosis (1) Bacteremia due to methicillin resistant Staphylococcus aureus Is this a current diagnosis for this admission?: Yes (2) History of intravenous drug abuse Is this a current diagnosis for this admission?: Yes (3) Septic arthritis Qualifiers: Septic arthritis location: knee Septic arthritis organism: staphylococcal Laterality: right Qualified Code(s): M00.061 - Staphylococcal arthritis, right knee Is this a current diagnosis for this admission?: Yes - Plan Summary Summary: The patient has been admitted to the medical floor. She was placed on IV vancomycin, IV metronidazole, and p.o. Zyvox. Flagyl was discontinued today following final culture results; received 3 days of therapy. Original blood cultures (12/06/2018) show MRSA in 1 of 4 bottles. 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 Repeat blood cultures obtained today to confirm clearance. Right knee fluid cultures demonstrating MRSA. Both with numerous resistances, fortunately sensitive to Bactrim and vancomycin. Patient currently has a PICC line in place; given her history of IV drug use discharge to home for IV antibiotic therapy is not an option. Have consulted infectious disease to evaluate whether or not p.o. treatment with Zyvox alone is appropriate given her positive blood culture. Continuing Tylenol and Toradol as needed for discomfort. Nonpharmacological interventions for discomfort. Antiemetics as needed. Keep extremity elevated. Orthopedics is consulted; currently with a NYA drain in place. Appreciate their assistance in managing septic arthritis. Wound care, NYA drain, Bernardo wrap per their recommendations. UDS this admission was positive for multiple substances; confirmation testing pending. Have continued the patient's home dose Subutex. Avoiding all other opiate medications. NicoDerm patches as needed for nicotine withdrawal. Continue home dose Fioricet, gabapentin, and Zoloft. Heparin for DVT prophylaxis. 12/10/2018: When I saw that she had the MRSA bacteremia, I decided to get a transthoracic echocardiogram first, and if the views were not good enough she would need to be sent for a STEPHANIE. I discussed this with the patient and she was not excited about it. Infectious disease put in a note today and that was their recommendation as well. She has been switched back over to vancomycin for total of 2 weeks, and if the views of the TTE are good and endocarditis can be ruled out, then she can complete 2 additional weeks of p.o. Zyvox. If it shows that she has evidence of endocarditis, she would need at least 6 weeks of IV vancomycin. - Time Time Spent with patient: 25-34 minutes
[2018-12-10] MEDS: VANCOMYCIN HCL 1,500 MG in DEXTROSE 5%-WATER 250 ML IV SCH (18:10)
[2018-12-10] MEDS: ACETAMINOPHEN 325 MG TABLET PO PRN (21:44)
[2018-12-11] MEDS: KETOROLAC TROMETHAMINE INJ/PF 30 MG/1 ML SDV IV PRN ×4 (00:31→19:26)
[2018-12-11] MEDS: VANCOMYCIN HCL 1,500 MG in DEXTROSE 5%-WATER 250 ML IV SCH ×3 (02:16→17:30)
[2018-12-11] MEDS: BUPRENORPHINE HCL 2 MG SUBLINGUAL TABLET SL SCH ×3 (06:46→17:30)
[2018-12-11] MEDS: GABAPENTIN 300 MG CAPSULE PO SCH ×3 (06:46→17:30)
[2018-12-11] MEDS: HEPARIN SOD (PORCINE) 5,000 UNIT/ML 1 ML VIAL SUBCUT SCH ×3 (06:48→22:05)
[2018-12-11] MEDS: SERTRALINE HCL 50 MG TABLET PO SCH (10:14)
[2018-12-11] MEDS: DOCUSATE SODIUM 100 MG CAPSULE PO PRN ×2 (10:19→22:05)
[2018-12-11] MEDS: NORMAL SALINE 10 ML SDV (SCHEDULED) IV SCH ×2 (10:20→22:09)
[2018-12-11] MEDS: FAMOTIDINE 20 MG TABLET PO SCH ×2 (10:21→22:05)
--- NOTE | 2018-12-11 12:17 | XCELERA REPORT ---
[address] [address] Lower Extremity Venous Evaluation Procedure: Color flow and duplex imaging bilaterally of the veins of the lower extremities as well as the Common Femoral veins. Right Sided Venous Evaluation Normal vessel filling wall to wall, compression and augmentation as well as Colour flow down to the infrageniculate veins. Left Sided Venous Evaluation Abnormal vessel filling, no compression or Colour flow , enlarged veins with echogenic content, with overlying loss of tissue definition, in the Common . Also an adjacent area of lucency with no compression. Critical Findings Called in to Dr Murray. Interpretation Summary Positive for acute DVT, with area consistent with old DVT, both in the left Common Femoral vein. Also noted is an area which suggests recent venipuncture to the left Common Femoral Vein. The right lower extremity veins are normal to ultrasound exam. Name: CECY VALDERRAMA Age: 33 yrs Gender: Female : 1985 Patient Status: Inpatient Patient Location: [address] [place] [address] Study Date: 12/11/2018 10:50 AM Reason For Study: RIGHT LOWER LEG PAIN, PAIN IN CALF, SWELLING Ordering Physician: ADRIANA MURRAY Performed By: Miguel A Gómez : ADRIANA MURRAY > Eriberto Cooper
--- NOTE | 2018-12-11 17:16 | PDOC PROGRESS REPORT ---
Subjective Progress Note for:: 12/11/18 Subjective:: No adverse events overnight. No new complaints. Vital signs been stable. She is complaining of some swelling in her right leg today and we ultrasound of the leg and the right leg was negative for DVT but she is got evidence of old clot in the left leg with a small amount of superimposed new clot in it area that looks like she may have had a recent venipuncture on the left side. She said that they did not ultrasound down the leg to the area of the swelling, but the report said that the images in the right leg were taken down to the infrageniculate veins, so if that the case they had to gotten below the knee. Reason For Visit: POSSIBLE SEPTIC ARTHRITIS Physical Exam Vital Signs: Temp Pulse Resp BP Pulse Ox 99.0 F 65 16 115/61 100 12/11/18 08:58 12/11/18 08:58 12/11/18 08:58 12/11/18 08:58 12/11/18 08:58 Intake & Output 12/10/18 12/11/18 12/12/18 06:59 06:59 06:59 Intake Total 3664 2287 250 Output Total 640 200 Balance 3024 2087 250 Weight 61.3 kg 66.1 kg General appearance: PRESENT: no acute distress, cooperative, disheveled Teeth exam: PRESENT: poor dentation Respiratory exam: PRESENT: clear to auscultation dmitri, unlabored. ABSENT: a ccessory muscle use, chest wall tenderness, crackles, prolonged expiratory phas, rhonchi, tachypnea, wheezes Cardiovascular exam: PRESENT: RRR, +S1, +S2 Pulses: PRESENT: normal carotid pulses Vascular exam: PRESENT: normal capillary refill GI/Abdominal exam: PRESENT: normal bowel sounds, soft. ABSENT: distended, guarding, rebound, tenderness Extremities exam: PRESENT: joint swelling - There is still a little bit of swelling and erythema of the right knee along with 2 well approximated small sutured surgical incisions without surrounding erythema. ABSENT: clubbing, pe danika edema Musculoskeletal exam: PRESENT: normal inspection. ABSENT: deformity Neurological exam: PRESENT: alert, awake, oriented to person, oriented to place, oriented to situation Psychiatric exam: PRESENT: appropriate affect, normal mood Skin exam: PRESENT: dry, warm Results Laboratory Results: 12/09/18 03:40 12/09/18 03:40 12/06/18 15:08 Blood Blood Culture - Final NO GROWTH IN 5 DAYS 12/07/18 17:50 Knee - Right Fungal Smear - Final 12/07/18 17:50 Knee - Right Fungal Smear - Final 12/07/18 17:50 Knee - Right AFB Smear Concentration - Final 12/07/18 17:50 Knee - Right Acid Fast Bacilli Smear - Final 12/07/18 12:05 Knee - Right Fungal Smear - Final 12/07/18 12:05 Knee - Right Fungal Smear - Final Impressions: Knee X-Ray 12/05/18 00:00 IMPRESSION: 1. No definite acute osseous injury. 2. The knee appears to be fixed in partial flexion as the patient is unable to straighten the knee secondary to pain. Underlying ligamentous injury is not excluded. Lower Extremity MRI 12/06/18 09:21 IMPRESSION: 1. JOINT EFFUSION AND GANGLION CYST. 2. MARKED PATCHY DEMINERALIZATION OF THE PROXIMAL TIBIA. 3. NO FRACTURE OR MARROW EDEMA. GROSSLY INTACT MENISCI AND SUPPORTING STRUCTURES WITH NO INTERNAL DERANGEMENT. PICC Line Insertion 12/07/18 00:00 IMPRESSION: SUCCESSFUL PLACEMENT OF A 5 FR DUAL LUMEN 51 CM PICC IN THE LEFT BASILIC VEIN. Guidance Fluoroscopy 12/08/18 00:00 IMPRESSION: SUCCESSFUL PLACEMENT OF A 5 FR DUAL LUMEN 51 CM PICC IN THE LEFT BASILIC VEIN. Interventional Vascular Procedure 12/08/18 00:00 IMPRESSION: SUCCESSFUL PLACEMENT OF A 5 FR DUAL LUMEN 51 CM PICC IN THE LEFT BASILIC VEIN. Assessment and Plan - Diagnosis (1) Bacteremia due to methicillin resistant Staphylococcus aureus Is this a current diagnosis for this admission?: Yes Plan: TTE has been performed and we are awaiting the read. If the views are good enough, we will treat her with 2 weeks of IV vancomycin and then switch to 2 weeks of p.o. Zyvox. About a week after she completes the Zyvox, she can get blood cultures repeated and if they are negative then we can feel confident that any infection has been eradicated. If the views are not good enough, we may have to send her for a STEPHANIE. (2) History of intravenous drug abuse Is this a current diagnosis for this admission?: Yes Plan: The ultrasound today shows evidence of a small amount of new clot superimposed on old clot, but in the left leg and not in the right leg where she was having complaints. It also showed evidence of recent venipuncture in the left leg. I do not know if this is going to require chronic anticoagulation. I will investigate further. (3) Septic arthritis Qualifiers: Septic arthritis location: knee Septic arthritis organism: staphylococcal Laterality: right Qualified Code(s): M00.061 - Staphylococcal arthritis, right knee Is this a current diagnosis for this admission?: Yes Plan: Continue antibiotics as noted above. - Plan Summary Summary: The patient has been admitted to the medical floor. She was placed on IV vancomycin, IV metronidazole, and p.o. Zyvox. Flagyl was discontinued today following final culture results; received 3 days of therapy. Original blood cultures (12/06/2018) show MRSA in 1 of 4 bottles. 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 Repeat blood cultures obtained today to confirm clearance. Right knee fluid cultures demonstrating MRSA. Both with numerous resistances, fortunately sensitive to Bactrim and vancomycin. Patient currently has a PICC line in place; given her history of IV drug use discharge to home for IV antibiotic therapy is not an option. Have consulted infectious disease to evaluate whether or not p.o. treatment with Zyvox alone is appropriate given her positive blood culture. Continuing Tylenol and Toradol as needed for discomfort. Nonpharmacological interventions for discomfort. Antiemetics as needed. Keep extremity elevated. Orthopedics is consulted; currently with a NYA drain in place. Appreciate their assistance in managing septic arthritis. Wound care, NYA drain, Bernardo wrap per their recommendations. UDS this admission was positive for multiple substances; confirmation testing pending. Have continued the patient's home dose Subutex. Avoiding all other opiate medications. NicoDerm patches as needed for nicotine withdrawal. Continue home dose Fioricet, gabapentin, and Zoloft. Heparin for DVT prophylaxis. 12/10/2018: When I saw that she had the MRSA bacteremia, I decided to get a transthoracic echocardiogram first, and if the views were not good enough she would need to be sent for a STEPHANIE. I discussed this with the patient and she was not excited about it. Infectious disease put in a note today and that was their recommendation as well. She has been switched back over to vancomycin for total of 2 weeks, and if the views of the TTE are good and endocarditis can be ruled out, then she can complete 2 additional weeks of p.o. Zyvox. If it shows that she has evidence of endocarditis, she would need at least 6 weeks of IV vancomycin. - Time Time Spent with patient: 25-34 minutes
[2018-12-11] MEDS: ACETAMINOPHEN 325 MG TABLET PO PRN (21:05)
[2018-12-12] MEDS: NORMAL SALINE 10 ML SDV (AFTER EACH USE) IV PRN (01:56)
[2018-12-12 02:39] LABS: VANCOMYCIN,TROUGH 17.4 ug/mL (5.0-20.0)
[2018-12-12] MEDS: KETOROLAC TROMETHAMINE INJ/PF 30 MG/1 ML SDV IV PRN ×4 (03:15→23:32)
[2018-12-12] MEDS: VANCOMYCIN HCL 1,500 MG in DEXTROSE 5%-WATER 250 ML IV SCH ×3 (03:52→17:32)
[2018-12-12] MEDS: GABAPENTIN 300 MG CAPSULE PO SCH ×3 (05:12→17:29)
[2018-12-12] MEDS: BUPRENORPHINE HCL 2 MG SUBLINGUAL TABLET SL SCH ×3 (05:14→17:33)
[2018-12-12] MEDS: HEPARIN SOD (PORCINE) 5,000 UNIT/ML 1 ML VIAL SUBCUT SCH ×3 (05:18→21:11)
[2018-12-12] MEDS: ACETAMINOPHEN 325 MG TABLET PO PRN ×3 (08:49→21:09)
[2018-12-12] MEDS: FAMOTIDINE 20 MG TABLET PO SCH ×2 (09:51→21:10)
[2018-12-12] MEDS: SERTRALINE HCL 50 MG TABLET PO SCH (09:59)
[2018-12-12] MEDS: NORMAL SALINE 10 ML SDV (SCHEDULED) IV SCH ×2 (10:47→21:16)
--- NOTE | 2018-12-12 11:27 | RADIOLOGY REPORT (SQ) ---
EXAM DESCRIPTION: U/S EXTREMITY NONVASCULAR LTD COMPLETED DATE/TIME: 12/12/2018 10:30 am REASON FOR STUDY: right leg erythema and swelling, r/o abscess COMPARISON: None. TECHNIQUE: Dynamic and static grayscale images acquired of the localized site of clinical concern an d recorded on PACS. Additional selected color Doppler and spectral images recorded. SITE OF CONCERN: Right leg LIMITATIONS: None. FINDINGS: Sonographic imaging in the area of concern shows is edema. No fluid collection is identif ied. No mass is seen. IMPRESSION: Edema. No abscess is identified. TECHNICAL DOCUMENTATION: JOB ID: [id number] [employer]- All Rights Reserved Reading location - IP/workstation name: [email or web address]
--- NOTE | 2018-12-12 12:14 | PDOC PROGRESS REPORT ---
Subjective Subjective:: Patient lying in bed comfortably. Patient continues to complain of swelling and pain along the outer aspect of her knee with inability to bend her knee. Denies fever chills or sweats. Reason For Visit: POSSIBLE SEPTIC ARTHRITIS Physical Exam Vital Signs: Temp Pulse Resp BP Pulse Ox 98.3 F 58 L 16 108/59 L 100 12/11/18 23:23 12/11/18 23:23 12/11/18 23:23 12/11/18 23:23 12/11/18 23:23 Intake & Output 12/11/18 12/12/18 12/13/18 06:59 06:59 06:59 Intake Total 2287 2350 Output Total 200 Balance 2086 2350 Weight 66.1 kg 63.5 kg Musculoskeletal exam: PRESENT: other - Right knee: Surgical incisions healed no erythema or drainage. Minimal residual effusion. Swelling noted along Elo's tubercle no palpable fluctuance. Tenderness along this region. No tenderness on the calf negative Homans. Intact plantarflexion/dorsiflexion. Results Laboratory Results: 12/09/18 03:40 12/09/18 03:40 12/06/18 15:08 Blood Blood Culture - Final NO GROWTH IN 5 DAYS Impressions: Knee X-Ray 12/05/18 00:00 IMPRESSION: 1. No definite acute osseous injury. 2. The knee appears to be fixed in partial flexion as the patient is unable to straighten the knee secondary to pain. Underlying ligamentous injury is not excluded. Lower Extremity MRI 12/06/18 09:21 IMPRESSION: 1. JOINT EFFUSION AND GANGLION CYST. 2. MARKED PATCHY DEMINERALIZATION OF THE PROXIMAL TIBIA. 3. NO FRACTURE OR MARROW EDEMA. GROSSLY INTACT MENISCI AND SUPPORTING STR UCTURES WITH NO INTERNAL DERANGEMENT. PICC Line Insertion 12/07/18 00:00 IMPRESSION: SUCCESSFUL PLACEMENT OF A 5 FR DUAL LUMEN 51 CM PICC IN THE LEFT BASILIC VEIN. Guidance Fluoroscopy 12/08/18 00:00 IMPRESSION: SUCCESSFUL PLACEMENT OF A 5 FR DUAL LUMEN 51 CM PICC IN THE LEFT BASILIC VEIN. Interventional Vascular Procedure 12/08/18 00:00 IMPRESSION: SUCCESSFUL PLACEMENT OF A 5 FR DUAL LUMEN 51 CM PICC IN THE LEFT BASILIC VEIN. Extremity Ultrasound 12/12/18 00:00 IMPRESSION: Edema. No abscess is identified. Assessment & Plan - Diagnosis (1) Knee effusion, right Is this a current diagnosis for this admission?: Yes Plan: Postop day #2 status post arthroscopic debridement right septic knee #1 Patient growing methicillin-resistant staph aureus consistent with previous bacteria #2 Continue physical therapy weightbearing as tolerated encourage patient to begin knee range of motion in bed. #3 Ultrasound was reviewed demonstrate no evidence of fluid collection or loculation at this point would recommend continuing IV antibiotics and treatment as per infectious disease. #4 discharge planning patient will likely require PICC line versus p.o. would le ave to discretion of hospitalist/infectious disease. - Time Time Spent with patient: Less than 15 minutes
--- NOTE | 2018-12-12 17:21 | PDOC PROGRESS REPORT ---
Subjective Progress Note for:: 12/12/18 Subjective:: No adverse events overnight. No new complaints. She still complaining of some swelling in her leg. Ultrasound was negative for DVT yesterday in the leg she was complaining of the swelling, but she was noted to have old clot in the left leg from a prior DVT as well as a small amount of new clot on top of it and evidence that she had been injecting into that leg. She does have track murphy up and down her leg. Reason For Visit: POSSIBLE SEPTIC ARTHRITIS Physical Exam Vital Signs: Temp Pulse Resp BP Pulse Ox 98.7 F 54 L 17 134/74 H 99 12/12/18 15:42 12/12/18 15:42 12/12/18 15:42 12/12/18 15:42 12/12/18 15:42 Intake & Output 12/11/18 12/12/18 12/13/18 06:59 06:59 06:59 Intake Total 2287 2350 250 Output Total 200 Balance 2087 2350 250 Weight 66.1 kg 63.5 kg 63.5 kg General appearance: PRESENT: no acute distress, cooperative, disheveled Teeth exam: PRESENT: poor dentation Respiratory exam: PRESENT: clear to auscultation dmitri, unlabored. ABSENT: accessory muscle use, chest wall tenderness, crackles, prolonged expiratory phas, rhonchi, tachypnea, wheezes Cardiovascular exam: PRESENT: RRR, +S1, +S2 Pulses: PRESENT: normal carotid pulses Vascular exam: PRESENT: normal capillary refill GI/Abdominal exam: PRESENT: normal bowel sounds, soft. ABSENT: distended, guarding, rebound, tenderness Extremities exam: PRESENT: joint swelling - There is still a little bit of swelling and erythema of the right knee along with 2 well approximated small sutured surgical incisions without surrounding erythema. ABSENT: clubbing, p edal edema Musculoskeletal exam: PRESENT: normal inspection. ABSENT: deformity Neurological exam: PRESENT: alert, awake, oriented to person, oriented to place, oriented to situation Psychiatric exam: PRESENT: appropriate affect, normal mood Skin exam: PRESENT: dry, warm Results Laboratory Results: 12/09/18 03:40 12/09/18 03:40 12/06/18 15:08 Blood Blood Culture - Final NO GROWTH IN 5 DAYS Impressions: Knee X-Ray 12/05/18 00:00 IMPRESSION: 1. No definite acute osseous injury. 2. The knee appears to be fixed in partial flexion as the patient is unable to straighten the knee secondary to pain. Underlying ligamentous injury is not excluded. Lower Extremity MRI 12/06/18 09:21 IMPRESSION: 1. JOINT EFFUSION AND GANGLION CYST. 2. MARKED PATCHY DEMINERALIZATION OF THE PROXIMAL TIBIA. 3. NO FRACTURE OR MARROW EDEMA. GROSSLY INTACT MENISCI AND SUPPORTING STRUCTURES WITH NO INTERNAL DERANGEMENT. PICC Line Insertion 12/07/18 00:00 IMPRESSION: SUCCESSFUL PLACEMENT OF A 5 FR DUAL LUMEN 51 CM PICC IN THE LEFT BASILIC VEIN. Guidance Fluoroscopy 12/08/18 00:00 IMPRESSION: SUCCESSFUL PLACEMENT OF A 5 FR DUAL LUMEN 51 CM PICC IN THE LEFT BASILIC VEIN. Interventional Vascular Procedure 12/08/18 00:00 IMPRESSION: SUCCESSFUL PLACEMENT OF A 5 FR DUAL LUMEN 51 CM PICC IN THE LEFT BASILIC VEIN. Extremity Ultrasound 12/12/18 00:00 IMPRESSION: Edema. No abscess is identified. Assessment and Plan - Diagnosis (1) Bacteremia due to methicillin resistant Staphylococcus aureus Is this a current diagnosis for this admission?: Yes Plan: TTE has been performed and we are awaiting the read. If the views are good enough, we will treat her with 2 weeks of IV vancomycin and then switch to 2 weeks of p.o. Zyvox. About a week after she completes the Zyvox, she can get blood cultures repeated and if they are negative then we can feel confident that any infection has been eradicated. If the views are not good enough, we may have to send her for a STEPHANIE. (2) History of intravenous drug abuse Is this a current diagnosis for this admission?: Yes Plan: Previously referenced clot is again noted. Since the clot was provoked, she may not need chronic anticoagulation. She just needs to quit injecting drugs. Awaiting the results of her echocardiogram. (3) Septic arthritis Qualifiers: Septic arthritis location: knee Septic arthritis organism: staphylococcal Laterality: right Qualified Code(s): M00.061 - Staphylococcal arthritis, right knee Is this a current diagnosis for this admission?: Yes Plan: Continue antibiotics as noted above. Soft tissue ultrasound for swelling was negative for abscess - Plan Summary Summary: The patient has been admitted to the medical floor. She was placed on IV vancomycin, IV metronidazole, and p.o. Zyvox. Flagyl was discontinued today following final culture results; received 3 days of therapy. Original blood cultures (12/06/2018) show MRSA in 1 of 4 bottles. 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 Repeat blood cultures obtained today to confirm clearance. Right knee fluid cultures demonstrating MRSA. Both with numerous resistances, fortunately sensitive to Bactrim and vancomycin. Patient currently has a PICC line in place; given her history of IV drug use discharge to home for IV antibiotic therapy is not an option. Have consulted infectious disease to evaluate whether or not p.o. treatment with Zyvox alone is appropriate given her positive blood culture. Continuing Tylenol and Toradol as needed for discomfort. Nonpharmacological interventions for discomfort. Antiemetics as needed. Keep extremity elevated. Orthopedics is consulted; currently with a NYA drain in place. Appreciate their assistance in managing septic arthritis. Wound care, NYA drain, Bernardo wrap per their recommendations. UDS this admission was positive for multiple substances; confirmation testing pending. Have continued the patient's home dose Subutex. Avoiding all other opiate medications. NicoDerm patches as needed for nicotine withdrawal. Continue home dose Fioricet, gabapentin, and Zoloft. Heparin for DVT prophylaxis. 12/10/2018: When I saw that she had the MRSA bacteremia, I decided to get a tra nsthoracic echocardiogram first, and if the views were not good enough she would need to be sent for a STEPHANIE. I discussed this with the patient and she was not excited about it. Infectious disease put in a note today and that was their recommendation as well. She has been switched back over to vancomycin for total of 2 weeks, and if the views of the TTE are good and endocarditis can be ruled out, then she can complete 2 additional weeks of p.o. Zyvox. If it shows that she has evidence of endocarditis, she would need at least 6 weeks of IV vancomycin. - Time Time Spent with patient: 15-24 minutes
[2018-12-13] MEDS: VANCOMYCIN HCL 1,500 MG in DEXTROSE 5%-WATER 250 ML IV SCH ×3 (01:02→17:21)
[2018-12-13] MEDS: KETOROLAC TROMETHAMINE INJ/PF 30 MG/1 ML SDV IV PRN ×3 (05:26→18:58)
[2018-12-13] MEDS: GABAPENTIN 300 MG CAPSULE PO SCH ×3 (05:28→17:21)
[2018-12-13] MEDS: HEPARIN SOD (PORCINE) 5,000 UNIT/ML 1 ML VIAL SUBCUT SCH ×3 (05:28→21:16)
[2018-12-13] MEDS: BUPRENORPHINE HCL 2 MG SUBLINGUAL TABLET SL SCH ×3 (05:28→17:21)
[2018-12-13] MEDS: SERTRALINE HCL 50 MG TABLET PO SCH ×2 (10:06→10:08)
[2018-12-13] MEDS: NORMAL SALINE 10 ML SDV (SCHEDULED) IV SCH ×2 (10:06→21:17)
[2018-12-13] MEDS: FAMOTIDINE 20 MG TABLET PO SCH ×2 (10:06→21:17)
--- NOTE | 2018-12-13 14:13 | PDOC PROGRESS REPORT ---
Subjective Progress Note for:: 12/13/18 Subjective:: No adverse events overnight. No new complaints. Vital signs been stable. She is been afebrile. Reason For Visit: POSSIBLE SEPTIC ARTHRITIS Physical Exam Vital Signs: Temp Pulse Resp BP Pulse Ox 98.7 F 53 L 16 117/63 99 12/13/18 11:19 12/13/18 11:19 12/13/18 11:19 12/13/18 11:19 12/13/18 11:19 Intake & Output 12/12/18 12/13/18 12/14/18 06:59 06:59 06:59 Intake Total 2350 2470 250 Balance 2350 2470 250 Weight 63.5 kg 58.8 kg General appearance: PRESENT: no acute distress, cooperative, disheveled Teeth exam: PRESENT: poor dentation Respiratory exam: PRESENT: clear to auscultation dmitri, unlabored. ABSENT: accessory muscle use, chest wall tenderness, crackles, prolonged expiratory phas, rhonchi, tachypnea, wheezes Cardiovascular exam: PRESENT: RRR, +S1, +S2 Pulses: PRESENT: normal carotid pulses Vascular exam: PRESENT: normal capillary refill GI/Abdominal exam: PRESENT: normal bowel sounds, soft. ABSENT: distended, guarding, rebound, tenderness Extremities exam: PRESENT: joint swelling - There is still a little bit of swelling and erythema of the right knee along with 2 well approximated small sutured surgical incisions without surrounding erythema. ABSENT: clubbing, pedal edema Musculoskeletal exam: PRESENT: normal inspection. ABSENT: deformity Neurological exam: PRESENT: alert, awake, oriented to person, oriented to place, oriented to situation Psychiatric exam: PRESENT: appropriate affect, normal mood Skin exam: PRESENT: dry, warm Results Laboratory Results: 12/09/18 03:40 12/09/18 03:40 Impressions: Knee X-Ray 12/05/18 00:00 IMPRESSION: 1. No definite acute osseous injury. 2. The knee appears to be fixed in partial flexion as the patient is unable to straighten the knee secondary to pain. Underlying ligamentous injury is not excluded. Lower Extremity MRI 12/06/18 09:21 IMPRESSION: 1. JOINT EFFUSION AND GANGLION CYST. 2. MARKED PATCHY DEMINERALIZATION OF THE PROXIMAL TIBIA. 3. NO FRACTURE OR MARROW EDEMA. GROSSLY INTACT MENISCI AND SUPPORTING STRUCTURES WITH NO INTERNAL DERANGEMENT. PICC Line Insertion 12/07/18 00:00 IMPRESSION: SUCCESSFUL PLACEMENT OF A 5 FR DUAL LUMEN 51 CM PICC IN THE LEFT BASILIC VEIN. Guidance Fluoroscopy 12/08/18 00:00 IMPRESSION: SUCCESSFUL PLACEMENT OF A 5 FR DUAL LUMEN 51 CM PICC IN THE LEFT BASILIC VEIN. Interventional Vascular Procedure 12/08/18 00:00 IMPRESSION: SUCCESSFUL PLACEMENT OF A 5 FR DUAL LUMEN 51 CM PICC IN THE LEFT BASILIC VEIN. Extremity Ultrasound 12/12/18 00:00 IMPRESSION: Edema. No abscess is identified. Assessment and Plan - Diagnosis (1) Bacteremia due to methicillin resistant Staphylococcus aureus Is this a current diagnosis for this admission?: Yes Plan: TTE has been performed and we are awaiting the read. If the views are good enough, we will treat her with 2 weeks of IV vancomycin and then switch to 2 weeks of p.o. Zyvox. About a week after she completes the Zyvox, she can get blood cultures repeated and if they are negative then we can feel confident that any infection has been eradicated. If the views are not good enough, we may have to send her for a STEPHANIE. (2) History of intravenous drug abuse Is this a current diagnosis for this admission?: Yes Plan: Previously referenced clot is again noted. Since the clot was provoked, she may not need chronic anticoagulation. She just needs to quit injecting drugs. Awaiting the results of her echocardiogram. (3) Septic arthritis Qualifiers: Septic arthritis location: knee Septic arthritis organism: staphylococcal Laterality: right Qualified Code(s): M00.061 - Staphylococcal arthritis, right knee Is this a current diagnosis for this admission?: Yes Plan: Continue antibiotics as noted above. Soft tissue ultrasound for swelling was negative for abscess - Plan Summary Summary: The patient has been admitted to the medical floor. She was placed on IV vancomycin, IV metronidazole, and p.o. Zyvox. Flagyl was discontinued today following final culture results; received 3 days of therapy. Original blood cultures (12/06/2018) show MRSA in 1 of 4 bottles. 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 Repeat blood cultures obtained today to confirm clearance. Right knee fluid cultures demonstrating MRSA. Both with numerous resistances, f ortunately sensitive to Bactrim and vancomycin. Patient currently has a PICC line in place; given her history of IV drug use discharge to home for IV antibiotic therapy is not an option. Have consulted infectious disease to evaluate whether or not p.o. treatment with Zyvox alone is appropriate given her positive blood culture. Continuing Tylenol and Toradol as needed for discomfort. Nonpharmacological interventions for discomfort. Antiemetics as needed. Keep extremity elevated. Orthopedics is consulted; currently with a NYA drain in place. Appreciate their assistance in managing septic arthritis. Wound care, NYA drain, Bernardo wrap per their recommendations. UDS this admission was positive for multiple substances; confirmation testing pending. Have continued the patient's home dose Subutex. Avoiding all other opiate medications. NicoDerm patches as needed for nicotine withdrawal. Continue home dose Fioricet, gabapentin, and Zoloft. Heparin for DVT prophylaxis. 12/10/2018: When I saw that she had the MRSA bacteremia, I decided to get a transthoracic echocardiogram first, and if the views were not good enough she would need to be sent for a STEPHANIE. I discussed this with the patient and she was not excited about it. Infectious disease put in a note today and that was their recommendation as well. She has been switched back over to vancomycin for total of 2 weeks, and if the views of the TTE are good and endocarditis can be ruled out, then she can complete 2 additional weeks of p.o. Zyvox. If it shows that she has evidence of endocarditis, she would need at least 6 weeks of IV vancomycin. - Time Time Spent with patient: 15-24 minutes
[2018-12-13] MEDS: ACETAMINOPHEN 325 MG TABLET PO PRN (14:18)
[2018-12-14] MEDS: ACETAMINOPHEN 325 MG TABLET PO PRN ×3 (00:03→20:35)
[2018-12-14] MEDS: VANCOMYCIN HCL 1,500 MG in DEXTROSE 5%-WATER 250 ML IV SCH ×3 (01:22→17:55)
[2018-12-14] MEDS: KETOROLAC TROMETHAMINE INJ/PF 30 MG/1 ML SDV IV PRN ×4 (01:25→20:34)
[2018-12-14] MEDS: HEPARIN SOD (PORCINE) 5,000 UNIT/ML 1 ML VIAL SUBCUT SCH ×3 (05:01→21:15)
[2018-12-14] MEDS: BUPRENORPHINE HCL 2 MG SUBLINGUAL TABLET SL SCH ×3 (05:02→17:55)
[2018-12-14] MEDS: GABAPENTIN 300 MG CAPSULE PO SCH ×3 (05:02→17:54)
[2018-12-14] MEDS: FAMOTIDINE 20 MG TABLET PO SCH ×2 (10:04→21:15)
[2018-12-14] MEDS: NORMAL SALINE 10 ML SDV (SCHEDULED) IV SCH ×2 (10:05→21:16)
[2018-12-14] MEDS: SERTRALINE HCL 50 MG TABLET PO SCH (10:14)
--- NOTE | 2018-12-14 12:55 | PDOC PROGRESS REPORT ---
Subjective Progress Note for:: 12/14/18 Subjective:: No adverse events overnight. No new complaints. Vital signs been stable. She is been afebrile. Reason For Visit: POSSIBLE SEPTIC ARTHRITIS Physical Exam Vital Signs: Temp Pulse Resp BP Pulse Ox 98.3 F 53 L 17 118/65 100 12/14/18 07:27 12/14/18 07:27 12/14/18 07:27 12/14/18 07:27 12/14/18 07:27 Intake & Output 12/13/18 12/14/18 12/15/18 06:59 06:59 06:59 Intake Total 2470 1330 250 Balance 2470 1330 250 Weight 58.8 kg 58.8 kg General appearance: PRESENT: no acute distress, cooperative, disheveled Teeth exam: PRESENT: poor dentation Respiratory exam: PRESENT: clear to auscultation dmitri, unlabored. ABSENT: accessory muscle use, chest wall tenderness, crackles, prolonged expiratory phas, rhonchi, tachypnea, wheezes Cardiovascular exam: PRESENT: RRR, +S1, +S2 Pulses: PRESENT: normal carotid pulses Vascular exam: PRESENT: normal capillary refill GI/Abdominal exam: PRESENT: normal bowel sounds, soft. ABSENT: distended, guarding, rebound, tenderness Extremities exam: PRESENT: joint swelling - There is still a little bit of swelling and erythema of the right knee along with 2 well approximated small sutured surgical incisions without surrounding erythema. ABSENT: clubbing, pedal edema Musculoskeletal exam: PRESENT: normal inspection. ABSENT: deformity Neurological exam: PRESENT: alert, awake, oriented to person, oriented to place, oriented to situation Psychiatric exam: PRESENT: appropriate affect, normal mood Skin exam: PRESENT: dry, warm Results Laboratory Results: 12/09/18 03:40 12/09/18 03:40 12/07/18 17:50 Knee Fluid - Right Gram Stain - Final 12/07/18 17:50 Knee Fluid - Right Gram Stain Result 1 - Final 12/07/18 17:50 Knee Fluid - Right Gram Stain Result 2 - Final 12/07/18 17:50 Knee Fluid - Right Gram Stain Result 3 - Final 12/09/18 11:30 Blood Blood Culture - Final NO GROWTH IN 5 DAYS Impressions: Knee X-Ray 12/05/18 00:00 IMPRESSION: 1. No definite acute osseous injury. 2. The knee appears to be fixed in partial flexion as the patient is unable to straighten the knee secondary to pain. Underlying ligamentous injury is not excluded. Lower Extremity MRI 12/06/18 09:21 IMPRESSION: 1. JOINT EFFUSION AND GANGLION CYST. 2. MARKED PATCHY DEMINERALIZATION OF THE PROXIMAL TIBIA. 3. NO FRACTURE OR MARROW EDEMA. GROSSLY INTACT MENISCI AND SUPPORTING S TRUCTURES WITH NO INTERNAL DERANGEMENT. PICC Line Insertion 12/07/18 00:00 IMPRESSION: SUCCESSFUL PLACEMENT OF A 5 FR DUAL LUMEN 51 CM PICC IN THE LEFT BASILIC VEIN. Guidance Fluoroscopy 12/08/18 00:00 IMPRESSION: SUCCESSFUL PLACEMENT OF A 5 FR DUAL LUMEN 51 CM PICC IN THE LEFT BASILIC VEIN. Interventional Vascular Procedure 12/08/18 00:00 IMPRESSION: SUCCESSFUL PLACEMENT OF A 5 FR DUAL LUMEN 51 CM PICC IN THE LEFT BASILIC VEIN. Extremity Ultrasound 12/12/18 00:00 IMPRESSION: Edema. No abscess is identified. Assessment and Plan - Diagnosis (1) Bacteremia due to methicillin resistant Staphylococcus aureus Is this a current diagnosis for this admission?: Yes Plan: TTE has been performed and we are awaiting the read. If the views are good enough, we will treat her with 2 weeks of IV vancomycin and then switch to 2 weeks of p.o. Zyvox. About a week after she completes the Zyvox, she can get blood cultures repeated and if they are negative then we can feel confident that any infection has been eradicated. If the views are not good enough, we may mathias ve to send her for a STEPHANIE. Repeat blood cultures have been negative, so I think that the plan of another week of IV vancomycin followed by 2 weeks of p.o. Zyvox with repeat blood cultures a week afterwards should be a successful course of action. (2) History of intravenous drug abuse Is this a current diagnosis for this admission?: Yes Plan: Previously referenced clot is again noted. Since the clot was provoked, she may not need chronic anticoagulation. She just needs to quit injecting drugs. Awaiting the results of her echocardiogram. (3) Septic arthritis Qualifiers: Septic arthritis location: knee Septic arthritis organism: staphylococcal Laterality: right Qualified Code(s): M00.061 - Staphylococcal arthritis, right knee Is this a current diagnosis for this admission?: Yes Plan: Continue antibiotics as noted above. Soft tissue ultrasound for swelling was negative for abscess - Plan Summary Summary: The patient has been admitted to the medical floor. She was placed on IV vancomycin, IV metronidazole, and p.o. Zyvox. Flagyl was discontinued today following final culture results; received 3 days of therapy. Original blood cultures (12/06/2018) show MRSA in 1 of 4 bottles. 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 Repeat blood cultures obtained today to confirm clearance. Right knee fluid cultures demonstrating MRSA. Both with numerous resistances, fortunately sensitive to Bactrim and vancomycin. Patient currently has a PICC line in place; given her history of IV drug use discharge to home for IV antibiotic therapy is not an option. Have consulted infectious disease to evaluate whether or not p.o. treatment with Zyvox alone is appropriate given her positive blood culture. Continuing Tylenol and Toradol as needed for discomfort. Nonpharmacological interventions for discomfort. Antiemetics as needed. Keep extremity elevated. Orthopedics is consulted; currently with a NYA drain in place. Appreciate their assistance in managing septic arthritis. Wound care, NYA drain, Bernardo wrap per their recommendations. UDS this admission was positive for multiple substances; confirmation testing pending. Have continued the patient's home dose Subutex. Avoiding all other opiate medications. NicoDerm patches as needed for nicotine withdrawal. Continue home dose Fioricet, gabapentin, and Zoloft. Heparin for DVT prophylaxis. 12/10/2018: When I saw that she had the MRSA bacteremia, I decided to get a transthoracic echocardiogram first, and if the views were not good enough she would need to be sent for a STEPHANIE. I discussed this with the patient and she was not excited about it. Infectious disease put in a note today and that was their recommendation as well. She has been switched back over to vancomycin for total of 2 weeks, and if the views of the TTE are good and endocarditis can be ruled out, then she can complete 2 additional weeks of p.o. Zyvox. If it shows that she has evidence of endocarditis, she would need at least 6 weeks of IV vancomycin. - Time Time Spent with patient: 15-24 minutes
[2018-12-15] MEDS: VANCOMYCIN HCL 1,500 MG in DEXTROSE 5%-WATER 250 ML IV SCH ×3 (01:09→17:58)
[2018-12-15] MEDS: HEPARIN SOD (PORCINE) 5,000 UNIT/ML 1 ML VIAL SUBCUT SCH ×3 (05:18→22:30)
[2018-12-15] MEDS: GABAPENTIN 300 MG CAPSULE PO SCH ×3 (05:19→17:56)
[2018-12-15] MEDS: BUPRENORPHINE HCL 2 MG SUBLINGUAL TABLET SL SCH ×3 (05:19→17:56)
[2018-12-15] MEDS: KETOROLAC TROMETHAMINE INJ/PF 30 MG/1 ML SDV IV PRN ×3 (05:19→17:57)
[2018-12-15] MEDS: ACETAMINOPHEN 325 MG TABLET PO PRN (05:19)
[2018-12-15] MEDS: FAMOTIDINE 20 MG TABLET PO SCH ×2 (10:38→22:30)
[2018-12-15] MEDS: SERTRALINE HCL 50 MG TABLET PO SCH ×2 (10:38→10:45)
[2018-12-15] MEDS: DOCUSATE SODIUM 100 MG CAPSULE PO PRN ×2 (10:39→17:56)
[2018-12-15] MEDS: NORMAL SALINE 10 ML SDV (SCHEDULED) IV SCH ×2 (12:06→22:30)
--- NOTE | 2018-12-15 12:49 | PDOC PROGRESS REPORT ---
Subjective Progress Note for:: 12/15/18 Subjective:: Patient lying in bed comfortably. Patient continues to complain of swelling and pain along the outer aspect of her knee but the calf pain and swelling in her overall pain is notably improved. She has begun range of motion with good results up to this point. Reason For Visit: POSSIBLE SEPTIC ARTHRITIS Physical Exam Vital Signs: Temp Pulse Resp BP Pulse Ox 98.2 F 46 L 12 119/61 99 12/15/18 11:27 12/15/18 11:27 12/15/18 11:27 12/15/18 11:27 12/15/18 11:27 Intake & Output 12/14/18 12/15/18 12/16/18 06:59 06:59 06:59 Intake Total 1330 3010 Output Total 3000 Balance 1330 10 Weight 58.8 kg 59.3 kg Musculoskeletal exam: PRESENT: other - Right knee: Previous effusion significantly improved. No tenderness along the joint line or posteriorly. Notable swelling along Elo's tubercle with tenderness to palpation. No calf swelling or tenderness. Full plantarflexion/dorsiflexion. Results Laboratory Results: 12/09/18 03:40 12/09/18 03:40 12/15/18 08:20 C-Reactive Protein 61.0 H 12/09/18 15:40 Blood Blood Culture - Final NO GROWTH IN 5 DAYS 12/07/18 17:50 Knee Fluid - Right Aerobic Culture - Final 12/07/18 17:50 Knee Fluid - Right Aerobic Culture Result 1 - Final 12/07/18 17:50 Knee Fluid - Right - Final 12/07/18 17:50 Knee Fluid - Right Gram Stain - Final 12/07/18 17:50 Knee Fluid - Right Gram Stain Result 1 - Final 12/07/18 17:50 Knee Fluid - Right Gram Stain Result 2 - Final 12/07/18 17:50 Knee Fluid - Right Gram Stain Result 3 - Final 12/09/18 11:30 Blood Blood Culture - Final NO GROWTH IN 5 DAYS Impressions: Knee X-Ray 12/05/18 00:00 IMPRESSION: 1. No definite acute osseous injury. 2. The knee appears to be fixed in partial flexion as the patient is unable to straighten the knee secondary to pain. Underlying ligamentous injury is not excluded. Lower Extremity MRI 12/06/18 09:21 IMPRESSION: 1. JOINT EFFUSION AND GANGLION CYST. 2. MARKED PATCHY DEMINERALIZATION OF THE PROXIMAL TIBIA. 3. NO FRACTURE OR MARROW EDEMA. GROSSLY INTACT MENISCI AND SUPPORTING STRUCTURES WITH NO INTERNAL DERANGEMENT. PICC Line Insertion 12/07/18 00:00 IMPRESSION: SUCCESSFUL PLACEMENT OF A 5 FR DUAL LUMEN 51 CM PICC IN THE LEFT BASILIC VEIN. Guidance Fluoroscopy 12/08/18 00:00 IMPRESSION: SUCCESSFUL PLACEMENT OF A 5 FR DUAL LUMEN 51 CM PICC IN THE LEFT BASILIC VEIN. Interventional Vascular Procedure 12/08/18 00:00 IMPRESSION: SUCCESSFUL PLACEMENT OF A 5 FR DUAL LUMEN 51 CM PICC IN THE LEFT BASILIC VEIN. Extremity Ultrasound 12/12/18 00:00 IMPRESSION: Edema. No abscess is identified. Assessment & Plan - Diagnosis (1) Knee effusion, right Is this a current diagnosis for this admission?: Yes Plan: Postop day #2 status post arthroscopic debridement right septic knee #1 Patient growing methicillin-resistant staph aureus consistent with previous bacteria #2 Continue physical therapy weightbearing as tolerated encourage patient to begin knee range of motion in bed. #3 We will obtain MRI to ensure there is no evidence of fluid collection or residual abscess along Elo's tubercle laterally. #4 discharge planning home on p.o. antibiotics at the discretion of hospitalist/infectious disease - Time Time Spent with patient: Less than 15 minutes
--- NOTE | 2018-12-15 18:22 | PDOC PROGRESS REPORT ---
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 Now Postop day #2 status post arthroscopic debridement right septic knee Patient was seen on afternoon rounds. She is found resting in bed comfortably on room air . She reports continued right knee pain; though significantly improved. She continues to have erythema and edema to lateral aspect; plans for MRI today to evaluate for abscess. She denies fever, chills, chest pain, palpitations, orthopnea, dyspnea, cough, abdominal pain, nausea vomiting and diarrhea. She reports good appetite. She has no questions or concerns at this time. No concerns per nursing. Reason For Visit: POSSIBLE SEPTIC ARTHRITIS Physical Exam Vital Signs: Temp Pulse Resp BP Pulse Ox 98.2 F 46 L 12 119/61 99 12/15/18 11:27 12/15/18 11:27 12/15/18 11:27 12/15/18 11:27 12/15/18 11:27 Intake & Output 12/14/18 12/15/18 12/16/18 06:59 06:59 06:59 Intake Total 1330 3010 730 Output Total 3000 Balance 1330 10 730 Weight 58.8 kg 59.3 kg General appearance: PRESENT: no acute distress, cooperative, thin, well- developed, well-nourished Head exam: PRESENT: atraumatic, normocephalic Eye exam: PRESENT: conjunctiva pink, EOMI, PERRLA. ABSENT: scleral icterus Ear exam: PRESENT: normal external ear exam Mouth exam: PRESENT: moist, tongue midline Neck exam: ABSENT: carotid bruit, JVD, lymphadenopathy, thyromegaly Respiratory exam: PRESENT: clear to auscultation dmitri, symmetrical, unlabored. ABSENT: rales, rhonchi, wheezes Cardiovascular exam: PRESENT: RRR, +S1, +S2. ABSENT: diastolic murmur, rubs, systolic murmur Pulses: PRESENT: normal dorsalis pedis pul Vascular exam: PRESENT: normal capillary refill GI/Abdominal exam: PRESENT: normal bowel sounds, soft. ABSENT: distended, guarding, mass, organolmegaly, rebound, tenderness Rectal exam: PRESENT: deferred Extremities exam: PRESENT: full ROM, tenderness - Right knee. ABSENT: calf tenderness, clubbing, pedal edema Neurological exam: PRESENT: alert, awake, oriented to person, oriented to place, oriented to time, oriented to situation, CN II-XII grossly intact. ABSENT: motor sensory deficit Psychiatric exam: PRESENT: appropriate affect, normal mood. ABSENT: homicidal ideation, suicidal ideation Skin exam: PRESENT: dry, erythema - Right lateral knee erythema and edema, warm. ABSENT: cyanosis, rash Results Laboratory Results: 12/09/18 03:40 12/09/18 03:40 12/15/18 08:20 C-Reactive Protein 61.0 H 12/07/18 17:50 Knee Fluid - Right Aerobic Culture - Final 12/07/18 17:50 Knee Fluid - Right Aerobic Culture Result 1 - Final 12/07/18 17:50 Knee Fluid - Right - Final 12/07/18 17:50 Knee Fluid - Right Gram Stain - Final 12/07/18 17:50 Knee Fluid - Right Gram Stain Result 1 - Final 12/07/18 17:50 Knee Fluid - Right Gram Stain Result 2 - Final 12/07/18 17:50 Knee Fluid - Right Gram Stain Result 3 - Final 12/09/18 15:40 Blood Blood Culture - Final NO GROWTH IN 5 DAYS Impressions: Knee X-Ray 12/05/18 00:00 IMPRESSION: 1. No definite acute osseous injury. 2. The knee appears to be fixed in partial flexion as the patient is unable to straighten the knee secondary to pain. Underlying ligamentous injury is not excluded. PICC Line Insertion 12/07/18 00:00 IMPRESSION: SUCCESSFUL PLACEMENT OF A 5 FR DUAL LUMEN 51 CM PICC IN THE LEFT BASILIC VEIN. Guidance Fluoroscopy 12/08/18 00:00 IMPRESSION: SUCCESSFUL PLACEMENT OF A 5 FR DUAL LUMEN 51 CM PICC IN THE LEFT BASILIC VEIN. Interventional Vascular Procedure 12/08/18 00:00 IMPRESSION: SUCCESSFUL PLACEMENT OF A 5 FR DUAL LUMEN 51 CM PICC IN THE LEFT BASILIC VEIN. Extremity Ultrasound 12/12/18 00:00 IMPRESSION: Edema. No abscess is identified. Assessment and Plan - Diagnosis (1) Bacteremia due to methicillin resistant Staphylococcus aureus Is this a current diagnosis for this admission?: Yes Plan: TTE has been performed and we are awaiting the read. If the views are good enough, we will treat her with 2 weeks of IV vancomycin (transition date 12/23) and then switch to 2 weeks of p.o. Zyvox. Recommend repeat blood cultures 1 week after completion of Zyvox to confirm that any infection has been eradicated. If the echo views are not good enough, will need to arrange for in-house STEPHANIE (which will be available at [facility] beginning 12/17). Infectious disease was consulted; Reference provider note by Dr. Chase dated 12/10/2018. (2) Septic arthritis Qualifiers: Septic arthritis location: knee Septic arthritis organism: staphylococcal Laterality: right Qualified Code(s): M00.061 - Staphylococcal arthritis, right knee Is this a current diagnosis for this admission?: Yes Plan: Continue antibiotics as noted above. Soft tissue ultrasound for swelling was negative for abscess Repeat MRI today per Ortho. Ortho is consulted; appreciate their assistance. (3) Elevated C-reactive protein (CRP) Is this a current diagnosis for this admission?: Yes Plan: Trending down; 199-> 61 Evaluation management as above. (4) Elevated erythrocyte sedimentation rate Is this a current diagnosis for this admission?: Yes Plan: Remains elevated; 92-> 101 Evaluation management as above. (5) History of methicillin resistant Staph aureus Is this a current diagnosis for this admission?: Yes Plan: Infectious diseases been consulted; appreciate their evaluation recommendations. Blood cultures and wound cultures reviewed. Continue IV vancomycin through 12/23/2018 then transition to p.o. Zyvox pending echocardiogram results. (6) Opioid dependence Is this a current diagnosis for this admission?: Yes Plan: Continue home dose Subutex. Avoiding all other narcotic medications. (7) Hepatitis C Qualifiers: Viral hepatitis chronicity: chronic Is this a current diagnosis for this admission?: Yes Plan: Outpatient follow-up. (8) History of intravenous drug abuse Is this a current diagnosis for this admission?: Yes Plan: Previous history of IV drug use. Not a candidate for discharge to home with PICC line in place. - Plan Summary Summary: The patient has been admitted to the medical floor. She was placed on IV vancomycin, IV metronidazole, and p.o. Zyvox. Flagyl was discontinued today following final culture results; received 3 days of therapy. Original blood cultures (12/06/2018) show MRSA in 1 of 4 bottles. 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 Repeat blood cultures obtained today to confirm clearance. Right knee fluid cultures demonstrating MRSA. Both with numerous resistances, fortunately sensitive to Bactrim and vancomycin. Patient currently has a PICC line in place; given her history of IV drug use discharge to home for IV antibiotic therapy is not an option. Have consulted infectious disease to evaluate whether or not p.o. treatment with Zyvox alone is appropriate given her positive blood culture. Continuing Tylenol and Toradol as needed for discomfort. Nonpharmacological interventions for discomfort. Antiemetics as needed. Keep extremity elevated. Orthopedics is consulted; currently with a NYA drain in place. Appreciate their assistance in managing septic arthritis. Wound care, NYA drain, Bernardo wrap per their recommendations. UDS this admission was positive for multiple substances; confirmation testing pending. Have continued the patient's home dose Subutex. Avoiding all other opiate medications. NicoDerm patches as needed for nicotine withdrawal. Continue home dose Fioricet, gabapentin, and Zoloft. Heparin for DVT prophylaxis. 12/10/2018: When I saw that she had the MRSA bacteremia, I decided to get a transthoracic echocardiogram first, and if the views were not good enough she would need to be sent for a STEPHANIE. I discussed this with the patient and she was not excited about it. Infectious disease put in a note today and that was their recommendation as well. She has been switched back over to vancomycin for total of 2 weeks, and if the views of the TTE are good and endocarditis can be ruled out, then she can complete 2 additional weeks of p.o. Zyvox. If it shows that she has evidence of endocarditis, she would need at least 6 weeks of IV vancomycin. - Time Time Spent with patient: 15-24 minutes Medications reviewed and adjusted accordingly: Yes Anticipated discharge: Home Within: Other - 12/23/18
--- NOTE | 2018-12-15 19:27 | RADIOLOGY REPORT (SQ) ---
EXAM DESCRIPTION: MRI RT LOWER EXTREMITY WITHOUT COMPLETED DATE/TIME: 12/15/2018 4:56 pm REASON FOR STUDY: abscess COMPARISON: None. TECHNIQUE: Rightknee images acquired and stored on PACS. Multiplanar images include fat sensitive s equences as T1, water sensitive sequences as FST2 or STIR, cartilage sensitive sequences as FSPD, and gradient echo sequences. LIMITATIONS: None. FINDINGS: Diffuse signal abnormality in the proximal tibial plateau and metaphysis with an area of c ortical breakthrough in the lateral cortex seen best on image number 19 and 20 series 3 and 4. There is a contiguous fluid collection in the anterior muscular compartment lateral to the tibia which spa ns a craniocaudad length of 17 cm and 1.7 cm thickness. Small joint effusion. Edema in the popliteu s muscle. These findings are concerning for osteomyelitis with soft tissue abscess. Surgical consult ation recommended. IMPRESSION: Diffuse signal abnormality in the proximal tibial plateau and metaphysis with an area of cortical breakthrough in the lateral cortex seen best on image number 19 and 20 series 3 and 4. The re is a contiguous fluid collection in the anterior muscular compartment lateral to the tibia which s pans a craniocaudad length of 17 cm and 1.7 cm thickness. Small joint effusion. Edema in the poplit eus muscle. These findings are concerning for osteomyelitis with soft tissue abscess. Surgical consu ltation recommended. TECHNICAL DOCUMENTATION: JOB ID: [id number] [id number] 2010 [employer] All Rights Reserved Reading location - IP/workstation name: [email or web address]
[2018-12-16] MEDS: VANCOMYCIN HCL 1,500 MG in DEXTROSE 5%-WATER 250 ML IV SCH ×2 (03:13→11:46)
[2018-12-16] MEDS: BUTALB/ACETAMINOPHEN/CAFFEINE 1 TAB EACH PO PRN ×2 (03:24→21:33)
[2018-12-16] MEDS: KETOROLAC TROMETHAMINE INJ/PF 30 MG/1 ML SDV IV PRN ×3 (03:25→19:40)
[2018-12-16] MEDS: GABAPENTIN 300 MG CAPSULE PO SCH ×3 (05:34→21:16)
[2018-12-16] MEDS: BUPRENORPHINE HCL 2 MG SUBLINGUAL TABLET SL SCH ×3 (05:34→21:16)
[2018-12-16] MEDS: HEPARIN SOD (PORCINE) 5,000 UNIT/ML 1 ML VIAL SUBCUT SCH ×3 (05:34→22:42)
[2018-12-16 06:48] LABS: HEMATOCRIT 27.5 % (36.0-47.0); HEMOGLOBIN 9.1 g/dL (12.0-15.5); MEAN CORPUSCULAR HEMOGLOBIN 27.1 pg (27.0-33.4); MEAN CORPUSCULAR HGB CONC 33.2 g/dL (32.0-36.0); MEAN CORPUSCULAR VOLUME 82 fl (80-97); PLATELET COUNT 408 10^3/uL (150-450); RED BLOOD COUNT 3.36 10^6/uL (3.72-5.28); RED CELL DISTRIBUTION WIDTH 15.6 % (11.5-14.0); WHITE BLOOD COUNT 6.2 10^3/uL (4.0-10.5)
[2018-12-16 07:02] LABS: ANION GAP 7 (5-19); BLOOD UREA NITROGEN 14 mg/dL (7-20); CALCIUM 8.9 mg/dL (8.4-10.2); CARBON DIOXIDE 31 mmol/L (22-30); CHLORIDE 100 mmol/L (98-107); GLUCOSE 94 mg/dL (75-110); POTASSIUM 4.8 mmol/L (3.6-5.0)
[2018-12-16] MEDS ORDERED: DEXTROSE 40% GEL 15 GM TUBE PO PRN ×2 (07:29)
[2018-12-16] MEDS ORDERED: DEXTROSE 50%-WATER 25 GM/50 ML DISP.SYRIN IV PRN ×2 (07:29)
--- NOTE | 2018-12-16 07:37 | PDOC PROGRESS REPORT ---
Subjective Subjective:: Patient lying in bed comfortably. Patient continues to complain of swelling and pain along the outer aspect of her knee but the calf pain and swelling in her overall pain is notably improved. Denies fever chills or sweats. Reason For Visit: POSSIBLE SEPTIC ARTHRITIS Physical Exam Vital Signs: Temp Pulse Resp BP Pulse Ox 98.4 F 69 17 106/59 L 96 12/15/18 23:47 12/15/18 23:47 12/15/18 23:47 12/15/18 23:47 12/15/18 23:47 Intake & Output 12/15/18 12/16/18 12/17/18 06:59 06:59 06:59 Intake Total 3010 1989 Output Total 3000 Balance 10 1989 Weight 59.3 kg 58.6 kg Musculoskeletal exam: PRESENT: other - Right lower extremity: Total excision is healed notable swelling along Elo's tubercle laterally with tenderness to palpation. No significant tenderness along the anterior calf. Intact plantarflexion/dorsiflexion. No sensory deficits. Results Laboratory Results: 12/16/18 06:30 12/16/18 06:30 12/15/18 12/16/18 12/16/18 08:20 06:30 06:30 WBC 6.2 RBC 3.36 L Hgb 9.1 L Hct 27.5 L MCV 82 MCH 27.1 MCHC 33.2 RDW 15.6 H Plt Count 408 Sodium 137.7 Potassium 4.8 Chloride 100 Carbon Dioxide 31 H Anion Gap 7 BUN 14 Creatinine 0.58 Est GFR ( Amer) > 60 Glucose 94 Calcium 8.9 C-Reactive Protein 61.0 H 12/07/18 17:50 Knee Fluid - Right Aerobic Culture - Final 12/07/18 17:50 Knee Fluid - Right Aerobic Culture Result 1 - Final 12/07/18 17:50 Knee Fluid - Right - Final 12/07/18 17:50 Knee Fluid - Right Gram Stain - Final 12/07/18 17:50 Knee Fluid - Right Gram Stain Result 1 - Final 12/07/18 17:50 Knee Fluid - Right Gram Stain Result 2 - Final 12/07/18 17:50 Knee Fluid - Right Gram Stain Result 3 - Final Impressions: Knee X-Ray 12/05/18 00:00 IMPRESSION: 1. No definite acute osseous injury. 2. The knee appears to be fixed in partial flexion as the patient is unable to straighten the knee secondary to pain. Underlying ligamentous injury is not excluded. PICC Line Insertion 12/07/18 00:00 IMPRESSION: SUCCESSFUL PLACEMENT OF A 5 FR DUAL LUMEN 51 CM PICC IN THE LEFT BASILIC VEIN. Guidance Fluoroscopy 12/08/18 00:00 IMPRESSION: SUCCESSFUL PLACEMENT OF A 5 FR DUAL LUMEN 51 CM PICC IN THE LEFT BASILIC VEIN. Interventional Vascular Procedure 12/08/18 00:00 IMPRESSION: SUCCESSFUL PLACEMENT OF A 5 FR DUAL LUMEN 51 CM PICC IN THE LEFT BASILIC VEIN. Extremity Ultrasound 12/12/18 00:00 IMPRESSION: Edema. No abscess is identified. Lower Extremity MRI 12/15/18 00:00 IMPRESSION: Diffuse signal abnormality in the proximal tibial plateau and metaphysis with an area of cortical breakthrough in the lateral cortex seen best on image number 19 and 20 series 3 and 4. There is a contiguous fluid collection in the anterior muscular compartment lateral to the tibia which spans a craniocaudad length of 17 cm and 1.7 cm thickness. Small joint effusion. Ed portillo in the popliteus muscle. These findings are concerning for osteomyelitis with soft tissue abscess. Surgical consultation recommended. Status: Image reviewed by me - I have reviewed patient's MRI which demonstrates abscess along the anterior compartment with questionable bony involvement of the lateral tibial plateau possibly consistent with osteomyelitis. Assessment & Plan - Diagnosis (1) Knee effusion, right Is this a current diagnosis for this admission?: Yes Plan: I have reviewed patient's MRI which is consistent with abscess along the lateral compartment and cortical defect suggesting possible osteomyelitis. Given the extensive nature of patient's abscess and failure to see improvement with her sed rate I have recommend operative intervention which includes irrigation and debridement of the right leg. Risks and benefits have been explained to the patient risks including recurrent infection, postoperative pain, neurovascular injury and any unforeseen complication patient verbalized understanding consented for surgical procedure. - Time Time Spent with patient: Less than 15 minutes
--- NOTE | 2018-12-16 11:12 | PDOC PROGRESS REPORT ---
Subjective Progress Note for:: 12/16/18 Subjective:: The patient is very distressed. She just found out that she will need more surgery on her right leg. Evidently there is new abscess distal to the knee that is quite severe. Reason For Visit: POSSIBLE SEPTIC ARTHRITIS Physical Exam Vital Signs: Temp Pulse Resp BP Pulse Ox 97.8 F 46 L 17 106/60 100 12/16/18 07:56 12/16/18 07:56 12/15/18 23:47 12/16/18 07:56 12/16/18 07:56 Intake & Output 12/15/18 12/16/18 12/17/18 06:59 06:59 06:59 Intake Total 3010 1989 Output Total 3000 Balance 10 1989 Weight 59.3 kg 58.6 kg General appearance: PRESENT: cooperative, mild distress - Very upset about the news of new surgery, well-developed Head exam: PRESENT: atraumatic, normocephalic Respiratory exam: PRESENT: clear to auscultation dmitri, symmetrical, unlabored. ABSENT: rales, rhonchi, tachypnea, wheezes Cardiovascular exam: PRESENT: RRR, +S1, +S2 GI/Abdominal exam: PRESENT: normal bowel sounds, soft. ABSENT: distended, tenderness Rectal exam: PRESENT: deferred Extremities exam: PRESENT: other - On the lateral aspect of the right leg distal to the knee there is an erythematous tender area that extends distally almost to mid lower leg. Neurological exam: PRESENT: alert, awake, oriented to person, oriented to place, oriented to time, oriented to situation, CN II-XII grossly intact Psychiatric exam: PRESENT: other - Very sad/frustrated affect. ABSENT: agitated, anxious Focused psych exam: ABSENT: delusional, restlessness Skin exam: PRESENT: erythema Results Laboratory Results: 12/16/18 06:30 12/16/18 06:30 12/16/18 12/16/18 06:30 06:30 WBC 6.2 RBC 3.36 L Hgb 9.1 L Hct 27.5 L MCV 82 MCH 27.1 MCHC 33.2 RDW 15.6 H Plt Count 408 Sodium 137.7 Potassium 4.8 Chloride 100 Carbon Dioxide 31 H Anion Gap 7 BUN 14 Creatinine 0.58 Est GFR ( Amer) > 60 Glucose 94 Calcium 8.9 12/07/18 17:50 Knee Fluid - Right Aerobic Culture - Final 12/07/18 17:50 Knee Fluid - Right Aerobic Culture Result 1 - Final 12/07/18 17:50 Knee Fluid - Right - Final 12/07/18 17:50 Knee Fluid - Right Gram Stain - Final 12/07/18 17:50 Knee Fluid - Right Gram Stain Result 1 - Final 12/07/18 17:50 Knee Fluid - Right Gram Stain Result 2 - Final 12/07/18 17:50 Knee Fluid - Right Gram Stain Result 3 - Final Impressions: Knee X-Ray 12/05/18 00:00 IMPRESSION: 1. No definite acute osseous injury. 2. The knee appears to be fixed in partial flexion as the patient is unable to straighten the knee secondary to pain. Underlying ligamentous injury is not excluded. PICC Line Insertion 12/07/18 00:00 IMPRESSION: SUCCESSFUL PLACEMENT OF A 5 FR DUAL LUMEN 51 CM PICC IN THE LEFT BASILIC VEIN. Guidance Fluoroscopy 12/08/18 00:00 IMPRESSION: SUCCESSFUL PLACEMENT OF A 5 FR DUAL LUMEN 51 CM PICC IN THE LEFT BASILIC VEIN. Interventional Vascular Procedure 12/08/18 00:00 IMPRESSION: SUCCESSFUL PLACEMENT OF A 5 FR DUAL LUMEN 51 CM PICC IN THE LEFT BASILIC VEIN. Extremity Ultrasound 12/12/18 00:00 IMPRESSION: Edema. No abscess is identified. Lower Extremity MRI 12/15/18 00:00 IMPRESSION: Diffuse signal abnormality in the proximal tibial plateau and metaphysis with an area of cortical breakthrough in the lateral cortex seen best on image number 19 and 20 series 3 and 4. There is a contiguous fluid collectio n in the anterior muscular compartment lateral to the tibia which spans a craniocaudad length of 17 cm and 1.7 cm thickness. Small joint effusion. Edema in the popliteus muscle. These findings are concerning for osteomyelitis with soft tissue abscess. Surgical consultation recommended. Assessment and Plan - Diagnosis (1) Septic arthritis Qualifiers: Septic arthritis location: knee Septic arthritis organism: staphylococcal Laterality: right Qualified Code(s): M00.061 - Staphylococcal arthritis, right knee Is this a current diagnosis for this admission?: Yes Plan: 12/16/2018-unfortunately there is a new collection/abscess on the right leg lateral aspect below the knee. The patient will be going to the operating room again today. (2) Elevated C-reactive protein (CRP) Is this a current diagnosis for this admission?: Yes Plan: 12/16/2018-the C-reactive protein is improved but not as much as expected. The recurrence of abscess in the right leg does explain the slow trend towards normal. (3) Elevated erythrocyte sedimentation rate Is this a current diagnosis for this admission?: Yes Plan: 12/16/2018-as noted above the sed rate is also improved but not as close to normal as I would have expected. Recurrent abscess explains this. (4) Opioid dependence Is this a current diagnosis for this admission?: Yes Plan: 12/16/2018-continue current regimen of pain management (5) History of methicillin resistant Staph aureus Is this a current diagnosis for this admission?: Yes Plan: 12/16/20181966-[id number] staph aureus is confirmed. Continue vancomycin. - Plan Summary Summary: The patient has been admitted to the medical floor. She was placed on IV vancomycin, IV metronidazole, and p.o. Zyvox. Flagyl was discontinued today following final culture results; received 3 days of therapy. Original blood cultures (12/06/2018) show MRSA in 1 of 4 bottles. 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 Repeat blood cultures obtained today to confirm clearance. Right knee fluid cultures demonstrating MRSA. Both with numerous resistances, fortunately sensitive to Bactrim and vancomycin. Patient currently has a PICC line in place; given her history of IV drug use discharge to home for IV antibiotic therapy is not an option. Have consulted infectious disease to evaluate whether or not p.o. treatment with Zyvox alone is appropriate given her positive blood culture. Continuing Tylenol and Toradol as needed for discomfort. Nonpharmacological interventions for discomfort. Antiemetics as needed. Keep extremity elevated. Orthopedics is consulted; currently with a NYA drain in place. Appreciate their assistance in managing septic arthritis. Wound care, NYA drain, Bernardo wrap per their recommendations. UDS this admission was positive for multiple substances; confirmation testing pending. Have continued the patient's home dose Subutex. Avoiding all other opiate medications. NicoDerm patches as needed for nicotine withdrawal. Continue home dose Fioricet, gabapentin, and Zoloft. Heparin for DVT prophylaxis. 12/10/2018: When I saw that she had the MRSA bacteremia, I decided to get a transthoracic echocardiogram first, and if the views were not good enough she would need to be sent for a STEPHANIE. I discussed this with the patient and she was not excited about it. Infectious disease put in a note today and that was their recommendation as well. She has been switched back over to vancomycin for total of 2 weeks, and if the views of the TTE are good and endocarditis can be ruled out, then she can complete 2 additional weeks of p.o. Zyvox. If it shows that she has evidence of endocarditis, she would need at least 6 weeks of IV vancomycin. - Time Time Spent with patient: 15-24 minutes Medications reviewed and adjusted accordingly: Yes
[2018-12-16] MEDS: FAMOTIDINE 20 MG TABLET PO SCH ×2 (11:57→21:17)
[2018-12-16] MEDS: DOCUSATE SODIUM 100 MG CAPSULE PO PRN (11:57)
[2018-12-16] MEDS: SERTRALINE HCL 50 MG TABLET PO SCH (11:59)
[2018-12-16] MEDS: NORMAL SALINE 10 ML SDV (SCHEDULED) IV SCH ×2 (12:55→21:17)
[2018-12-16] MEDS ORDERED: FENTANYL CITRATE INJ/PF 100 MCG/2 ML AMPUL ONE ×2 (18:09→18:22)
[2018-12-16] MEDS ORDERED: KETAMINE HCL INJ 500 MG/10 ML VIAL ONE (18:09)
[2018-12-16] MEDS ORDERED: ONDANSETRON HCL INJ/PF 4 MG/2 ML SDV ONE (18:09)
[2018-12-16] MEDS ORDERED: MIDAZOLAM 2 MG/2 ML INJ ONE (18:09)
[2018-12-16] MEDS ORDERED: PROPOFOL INJ 200 MG/20 ML VIAL IV ONE (18:10)
[2018-12-16] MEDS ORDERED: FENTANYL CITRATE INJ/PF 100 MCG/2 ML AMPUL IV PRN ×3 (18:46)
[2018-12-16] MEDS ORDERED: ONDANSETRON HCL INJ/PF 4 MG/2 ML SDV IV PRN (18:46)
[2018-12-16] MEDS ORDERED: DIPHENHYDRAMINE HCL 50 MG/ML VIAL IV PRN (18:46)
[2018-12-16] MEDS ORDERED: MEPERIDINE HCL/PF INJ 25 MG/1 ML DISP.SYRIN IV PRN (18:46)
[2018-12-16] MEDS ORDERED: PROMETHAZINE HCL INJ 25 MG/1 ML VIAL IV PRN ×2 (18:46)
[2018-12-16] MEDS ORDERED: MORPHINE SULFATE 10 MG/ML INJ IV PRN (18:46)
--- NOTE | 2018-12-16 19:20 | Operative Report ---
Operative Report DATE OF SURGERY: 12/16/18 PREOPERATIVE DIAGNOSIS: Right leg abscess with possible tibial osteomyelitis POSTOPERATIVE DIAGNOSIS: Same OPERATION: Irrigation and debridement right leg abscess with debridement bone of lateral tibial plateau, bone biopsy SURGEON: ERIK MUNSON ANESTHESIA: GA TISSUE REMOVED OR ALTERED: Bone lateral tibial plateau COMPLICATIONS: None ESTIMATED BLOOD LOSS: Minimal PROCEDURE: Indication for above procedure: 33-year-old female who presented with septic arthritis of the right knee patient had slowly been doing better but then developed increasing redness and swelling along her lateral calf. MRI was then obtained confirming residual abscess along the anterior compartment with possible osseous involvement of lateral tibial plateau. I discussed risks and benefits and the severe nature of patient's current situation and recommended proceeding with operative intervention. Risks and benefits were explained patient verbalized understanding consented for surgical procedure. Procedure In Detail: Patient was seen and evaluated in the preoperative holding area. The upper extremity was initialized and marked. Patient receiving vancomycin IV for MRSA bacteremia patient was taken back to the operative room where transferred to the operative table and placed under general anesthesia. Once they were adequately anesthetized a nonsterile tourniquet was placed on the upper extremity. A surgical team debriefing was performed ensuring all instrumentation was availab le, the surgical procedure was discussed with possible concerns reviewed. The upper extremity was prepped with ChloraPrep and draped in a sterile fashion. A timeout was done identifying correct patient, procedure and extremity everyone in attendance agree with this and verbalized no concerns. The extremity was elevated the tourniquet was inflated to 280 mmHg. Skin incision was made over Elo's tubercle. Blunt dissection was performed. Fascia of the anterior compartment was identified. Purulence extended from just anterior to the fibular head into the anterior compartment extending into the lateral tibial plateau. Copious amount of purulence was expressed from the region. Cortical defect along the lateral tibial plateau was identified and curette placed within the lateral tibial plateau and biopsy obtained. Nonviable bone was copiously irrigated and debrided. Specimen was sent for culture and pathology for definitive diagnosis of osteomyelitis. A second skin incision was made distally at the most distal aspect of the abscess as noted on MRI. Blunt dissection was performed superficial peroneal nerve was protected. Anterior compartment fascia was released proximally distally both incisions connected consistent with abscess on MRI. Nonviable tissue into the including small amount of necrotic muscle was excised. Both wounds were copiously irrigated with 3 L of pulse lavage. A Pantera drain was then placed from the distal wound into the proximal end. Subcutaneous tissues were closed with interrupted 3-0 Monocryl suture skin was closed with d[place]. Was dressed with Xeroform 4 x 4's and a soft dressing. Tourniquet was deflated. Patient normal peripheral perfusion. Sponge counts, instrument counts, needle counts were correct. Patient was then awoken from anesthesia. Transferred from the operating room table to the operating room stretcher. There was no intraoperative complications patient tolerated procedure well stable to PACU. Postop plan: Unfortunately given the intraoperative findings of osteomyelitis this may change antibiotic choice would defer to hospitalist. We will continue drain until drainage less than 10.
[2018-12-16] MEDS ORDERED: KETOROLAC TROMETHAMINE INJ/PF 30 MG/1 ML SDV ONE (19:37)
[2018-12-17] MEDS: VANCOMYCIN HCL 1,500 MG in DEXTROSE 5%-WATER 250 ML IV SCH ×3 (00:12→10:09)
[2018-12-17] MEDS: KETOROLAC TROMETHAMINE INJ/PF 30 MG/1 ML SDV IV PRN ×4 (02:57→22:30)
--- NOTE | 2018-12-17 06:32 | PDOC PROGRESS REPORT ---
Subjective Subjective:: Patient lying in bed. Continues to have pain in the right lower extremity. Has been taking Toradol with some relief. Denies fever chills or sweats. Reason For Visit: POSSIBLE SEPTIC ARTHRITIS Physical Exam Vital Signs: Temp Pulse Resp BP Pulse Ox 97.8 F 50 L 13 137/71 H 100 12/16/18 20:10 12/16/18 19:48 12/16/18 19:48 12/16/18 19:48 12/16/18 19:48 Intake & Output 12/15/18 12/16/18 12/17/18 06:59 06:59 06:59 Intake Total 3010 1989 3600 Output Total 3000 5 3010 Balance 10 1984 590 Weight 59.3 kg 58.6 kg 58.8 kg Musculoskeletal exam: PRESENT: other - Right lower extremity: Dressing intact. Drain intact. Intact plantarflexion/dorsiflexion. No sensory deficits. Dorsalis pedis pulse 2+. Results Laboratory Results: 12/16/18 06:30 12/16/18 21:25 12/16/18 12/16/18 12/16/18 06:30 06:30 21:25 WBC 6.2 RBC 3.36 L Hgb 9.1 L Hct 27.5 L MCV 82 MCH 27.1 MCHC 33.2 RDW 15.6 H Plt Count 408 Sodium 137.7 Potassium 4.8 Chloride 100 Carbon Dioxide 31 H Anion Gap 7 BUN 14 Creatinine 0.58 0.62 Est GFR ( Amer) > 60 > 60 Glucose 94 Calcium 8.9 12/07/18 17:50 Knee Fluid - Right Anaerobic Culture - Final 12/07/18 17:50 Knee Fluid - Right Anaerobic Culture Result 1 - Final 12/07/18 17:50 Knee Fluid - Right Aerobic Culture - Final 12/07/18 17:50 Knee Fluid - Right Aerobic Culture Result 1 - Final 12/07/18 17:50 Knee Fluid - Right - Final 12/07/18 17:50 Knee Fluid - Right Gram Stain - Final 12/07/18 17:50 Knee Fluid - Right Gram Stain Result 1 - Final 12/07/18 17:50 Knee Fluid - Right Gram Stain Result 2 - Final 12/07/18 17:50 Knee Fluid - Right Gram Stain Result 3 - Final Impressions: Knee X-Ray 12/05/18 00:00 IMPRESSION: 1. No definite acute osseous injury. 2. The knee appears to be fixed in partial flexion as the patient is unable to straighten the knee secondary to pain. Underlying ligamentous injury is not excluded. PICC Line Insertion 12/07/18 00:00 IMPRESSION: SUCCESSFUL PLACEMENT OF A 5 FR DUAL LUMEN 51 CM PICC IN THE LEFT BASILIC VEIN. Guidance Fluoroscopy 12/08/18 00:00 IMPRESSION: SUCCESSFUL PLACEMENT OF A 5 FR DUAL LUMEN 51 CM PICC IN THE LEFT BASILIC VEIN. Interventional Vascular Procedure 12/08/18 00:00 IMPRESSION: SUCCESSFUL PLACEMENT OF A 5 FR DUAL LUMEN 51 CM PICC IN THE LEFT BASILIC VEIN. Extremity Ultrasound 12/12/18 00:00 IMPRESSION: Edema. No abscess is identified. Lower Extremity MRI 12/15/18 00:00 IMPRESSION: Diffuse signal abnormality in the proximal tibial plateau and metaphysis with an area of cortical breakthrough in the lateral cortex seen best on image number 19 and 20 series 3 and 4. There is a contiguous fluid collection in the anterior muscular compartment lateral to the tibia which spans a craniocaudad length of 17 cm and 1.7 cm thickness. Small joint effusion. Edema in the popliteus muscle. These findings are concerning for osteomyelitis with soft tissue abscess. Surgical consultation recommended. Assessment & Plan - Diagnosis (1) Knee effusion, right Is this a current diagnosis for this admission?: Yes Plan: Postop day #1 status post irrigation debridement right leg abscess, lateral tibial plateau Continue IV antibiotics patient may require long-term IV antibiotics given the severity of her infection and involvement of the tibial plateau. Wound was sent for cultures and pathology to confirm osteomyelitis. - Time Time Spent with patient: Less than 15 minutes
[2018-12-17] MEDS: HEPARIN SOD (PORCINE) 5,000 UNIT/ML 1 ML VIAL SUBCUT SCH ×3 (06:49→22:35)
[2018-12-17] MEDS: BUPRENORPHINE HCL 2 MG SUBLINGUAL TABLET SL SCH ×3 (06:50→18:42)
[2018-12-17] MEDS: GABAPENTIN 300 MG CAPSULE PO SCH ×3 (06:50→18:42)
[2018-12-17] MEDS: NORMAL SALINE 10 ML SDV (AFTER EACH USE) IV PRN ×2 (09:06→15:20)
--- NOTE | 2018-12-17 09:39 | PDOC PROGRESS REPORT ---
Subjective Progress Note for:: 12/17/18 Subjective:: The patient had a second surgery on the right leg yesterday. She appears uncomfortable which is to be expected. There is an Bernardo wrap on the right leg from the midfoot through the knee. Surgical drains in place. Bloody drainage from the surgical drain. Reason For Visit: POSSIBLE SEPTIC ARTHRITIS Physical Exam Vital Signs: Temp Pulse Resp BP Pulse Ox 98.1 F 50 L 16 114/65 98 12/17/18 01:20 12/17/18 01:20 12/17/18 01:20 12/17/18 01:20 12/17/18 01:20 Intake & Output 12/16/18 12/17/18 12/18/18 06:59 06:59 06:59 Intake Total 1989 3600 250 Output Total 5 3010 Balance 1984 590 250 Weight 58.6 kg 58.8 kg General appearance: PRESENT: cooperative, mild distress, well-developed Head exam: PRESENT: atraumatic, normocephalic Eye exam: PRESENT: conjunctiva pink. ABSENT: scleral icterus Ear exam: PRESENT: normal external ear exam. ABSENT: bleeding, drainage Mouth exam: PRESENT: moist, tongue midline Respiratory exam: PRESENT: clear to auscultation dmitri, symmetrical, unlabored. ABSENT: accessory muscle use, rales, rhonchi, tachypnea, wheezes Cardiovascular exam: PRESENT: RRR, +S1, +S2 Pulses: PRESENT: +1 pedal pulses bilateral GI/Abdominal exam: PRESENT: normal bowel sounds, soft. ABSENT: distended, guarding, tenderness Rectal exam: PRESENT: deferred Extremities exam: PRESENT: joint swelling - Right knee. ABSENT: full ROM, pedal edema Musculoskeletal exam: PRESENT: ambulatory - Limited. ABSENT: normal inspection Neurological exam: PRESENT: alert, awake, oriented to person, oriented to place, oriented to time, oriented to situation, CN II-XII grossly intact Psychiatric exam: PRESENT: appropriate affect. ABSENT: agitated, anxious Focused psych exam: ABSENT: delusional, restlessness Results Laboratory Results: 12/16/18 06:30 12/16/18 21:25 12/16/18 21:25 Creatinine 0.62 Est GFR ( Amer) > 60 12/07/18 17:50 Knee Fluid - Right Anaerobic Culture - Final 12/07/18 17:50 Knee Fluid - Right Anaerobic Culture Result 1 - Final 12/07/18 17:50 Knee Fluid - Right Aerobic Culture - Final 12/07/18 17:50 Knee Fluid - Right Aerobic Culture Result 1 - Final 12/07/18 17:50 Knee Fluid - Right - Final 12/07/18 17:50 Knee Fluid - Right Gram Stain - Final 12/07/18 17:50 Knee Fluid - Right Gram Stain Result 1 - Final 12/07/18 17:50 Knee Fluid - Right Gram Stain Result 2 - Final 12/07/18 17:50 Knee Fluid - Right Gram Stain Result 3 - Final Impressions: Knee X-Ray 12/05/18 00:00 IMPRESSION: 1. No definite acute osseous injury. 2. The knee appears to be fixed in partial flexion as the patient is unable to straighten the knee secondary to pain. Underlying ligamentous injury is not excluded. PICC Line Insertion 12/07/18 00:00 IMPRESSION: SUCCESSFUL PLACEMENT OF A 5 FR DUAL LUMEN 51 CM PICC IN THE LEFT BASILIC VEIN. Guidance Fluoroscopy 12/08/18 00:00 IMPRESSION: SUCCESSFUL PLACEMENT OF A 5 FR DUAL LUMEN 51 CM PICC IN THE LEFT BASILIC VEIN. Interventional Vascular Procedure 12/08/18 00:00 IMPRESSION: SUCCESSFUL PLACEMENT OF A 5 FR DUAL LUMEN 51 CM PICC IN THE LEFT BASILIC VEIN. Extremity Ultrasound 12/12/18 00:00 IMPRESSION: Edema. No abscess is identified. Lower Extremity MRI 12/15/18 00:00 IMPRESSION: Diffuse signal abnormality in the proximal tibial plateau and metaphysis with an area of cortical breakthrough in the lateral cortex seen best on image number 19 and 20 series 3 and 4. There is a contiguous fluid collecti on in the anterior muscular compartment lateral to the tibia which spans a craniocaudad length of 17 cm and 1.7 cm thickness. Small joint effusion. Edema in the popliteus muscle. These findings are concerning for osteomyelitis with soft tissue abscess. Surgical consultation recommended. Assessment and Plan - Diagnosis (1) Septic arthritis Qualifiers: Septic arthritis location: knee Septic arthritis organism: staphylococcal Laterality: right Qualified Code(s): M00.061 - Staphylococcal arthritis, right knee Is this a current diagnosis for this admission?: Yes Plan: 12/16/2018-unfortunately there is a new collection/abscess on the right leg lateral aspect below the knee. The patient will be going to the operating room again today. 12/17/2018-please also see Dr. tavera's operative note from yesterday. Large collection of pus removed from the right leg. Also the lateral margin of the tibial plateau was curetted and likely has osteomyelitis. The patient will need 6 weeks of antibiotic therapy. (2) Elevated C-reactive protein (CRP) Is this a current diagnosis for this admission?: Yes Plan: 12/16/2018-the C-reactive protein is improved but not as much as expected. The recurrence of abscess in the right leg does explain the slow trend towards normal. 12/17/2018-we will continue to monitor. After the surgery I expect it to begin to decrease faster than previous (3) Elevated erythrocyte sedimentation rate Is this a current diagnosis for this admission?: Yes Plan: 12/16/2018-as noted above the sed rate is also improved but not as close to normal as I would have expected. Recurrent abscess explains this. 12/17/2018-as above (4) Opioid dependence Is this a current diagnosis for this admission?: Yes Plan: 12/16/2018-continue current regimen of pain management 12/17/2018-pain management with Toradol. It is marginally effective. Because of history no opiate therapy. (5) Bacteremia due to methicillin resistant Staphylococcus aureus Is this a current diagnosis for this admission?: Yes Plan: 12/17/2018-bacteremia and osteomyelitis with methicillin-resistant staph aureus confirmed by culture. She will require 6 weeks of IV antibiotic therapy. Once the knee is stable, consider outpatient therapy with Zyvox. It is technically an off label use but has proven quite effective. - Plan Summary Summary: The patient has been admitted to the medical floor. She was placed on IV vancomycin, IV metronidazole, and p.o. Zyvox. Flagyl was discontinued today following final culture results; received 3 days of therapy. Original blood cultures (12/06/2018) show MRSA in 1 of 4 bottles. 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 Repeat blood cultures obtained today to confirm clearance. Right knee fluid cultures demonstrating MRSA. Both with numerous resistances, fortunately sensitive to Bactrim and vancomycin. Patient currently has a PICC line in place; given her history of IV drug use discharge to home for IV antibiotic therapy is not an option. Have consulted infectious disease to evaluate whether or not p.o. treatment with Zyvox alone is appropriate given her positive blood culture. Continuing Tylenol and Toradol as needed for discomfort. Nonpharmacological interventions for discomfort. Antiemetics as needed. Keep extremity elevated. Orthopedics is consulted; currently with a NYA drain in place. Appreciate their assistance in managing septic arthritis. Wound care, NYA drain, Bernardo wrap per their recommendations. UDS this admission was positive for multiple substances; confirmation testing pending. Have continued the patient's home dose Subutex. Avoiding all other opiate medications. NicoDerm patches as needed for nicotine withdrawal. Continue home dose Fioricet, gabapentin, and Zoloft. Heparin for DVT prophylaxis. 12/10/2018: When I saw that she had the MRSA bacteremia, I decided to get a transthoracic echocardiogram first, and if the views were not good enough she would need to be sent for a STEPHANIE. I discussed this with the patient and she was not excited about it. Infectious disease put in a note today and that was their recommendation as well. She has been switched back over to vancomycin for total of 2 weeks, and if the views of the TTE are good and endocarditis can be ruled out, then she can complete 2 additional weeks of p.o. Zyvox. If it shows that she has evidence of endocarditis, she would need at least 6 weeks of IV vancomycin. - Time Time Spent with patient: Less than 15 minutes Medications reviewed and adjusted accordingly: Yes Anticipated discharge: Home
[2018-12-17] MEDS: SERTRALINE HCL 50 MG TABLET PO SCH ×2 (09:45→10:04)
[2018-12-17] MEDS: FAMOTIDINE 20 MG TABLET PO SCH ×2 (09:45→22:31)
[2018-12-17] MEDS: BUTALB/ACETAMINOPHEN/CAFFEINE 1 TAB EACH PO PRN (10:03)
[2018-12-17] MEDS: NORMAL SALINE 10 ML SDV (SCHEDULED) IV SCH ×2 (10:09→22:35)
[2018-12-17 11:06] LABS: VANCOMYCIN,TROUGH 29.2 ug/mL (5.0-20.0)
[2018-12-17] MEDS: ACETAMINOPHEN 325 MG TABLET PO PRN (18:41)
[2018-12-17] MEDS: DOCUSATE SODIUM 100 MG CAPSULE PO PRN (18:42)
[2018-12-18] MEDS: BUPRENORPHINE HCL 2 MG SUBLINGUAL TABLET SL SCH ×2 (05:14→17:27)
[2018-12-18] MEDS: HEPARIN SOD (PORCINE) 5,000 UNIT/ML 1 ML VIAL SUBCUT SCH ×3 (05:15→22:23)
[2018-12-18] MEDS: GABAPENTIN 300 MG CAPSULE PO SCH ×3 (05:15→17:26)
[2018-12-18] MEDS: KETOROLAC TROMETHAMINE INJ/PF 30 MG/1 ML SDV IV PRN ×3 (05:31→17:35)
[2018-12-18 06:39] LABS: ABSOLUTE EOSINOPHILS # (AUTO) 0.2 10^3/uL (0.0-0.6); ABSOLUTE LYMPHOCYTES (AUTO) 1.4 10^3/uL (0.5-4.7); ABSOLUTE MONOCYTES (AUTO) 0.5 10^3/uL (0.1-1.4); ABSOLUTE NEUT (AUTO) 3.2 10^3/uL (1.7-8.2); BASOPHILS % (AUTO) 0.7 % (0-2); EOSINOPHILS % (AUTO) 3.9 % (0-6); HEMATOCRIT 26.5 % (36.0-47.0); HEMOGLOBIN 8.8 g/dL (12.0-15.5); LYMPHOCYTES % (AUTO) 26.2 % (13-45); MEAN CORPUSCULAR HEMOGLOBIN 27.2 pg (27.0-33.4); MEAN CORPUSCULAR HGB CONC 33.3 g/dL (32.0-36.0); MEAN CORPUSCULAR VOLUME 82 fl (80-97); MONOCYTES % (AUTO) 9.1 % (3-13); PLATELET COUNT 410 10^3/uL (150-450); RED BLOOD COUNT 3.25 10^6/uL (3.72-5.28); RED CELL DISTRIBUTION WIDTH 15.5 % (11.5-14.0); SEGMENTED NEUTROPHILS % (AUTO) 60.1 % (42-78); TOTAL CELLS COUNTED % (AUTO) 100 %; WHITE BLOOD COUNT 5.4 10^3/uL (4.0-10.5)
--- NOTE | 2018-12-18 06:39 | PDOC PROGRESS REPORT ---
Subjective Progress Note for:: 12/18/18 Reason For Visit: POSSIBLE SEPTIC ARTHRITIS 33-year-old white female status post I&D of a right lower extremity abscess/possible osteomyelitis. Patient concerned about frequency of antibiotic administration. Physical Exam Vital Signs: Temp Pulse Resp BP Pulse Ox 36.9 C 65 18 102/55 L 98 12/17/18 23:30 12/17/18 23:30 12/17/18 23:30 12/17/18 23:30 12/17/18 23:30 Intake & Output 12/16/18 12/17/18 12/18/18 06:59 06:59 06:59 Intake Total 1989 3600 980 Output Total 5 3010 Balance 1984 590 980 Weight 58.6 kg 58.8 kg 58.9 kg Physical Exam: Patient lying in bed comfortably resting with significant other. Right lower extremity elevated on a pillow. General appearance: PRESENT: no acute distress, mild distress Head exam: PRESENT: normocephalic Respiratory exam: PRESENT: unlabored Cardiovascular exam: PRESENT: RRR Vascular exam: PRESENT: normal capillary refill GI/Abdominal exam: PRESENT: soft Rectal exam: PRESENT: deferred Musculoskeletal exam: PRESENT: other - Right lower extremity elevated on a pillow. Drain in place. Continued bloody drainage that has not yet . Brisk capillary refill in the toes. Results Impressions: Knee X-Ray 12/05/18 00:00 IMPRESSION: 1. No definite acute osseous injury. 2. The knee appears to be fixed in partial flexion as the patient is unable to straighten the knee secondary to pain. Underlying ligamentous injury is not excluded. PICC Line Insertion 12/07/18 00:00 IMPRESSION: SUCCESSFUL PLACEMENT OF A 5 FR DUAL LUMEN 51 CM PICC IN THE LEFT BASILIC VEIN. Guidance Fluoroscopy 12/08/18 00:00 IMPRESSION: SUCCESSFUL PLACEMENT OF A 5 FR DUAL LUMEN 51 CM PICC IN THE LEFT BASILIC VEIN. Interventional Vascular Procedure 12/08/18 00:00 IMPRESSION: SUCCESSFUL PLACEMENT OF A 5 FR DUAL LUMEN 51 CM PICC IN THE LEFT BASILIC VEIN. Extremity Ultrasound 12/12/18 00:00 IMPRESSION: Edema. No abscess is identified. Lower Extremity MRI 12/15/18 00:00 IMPRESSION: Diffuse signal abnormality in the proximal tibial plateau and metaphysis with an area of cortical breakthrough in the lateral cortex seen best on image number 19 and 20 series 3 and 4. There is a contiguous fluid collection in the anterior muscular compartment lateral to the tibia which spans a craniocaudad length of 17 cm and 1.7 cm thickness. Small joint effusion. Edema in the popliteus muscle. These findings are concerning for osteomyelitis with soft tissue abscess. Surgical consultation recommended. Status: Imported from PACS Assessment & Plan - Diagnosis (1) Abscess of right lower extremity Is this a current diagnosis for this admission?: Yes Plan: Most recent cultures are growing gram-positive cocci in clusters consistent with previous cultures of MRSA. Tibial bone pathology is pending. - Time Time Spent with patient: 15-24 minutes Anticipated discharge: Other Within: Other
[2018-12-18 07:07] LABS: ALBUMIN 2.9 g/dL (3.5-5.0); ALKALINE PHOSPHATASE 90 U/L (38-126); ANION GAP 5 (5-19); ASPARTATE AMINO TRANSFERASE 18 U/L (14-36); BILIRUBIN,DIRECT 0.1 mg/dL (0.0-0.4); BILIRUBIN,TOTAL 0.3 mg/dL (0.2-1.3); BLOOD UREA NITROGEN 16 mg/dL (7-20); CALCIUM 9.2 mg/dL (8.4-10.2); CARBON DIOXIDE 32 mmol/L (22-30); CHLORIDE 100 mmol/L (98-107); GLUCOSE 87 mg/dL (75-110); POTASSIUM 4.8 mmol/L (3.6-5.0); TOTAL PROTEIN 7.3 g/dL (6.3-8.2)
[2018-12-18] MEDS: FAMOTIDINE 20 MG TABLET PO SCH ×2 (09:30→22:23)
[2018-12-18] MEDS: VANCOMYCIN HCL 750 MG in DEXTROSE 5%-WATER 250 ML IV SCH ×2 (09:33→17:26)
[2018-12-18] MEDS: BUTALB/ACETAMINOPHEN/CAFFEINE 1 TAB EACH PO PRN (09:33)
[2018-12-18] MEDS: SERTRALINE HCL 50 MG TABLET PO SCH (09:34)
[2018-12-18] MEDS: NORMAL SALINE 10 ML SDV (SCHEDULED) IV SCH ×2 (09:34→22:24)
--- NOTE | 2018-12-18 18:51 | PDOC PROGRESS REPORT ---
Subjective Progress Note for:: 12/18/18 Subjective:: CECY VALDERRAMA is a 33 year old female past medical history of anemia, IV drug abuse, hepatitis C, seizure, MRSA meningitis, DVT, depression, PTSD, resented to ED complaining of 3 to 4 days of right knee pain and swelling associated with fever chills nausea and significant pain. Patient was admitted to the hospital and orthopedic surgery was consulted. 12/18/2018. No acute events overnight. Complaining of right knee pain, and anxious about the fact that her vancomycin has not been given to her, patient was told that her trough was 29 and vancomycin was held for that reason, denies any fever, chills, nausea, vomiting, diarrhea, constipation or Reason For Visit: POSSIBLE SEPTIC ARTHRITIS Physical Exam Vital Signs: Temp Pulse Resp BP Pulse Ox 98.4 F 58 L 20 97/53 L 100 12/18/18 12:50 12/18/18 12:50 12/18/18 12:50 12/18/18 12:50 12/18/18 12:50 Intake & Output 12/17/18 12/18/18 12/19/18 06:59 06:59 06:59 Intake Total 3600 980 250 Output Total 3010 Balance 590 980 250 Weight 58.8 kg 58.9 kg General appearance: PRESENT: no acute distress, well-developed, well-nourished Head exam: PRESENT: atraumatic, normocephalic Respiratory exam: PRESENT: clear to auscultation dmitri. ABSENT: rales, rhonchi, wheezes Cardiovascular exam: PRESENT: RRR. ABSENT: diastolic murmur, rubs, systolic murmur GI/Abdominal exam: PRESENT: normal bowel sounds, soft. ABSENT: distended, guarding, mass, organolmegaly, rebound, tenderness Extremities exam: PRESENT: full ROM. ABSENT: calf tenderness, clubbing, pedal edema Neurological exam: PRESENT: alert, awake, oriented to person, oriented to place, oriented to time, oriented to situation, CN II-XII grossly intact. ABSENT: motor sensory deficit Results Laboratory Results: 12/18/18 05:25 12/18/18 05:25 12/18/18 12/18/18 05:25 05:25 WBC 5.4 RBC 3.25 L Hgb 8.8 L Hct 26.5 L MCV 82 MCH 27.2 MCHC 33.3 RDW 15.5 H Plt Count 410 Seg Neutrophils % 60.1 Sodium 137.3 Potassium 4.8 Chloride 100 Carbon Dioxide 32 H Anion Gap 5 BUN 16 Creatinine 0.66 Est GFR ( Amer) > 60 Glucose 87 Calcium 9.2 Magnesium 2.1 Total Bilirubin 0.3 AST 18 Alkaline Phosphatase 90 C-Reactive Protein 54.0 H Total Protein 7.3 Albumin 2.9 L Impressions: Knee X-Ray 12/05/18 00:00 IMPRESSION: 1. No definite acute osseous injury. 2. The knee appears to be fixed in partial flexion as the patient is unable to straighten the knee secondary to pain. Underlying ligamentous injury is not excluded. PICC Line Insertion 12/07/18 00:00 IMPRESSION: SUCCESSFUL PLACEMENT OF A 5 FR DUAL LUMEN 51 CM PICC IN THE LEFT BASILIC VEIN. Guidance Fluoroscopy 12/08/18 00:00 IMPRESSION: SUCCESSFUL PLACEMENT OF A 5 FR DUAL LUMEN 51 CM PICC IN THE LEFT BASILIC VEIN. Interventional Vascular Procedure 12/08/18 00:00 IMPRESSION: SUCCESSFUL PLACEMENT OF A 5 FR DUAL LUMEN 51 CM PICC IN THE LEFT BASILIC VEIN. Extremity Ultrasound 12/12/18 00:00 IMPRESSION: Edema. No abscess is identified. Lower Extremity MRI 12/15/18 00:00 IMPRESSION: Diffuse signal abnormality in the proximal tibial plateau and metaphysis with an area of cortical breakthrough in the lateral cortex seen best on image number 19 and 20 series 3 and 4. There is a contiguous fluid collection in the anterior muscular compartment lateral to the tibia which spans a craniocaudad length of 17 cm and 1.7 cm thickness. Small joint effusion. Edema in the popliteus muscle. These findings are concerning for osteomyelitis with soft tissue abscess. Surgical consultation recommended. Assessment and Plan - Diagnosis (1) Osteomyelitis Qualifiers: Osteomyelitis type: acute hematogenous Osteomyelitis location: tibia Laterality: right Qualified Code(s): M86.061 - Acute hematogenous osteomyelitis, right tibia and fibula Is this a current diagnosis for this admission?: Yes Plan: Likely contiguous infection due to MRSA septic arthritis of the right knee. This is based on MRI and operative impression. Pending bone biopsy results. 12/15/2018 MRI right lower extremity. Diffuse signal abnormality in the proximal tibial plateau and metaphysis with an area of cortical breakthrough in the lateral cortex contiguous fluid collection in the anterior muscular compartment lateral to the tibia. Edema in the popliteus muscle. Findings concerning for osteomyelitis VS tissue abscess. 12/06/2018 blood culture 1/2 positive for MRSA. 12/07/2018 right knee fluid culture 2/2 positive for MRSA. 12/07/2018 PICC line placed. 12/09/2018 blood cultures negative. 12/07/2018 arthroscopic irrigation and debridement of right knee. 12/16/2018 right lower extremity abscess culture positive for MRSA 12/16/2018 irrigation and debridement of right leg abscess with debridement of bone off the lateral tibia plateau bone biopsy. 12/10/2018 2D echo no definitive vegetation or endocarditis noted. LVEF 70%. Day 12 IV antibiotics. Received 3 days of IV metronidazole 500 mg every 6 hours Received 7 days of linezolid 600 mg p.o. twice daily Day 12 IV vancomycin. Was held for a day due to supratherapeutic trough. Pending biopsy results. Continue empiric IV antibiotics. We will consult ID to see if would be possible to send patient home on p.o. linezolid and duration of antibiotics. If could not be sent home on p.o. linezolid patient would be IV vancomycin but given history of continuous IV drug abuse patient would have to stay inpatient until completion of her IV antibiotics. (2) Septic arthritis Qualifiers: Septic arthritis location: knee Septic arthritis organism: staphylococcal Laterality: right Qualified Code(s): M00.061 - Staphylococcal arthritis, right knee Is this a current diagnosis for this admission?: Yes Plan: Septic arthritis of right knee due to MRSA. Likely due to continuous IV drug abuse. Urine toxicology positive for opiates and amphetamines on admission. 12/06/2018 MRI right knee. Marked patchy demineralization of the proximal tibia, joint effusion and ganglion cyst. 11/07/2018 underwent arthroscopic irrigation and debridement of right knee. 12/07/2018 for right knee fluid culture 2/2+ for MRSA. Day 12 IV antibiotics. Received 3 days of IV metronidazole 500 mg every 6 hours Received 7 days of linezolid 600 mg p.o. twice daily Day 12 IV vancomycin. Was held for a day due to supratherapeutic trough. (3) Bacteremia due to methicillin resistant Staphylococcus aureus Is this a current diagnosis for this admission?: Yes Plan: Meets 1 major and 3 minor Strickland's criteria. However no murmurs appreciated on auscultatory examination. No Janeway on Osler's nodes on physical examination. TTE negative for any endocarditis. 12/06/2018 blood culture 1/2 positive for MRSA. 12/07/2018 right knee fluid culture 2/2 positive for MRSA. 12/07/2018 PICC line placed. 12/09/2018 blood cultures negative. 12/07/2018 arthroscopic irrigation and debridement of right knee. 12/16/2018 right lower extremity abscess culture positive for MRSA 12/16/2018 irrigation and debridement of right leg abscess with debridement of bone off the lateral tibia plateau bone biopsy. 12/19/2018 drains removed 12/19/2018. 12/10/2018 2D echo no definitive vegetation or endocarditis noted. LVEF 70%. Day 12 IV antibiotics. Received 3 days of IV metronidazole 500 mg every 6 hours Received 7 days of linezolid 600 mg p.o. twice daily Day 12 IV vancomycin. Was held for a day due to supratherapeutic trough. Unlikely endocarditis but given the underlying osteomyelitis she will need prolonged IV antibiotics. Continue empiric IV antibiotics. We will consult ID to see if would be possible to send patient home on p.o. linezolid and duration of antibiotics. If could not be sent home on p.o. linezolid patient would be IV vancomycin but given history of continuous IV drug abuse patient would have to stay inpatient until completion of her IV antibiotics. (4) Abscess of right lower extremity Is this a current diagnosis for this admission?: Yes Plan: Likely contiguous infection due to MRSA septic arthritis of the right knee. Day 3 status post I&D. Drain in place. 12/15/2018 MRI right lower extremity. Diffuse signal abnormality in the proximal tibial plateau and metaphysis with an area of cortical breakthrough in the lateral cortex contiguous fluid collection in the anterior muscular compartment lateral to the tibia. Edema in the popliteus muscle. Findings concerning for osteomyelitis VS tissue abscess. 12/16/2018 right lower extremity abscess culture positive for MRSA 12/16/2018 irrigation and debridement of right leg abscess with debridement of bone off the lateral tibia plateau bone biopsy. Plan as per #1. (5) Opioid dependence Is this a current diagnosis for this admission?: Yes Plan: Continue Subutex. Outpatient PCP follow-up. Extensively counseled on abst inence IVDA.
[2018-12-19] MEDS: VANCOMYCIN HCL 750 MG in DEXTROSE 5%-WATER 250 ML IV SCH ×3 (01:47→17:45)
[2018-12-19] MEDS: KETOROLAC TROMETHAMINE INJ/PF 30 MG/1 ML SDV IV PRN ×3 (03:48→15:54)
[2018-12-19 06:06] LABS: ALBUMIN 2.9 g/dL (3.5-5.0); ALKALINE PHOSPHATASE 86 U/L (38-126); ANION GAP 9 (5-19); ASPARTATE AMINO TRANSFERASE 17 U/L (14-36); BILIRUBIN,DIRECT 0.1 mg/dL (0.0-0.4); BILIRUBIN,TOTAL 0.1 mg/dL (0.2-1.3); BLOOD UREA NITROGEN 24 mg/dL (7-20); CALCIUM 9.2 mg/dL (8.4-10.2); CARBON DIOXIDE 30 mmol/L (22-30); CHLORIDE 99 mmol/L (98-107); GLUCOSE 99 mg/dL (75-110); POTASSIUM 4.8 mmol/L (3.6-5.0); TOTAL PROTEIN 7.1 g/dL (6.3-8.2)
[2018-12-19 06:12] LABS: ABSOLUTE EOSINOPHILS # (AUTO) 0.2 10^3/uL (0.0-0.6); ABSOLUTE LYMPHOCYTES (AUTO) 1.5 10^3/uL (0.5-4.7); ABSOLUTE MONOCYTES (AUTO) 0.5 10^3/uL (0.1-1.4); ABSOLUTE NEUT (AUTO) 2.8 10^3/uL (1.7-8.2); BASOPHILS % (AUTO) 0.7 % (0-2); EOSINOPHILS % (AUTO) 3.9 % (0-6); HEMATOCRIT 26.1 % (36.0-47.0); HEMOGLOBIN 8.6 g/dL (12.0-15.5); LYMPHOCYTES % (AUTO) 29.8 % (13-45); MEAN CORPUSCULAR HEMOGLOBIN 26.8 pg (27.0-33.4); MEAN CORPUSCULAR HGB CONC 32.9 g/dL (32.0-36.0); MEAN CORPUSCULAR VOLUME 82 fl (80-97); MONOCYTES % (AUTO) 9.2 % (3-13); PLATELET COUNT 378 10^3/uL (150-450); RED CELL DISTRIBUTION WIDTH 15.5 % (11.5-14.0); SEGMENTED NEUTROPHILS % (AUTO) 56.4 % (42-78); TOTAL CELLS COUNTED % (AUTO) 100 %; WHITE BLOOD COUNT 4.9 10^3/uL (4.0-10.5)
[2018-12-19] MEDS: BUPRENORPHINE HCL 2 MG SUBLINGUAL TABLET SL SCH ×3 (06:13→17:45)
[2018-12-19] MEDS: GABAPENTIN 300 MG CAPSULE PO SCH ×3 (06:13→17:45)
[2018-12-19] MEDS: HEPARIN SOD (PORCINE) 5,000 UNIT/ML 1 ML VIAL SUBCUT SCH ×3 (06:14→22:33)
[2018-12-19] MEDS ORDERED: PHARMACY COMMUNICATION ORDER MC ONE (09:00)
[2018-12-19] MEDS: SERTRALINE HCL 50 MG TABLET PO SCH (09:50)
[2018-12-19] MEDS: BUTALB/ACETAMINOPHEN/CAFFEINE 1 TAB EACH PO PRN (09:53)
[2018-12-19] MEDS: NORMAL SALINE 10 ML SDV (SCHEDULED) IV SCH ×2 (09:54→22:34)
[2018-12-19] MEDS: FAMOTIDINE 20 MG TABLET PO SCH ×2 (09:54→22:33)
[2018-12-19 10:34] LABS: VANCOMYCIN,TROUGH 17.1 ug/mL (5.0-20.0)
--- NOTE | 2018-12-19 12:48 | PDOC PROGRESS REPORT ---
Subjective Progress Note for:: 12/19/18 Subjective:: CECY VALDERRAMA is a 33 year old female past medical history of anemia, IV drug abuse, hepatitis C, seizure, MRSA meningitis, DVT, depression, PTSD, resented to ED complaining of 3 to 4 days of right knee pain and swelling associated with fever chills nausea and significant pain. Patient was admitted to the hospital and orthopedic surgery was consulted. 12/18/2018. No acute events overnight. Complaining of right knee pain, and anxious about the fact that her vancomycin has not been given to her, patient was told that her trough was 29 and vancomycin was held for that reason, denies any fever, chills, nausea, vomiting, diarrhea, constipation or urinary symptoms. 12/19/2018. No acute events overnight, right lower extremity drain has been removed, still complaining of right knee pain, denies any fever, chills, nausea, vomiting, diarrhea, constipation or any urinary symptoms. P.o. tolerant, having normal bowel bladder movement, ambulatory. Reason For Visit: POSSIBLE SEPTIC ARTHRITIS Physical Exam Vital Signs: Temp Pulse Resp BP Pulse Ox 98.4 F 67 16 122/60 100 12/19/18 09:14 12/19/18 09:14 12/19/18 09:14 12/19/18 09:14 12/19/18 09:14 Intake & Output 12/18/18 12/19/18 12/20/18 06:59 06:59 06:59 Intake Total 980 1932 250 Balance 980 1932 250 Weight 58.9 kg 59 kg 59 kg General appearance: PRESENT: no acute distress, well-developed, well-nourished Respiratory exam: PRESENT: clear to auscultation dmitri. ABSENT: rales, rhonchi, wheezes Cardiovascular exam: PRESENT: RRR. ABSENT: diastolic murmur, rubs, systolic murmur GI/Abdominal exam: PRESENT: normal bowel sounds, soft. ABSENT: distended, guarding, mass, organolmegaly, rebound, tenderness Extremities exam: PRESENT: full ROM, tenderness, other - Neurovascularly intact. Right lower extremity drain in place. Surgical wounds look clean.. ABSENT: calf tenderness, clubbing, pedal edema Neurological exam: PRESENT: alert, awake, oriented to person, oriented to place, oriented to time, oriented to situation, CN II-XII grossly intact. ABSENT: motor sensory deficit Results Laboratory Results: 12/19/18 05:20 12/19/18 09:45 12/19/18 12/19/18 12/19/18 05:20 05:20 09:45 WBC 4.9 RBC 3.20 L Hgb 8.6 L Hct 26.1 L MCV 82 MCH 26.8 L MCHC 32.9 RDW 15.5 H Plt Count 378 Seg Neutrophils % 56.4 Sodium 138.4 Potassium 4.8 Chloride 99 Carbon Dioxide 30 Anion Gap 9 BUN 24 H Creatinine 0.96 0.77 Est GFR ( Amer) > 60 > 60 Glucose 99 Calcium 9.2 Magnesium 1.8 Total Bilirubin 0.1 L AST 17 Alkaline Phosphatase 86 Total Protein 7.1 Albumin 2.9 L 12/16/18 18:54 Leg - Right Gram Stain - Final 12/16/18 18:54 Leg - Right Gram Stain - Final Impressions: Knee X-Ray 12/05/18 00:00 IMPRESSION: 1. No definite acute osseous injury. 2. The knee appears to be fixed in partial flexion as the patient is unable to straighten the knee secondary to pain. Underlying ligamentous injury is not excluded. PICC Line Insertion 12/07/18 00:00 IMPRESSION: SUCCESSFUL PLACEMENT OF A 5 FR DUAL LUMEN 51 CM PICC IN THE LEFT BASILIC VEIN. Guidance Fluoroscopy 12/08/18 00:00 IMPRESSION: SUCCESSFUL PLACEMENT OF A 5 FR DUAL LUMEN 51 CM PICC IN THE LEFT BASILIC VEIN. Interventional Vascular Procedure 12/08/18 00:00 IMPRESSION: SUCCESSFUL PLACEMENT OF A 5 FR DUAL LUMEN 51 CM PICC IN THE LEFT BASILIC VEIN. Extremity Ultrasound 12/12/18 00:00 IMPRESSION: Edema. No abscess is identified. Lower Extremity MRI 12/15/18 00:00 IMPRESSION: Diffuse signal abnormality in the proximal tibial plateau and metaphysis with an area of cortical breakthrough in the lateral cortex seen best on image number 19 and 20 series 3 and 4. There is a contiguous fluid collection in the anterior muscular compartment lateral to the tibia which spans a craniocaudad length of 17 cm and 1.7 cm thickness. Small joint effusion. Edema in the popliteus muscle. These findings are concerning for osteomyelitis with soft tissue abscess. Surgical consultation recommended. Assessment and Plan - Diagnosis (1) Osteomyelitis Qualifiers: Osteomyelitis type: acute hematogenous Osteomyelitis location: tibia Laterality: right Qualified Code(s): M86.061 - Acute hematogenous osteomyelitis, right tibia and fibula Is this a current diagnosis for this admission?: Yes Plan: Likely contiguous infection due to MRSA septic arthritis of the right knee. This is based on MRI and operative impression. Pending bone biopsy results. 12/15/2018 MRI right lower extremity. Diffuse signal abnormality in the proximal tibial plateau and metaphysis with an area of cortical breakthrough in the lateral cortex contiguous fluid collection in the anterior muscular compartment lateral to the tibia. Edema in the popliteus muscle. Findings concerning for osteomyelitis VS tissue abscess. 12/06/2018 blood culture 1/2 positive for MRSA. 12/07/2018 right knee fluid culture 2/2 positive for MRSA. 12/07/2018 PICC line placed. 12/09/2018 blood cultures negative. 12/07/2018 arthroscopic irrigation and debridement of right knee. 12/16/2018 right lower extremity abscess culture positive for MRSA 12/16/2018 irrigation and debridement of right leg abscess with debridement of bone off the lateral tibia plateau bone biopsy. 12/19/2018 drains removed 12/19/2018. 12/10/2018 2D echo no definitive vegetation or endocarditis noted. LVEF 70%. Day 13 IV antibiotics. Received 3 days of IV metronidazole 500 mg every 6 hours Received 7 days of linezolid 600 mg p.o. twice daily Day 13 IV vancomycin. Was held for a day due to supratherapeutic trough. Pending biopsy results. Continue empiric IV antibiotics. We will consult ID to see if would be possible to send patient home on p.o. linezolid and duration of antibiotics. If could not be sent home on p.o. linezolid patient would be IV vancomycin but given history of continuous IV drug abuse patient would have to stay inpatient until completion of her IV antibiotics. (2) Septic arthritis Qualifiers: Septic arthritis location: knee Septic arthritis organism: staphylococcal Laterality: right Qualified Code(s): M00.061 - Staphylococcal arthritis, right knee Is this a current diagnosis for this admission?: Yes Plan: Septic arthritis of right knee due to MRSA. Likely due to continuous IV drug abuse. Urine toxicology positive for opiates and amphetamines on admission. 12/06/2018 MRI right knee. Marked patchy demineralization of the proximal tibia, joint effusion and ganglion cyst. 11/07/2018 underwent arthroscopic irrigation and debridement of right knee. 12/07/2018 for right knee fluid culture 2/2 positive for MRSA. Day 13 IV antibiotics. Received 3 days of IV metronidazole 500 mg every 6 hours Received 7 days of linezolid 600 mg p.o. twice daily Day 13 IV vancomycin. Was held for a day due to supratherapeutic trough. (3) Bacteremia due to methicillin resistant Staphylococcus aureus Is this a current diagnosis for this admission?: Yes Plan: Meets 1 major and 3 minor Strickland's criteria. However no murmurs appreciated on auscultatory examination. No Janeway on Osler's nodes on physical examination. TTE negative for any endocarditis. 12/06/2018 blood culture 1/2 positive for MRSA. 12/07/2018 right knee fluid culture 2/2 positive for MRSA. 12/07/2018 PICC line placed. 12/09/2018 blood cultures negative. 12/07/2018 arthroscopic irrigation and debridement of right knee. 12/16/2018 right lower extremity abscess culture positive for MRSA 12/16/2018 irrigation and debridement of right leg abscess with debridement of bone off the lateral tibia plateau bone biopsy. 12/19/2018 drains removed 12/19/2018. 12/10/2018 2D echo no definitive vegetation or endocarditis noted. LVEF 70%. Day 13 IV antibiotics. Received 3 days of IV metronidazole 500 mg every 6 hours Received 7 days of linezolid 600 mg p.o. twice daily Day 13 IV vancomycin. Was held for a day due to supratherapeutic trough. Unlikely endocarditis but given the underlying osteomyelitis she will need prolonged IV antibiotics. Continue empiric IV antibiotics. We will consult ID to see if would be possible to send patient home on p.o. linezolid and duration of antibiotics. If could not be sent home on p.o. linezolid patient would be IV vancomycin but given history of continuous IV drug abuse patient would have to stay inpatient until completion of her IV antibiotics. (4) Abscess of right lower extremity Is this a current diagnosis for this admission?: Yes Plan: Likely contiguous infection due to MRSA septic arthritis of the right knee. Day 3 status post I&D. Drain removed 12/19/2018. 12/15/2018 MRI right lower extremity. Diffuse signal abnormality in the proxim al tibial plateau and metaphysis with an area of cortical breakthrough in the lateral cortex contiguous fluid collection in the anterior muscular compartment lateral to the tibia. Edema in the popliteus muscle. Findings concerning for osteomyelitis VS tissue abscess. 12/16/2018 right lower extremity abscess culture positive for MRSA 12/16/2018 irrigation and debridement of right leg abscess with debridement of bone off the lateral tibia plateau bone biopsy. 12/19/2018 drains removed 12/19/2018. Plan as per #1. (5) Opioid dependence Is this a current diagnosis for this admission?: Yes Plan: Continue Subutex. Outpatient PCP follow-up. Extensively counseled on abstinence IVDA.
--- NOTE | 2018-12-19 15:50 | Progress Note ---
Provider Note Provider Note: ID Consult Note Asked to review patient's chart. Pt not seen or examined. Ms. Natalie Rosenberg is a 33 year old woman who was admitted to [facility] on 12/06/18. She has a history of IV drug use. She presented with c/o progressive pain and swelling x 3-4 days of her R knee associated with fever, chills and nausea, all occuring after a twisting injury to her knee when she stepped into a hole. On exam, no murmur was appreciated. Tmax was 100.4 F on 12/06. R knee was noted to have an effusion, palpable heat, and a small area of erythema along the lateral aspect, pain with any attempted range of motion, and tenderness on the joint line. Blood cultures on admission grew MRSA in one bottle; the other set had no growth. Plain films and MRI on 12/06/18 demonstrated an effusion involving the knee and marked patchy demineralization of the proximal tibia without any marrow edema. She underwent aspiration of the joint that yielded cloudy appearing fluid that also grew MRSA. Vancomycin was ordered empirically on 12/06/18 pending culture results. Repeat blood cultures on 12/09 showed no further growth of MRSA from the blood. Last fever was on 12/10. TTE from 12/10 showed no definitive vegetations or endocarditis noted. The patient had been improving slowly but then developed increasing redness and swelling along her lateral calf. Repeat MRI on 12/15/18 showed findings concerning for osteomyelitis with soft tissue abscess with diffuse signal abnormality in the proximal tibial plateau and metaphysis with an area of cortical breakthrough laterally and contiguous fluid collection in the anterior muscular compartment lateral to the tibia. She was taken to the OR on 12/16/18 for irrigation and debridement of R leg abscess with debridement of bone of the lateral tibial plateau with a biopsy taken at the area of the cortical defect there. The pathology report for this is pending, but the bone submitted for culture has growth of 2+ MRSA. The isolate is susceptible to vancomycin, linezolid, tetracyclines, and Bactrim, but resistant to clindamycin. ID input has been sought regarding choice and duration of antibiotics, specifically regarding whether or not it would be possible for the patient to be treated with PO linezolid at home. The patient has a sulfa allergy, precluding use of Bactrim . She also takes Zoloft 100 mg PO daily at home. Impression/Recommendations Pt has complicated MRSA bacteremia with R knee septic arthritis and tibial osteomyelitis. The standard of care treatment for complicated MRSA bacteremia involves at least 4 weeks of IV daptomycin or IV vancomycin. Although there have been recent trials that have involved use of PO antibiotics for endocarditis and oste oarticular infections in the [place] and [place], these studies have been notable for their limited number of IV drug users, MRSA infections, differences in accessibility to health care systems from the [place], and exclusion of patients in which compliance is suspect. I am not sure that Ms. Rosenberg is the type of patient that these trials represent and the generalizability of the study results to her is not assured. However, given her history of ongoing IV drug use and the history of prior PICC line abuse, discharge to home with a PICC line is not a safe plan. If the patient is unable or unwilling to remain an inpatient for completion of treatment with either IV daptomycin 500 mg daily or IV vancomycin (goal troughs of 15), then linezolid 600 mg BID PO represents the best oral option. There is a drug interaction with the patient's SSRI Zoloft. She should discontinue Zoloft while taking linezolid. If she insists upon remaining on Zoloft, then she would need to be educated on the risk for serotonin sydrome, educated regarding the signs and symptoms, and may need to be monitored for development of serotonin syndrome while initiating the two agents. Suggest weekly monitoring of CBC after the patient has been on linezolid for >2 weeks given the risk of cytopenias developing. If she develops intolerance to linezolid late in her treatment course (e.g. with 1-2 weeks remaining), PO doxycycline 100 mg BID would be a reasonable alternative as an outpatient. Other PO options are limited by the patient's reported sulfa allergy and the isolate being resistant to clindamycin. Recommend treating the patient for at least 6 weeks; anticipate continuing until 01/27/19 as long as she is able to tolerate treatment without difficulty. Phu Hunter MD [facility] Infectious Diseases pager [phone]
--- NOTE | 2018-12-19 16:22 | PDOC PROGRESS REPORT ---
Subjective Subjective:: Patient lying in bed. Continues to have pain in the right lower extremity. Patient states pain has notably improved in her leg. Denies numbness or tingling. Reason For Visit: POSSIBLE SEPTIC ARTHRITIS Physical Exam Vital Signs: Temp Pulse Resp BP Pulse Ox 98.3 F 61 20 118/56 L 100 12/19/18 13:52 12/19/18 13:52 12/19/18 13:52 12/19/18 13:52 12/19/18 13:52 Intake & Output 12/18/18 12/19/18 12/20/18 06:59 06:59 06:59 Intake Total 980 1932 250 Balance 980 1932 250 Weight 58.9 kg 59 kg 59 kg Musculoskeletal exam: PRESENT: other - Right lower extremity: Drain removed today. Previous erythema and swelling notably improved. Intact plantarflexion/dorsiflexion. No sensory deficits. No posterior calf tenderness. Results Laboratory Results: 12/19/18 05:20 12/19/18 09:45 12/19/18 12/19/18 12/19/18 05:20 05:20 09:45 WBC 4.9 RBC 3.20 L Hgb 8.6 L Hct 26.1 L MCV 82 MCH 26.8 L MCHC 32.9 RDW 15.5 H Plt Count 378 Seg Neutrophils % 56.4 Sodium 138.4 Potassium 4.8 Chloride 99 Carbon Dioxide 30 Anion Gap 9 BUN 24 H Creatinine 0.96 0.77 Est GFR ( Amer) > 60 > 60 Glucose 99 Calcium 9.2 Magnesium 1.8 Total Bilirubin 0.1 L AST 17 Alkaline Phosphatase 86 Total Protein 7.1 Albumin 2.9 L 12/16/18 18:54 Leg - Right Gram Stain - Final 12/16/18 18:54 Leg - Right Gram Stain - Final Impressions: Knee X-Ray 12/05/18 00:00 IMPRESSION: 1. No definite acute osseous injury. 2. The knee appears to be fixed in partial flexion as the patient is unable to straighten the knee secondary to pain. Underlying ligamentous injury is not excluded. PICC Line Insertion 12/07/18 00:00 IMPRESSION: SUCCESSFUL PLACEMENT OF A 5 FR DUAL LUMEN 51 CM PICC IN THE LEFT BASILIC VEIN. Guidance Fluoroscopy 12/08/18 00:00 IMPRESSION: SUCCESSFUL PLACEMENT OF A 5 FR DUAL LUMEN 51 CM PICC IN THE LEFT BASILIC VEIN. Interventional Vascular Procedure 12/08/18 00:00 IMPRESSION: SUCCESSFUL PLACEMENT OF A 5 FR DUAL LUMEN 51 CM PICC IN THE LEFT BASILIC VEIN. Extremity Ultrasound 12/12/18 00:00 IMPRESSION: Edema. No abscess is identified. Lower Extremity MRI 12/15/18 00:00 IMPRESSION: Diffuse signal abnormality in the proximal tibial plateau and metaphysis with an area of cortical breakthrough in the lateral cortex seen best on image number 19 and 20 series 3 and 4. There is a contiguous fluid collection in the anterior muscular compartment lateral to the tibia which spans a craniocaudad length of 17 cm and 1.7 cm thickness. Small joint effusion. Edema in the popliteus muscle. These findings are concerning for osteomyelitis with soft tissue abscess. Surgical consultation recommended. Assessment & Plan - Diagnosis (1) Knee effusion, right Is this a current diagnosis for this admission?: Yes Plan: Postop day #2 status post irrigation debridement right leg abscess, lateral tibial plateau Continue IV antibiotics patient may require long-term IV antibiotics given the severity of her infection and involvement of the tibial plateau. Likely not a good candidate for p.o. antibiotics due to limited studies. At this point she will continue physical therapy and weightbearing as tolerated. - Time Time Spent with patient: Less than 15 minutes
[2018-12-20] MEDS: VANCOMYCIN HCL 750 MG in DEXTROSE 5%-WATER 250 ML IV SCH ×3 (01:54→18:42)
[2018-12-20] MEDS: HEPARIN SOD (PORCINE) 5,000 UNIT/ML 1 ML VIAL SUBCUT SCH ×4 (05:13→22:52)
[2018-12-20] MEDS: GABAPENTIN 300 MG CAPSULE PO SCH ×3 (05:13→18:29)
[2018-12-20] MEDS: BUPRENORPHINE HCL 2 MG SUBLINGUAL TABLET SL SCH ×3 (05:14→18:29)
[2018-12-20] MEDS: KETOROLAC TROMETHAMINE INJ/PF 30 MG/1 ML SDV IV PRN ×3 (06:06→18:30)
[2018-12-20 06:26] LABS: ABSOLUTE BASOPHILS # (AUTO) 0.1 10^3/uL (0.0-0.2); ABSOLUTE EOSINOPHILS # (AUTO) 0.2 10^3/uL (0.0-0.6); ABSOLUTE LYMPHOCYTES (AUTO) 1.5 10^3/uL (0.5-4.7); ABSOLUTE MONOCYTES (AUTO) 0.5 10^3/uL (0.1-1.4); ABSOLUTE NEUT (AUTO) 3.1 10^3/uL (1.7-8.2); EOSINOPHILS % (AUTO) 3.9 % (0-6); HEMOGLOBIN 9.1 g/dL (12.0-15.5); MEAN CORPUSCULAR HEMOGLOBIN 26.7 pg (27.0-33.4); MEAN CORPUSCULAR HGB CONC 32.6 g/dL (32.0-36.0); MEAN CORPUSCULAR VOLUME 82 fl (80-97); MONOCYTES % (AUTO) 8.9 % (3-13); PLATELET COUNT 426 10^3/uL (150-450); RED BLOOD COUNT 3.41 10^6/uL (3.72-5.28); RED CELL DISTRIBUTION WIDTH 15.5 % (11.5-14.0); SEGMENTED NEUTROPHILS % (AUTO) 57.2 % (42-78); TOTAL CELLS COUNTED % (AUTO) 100 %; WHITE BLOOD COUNT 5.3 10^3/uL (4.0-10.5)
[2018-12-20 06:51] LABS: ALBUMIN 3.2 g/dL (3.5-5.0); ALKALINE PHOSPHATASE 99 U/L (38-126); ANION GAP 9 (5-19); ASPARTATE AMINO TRANSFERASE 17 U/L (14-36); BILIRUBIN,DIRECT 0.2 mg/dL (0.0-0.4); BILIRUBIN,TOTAL 0.2 mg/dL (0.2-1.3); BLOOD UREA NITROGEN 17 mg/dL (7-20); C-REACTIVE PROTEIN 43.5 mg/L (<10.0); CALCIUM 9.7 mg/dL (8.4-10.2); CARBON DIOXIDE 31 mmol/L (22-30); CHLORIDE 98 mmol/L (98-107); GLUCOSE 87 mg/dL (75-110); POTASSIUM 5.7 mmol/L (3.6-5.0); TOTAL PROTEIN 8.2 g/dL (6.3-8.2)
[2018-12-20] MEDS ORDERED: CALCIUM GLUCONATE 1000 MG/10 ML INJ IV ONE (08:18)
[2018-12-20 08:23] LABS: ERYTHROCYTE SEDIMENTATION RATE 112 mm/hr (0-20)
[2018-12-20] MEDS: SERTRALINE HCL 50 MG TABLET PO SCH ×2 (09:53→10:22)
[2018-12-20] MEDS: FAMOTIDINE 20 MG TABLET PO SCH ×2 (09:53→22:53)
[2018-12-20] MEDS: DOCUSATE SODIUM 100 MG CAPSULE PO PRN (09:53)
--- NOTE | 2018-12-20 12:17 | PDOC PROGRESS REPORT ---
Subjective Progress Note for:: 12/20/18 Subjective:: CECY ROSENBERG is a 33 year old female past medical history of anemia, IV drug abuse, hepatitis C, seizure, MRSA meningitis, DVT, depression, PTSD, resented to ED complaining of 3 to 4 days of right knee pain and swelling associated with fever chills nausea and significant pain. Patient was admitted to the hospital and orthopedic surgery was consulted. 12/18/2018. No acute events overnight. Complaining of right knee pain, and anxious about the fact that her vancomycin has not been given to her, patient was told that her trough was 29 and vancomycin was held for that reason, denies any fever, chills, nausea, vomiting, diarrhea, constipation or urinary symptoms. 12/19/2018. No acute events overnight, right lower extremity drain has been removed, still complaining of right knee pain, denies any fever, chills, nausea, vomiting, diarrhea, constipation or any urinary symptoms. P.o. tolerant, having normal bowel bladder movement, ambulatory. 12/20/2018. No acute events overnight. Right lower extremity pain has improved, denies any fever, chills, nausea, vomiting, diarrhea, constipation or any urinary symptoms. Patient is ready to be discharged home however Ortho has not signed off. We have contacted Dr. Fernando as Dr. Pinto is not available today he has stated that he will sign off until Dr. Rubi has seen the patient. Reason For Visit: POSSIBLE SEPTIC ARTHRITIS Physical Exam Vital Signs: Temp Pulse Resp BP Pulse Ox 98.0 F 51 L 15 104/50 L 100 12/20/18 09:30 12/20/18 09:30 12/20/18 09:30 12/20/18 09:30 12/20/18 09:30 Intake & Output 12/19/18 12/20/18 12/21/18 06:59 06:59 06:59 Intake Total 1931 1452 Balance 1931 1452 Weight 59 kg 60.7 kg General appearance: PRESENT: no acute distress, well-developed, well-nourished Head exam: PRESENT: atraumatic, normocephalic Eye exam: PRESENT: conjunctiva pink, EOMI, PERRLA. ABSENT: scleral icterus Ear exam: PRESENT: normal external ear exam Mouth exam: PRESENT: moist, tongue midline Neck exam: ABSENT: carotid bruit, JVD, lymphadenopathy, thyromegaly Respiratory exam: PRESENT: clear to auscultation dmitri. ABSENT: rales, rhonchi, wheezes Cardiovascular exam: PRESENT: RRR. ABSENT: diastolic murmur, rubs, systolic murmur Pulses: PRESENT: normal dorsalis pedis pul Vascular exam: PRESENT: normal capillary refill GI/Abdominal exam: PRESENT: normal bowel sounds, soft. ABSENT: distended, guarding, mass, organolmegaly, rebound, tenderness Rectal exam: PRESENT: deferred Extremities exam: PRESENT: full ROM. ABSENT: calf tenderness, clubbing, pedal edema Musculoskeletal exam: PRESENT: tenderness - H&H., other - Right knee and lateral lower extremity sutures look clean, no discharge, no erythema, no tenderness. Neurological exam: PRESENT: alert, awake, oriented to person, oriented to place, oriented to time, oriented to situation, CN II-XII grossly intact. ABSENT: motor sensory deficit Psychiatric exam: PRESENT: appropriate affect, normal mood. ABSENT: homicidal ideation, suicidal ideation Skin exam: PRESENT: dry, intact, warm. ABSENT: cyanosis, rash Results Laboratory Results: 12/20/18 05:34 12/20/18 05:34 12/20/18 12/20/18 05:34 05:34 WBC 5.3 RBC 3.41 L Hgb 9.1 L Hct 28.0 L MCV 82 MCH 26.7 L MCHC 32.6 RDW 15.5 H Plt Count 426 Seg Neutrophils % 57.2 Sodium 137.8 Potassium 5.7 H Chloride 98 Carbon Dioxide 31 H Anion Gap 9 BUN 17 Creatinine 0.82 Est GFR ( Amer) > 60 Glucose 87 Calcium 9.7 Total Bilirubin 0.2 AST 17 Alkaline Phosphatase 99 C-Reactive Protein 43.5 H Total Protein 8.2 Albumin 3.2 L 12/16/18 18:54 Leg - Right Gram Stain - Final 12/16/18 18:54 Leg - Right Gram Stain - Final Impressions: Knee X-Ray 12/05/18 00:00 IMPRESSION: 1. No definite acute osseous injury. 2. The knee appears to be fixed in partial flexion as the patient is unable to straighten the knee secondary to pain. Underlying ligamentous injury is not excluded. PICC Line Insertion 12/07/18 00:00 IMPRESSION: SUCCESSFUL PLACEMENT OF A 5 FR DUAL LUMEN 51 CM PICC IN THE LEFT BASILIC VEIN. Guidance Fluoroscopy 12/08/18 00:00 IMPRESSION: SUCCESSFUL PLACEMENT OF A 5 FR DUAL LUMEN 51 CM PICC IN THE LEFT BASILIC VEIN. Interventional Vascular Procedure 12/08/18 00:00 IMPRESSION: SUCCESSFUL PLACEMENT OF A 5 FR DUAL LUMEN 51 CM PICC IN THE LEFT BASILIC VEIN. Extremity Ultrasound 12/12/18 00:00 IMPRESSION: Edema. No abscess is identified. Lower Extremity MRI 12/15/18 00:00 IMPRESSION: Diffuse signal abnormality in the proximal tibial plateau and met aphysis with an area of cortical breakthrough in the lateral cortex seen best on image number 19 and 20 series 3 and 4. There is a contiguous fluid collection in the anterior muscular compartment lateral to the tibia which spans a craniocaudad length of 17 cm and 1.7 cm thickness. Small joint effusion. Edema in the popliteus muscle. These findings are concerning for osteomyelitis with soft tissue abscess. Surgical consultation recommended. Assessment and Plan - Diagnosis (1) Osteomyelitis Qualifiers: Osteomyelitis type: acute hematogenous Osteomyelitis location: tibia Laterality: right Qualified Code(s): M86.061 - Acute hematogenous osteomyelitis, right tibia and fibula Is this a current diagnosis for this admission?: Yes Plan: Likely contiguous infection due to MRSA septic arthritis of the right knee. This is based on MRI and operative impression. Pending bone biopsy results. 12/15/2018 MRI right lower extremity. Diffuse signal abnormality in the proxi mal tibial plateau and metaphysis with an area of cortical breakthrough in the lateral cortex contiguous fluid collection in the anterior muscular compartment lateral to the tibia. Edema in the popliteus muscle. Findings concerning for osteomyelitis VS tissue abscess. 12/06/2018 blood culture 1/2 positive for MRSA. 12/07/2018 right knee fluid culture 2/2 positive for MRSA. 12/07/2018 PICC line placed. 12/09/2018 blood cultures negative. 12/07/2018 arthroscopic irrigation and debridement of right knee. 12/16/2018 right lower extremity abscess culture positive for MRSA 12/16/2018 irrigation and debridement of right leg abscess with debridement of bone off the lateral tibia plateau bone biopsy. 12/19/2018 drains removed 12/19/2018. 12/10/2018 2D echo no definitive vegetation or endocarditis noted. LVEF 70%. Patient prefers to be placed on Zyvox and discharged home however I had concern if that would be appropriate therefore I consulted infectious disease specialist. Recommendations are as follows: "The standard of care treatment for complicated MRSA bacteremia involves at least 4 weeks of IV daptomycin or IV vancomycin. Although there have been recent trials that have involved use of PO antibiotics for endocarditis and osteoarticular infections in the [place] and [place], these studies have been notable for their limited number of IV drug users, MRSA infections, differences in accessibility to health care systems from the [place], and exclusion of patients in which compliance is suspect. I am not sure that Ms. Rosenberg is the type of patient that these trials represent and the generalizability of the study results to her is not assured. However, given her history of ongoing IV drug use and the history of prior PICC line abuse, discharge to home with a PICC line is not a safe plan. If the patient is unable or unwilling to remain an inpatient for completion of treatment with either IV daptomycin 500 mg daily or IV vancomycin (goal troughs of 15), then linezolid 600 mg BID PO represents the best oral option. There is a drug interaction with the patient's SSRI Zoloft. She should discontinue Zoloft while taking linezolid. If she insists upon remaining on Zoloft, then she would need to be educated on the risk for serotonin sydrome, educated regarding the signs and symptoms, and may need to be monitored for development of serotonin syndrome while initiating the two agents. Suggest weekly monitoring of CBC after the patient has been on linezolid for >2 weeks given the risk of cytopenias developing. If she develops intolerance to linezolid late in her treatment course (e.g. with 1-2 weeks remaining), PO doxycycline 100 mg BID would be a reasonable alternative as an outpatient. Other PO options are limited by the patient's reported sulfa allergy and the isolate being resistant to clindamycin. Recommend treating the patient for at least 6 weeks; anticipate continuing until 01/27/19 as long as she is able to tolerate treatment without difficulty." I have relayed this information to the patient and she would like to be discharged home on p.o. antibiotics however orthopedic surgery has not signed off on her and we would have to wait until the sign off. Day 14 IV antibiotics. Received 3 days of IV metronidazole 500 mg every 6 hours Received 8 days of linezolid 600 mg p.o. twice daily Day 14 IV vancomycin. Was held for a day due to supratherapeutic trough. Pending biopsy results. Continue empiric IV antibiotics. Follow-up Ortho recommendations. (2) Septic arthritis Qualifiers: Septic arthritis location: knee Septic arthritis organism: staphylococcal Laterality: right Qualified Code(s): M00.061 - Staphylococcal arthritis, right knee Is this a current diagnosis for this admission?: Yes Plan: Septic arthritis of right knee due to MRSA. Likely due to continuous IV drug abuse. Urine toxicology positive for opiates and amphetamines on admission. 12/06/2018 MRI right knee. Marked patchy demineralization of the proximal tibia, joint effusion and ganglion cyst. 11/07/2018 underwent arthroscopic irrigation and debridement of right knee. 12/07/2018 for right knee fluid culture 2/2 positive for MRSA. Day 14 IV antibiotics. Received 3 days of IV metronidazole 500 mg every 6 hours Received 8 days of linezolid 600 mg p.o. twice daily Day 14 IV vancomycin. Was held for a day due to supratherapeutic trough. (3) Bacteremia due to methicillin resistant Staphylococcus aureus Is this a current diagnosis for this admission?: Yes Plan: Meets 1 major and 3 minor Strickland's criteria. However no murmurs appreciated on auscultatory examination. No Janeway on Osler's nodes on physical examination. TTE negative for any endocarditis. 12/06/2018 blood culture 1/2 positive for MRSA. 12/07/2018 right knee fluid culture 2/2 positive for MRSA. 12/07/2018 PICC line placed. 12/09/2018 blood cultures negative. 12/07/2018 arthroscopic irrigation and debridement of right knee. 12/16/2018 right lower extremity abscess culture positive for MRSA 12/16/2018 irrigation and debridement of right leg abscess with debridement of bone off the lateral tibia plateau bone biopsy. 12/19/2018 drains removed 12/19/2018. 12/10/2018 2D echo no definitive vegetation or endocarditis noted. LVEF 70%. Day 143 IV antibiotics. Received 3 days of IV metronidazole 500 mg every 6 hours Received 8 days of linezolid 600 mg p.o. twice daily Day 14 IV vancomycin. Was held for a day due to supratherapeutic trough. Unlikely endocarditis but given the underlying osteomyelitis she will need prolonged IV antibiotics. Plan as per #1 (4) Abscess of right lower extremity Is this a current diagnosis for this admission?: Yes Plan: Likely contiguous infection due to MRSA septic arthritis of the right knee. Day 3 status post I&D. Drain removed 12/19/2018. 12/15/2018 MRI right lower extremity. Diffuse signal abnormality in the proximal tibial plateau and metaphysis with an area of cortical breakthrough in the lateral cortex contiguous fluid collection in the anterior muscular compartment lateral to the tibia. Edema in the popliteus muscle. Findings concerning for osteomyelitis VS tissue abscess. 12/16/2018 right lower extremity abscess culture positive for MRSA 12/16/2018 irrigation and debridement of right leg abscess with debridement of bone off the lateral tibia plateau bone biopsy. 12/19/2018 drains removed 12/19/2018. Plan as per #1. (5) Opioid dependence Is this a current diagnosis for this admission?: Yes Plan: Continue Subutex. Outpatient PCP follow-up. Extensively counseled on abstinence IVDA.
[2018-12-20] MEDS: BUTALB/ACETAMINOPHEN/CAFFEINE 1 TAB EACH PO PRN ×2 (12:57→23:08)
[2018-12-20] MEDS: NORMAL SALINE 10 ML SDV (SCHEDULED) IV SCH ×2 (13:03→22:53)
[2018-12-21] MEDS: VANCOMYCIN HCL 750 MG in DEXTROSE 5%-WATER 250 ML IV SCH ×3 (02:22→17:16)
[2018-12-21] MEDS: HEPARIN SOD (PORCINE) 5,000 UNIT/ML 1 ML VIAL SUBCUT SCH ×3 (05:13→21:54)
[2018-12-21] MEDS: BUPRENORPHINE HCL 2 MG SUBLINGUAL TABLET SL SCH ×3 (05:14→17:20)
[2018-12-21] MEDS: GABAPENTIN 300 MG CAPSULE PO SCH ×3 (05:14→17:16)
[2018-12-21] MEDS: KETOROLAC TROMETHAMINE INJ/PF 30 MG/1 ML SDV IV PRN ×3 (06:01→20:43)
[2018-12-21] MEDS: BUTALB/ACETAMINOPHEN/CAFFEINE 1 TAB EACH PO PRN ×2 (08:39→20:42)
[2018-12-21] MEDS: FAMOTIDINE 20 MG TABLET PO SCH ×2 (10:00→21:54)
[2018-12-21] MEDS: NORMAL SALINE 10 ML SDV (SCHEDULED) IV SCH ×2 (10:00→21:54)
[2018-12-21] MEDS: DOCUSATE SODIUM 100 MG CAPSULE PO PRN ×2 (10:00→17:16)
--- NOTE | 2018-12-21 14:25 | PDOC PROGRESS REPORT ---
Subjective Progress Note for:: 12/21/18 Subjective:: CECY ROSENBERG is a 33 year old female past medical history of anemia, IV drug abuse, hepatitis C, seizure, MRSA meningitis, DVT, depression, PTSD, resented to ED complaining of 3 to 4 days of right knee pain and swelling associated with fever chills nausea and significant pain. Patient was admitted to the hospital and orthopedic surgery was consulted. 12/18/2018. No acute events overnight. Complaining of right knee pain, and anxious about the fact that her vancomycin has not been given to her, patient was told that her trough was 29 and vancomycin was held for that reason, denies any fever, chills, nausea, vomiting, diarrhea, constipation or urinary symptoms. 12/19/2018. No acute events overnight, right lower extremity drain has been removed, still complaining of right knee pain, denies any fever, chills, nausea, vomiting, diarrhea, constipation or any urinary symptoms. P.o. tolerant, having normal bowel bladder movement, ambulatory. 12/20/2018. No acute events overnight. Right lower extremity pain has improved, denies any fever, chills, nausea, vomiting, diarrhea, constipation or any urinary symptoms. Patient is ready to be discharged home however Ortho has not signed off. We have contacted Dr. Fernando as Dr. Handley is not available today he has stated that he will sign off until Dr. Paredes has seen the patient. 12/21/2018. No acute events overnight. Patient very anxious to leave however Ortho has not signed off. Denies any fever, chills, nausea, vomiting, diarrhea, constipation or any urinary symptoms. Reason For Visit: POSSIBLE SEPTIC ARTHRITIS Physical Exam Vital Signs: Temp Pulse Resp BP Pulse Ox 97.6 F 63 17 109/57 L 100 12/21/18 12:00 12/21/18 12:00 12/21/18 12:00 12/21/18 12:00 12/21/18 12:00 Intake & Output 12/20/18 12/21/18 12/22/18 06:59 06:59 06:59 Intake Total 1452 1630 475 Balance 1452 1630 475 Weight 60.7 kg 58.7 kg General appearance: PRESENT: no acute distress, well-developed, well-nourished Head exam: PRESENT: atraumatic, normocephalic Eye exam: PRESENT: conjunctiva pink, EOMI, PERRLA. ABSENT: scleral icterus Ear exam: PRESENT: normal external ear exam Mouth exam: PRESENT: moist, tongue midline Neck exam: ABSENT: carotid bruit, JVD, lymphadenopathy, thyromegaly Respiratory exam: PRESENT: clear to auscultation dmitri. ABSENT: rales, rhonchi, wheezes Cardiovascular exam: PRESENT: RRR. ABSENT: diastolic murmur, rubs, systolic murmur Pulses: PRESENT: normal dorsalis pedis pul Vascular exam: PRESENT: normal capillary refill GI/Abdominal exam: PRESENT: normal bowel sounds, soft. ABSENT: distended, guarding, mass, organolmegaly, rebound, tenderness Rectal exam: PRESENT: deferred Extremities exam: PRESENT: full ROM. ABSENT: calf tenderness, clubbing, pedal edema Musculoskeletal exam: PRESENT: other - right knee surgical wound looks clean. Neurological exam: PRESENT: alert, awake, oriented to person, oriented to place, oriented to time, oriented to situation, CN II-XII grossly intact. ABSENT: motor sensory deficit Psychiatric exam: PRESENT: appropriate affect, normal mood. ABSENT: homicidal ideation, suicidal ideation Skin exam: PRESENT: dry, intact, warm. ABSENT: cyanosis, rash Results Laboratory Results: 12/20/18 05:34 12/20/18 18:20 12/20/18 18:20 Potassium 5.2 H 12/16/18 18:54 Leg - Right Gram Stain - Final 12/16/18 18:54 Leg - Right Wound Culture - Final Mrsa (Meth Resis Staph Aureus) No Anaerobic Organisms 12/16/18 18:54 Leg - Right Gram Stain - Final 12/16/18 18:54 Leg - Right Wound Culture - Final Mrsa (Meth Resis Staph Aureus) No Anaerobic Organisms Impressions: Knee X-Ray 12/05/18 00:00 IMPRESSION: 1. No definite acute osseous injury. 2. The knee appears to be fixed in partial flexion as the patient is unable to straighten the knee secondary to pain. Underlying ligamentous injury is not excluded. PICC Line Insertion 12/07/18 00:00 IMPRESSION: SUCCESSFUL PLACEMENT OF A 5 FR DUAL LUMEN 51 CM PICC IN THE LEFT BASILIC VEIN. Guidance Fluoroscopy 12/08/18 00:00 IMPRESSION: SUCCESSFUL PLACEMENT OF A 5 FR DUAL LUMEN 51 CM PICC IN THE LEFT BASILIC VEIN. Interventional Vascular Procedure 12/08/18 00:00 IMPRESSION: SUCCESSFUL PLACEMENT OF A 5 FR DUAL LUMEN 51 CM PICC IN THE LEFT BASILIC VEIN. Extremity Ultrasound 12/12/18 00:00 IMPRESSION: Edema. No abscess is identified. Lower Extremity MRI 12/15/18 00:00 IMPRESSION: Diffuse signal abnormality in the proximal tibial plateau and metaphysis with an area of cortical breakthrough in the lateral cortex seen best on image number 19 and 20 series 3 and 4. There is a contiguous fluid collection in the anterior muscular compartment lateral to the tibia which spans a craniocaudad length of 17 cm and 1.7 cm thickness. Small joint effusion. Edema in the popliteus muscle. These findings are concerning for osteomyelitis with soft tissue abscess. Surgical consultation recommended. Assessment and Plan - Diagnosis (1) Osteomyelitis Qualifiers: Osteomyelitis type: acute hematogenous Osteomyelitis location: tibia Laterality: right Qualified Code(s): M86.061 - Acute hematogenous osteomy elitis, right tibia and fibula Is this a current diagnosis for this admission?: Yes Plan: Likely contiguous infection due to MRSA septic arthritis of the right knee. This is based on MRI and operative impression. Pending bone biopsy results. 12/15/2018 MRI right lower extremity. Diffuse signal abnormality in the proximal tibial plateau and metaphysis with an area of cortical breakthrough in the lateral cortex contiguous fluid collection in the anterior muscular compartment lateral to the tibia. Edema in the popliteus muscle. Findings concerning for osteomyelitis VS tissue abscess. 12/06/2018 blood culture 1/2 positive for MRSA. 12/07/2018 right knee fluid culture 2/2 positive for MRSA. 12/07/2018 PICC line placed. 12/09/2018 blood cultures negative. 12/07/2018 arthroscopic irrigation and debridement of right knee. 12/16/2018 right lower extremity abscess culture positive for MRSA 12/16/2018 irrigation and debridement of right leg abscess with debridement of bone off the lateral tibia plateau bone biopsy. 12/19/2018 drains removed 12/19/2018. 12/10/2018 2D echo no definitive vegetation or endocarditis noted. LVEF 70%. Patient prefers to be placed on Zyvox and discharged home however I had concern if that would be appropriate therefore I consulted infectious disease specialist. Recommendations are as follows: "The standard of care treatment for complicated MRSA bacteremia involves at least 4 weeks of IV daptomycin or IV vancomycin. Although there have been recent trials that have involved use of PO antibiotics for endocarditis and osteoarticular infections in the [place] and [place], these studies have been notable for their limited number of IV drug users, MRSA infections, differences in accessibility to health care systems from the [place], and exclusion of patients in which compliance is suspect. I am not sure that Ms. Rosenberg is the type of patient that these trials represent and the generalizability of the study results to her is not assured. However, given her history of ongoing IV drug use and the history of prior PICC line abuse, discharge to home with a PICC line is not a safe plan. If the patient is unable or unwilling to remain an inpatient for completion of treatment with either IV daptomycin 500 mg daily or IV vancomycin (goal troughs of 15), then linezolid 600 mg BID PO represents the best oral option. There is a drug interaction with the patient's SSRI Zoloft. She should discontinue Zoloft while taking linezolid. If she insists upon remaining on Zoloft, then she would need to be educated on the risk for serotonin sydrome, educated regarding the signs and symptoms, and may need to be monitored for development of serotonin syndrome while initiating the two agents. Suggest weekly monitoring of CBC after the patient has been on linezolid for >2 weeks given the risk of cytopenias developing. If she develops intolerance to linezolid late in her treatment course (e.g. with 1-2 weeks remaining), PO doxycycline 100 mg BID would be a reasonable alternative as an outpatient. Other PO options are limited by the patient's reported sulfa allergy and the isolate being resistant to clindamycin. Recommend treating the patient for at least 6 weeks; anticipate continuing until 01/27/19 as long as she is able to tolerate treatment without difficulty." I have relayed this information to the patient and she would like to be discharged home on p.o. antibiotics however orthopedic surgery has not signed off on her and we would have to wait until the sign off. Day 15 IV antibiotics. Received 3 days of IV metronidazole 500 mg every 6 hours Received 8 days of linezolid 600 mg p.o. twice daily Day 15 IV vancomycin. Was held for a day due to supratherapeutic trough. Pending biopsy results. Continue empiric IV antibiotics. Follow-up Ortho recommendations. (2) Septic arthritis Qualifiers: Septic arthritis location: knee Septic arthritis organism: staphylococcal Laterality: right Qualified Code(s): M00.061 - Staphylococcal arthritis, right knee Is this a current diagnosis for this admission?: Yes Plan: Septic arthritis of right knee due to MRSA. Likely due to continuous IV drug abuse. Urine toxicology positive for opiates and amphetamines on admission. 12/06/2018 MRI right knee. Marked patchy demineralization of the proximal tibia, joint effusion and ganglion cyst. 11/07/2018 underwent arthroscopic irrigation and debridement of right knee. 12/07/2018 for right knee fluid culture 2/2 positive for MRSA. Day 15 IV antibiotics. Received 3 days of IV metronidazole 500 mg every 6 hours Received 8 days of linezolid 600 mg p.o. twice daily Day 15 IV vancomycin. Was held for a day due to supratherapeutic trough. (3) Bacteremia due to methicillin resistant Staphylococcus aureus Is this a current diagnosis for this admission?: Yes Plan: Meets 1 major and 3 minor Strickland's criteria. However no murmurs appreciated on auscultatory examination. No Janeway on Osler's nodes on physical examination. TTE negative for any endocarditis. 12/06/2018 blood culture 1/2 positive for MRSA. 12/07/2018 right knee fluid culture 2/2 positive for MRSA. 12/07/2018 PICC line placed. 12/09/2018 blood cultures negative. 12/07/2018 arthroscopic irrigation and debridement of right knee. 12/16/2018 right lower extremity abscess culture positive for MRSA 12/16/2018 irrigation and debridement of right leg abscess with debridement of bone off the lateral tibia plateau bone biopsy. 12/19/2018 drains removed 12/19/2018. 12/10/2018 2D echo no definitive vegetation or endocarditis noted. LVEF 70%. Day 15 IV antibiotics. Received 3 days of IV metronidazole 500 mg every 6 hours Received 8 days of linezolid 600 mg p.o. twice daily Day 15 IV vancomycin. Was held for a day due to supratherapeutic trough. Unlikely endocarditis but given the underlying osteomyelitis she will need prolonged IV antibiotics. Plan as per #1 (4) Abscess of right lower extremity Is this a current diagnosis for this admission?: Yes Plan: Likely contiguous infection due to MRSA septic arthritis of the right knee. Day 3 status post I&D. Drain removed 12/19/2018. 12/15/2018 MRI right lower extremity. Diffuse signal abnormality in the proximal tibial plateau and metaphysis with an area of cortical breakthrough in the lateral cortex contiguous fluid collection in the anterior muscular compartment lateral to the tibia. Edema in the popliteus muscle. Findings conc erning for osteomyelitis VS tissue abscess. 12/16/2018 right lower extremity abscess culture positive for MRSA 12/16/2018 irrigation and debridement of right leg abscess with debridement of bone off the lateral tibia plateau bone biopsy. 12/19/2018 drains removed 12/19/2018. Plan as per #1. (5) Opioid dependence Is this a current diagnosis for this admission?: Yes Plan: Continue Subutex. Outpatient PCP follow-up. Extensively counseled on abstinence IVDA.
[2018-12-21] MEDS ORDERED: SODIUM POLYSTYRENE SULFONATE 15 GM/60 ML PO ONE (16:30)
[2018-12-22] MEDS: VANCOMYCIN HCL 750 MG in DEXTROSE 5%-WATER 250 ML IV SCH ×2 (02:29→10:18)
[2018-12-22] MEDS: BUPRENORPHINE HCL 2 MG SUBLINGUAL TABLET SL SCH ×2 (05:43→12:05)
[2018-12-22] MEDS: GABAPENTIN 300 MG CAPSULE PO SCH ×2 (05:43→12:05)
[2018-12-22] MEDS: BUTALB/ACETAMINOPHEN/CAFFEINE 1 TAB EACH PO PRN (05:49)
[2018-12-22] MEDS: HEPARIN SOD (PORCINE) 5,000 UNIT/ML 1 ML VIAL SUBCUT SCH (05:50)
[2018-12-22 09:43] LABS: VANCOMYCIN,TROUGH 23.2 ug/mL (5.0-20.0)
[2018-12-22] MEDS: FAMOTIDINE 20 MG TABLET PO SCH (10:18)
[2018-12-22] MEDS: NORMAL SALINE 10 ML SDV (SCHEDULED) IV SCH (10:18)
--- NOTE | 2018-12-22 12:14 | PDOC PROGRESS REPORT ---
Subjective Progress Note for:: 12/22/18 Subjective:: Patient lying in bed. Continues to have pain in the right lower extremity. Patient states pain has notably improved in her leg. Denies numbness or tingling. Has been able to weight-bear more regularly. Reason For Visit: POSSIBLE SEPTIC ARTHRITIS Physical Exam Vital Signs: Temp Pulse Resp BP Pulse Ox 98.5 F 59 L 16 118/69 100 12/22/18 12:00 12/22/18 12:00 12/22/18 12:00 12/22/18 12:00 12/22/18 12:00 Intake & Output 12/21/18 12/22/18 12/23/18 06:59 06:59 06:59 Intake Total 1630 1335 490 Balance 1630 1335 490 Weight 58.7 kg 58.7 kg Musculoskeletal exam: PRESENT: other - Left lower extremity: Surgical incision well approximated mild ecchymosis on the proximal incision. Serosanguineous drainage no purulent drainage. Knee range of motion 20 degrees - 90 degrees. Full plantarflexion/dorsiflexion. No sensory deficits. Compartments soft and compressible no sign of compartment syndrome. Results Laboratory Results: 12/20/18 05:34 12/22/18 09:05 12/22/18 12/22/18 05:45 09:05 Potassium 4.9 Creatinine 0.73 Est GFR ( Amer) > 60 Impressions: Knee X-Ray 12/05/18 00:00 IMPRESSION: 1. No definite acute osseous injury. 2. The knee appears to be fixed in partial flexion as the patient is unable to straighten the knee secondary to pain. Underlying ligamentous injury is not excluded. PICC Line Insertion 12/07/18 00:00 IMPRESSION: SUCCESSFUL PLACEMENT OF A 5 FR DUAL LUMEN 51 CM PICC IN THE LEFT BASILIC VEIN. Guidance Fluoroscopy 12/08/18 00:00 IMPRESSION: SUCCESSFUL PLACEMENT OF A 5 FR DUAL LUMEN 51 CM PICC IN THE LEFT BASILIC VEIN. Interventional Vascular Procedure 12/08/18 00:00 IMPRESSION: SUCCESSFUL PLACEMENT OF A 5 FR DUAL LUMEN 51 CM PICC IN THE LEFT BASILIC VEIN. Extremity Ultrasound 12/12/18 00:00 IMPRESSION: Edema. No abscess is identified. Lower Extremity MRI 12/15/18 00:00 IMPRESSION: Diffuse signal abnormality in the proximal tibial plateau and metaphysis with an area of cortical breakthrough in the lateral cortex seen best on image number 19 and 20 series 3 and 4. There is a contiguous fluid nancy ection in the anterior muscular compartment lateral to the tibia which spans a craniocaudad length of 17 cm and 1.7 cm thickness. Small joint effusion. Edema in the popliteus muscle. These findings are concerning for osteomyelitis with soft tissue abscess. Surgical consultation recommended. Assessment & Plan - Diagnosis (1) Knee effusion, right Is this a current diagnosis for this admission?: Yes Plan: Postop day #2 status post irrigation debridement right leg abscess, lateral ti bial plateau Patient progressing appropriately. CRP has now begun to normalize. Unfortunately given the involvement of her lateral tibial plateau she would be better off with IV antibiotics but given her history she is unable to be discharged with a PICC line and refused full inpatient stay for 6 weeks thus alternative is p.o. Zyvox which may be not is therapeutic as per infectious disease. But at this point patient is orthopedically stable for discharge to home with follow-up with me in 2 weeks. - Time Time Spent with patient: Less than 15 minutes
[2018-12-22 12:30] VITALS: BP 110/53
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
== END 2018-12-22 13:22 | disposition home or self-care (01) | DRG 478 ==
LOC: ER 22:44 → EH 12-06 14:24 → 5 12-06 15:18
PROVIDERS: ADMIT Hospitalist; ATTEND Hospitalist
PROC: 0SBD4ZZ Excision of Left Knee Joint, Percutaneous Endoscopic Approach (ICD-10-PCS; 2018-12-07)
PROC: 02HV33Z Insertion of Infusion Device into Superior Vena Cava, Percutaneous Approach (ICD-10-PCS; 2018-12-08)
PROC: B518ZZA Fluoroscopy of Superior Vena Cava, Guidance (ICD-10-PCS; 2018-12-08)
PROC: B548ZZA Ultrasonography of Superior Vena Cava, Guidance (ICD-10-PCS; 2018-12-08)
PROC: 0QBH0ZX Excision of Left Tibia, Open Approach, Diagnostic (ICD-10-PCS; principal; 2018-12-17)
DX: M00.062 Staphylococcal arthritis, left knee (principal); F11.20 Opioid dependence, uncomplicated; R78.81 Bacteremia; M86.9 Osteomyelitis, unspecified; L02.416 Cutaneous abscess of left lower limb; B95.62 Methicillin resistant Staphylococcus aureus infection as the cause of diseases classified elsewhere; F17.200 Nicotine dependence, unspecified, uncomplicated; B19.20 Unspecified viral hepatitis C without hepatic coma; F43.10 Post-traumatic stress disorder, unspecified; Z82.49 Family history of ischemic heart disease and other diseases of the circulatory system; Z88.2 Allergy status to sulfonamides; Z91.040 Latex allergy status; Z86.718 Personal history of other venous thrombosis and embolism
CPT/HCPCS: 01392; 01400; 36415; 36569; 76882; 76937; 77001; 80048; 80053; 80076; 80202; 80307; 80345; 80361; 81001; 81025; 82565; 83735; 84132; 85025; 85027; 85652; 86140; 87015; 87040; 87070; 87075; 87077; 87101; 87116; 87186; 87205; 87206; 88305; 88311; 89050; 89060; 93005; 93010; 93306; 93970; 96372; 96374; 96375; 99285; C1769; G0480; J0571; J0610; J1170; J1642; J1644; J1885; J2250; J2270; J2405; J2704; J3010; J3370; J3490; J7030; J7060; L1830

== ENCOUNTER 2019-06-10 13:53 | Emergency (ER) | payer MEDICAID ==
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
[2019-06-10 14:20] LABS: ABSOLUTE EOSINOPHILS # (AUTO) 0.1 10^3/uL (0.0-0.6); ABSOLUTE LYMPHOCYTES (AUTO) 1.1 10^3/uL (0.5-4.7); ABSOLUTE MONOCYTES (AUTO) 0.3 10^3/uL (0.1-1.4); ABSOLUTE NEUT (AUTO) 2.9 10^3/uL (1.7-8.2); BASOPHILS % (AUTO) 0.8 % (0-2); EOSINOPHILS % (AUTO) 1.8 % (0-6); HEMATOCRIT 29.9 % (36.0-47.0); HEMOGLOBIN 10.1 g/dL (12.0-15.5); LYMPHOCYTES % (AUTO) 25.7 % (13-45); MEAN CORPUSCULAR HEMOGLOBIN 25.5 pg (27.0-33.4); MEAN CORPUSCULAR HGB CONC 33.7 g/dL (32.0-36.0); MEAN CORPUSCULAR VOLUME 76 fl (80-97); MONOCYTES % (AUTO) 6.1 % (3-13); PLATELET COUNT 220 10^3/uL (150-450); RED BLOOD COUNT 3.94 10^6/uL (3.72-5.28); SEGMENTED NEUTROPHILS % (AUTO) 65.6 % (42-78); TOTAL CELLS COUNTED % (AUTO) 100 %; WHITE BLOOD COUNT 4.4 10^3/uL (4.0-10.5)
[2019-06-10] MEDS: NORMAL SALINE 1000 ML 1,000 ML IV PRN ×2 (14:25→15:30)
[2019-06-10 14:41] LABS: ALBUMIN 3.3 g/dL (3.5-5.0); ALKALINE PHOSPHATASE 83 U/L (38-126); ANION GAP 9 (5-19); ASPARTATE AMINO TRANSFERASE 33 U/L (14-36); BILIRUBIN,DIRECT 0.2 mg/dL (0.0-0.4); BILIRUBIN,TOTAL 0.3 mg/dL (0.2-1.3); BLOOD UREA NITROGEN 16 mg/dL (7-20); CALCIUM 8.2 mg/dL (8.4-10.2); CARBON DIOXIDE 22 mmol/L (22-30); CHLORIDE 108 mmol/L (98-107); GLUCOSE 86 mg/dL (75-110); POTASSIUM 3.8 mmol/L (3.6-5.0); TOTAL PROTEIN 6.9 g/dL (6.3-8.2)
[2019-06-10] MEDS ORDERED: NALOXONE HCL INJ/PF 0.4 MG/1 ML SDV IV ONE (15:15)
[2019-06-10] MEDS ORDERED: FLUMAZENIL INJ 0.5 MG/5 ML VIAL IV ONE (15:15)
[2019-06-10 15:29] LABS: ARTERIAL BLOOD BASE EXCESS -2.5 mmol/L; ARTERIAL BLOOD H2CO3 1.41 mmol/L (1.05-1.35); ARTERIAL BLOOD HCO3 23.7 mmol/L (20-24); ARTERIAL BLOOD O2 SATURATION 55.5 % (94-98); ARTERIAL BLOOD PCO2 46.9 mmHg (35-45); ARTERIAL BLOOD PH 7.32 (7.35-7.45); ARTERIAL BLOOD TOTAL CO2 25.1 mmol/L (21-25)
[2019-06-10 15:30] LABS: ARTERIAL BLOOD FIO2 ROOM AIR
[2019-06-10] MEDS: RINGERS SOLUTION,LACTATED 1,000 ML IV PRN ×2 (15:30→16:35)
[2019-06-10 15:34] LABS: ARTERIAL BLOOD PO2 31.7 mmHg (80-100)
[2019-06-10 16:13] LABS: ACETAMINOPHEN < 10 ug/mL (10-30); SALICYLATE < 1.0 mg/dL (2.0-20.0)
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
[2019-06-10 20:10] LABS: APPEARANCE,URINE SLIGHTLY-CLOUDY; BILIRUBIN,URINE NEGATIVE (NEGATIVE); COLOR,URINE YELLOW; GLUCOSE, URINE NEGATIVE (NEGATIVE); KETONES,URINE NEGATIVE (NEGATIVE); LEUKOCYTE ESTERASE,URINE NEGATIVE (NEGATIVE); NITRITE,URINE NEGATIVE (NEGATIVE); PROTEIN,URINE NEGATIVE (NEGATIVE); URINE SPECIFIC GRAVITY 1.026; UROBILINOGEN,URINE NEGATIVE mg/dL (<2.0)
[2019-06-10 20:24] LABS: URINE COCAINE SCREEN NEGATIVE; URINE MARIJUANA (THC) SCREEN NEGATIVE; URINE METHADONE SCREEN NEGATIVE; URINE PHENCYCLIDINE SCREEN NEGATIVE
[2019-06-10 20:46] LABS: URINE BENZODIAZEPINES SCREEN UNCONFIRMED POSITIVE
[2019-06-10 20:47] LABS: URINE BARBITURATES SCREEN UNCONFIRMED POSITIVE
--- NOTE | 2019-06-10 21:50 | EKG REPORT ---
SEVERITY:- ABNORMAL ECG - SINUS RHYTHM BIATRIAL ABNORMALITIES : Confirmed by: Almaz Escamilla MD 10-Jun-2019 21:49:34
[2019-06-10] MEDS ORDERED: HALOPERIDOL LACTATE INJ 5 MG/1 ML VIAL IM ONE (22:32)
[2019-06-10] MEDS ORDERED: DIPHENHYDRAMINE HCL 50 MG/ML VIAL IM ONE (22:32)
[2019-06-10] MEDS ORDERED: DIPHENHYDRAMINE HCL 50 MG/ML VIAL IV ONE (22:33)
[2019-06-10] MEDS ORDERED: HALOPERIDOL LACTATE INJ 5 MG/1 ML VIAL IV ONE (22:33)
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
[2019-06-11] MEDS ORDERED: OLANZAPINE 5 MG TAB.RAPDIS PO ONE (03:04)
[2019-06-11] MEDS ORDERED: KETOROLAC TROMETHAMINE INJ/PF 30 MG/1 ML SDV IV ONE (03:05)
[2019-06-11 06:24] LABS: ACETAMINOPHEN < 10 ug/mL (10-30); SALICYLATE < 1.0 mg/dL (2.0-20.0)
--- NOTE | 2019-06-11 08:43 | EKG REPORT ---
SEVERITY:- BORDERLINE ECG - SINUS BRADYCARDIA BORDERLINE T ABNORMALITIES, ANT-LAT LEADS : Confirmed by: Almaz Escamilla MD 11-Jun-2019 08:43:16
[2019-06-11] MEDS ORDERED: HALOPERIDOL LACTATE INJ 5 MG/1 ML VIAL IM ONE (11:38)
[2019-06-11] MEDS ORDERED: DIPHENHYDRAMINE HCL 50 MG/ML VIAL IV ONE (11:39)
--- NOTE | 2019-06-11 14:55 | PSYCHOLOGICAL NOTE ---
<CACHORRO GOODRICH - Last Filed: 06/11/19 21:49> Psych Note - Psych Note Date seen by psych provider: 06/11/19 Time seen by psych provider: 12:30 Psych Note: Reason for Consult; overdose Patient is currently in soft restraints. She has been unpredictable last night and this morning. She is able to engage in an organized and linear conversation with clinician and states she would like help with detox and continued substance abuse treatment. She reports she did not take gabapentin last night she took phenobarbital because "I felt like crap." She denied this was in an attempt to harm herself. This is the first conversation the patient is able to demonstrate appropriate behaviour and responses. Patient does demonstrate confusion at times since evaluation; frequently calling for the nurse and asking for help not realizing she is no longer in restraints. Behavioral health team received collateral from patient's father; please see mental health note Impression/Plan: Patient is recommended for continued IVC. She currently denies she intentional overdosed with intent to harm; however, she is still demonstrating difficulties with cognitive processes. She has been unpredictable through the morning and continues to demonstrate the inability to keep herself or others from harm due to her mood liability and physical reactions. Dr. Moscoso was consulted on the care and management of this patient; attending physician is in agreement with recommendations and disposition. <MARI GARCIA - Last Filed: 06/12/19 12:30> Doctor's Note Notes: 06/12/19 12:29 Pt is resting with no acute medical issue. We are awaiting psychiatric placement.
[2019-06-11] MEDS ORDERED: IBUPROFEN 600 MG TABLET PO ONE (23:34)
--- NOTE | 2019-06-12 08:27 | ER Document Report ---
Doctor's Note Notes: 06/12/19 08:26 Pt seen this am. Resting and alert and appropriate. Currently IVCed and awaiting placement.
--- NOTE | 2019-06-12 21:19 | PSYCHOLOGICAL NOTE ---
Psych Note - Psych Note Date seen by psych provider: 06/12/19 Time seen by psych provider: 12:00 Psych Note: Check in conducted with patient. Patient states she took 3-4 phenobarbital; however denied she was attempting suicide. Patient reports experiencing withdrawal symptoms. Patient is alert and oriented to person, place, time and circumstance. Mood is normal with congruent affect. Patient denies suicidal and homicidal ideations. Delusions are absent and behavior is congruent with an intact reality based presentation (i.e., organized and linear through processes). There is no observed behavior that suggests patient is responding to internal stimuli. Sera ent is able to engage in organized, rational thought processes. Patient is able to express needs and wants in a logical manner. Patient denies current auditory and visual hallucinations. Eye contact is appropriate. Conversational speech is within normal rate, tone, and prosody. Intellectual ability appears to be within average range. Attention and concentration are good. Insight, judgment and impu lse control are currently poor. Impression/Plan: Patient is recommended for continued IVC. Patient initially arrived to ED with a aggressive demeanor and required chemical and physical restraints. The following day patient was observed to be experiencing cognitive difficulties emotional lability and unpredictable behaviors suggesting she is a harm to self and others. And has a significant history of substance abuse, to include IV heroin abuse. Patient also has a history of misuse of prescription medication. Patient continues to minimize and deflect, exhibits limited coping skills, and has limited insight and judgment regarding her current circumstance and danger of her pattern of substance abuse. Patient was accepted by [facility] for admittance tomorrow. Patient was denied by other inpatient facilities due to concerns for withdrawals and other medical concerns. Dr. Moscoso was consulted on the care and management of this patient; attending physician is in agreement with recommendations and disposition.
[2019-06-13] MEDS ORDERED: SILVER SULFADIAZINE 1% CREAM 50 GM TP ONE (11:36)
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
[2019-06-13 18:39] VITALS: BP 117/62
== END 2019-06-13 18:40 | disposition home or self-care (01) ==
LOC: ER 13:53
DX: F19.10 Other psychoactive substance abuse, uncomplicated (principal); T50.904A Poisoning by unspecified drugs, medicaments and biological substances, undetermined, initial encounter; X58.XXXA Exposure to other specified factors, initial encounter; R41.82 Altered mental status, unspecified; F11.29 Opioid dependence with unspecified opioid-induced disorder; Z91.040 Latex allergy status; Z88.2 Allergy status to sulfonamides; Z86.14 Personal history of Methicillin resistant Staphylococcus aureus infection; Z86.19 Personal history of other infectious and parasitic diseases; Z78.1 Physical restraint status
CPT/HCPCS: 93005; 96376; 99285; 96361; 96374; 96375; 36415; 87040; 82803; 80307 ×3; 84703; 85025; 80053; 81001; 84484; 80345; 93010; G0480; J3490 ×3; J1200 ×2; J1630 ×2; J1885; J7030; J7120

== ENCOUNTER → 2019-09-25 | Outpatient (CLI) | payer MEDICAID | LOC: OD 14:14 | PROVIDERS: ATTEND Midwife | DX: Z34.81 Encounter for supervision of other normal pregnancy, first trimester (principal) ==

== ENCOUNTER → 2019-09-29 | Outpatient (CLI) | payer MEDICAID ==
[2019-09-30 08:37] LABS: HEPATITIS C VIRUS AB >11.0 s/co ratio (0.0-0.9)
[2019-09-30 21:05] LABS: VARICELLA ZOSTER IGG AB 1012 index (Immune >16)
== END ==
LOC: OCH 13:16
PROVIDERS: ATTEND Midwife
DX: Z34.81 Encounter for supervision of other normal pregnancy, first trimester (principal)
CPT/HCPCS: 36415; 86787; 86803; 86804

== ENCOUNTER → 2019-10-20 | Outpatient (CLI) | payer MEDICAID ==
[2019-10-20 16:51] LABS: ABSOLUTE EOSINOPHILS # (AUTO) 0.1 10^3/uL (0.0-0.6); ABSOLUTE LYMPHOCYTES (AUTO) 1.4 10^3/uL (0.5-4.7); ABSOLUTE MONOCYTES (AUTO) 0.3 10^3/uL (0.1-1.4); ABSOLUTE NEUT (AUTO) 2.9 10^3/uL (1.7-8.2); BASOPHILS % (AUTO) 0.5 % (0-2); EOSINOPHILS % (AUTO) 1.1 % (0-6); HEMATOCRIT 39.4 % (36.0-47.0); HEMOGLOBIN 13.3 g/dL (12.0-15.5); LYMPHOCYTES % (AUTO) 30.2 % (13-45); MEAN CORPUSCULAR HEMOGLOBIN 27.7 pg (27.0-33.4); MEAN CORPUSCULAR HGB CONC 33.7 g/dL (32.0-36.0); MEAN CORPUSCULAR VOLUME 82 fl (80-97); MONOCYTES % (AUTO) 6.4 % (3-13); PLATELET COUNT 201 10^3/uL (150-450); RED BLOOD COUNT 4.79 10^6/uL (3.72-5.28); RED CELL DISTRIBUTION WIDTH 16.5 % (11.5-14.0); SEGMENTED NEUTROPHILS % (AUTO) 61.8 % (42-78); TOTAL CELLS COUNTED % (AUTO) 100 %; WHITE BLOOD COUNT 4.6 10^3/uL (4.0-10.5)
== END ==
LOC: OD 14:32
PROVIDERS: ATTEND Midwife
DX: Z34.81 Encounter for supervision of other normal pregnancy, first trimester (principal)
CPT/HCPCS: 36415; 85025; 86850; 86900; 86901; 87522

== ENCOUNTER → 2019-11-17 | Outpatient (CLI) | payer MEDICAID | LOC: OCH 09:06 | PROVIDERS: ATTEND Midwife | DX: Z34.82 Encounter for supervision of other normal pregnancy, second trimester (principal) | CPT/HCPCS: 36415 ==

== ENCOUNTER → 2019-12-09 | Outpatient (CLI) | payer MEDICAID | LOC: OD 08:52 | PROVIDERS: ATTEND Obstetrics & Gynecology | DX: O09.522 Supervision of elderly multigravida, second trimester (principal); Z13.29 Encounter for screening for other suspected endocrine disorder | CPT/HCPCS: 36415; 83020; 84443; 87086 ==

== ENCOUNTER → 2020-03-11 | Outpatient (CLI) | payer MEDICAID | LOC: OD 07:44 | PROVIDERS: ATTEND Specialist | DX: O09.523 Supervision of elderly multigravida, third trimester (principal); Z11.3 Encounter for screening for infections with a predominantly sexual mode of transmission; Z11.4 Encounter for screening for human immunodeficiency virus [HIV]; Z11.59 Encounter for screening for other viral diseases | CPT/HCPCS: 36415; 86592; 86701 ==

== ENCOUNTER 2020-03-28 10:25 | Outpatient (CLI) | payer MEDICAID ==
--- NOTE | 2020-03-28 11:17 | Non Stress Test Report ---
Non Stress Test Datetime Report Generated by CPN: 03/28/2020 11:17 DEMOGRAPHIC Test Number: 1 EGA NST: 35.4 INDICATION Indication for Study (NST) Other: Non reactive NST URINE RESULTS Urine Blood - NST: Positive MONITORING Monitor Explained: Monitor Explained; Test Explained; Patient Verbalized Understanding Time on Monitor: 03/28/2020 10:37 Time off Monitor: 03/28/2020 11:06 NST Duration: 29 NST INTERVENTIONS NST Interventions: PO Hydration Physician Notified NST: n irwin cnm BABY A: [id number] BABY A Movement : Present Contraction Frequency : None FHR Baseline : 125 Accelerations : 15X15 Decelerations : None Variability : Moderate 6-25bpm NST Review: Meets Criteria for Reactive NST NST Review and Verified By : Nikolay joyce RN NST Results: Reactive NST REPORT Report Trigger: Send Report
== END 2020-03-28 11:07 | disposition home or self-care (01) ==
LOC: LC 10:25
PROVIDERS: ATTEND Obstetrics & Gynecology
DX: Z34.93 Encounter for supervision of normal pregnancy, unspecified, third trimester (principal)